=== PATIENT | female | born 1990 | race Two or more races ===

== ENCOUNTER 2020-08-18 10:56 | Outpatient (REF) | payer MEDICAID, SELFPAY | END 2020-08-18 10:57 | disposition home or self-care (01) | LOC: HO.LAB 10:56 | PROVIDERS: Visit Provider Internal Medicine | DX: Z20.822 Contact with and (suspected) exposure to COVID-19 (principal) | CPT/HCPCS: 36415; C9803; U0003 ==

== ENCOUNTER 2020-09-08 09:19 | Emergency (ER) | payer MEDICAID, SELFPAY ==
--- NOTE | ~2020-09-08 | CT_ITS ---
EXAMINATION: CT FACIAL BONES WITHOUT CONTRAST CLINICAL INFORMATION: Left jaw dislocation. Evaluate for fracture. COMPARISON: None TECHNIQUE: Axial images through the facial bones without contrast. Sagittal and coronal reconstructions on the technologist workstation were performed. This CT examination was performed using dose optimization techniques as appropriate, variously including the following: *Automated exposure control *Adjustment of mA and/or kV according to patient size (this includes techniques or standardized protocols for targeted exams where dose is matched to indication/reason for exam; i.e. extremities or head) *Use of iterative reconstruction technique DLP: 473 mGy-cm FINDINGS: There is anterior dislocation of the left mandibular condyle with respect to the temporal bone. No fracture is seen. The right temporomandibular joint is normal. The visualized paranasal sinuses are clear. Mastoid air cells and middle ears are clear. The visualized orbits are normal appearing. Visualized intracranial structures are normal. The salivary glands and thyroid gland are normal. No enlarged lymph nodes are seen. The cervical spine is normal appearing. CT/CT facial bones wo con IMPRESSION: Anterior dislocation of the left mandibular condyle with respect to the temporal bone. No fracture seen.
--- NOTE | ~2020-09-08 | XR_ITS ---
EXAMINATION: XR MANDIBLE CLINICAL INFORMATION: Left jaw dislocation post reduction COMPARISON: Facial bone CT from earlier the same day TECHNIQUE: 4 views of the mandible were obtained. FINDINGS: The temporomandibular joints are normal-appearing. No fracture or dislocation is seen. Paranasal sinuses are clear. Soft tissues are normal. XR/XR mandible min 4V IMPRESSION: Normal alignment of the temporomandibular joints. No fracture seen.
[2020-09-08 09:27] VITALS: BP 112/75; PULSE 93; RESP 16; TEMP 36.6; O2SAT 98; BMI 24.4
--- NOTE | 2020-09-08 09:43 | ED.GENADULT ---
HPI - General Adult General Chief complaint: General Medical Stated complaint: DENTAL PAIN Time Seen by Provider: 09/08/20 10:17 Source: patient Mode of arrival: ambulatory Limitations: no limitations History of Present Illness HPI narrative: Patient presents to ED for inability to move left side of jaw. Patient states she woke up with her jaw open. Patient denies having trauma yesterday. Patient states she had a seizure this past Sunday, but had no complications. Related Data Previous Rx's Medication Instructions Recorded naproxen 500 mg PO BID PRN #20 tab 09/08/20 Allergies Allergy/AdvReac Type Severity Reaction Status Date / Time No Known Drug Allergies Allergy Unknown U Unverified 04/15/20 16:28 Review of Systems Review of Systems: Yes all other systems are reviewed and are negative Constitutional: Constitutional: Reports as per HPI and Reports no additional constitutional complaints Eyes: Eyes: Reports as per HPI and Reports no additional eye complaints ENT: Reports system reviewed and no additional complaints, except as documented and Reports as per HPI Comments: Possible jaw dislocation Cardiovascular: Cardiovascular: Reports as per HPI and Reports no additional cardiovascular complaints Gastrointestinal: Gastrointestinal: Reports as per HPI and Reports no additional gastrointestinal complaints Musculoskeletal: Musculoskeletal: Reports no additional musculoskeletal complaints and Reports as per HPI Neurologic: Reports system reviewed and no additional complaints, except as documented and Reports as per HPI Psychiatric: Psychiatric: Reports no additional psychiatric complaints and Reports as per HPI [facility] Past Medical History Medical History (Updated 09/08/20 @ 12:33 by PARRIS Del Rio) Seizures Social History Social History Advance Directives: No Advance Directives Information Provided: No Physical Exam Vital Signs: Vital Signs: Last Vital Signs Temp 98.4 F 09/08/20 12:23 Pulse 56 09/08/20 12:23 Resp 14 09/08/20 12:23 BP 108/63 09/08/20 12:23 Pulse Ox 100 09/08/20 12:23 Body Mass Index 24.4 Const: General: cooperative, healthy appearing, comfortable and no acute distress Orientation/consciousness: patient oriented x3 HENMT: Other: Left jaw seems shifted to the right. Possible TMJ dislocation. Mouth is stuck open. Eyes: General: appearance normal, both eyes and all related structures Neck: Neck: Yes normal visual inspection, Yes full ROM, Yes no lymphadenopathy, Yes no meningeal signs, Yes trachea midline, Yes supple and No tender Chest: Chest palpation & inspection: normal inspection of the chest and normal palpation of entire chest wall Resp: Effort & Inspection: normal respiratory effort and able to speak in complete sentences Cardio: Jugular venous distension: no JVD Heart sounds: S1 normal heart sound present and S2 normal heart sound present GI: Inspection: Yes normal to inspection and No abdominal wall ecchymosis Palpation (GI): Soft to palpation, not firm, nontender and no guarding : General: No CVA tenderness and Yes no CVA tenderness Back/Spine/Pelvis: Back: no CVA tenderness, No CVA tenderness and No back tenderness Skin: General skin exam: no rashes or lesions noted and elasticity normal Neuro: General: patient oriented x3, no meningeal signs and CN's II-XI intact bilaterally Extrem: General: Yes normal to inspection and Yes full ROM Psych: Appearance: grossly normal, well kempt and not disheveled Course Course Course Narrative: Patient was be sent for facial CT to confirm TMJ dislocation Reevaluation(s) Reevaluation #1: CT scan shows left jaw dislocation. When staff is available will order fentanyl to do procedure of reduction Time: 11:00 Reevaluation #2: I went to the bedside to inform patient that staff is available and fentanyl was ordered for me to come in to the procedure after received medication. patient pulled down her facial mask and said she stated she reduced her jaw by herself and now she is able to open and close her jaw. Will send for repeat mandible x-ray Time: 11:49 Reevaluation #3: Mandible x-ray shows proper alignment of mandibles. Time: 12:[address] [facility] Narrative Medical decision making narrative: Mandible dislocation Discharge Plan Discharge Clinical Impression: Closed dislocation of mandible Patient Disposition: Home, Self-Care Instructions: Jaw Dislocation (ED) Additional Instructions: Return to the ED immediately for recurrence of dislocation, severe jaw pain, jaw swelling, headache, fever, chills, or any other concerning symptoms. Prescriptions: New naproxen 500 mg tablet 500 mg PO BID PRN (Reason: pain) Qty: 20 RF: 0 Referrals: [place],[facility] [Primary Care Provider] - 2 days (Jaw dislocation reduced. May need referral maxillary facial surgeon.) Interventions: ED Discharge Assessment Last Done: 09/08/20 12:58 Discharge Date/Time: 09/08/20 12:59 Print Language: Kenyan
[2020-09-08] MEDS: Ketorolac Tromethamine 30 MG/ML VIAL IVPUSH (11:59)
--- NOTE | 2020-09-08 12:01 | PC.NURSE ---
pt self relocated jaw per yessy capellan, xray to confirm to be performed, medicated with toradol
[2020-09-08 12:23] VITALS: BP 108/63; PULSE 56; RESP 14; TEMP 36.9; O2SAT 100
== END 2020-09-08 12:59 | disposition home or self-care (01) ==
PROVIDERS: Emergency Provider Emergency Medicine Emergency Medical Services
DX: S03.02XA Dislocation of jaw, left side, initial encounter (principal); X50.9XXA Other and unspecified overexertion or strenuous movements or postures, initial encounter; Y93.84 Activity, sleeping; Y92.013 Bedroom of single-family (private) house as the place of occurrence of the external cause; Y99.9 Unspecified external cause status
CPT/HCPCS: 70110; 70486; 96374; 96375; 99284; J1885

== ENCOUNTER 2020-11-11 11:02 | Outpatient (REF) | payer MEDICAID, SELFPAY ==
--- NOTE | ~2020-11-11 | MR_ITS ---
EXAMINATION: MR BRAIN WITHOUT AND WITH CONTRAST CLINICAL INFORMATION: Seizure. Evaluate for tuberous sclerosis. COMPARISON: MRI brain dated 12/13/2012 TECHNIQUE: Multiplanar, multisequence MRI of the brain was obtained before and after the intravenous administration of 6 mL of Gadavist. FINDINGS: Left hippocampal formation is asymmetrically smaller than the right, without appreciable alteration in signal intensity. Compensatory mild asymmetric prominence of the left temporal horn. Stable single focus of T2 prolongation within the left periatrial white matter. No additional areas of abnormal brain parenchymal signal intensity. No focal reduced diffusion is seen to suggest acute or subacute cerebral ischemia. No intracranial mass, intracerebral edema, intra-axial blood products, midline shift, or extra-axial collection is visualized. No pathologic enhancement is appreciated on postcontrast sequences. The ventricles and sulcal spaces appear normal. Normal arterial and venous vascular flow voids are present. Mild bilateral maxillary sinus mucosal thickening and thickening of the mucosa of the ethmoid air cells. 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 Stable single focus of T2 prolongation within the left periatrial white matter, nonspecific.
== END 2020-11-11 11:03 | disposition home or self-care (01) ==
LOC: HO.MRI 11:02
PROVIDERS: Visit Provider Psychiatry & Neurology Neurology
DX: R56.9 Unspecified convulsions (principal)
CPT/HCPCS: 70553; A9585

== ENCOUNTER 2021-03-02 08:43 | Emergency (ER) | payer MEDICAID, SELFPAY ==
[2021-03-02] VITALS (10 sets, daily range): BP systolic 97–116; BP diastolic 59–73; PULSE 50–77; RESP 12–18; TEMP 36.5–36.7; O2SAT 98–100; BMI 25.4
--- NOTE | ~2021-03-02 | XR_ITS ---
EXAMINATION: XR MANDIBLE CLINICAL INFORMATION: Left jaw pain. History dislocation left condylar head. COMPARISON: Radiographs mandible 09/08/2020, CT facial bones 09/08/2020 TECHNIQUE: 6 views of the mandible were obtained. FINDINGS: There is normal bony mineralization. No bony destructive process, periostitis, or fracture is demonstrated. The condylar heads appear within the mid fibula fossa. There is no erosive change or subchondral sclerosis. XR/XR mandible min 4V IMPRESSION: Unremarkable examination.
--- NOTE | ~2021-03-02 | CT_ITS ---
EXAMINATION: CT FACIAL BONES WITHOUT CONTRAST CLINICAL INFORMATION: Unable to close mouth since waking up from sleep. Symptoms on left. Prior history left TMJ dislocation. COMPARISON: Radiographs mandible 03/02/2021, 09/08/2020; CT facial bones 09/08/2020 TECHNIQUE: Axial CT of the mandible is performed without contrast. Additional 2-D coronal and sagittal reformatted images are generated on the CT workstation and uploaded to PACS. This CT examination was performed using dose optimization techniques as appropriate, variously including the following: *Automated exposure control *Adjustment of mA and/or kV according to patient size (this includes techniques or standardized protocols for targeted exams where dose is matched to indication/reason for exam; i.e. extremities or head) *Use of iterative reconstruction technique DLP: 417 mGy-cm FINDINGS: The left condylar head is anterior to the left mandibular articular eminence. The finding is similar to prior CT 09/08/2020 and may be considered a dislocation. The possibility of an intermittent dislocated TMJ meniscus should be considered. There is no fracture or destructive process. There are no TMJ erosive changes or subchondral sclerosis or geodes. The sinuses show no air-fluid levels. The craniocervical junction is normal. The odontoid appears intact. There is no presacral soft tissue swelling. Parapharyngeal spaces and other soft tissues are unremarkable. No adenopathy. Findings and management options are called and discussed with Brenna Chester PA-C in the Emergency Department at [address]/CT facial bones wo con IMPRESSION: The left condylar head is seen anterior to the left mandibular articular eminence similar to prior CT 09/08/2020. This may be considered a dislocation. No fracture. The possibility of intermittent dislocated TMJ meniscus should be considered.
--- NOTE | 2021-03-02 09:16 | ED.GENADULT ---
HPI - General Adult General Chief complaint: Dental/Oral <PARRIS Snow - Last Filed: 03/02/21 15:10> Stated complaint: dental pain/swelling <PARRIS Snow - Last Filed: 03/02/21 15:10> Time Seen by Provider: 03/02/21 09:06 <PARRIS Snow - Last Filed: 03/02/21 15:10> Source: patient <PARRIS Snow - Last Filed: 03/02/21 15:10> Mode of arrival: ambulatory <PARRIS Snow - Last Filed: 03/02/21 15:10> Limitations: no limitations <PARRIS Snow Last Filed: 03/02/21 15:10> History of Present Illness HPI narrative: 31 y/o female with history of seizures, history of left jaw dislocation in Aug 2020 s/p spontaneous reduction who presents to the ER with acute onset of left sided jaw pain when she woke up this morning. She reports not being able to close her mouth. She also has pain when trying to open her mouth. She does not recall when her last seizure was. She denies any dental pain. She reports difficulty swallowing and not being able to eat this morning. <PARRIS Snow - Last Filed: 03/02/21 15:10> MD complaint: left sided jaw pain <PARRIS Snow - Last Filed: 03/02/21 15:10> Onset (ago): hour(s) <PARRIS Snow Last Filed: 03/02/21 15:10> Location: face and mouth <PARRIS Snow - Last Filed: 03/02/21 15:10> Radiation: non-radiation <PARRIS Snow - Last Filed: 03/02/21 15:10> Severity: severe <PARRIS Snow - Last Filed: 03/02/21 15:10> Severity scale (1-10): 8 <PARRIS Snow Last Filed: 03/02/21 15:10> Quality: stabbing <PARRIS Snow Last Filed: 03/02/21 15:10> Pain Consistency: constant <PARRIS Snow - Last Filed: 03/02/21 15:10> Relieving factors: none <PARRIS Snow Last Filed: 03/02/21 15:10> Exacerbating factors: movement <PARRIS Snow Last Filed: 03/02/21 15:10> Associated symptoms: denies other symptoms <PARRIS Snow Last Filed: 03/02/21 15:10> Treatments prior to arrival: none <PARRIS Snow Last Filed: 03/02/21 15:10> Related Data Home medications: Previous Rx's Medication Instructions Recorded naproxen 500 mg tablet 500 mg PO BID PRN #20 tab 09/08/20 ibuprofen 600 mg tablet 600 mg PO Q8H PRN #20 tab 03/02/21 <PARRIS Snow Last Filed: 03/02/21 15:10> Allergies/adverse reactions: Allergies Allergy/AdvReac Type Severity Reaction Status Date / Time No Known Drug Allergies Allergy Unknown U Verified 03/02/21 08:45 <PARRIS Snow Last Filed: 03/02/21 15:10> Review of Systems Review of Systems: Constitutional: No Fever, No Chills ENT/Mouth: No sore throat, No Rhinorrhea, + Swallowing Difficulty, +facial pain Eyes: No Eye Pain, No Swelling, No Redness Cardiovascular: No Chest Pain, No SOB, No Orthopnea, No Edema Respiratory: No Cough, No Sputum, No Wheezing, No dyspnea Gastrointestinal: No Nausea, No Vomiting, No Diarrhea, No abdominal Pain Genitourinary: No Dysuria, No Urinary Frequency, No Hematuria Musculoskeletal: No joint pain, No Myalgias Skin: No Skin Lesions, No rash Neuro: No Weakness, No Numbness, No Dizziness, No Headache Psych: No Anxiety/Panic, No Depression Heme/Lymph: No Bruising, No Lymphadenopathy <PARRIS Snow Last Filed: 03/02/21 15:10> [facility] Past Medical History Attestation statement: The following information was validated with the patient. <PARRIS Snow Last Filed: 03/02/21 15:10> Medical History: Medical History Seizures <PARRIS Snow - Last Filed: 03/02/21 15:10> Social History Social History: Social History Advance Directives: Yes Advance Directives Information Provided: Yes Advance Directives on File: No Patient : No <PARRIS Snow - Last Filed: 03/02/21 15:10> Physical Exam Vital Signs: Vital Signs: Last Vital Signs Temp 98.0 F 03/02/21 08:59 Pulse 50 03/02/21 13:40 Resp 14 03/02/21 13:40 BP 102/63 03/02/21 13:40 Pulse Ox 98 03/02/21 13:40 Oxygen Flow Rate 100 03/02/21 13:30 Body Mass Index 25.4 <PARRIS Snow - Last Filed: 03/02/21 15:10> Vital Signs: Last Vital Signs Temp 98.0 F 03/02/21 08:59 Pulse 50 03/02/21 13:40 Resp 14 03/02/21 13:40 BP 102/63 03/02/21 13:40 Pulse Ox 98 03/02/21 13:40 Oxygen Flow Rate 100 03/02/21 13:30 Body Mass Index 25.4 <Dl Hitchcock MD - Last Filed: 03/02/21 14:09> Const: General: alert, awake and anxious <PARRIS Snow - Last Filed: 03/02/21 15:10> Nutritional Appearance: well nourished <PARRIS Snow - Last Filed: 03/02/21 15:10> Orientation/consciousness: patient oriented x3 <PARRIS Snow - Last Filed: 03/02/21 15:10> HENMT: Head: Yes normocephalic and Yes atraumatic <PARRIS Snow - Last Filed: 03/02/21 15:10> Ears: hearing grossly normal bilaterally and TM's normal bilaterally <PARRIS Snow - Last Filed: 03/02/21 15:10> General nose exam: Normal external nose present and Normal nares present <PARRIS Snow - Last Filed: 03/02/21 15:10> Face and sinus: No face symmetric (jaw deviation to the right) and Yes Facial tenderness on exam of face and sinuses (left upper mandibluar tenderness, unable to close mouth or open mouth fully) <PARRIS Snow Last Filed: 03/02/21 15:10> Mouth: Normal oral and palatal mucosa present, lip normal, tongue normal, oropharynx normal and moist mucous membranes <PARRIS Snow Last Filed: 03/02/21 15:10> Teeth and gingiva: abnormal tooth and associated gingiva upper left third molar Negative for nontender <PARRIS Snow Last Filed: 03/02/21 15:10> Throat: Yes posterior oropharynx normal, Yes tonsils normal and Yes uvula midline <PARRIS Snow Last Filed: 03/02/21 15:10> Eyes: General: appearance normal, both eyes and all related structures <PARRIS Snow Last Filed: 03/02/21 15:10> Neck: Neck: Yes normal visual inspection and Yes no lymphadenopathy <PARRIS Snow Last Filed: 03/02/21 15:10> Chest: Chest palpation & inspection: normal inspection of the chest <PARRIS Snow Last Filed: 03/02/21 15:10> Resp: Effort & Inspection: normal respiratory effort and able to speak in complete sentences <PARRIS Snow Last Filed: 03/02/21 15:10> Auscultation: clear to auscultation bilaterally <PARRIS Snow Last Filed: 03/02/21 15:10> Cardio: Rate: regular rate <PARRIS Snow Last Filed: 03/02/21 15:10> Rhythm: regular rhythm <PARRIS Snow Last Filed: 03/02/21 15:10> GI: Inspection: Yes normal to inspection <PARRIS Snow Last Filed: 03/02/21 15:10> Palpation (GI): Soft to palpation and nontender <PARRIS Snow Last Filed: 03/02/21 15:10> Skin: General skin exam: no rashes or lesions noted <PARRIS Snow Last Filed: 03/02/21 15:10> Neuro: General: patient oriented x3 and moves all extremities <PARRIS Snow - Last Filed: 03/02/21 15:10> Speech: Other speech findings present (Neuro) (slurred speech due to jaw pain and limited movement) <PARRIS Snow - Last Filed: 03/02/21 15:10> Course Course Course Narrative: 31 y/o female presenting with left facial and jaw pain since waking up this morning. Bite zhu on inside of right cheek noted, ?seizure overnight with likely recurrence of mandibular dislocation. Will get mandible XR now. IV fentanyl ordered for pain. ?dystonia, IV benadryl ordered as well. Will reassess and monitor closely. <PARRIS Snow - Last Filed: 03/02/21 15:10> Reevaluation(s) Reevaluation #1: CT reading The left condylar head is seen anterior to the left mandibular articular eminence similar to prior CT 09/08/2020. This may be considered a dislocation. No fracture. The possibility of intermittent dislocated TMJ meniscus should be considered. Will consciously sedate with low dose propofol and attempt reduction. Patient consent obtained, risks and benefits discussed. <PARRIS Snow - Last Filed: 03/02/21 15:10> Reevaluation #2: Mandibular reduction performed at the bedside with Dr. Hitchcock after 25 mg propofol. Patient tolerated procedure well. Will continue to monitor on heart monitor with capnography, placed on supplemental O2 as precaution, 100% SpO2. Spoke with MD puente at Dr. Babb's office in [place] ([facility]) where she has been seen in the past. Per request will fax over records for referral given this is the 2nd occurrence and there is concern for TMJ meniscus abnormality that will require [facility] f/u. They accept her health insurance. <PARRIS Snow - Last Filed: 03/02/21 15:10> Reevaluation #3: Multiple evaluation with manipulation by me, eventually decided to attempt more sedation and reduction after CT. Mandible easily reduced <Dl Hitchocck MD - Last Filed: 03/02/21 14:09> Time: 14:09 <Dl Hitchcock MD - Last Filed: 03/02/21 14:09> Additional Reevaluation(s): Patient is stable for discharge with plan for outpatient follow up with [facility]. She feels much better. Hemodynamically stable and recovered from sedating medications. Counseled on management and recs moving forward, patient expressed understanding. <PARRIS Snow - Last Filed: 03/02/21 15:10> Procedures Jaw Reduction Time Out Performed: Yes <PARRIS Snow - Last Filed: 03/02/21 15:10> Pre-Treatment Medications Used: opioids and other (propofol) <PARRIS Snow - Last Filed: 03/02/21 15:10> Technique used: downward anterior traction <PARRIS Snow - Last Filed: 03/02/21 15:10> Reduction successful: Yes <PARRIS Snow - Last Filed: 03/02/21 15:10> Patient Tolerated Procedure: well <PARRIS Snow - Last Filed: 03/02/21 15:10> Complications: none <PARRIS Snow - Last Filed: 03/02/21 15:10> Discharge Plan Discharge Clinical Impression: Closed dislocation of mandible Qualifiers: Encounter type: initial encounter Qualified Code(s): S03.00XA - Dislocation of jaw, unspecified side, initial encounter <PARRIS Snow - Last Filed: 03/02/21 15:10> Patient Disposition: Home, Self-Care <PARRIS Snow - Last Filed: 03/02/21 15:10> Instructions: Jaw Dislocation (ED) <PARRIS Snow - Last Filed: 03/02/21 15:10> Additional Instructions: Follow up with Dr. Camp and Dr. Marinelli in [place] [facility] office. Call Take the prescribed anti-inflammatory medication as needed for pain and swelling. Stick to a very soft diet, preferrably liquid diet and drinking with a straw only. Do not open your mouth wide for the next few days as this can increase the risk of recurrent jaw dislocation. If you develop new or worsening symptoms call 911 or come back to the ER for further evaluation. <PARRIS Snow - Last Filed: 03/02/21 15:10> Prescriptions: New ibuprofen 600 mg tablet 600 mg PO Q8H PRN (Reason: pain) Qty: 20 RF: 0 No Action naproxen 500 mg tablet 500 mg PO BID PRN (Reason: pain) Qty: 20 RF: 0 <PARRIS Snow - Last Filed: 03/02/21 15:10>
[2021-03-02] MEDS: fentaNYL citrate/PF 100 MCG/2 ML VIAL 50 MCG IVPUSH (10:05)
[2021-03-02] MEDS: diphenhydrAMINE HCL 50 MG/ML VIAL IVPUSH (10:05)
--- NOTE | 2021-03-02 10:15 | PC.NURSE ---
IV placed t right AC. Pt given IV Benedryl and Fentanyl. She had reported 10/10 pain. She is now sleeping with stable VS. RR: 15. Pt placed on capnography for closer monitoring.
--- NOTE | 2021-03-02 11:46 | PC.NURSE ---
Pt remains sleeping at this time. VSS.
[2021-03-02] MEDS: Ketorolac Tromethamine 15 MG/ML VIAL 30 MG IVPUSH (12:17)
--- NOTE | 2021-03-02 13:20 | PC.NURSE ---
25mg of propofol given for jaw reduction. Pt is just now begiing to wake up. Propofol given at 1313. VS remained stable and continue to remain stable post procedure. Jaw appears to be well aligned post-procedure. Physician present for the IVP propofol.
--- NOTE | 2021-03-02 14:42 | PC.NURSE ---
Pt's aldrette score back to baseline. Awaiting disposition at this time
== END 2021-03-02 15:22 | disposition home or self-care (01) ==
PROVIDERS: Emergency Provider Emergency Medicine
DX: K08.89 Other specified disorders of teeth and supporting structures (principal); S03.02XA Dislocation of jaw, left side, initial encounter; X58.XXXA Exposure to other specified factors, initial encounter; Y93.9 Activity, unspecified; Y92.9 Unspecified place or not applicable; Y99.9 Unspecified external cause status
CPT/HCPCS: 21480; 70110; 70486; 96374; 96375; 99152; 99284; 99285; J1200; J1885; J3010

== ENCOUNTER 2021-09-29 12:36 | Outpatient (REF) | payer MEDICAID, SELFPAY ==
--- NOTE | 2021-09-29 12:42 | EEG_ITS ---
The waking background activity consists of a well-defined symmetrical posterior moderate voltage 10 hertz alpha frequency, intermixed anteriorly with low-voltage fast frequencies in eye blink artifacts. Drowsiness is characterized by diffuse theta slowing. Symmetrical sleep stages 1 through 3 are noted with sleep spindles and vertex sharp transients. Several episodes of left temporal slowing as well as sharp and slow complexes, and brief episodes of rhythmic 1 hertz sharp and slow discharges seen from the left T3 region. There is mild spread to both sides. The patient remains asymptomatic. IMPRESSION: This 24-hour electroencephalogram is considered abnormal due to a left temporal seizure focus at T3 in the mid temporal region consistent with a focal seizure disorder. MD LEX Reyes/ALESSIO / [id number]
== END 2021-09-29 12:37 | disposition home or self-care (01) ==
LOC: HO.NEURO 12:36
PROVIDERS: Visit Provider Psychiatry & Neurology Neurology
DX: R56.9 Unspecified convulsions (principal)
CPT/HCPCS: 95708; 95957

== ENCOUNTER 2021-11-23 14:20 | Emergency (ER) | payer MEDICAID, SELFPAY ==
--- NOTE | ~2021-11-23 | CT_ITS ---
EXAMINATION: CT HEAD WITHOUT CONTRAST CLINICAL INFORMATION: Seizure, injury, vomiting COMPARISON: None TECHNIQUE: Contiguous axial imaging was performed from the skull base to vertex without intravenous administration of contrast. This CT examination was performed using dose optimization techniques as appropriate, variously including the following: *Automated exposure control *Adjustment of mA and/or kV according to patient size (this includes techniques or standardized protocols for targeted exams where dose is matched to indication/reason for exam; i.e. extremities or head) *Use of iterative reconstruction technique DLP: 746 mGy-cm FINDINGS: There is no evidence of acute intracranial hemorrhage or territorial infarction. No abnormal mass effect or midline shift is seen. Portillo to white matter differentiation is well preserved. No extra-axial fluid collections are identified. The ventricles are normal in size. There is no abnormal attenuation within the brain parenchyma. The osseous structures and soft tissues are normal. The mastoid air cells and visualized portions of the paranasal sinuses are well aerated. CT/CT head/brain wo con IMPRESSION: No CT evidence of acute intracranial pathology.
--- NOTE | ~2021-11-23 | XR_ITS ---
EXAMINATION: XR SHOULDER, RIGHT CLINICAL INFORMATION: Pain, fell. COMPARISON: No similar priors. TECHNIQUE: Four views of the right shoulder. FINDINGS: The bones and soft tissues are normal. No fracture. Glenohumeral and acromioclavicular alignment is anatomic with normal joint space. No abnormal soft tissue calcifications. XR/XR shoulder RT min 2V IMPRESSION: Normal right shoulder.
--- NOTE | ~2021-11-23 | XR_ITS ---
EXAMINATION: XR KNEE, RIGHT CLINICAL INFORMATION: Right knee pain. COMPARISON: None. TECHNIQUE: Four views of the right knee. FINDINGS: No acute fractures or malalignment. No significant degenerative changes. Normal soft tissues. No joint effusion. XR/XR knee RT 4V IMPRESSION: Normal radiographic examination of the right knee.
[2021-11-23 14:24] VITALS: BP 123/72; PULSE 93; RESP 18; TEMP 36.7; O2SAT 99; BMI 25.4
[2021-11-23 14:37] LABS: MANUAL DIFF FLAG NO
[2021-11-23 14:47] LABS: Basophils Percent Auto 0.5 % (0-2); Eosinophils Absolute Auto 0.2 X10*3/uL (0.0-0.4); Eosinophils Percent Auto 2.3 % (0-4); Hematocrit 35.9 % (37.0-47.0); Hemoglobin 12.2 g/dl (12.0-16.0); Imm Gran Abs Auto 0.03 X10*3/uL (0.00-0.03); Imm Gran Pct Auto 0.4 % (0.0-0.4); Mean Corpuscular Hemoglobin 29.8 pg (27.0-33.0); Mean Corpuscular Volume 87.6 fL (80.0-98.0); Mean Platelet Volume 9.6 fL (9.4-12.3); Monocytes Absolute Auto 0.8 X10*3/uL (0.1-1.2); Monocytes Percent Auto 9.8 % (2-11); Neutrophils Absolute Auto 4.9 x10*3/uL (2.0-8.3); Platelet Count 237 X10*3/uL (160-400); Red Cell Distribution Width 14.4 % (11.0-16.0); White Blood Count 7.9 X10*3/uL (4.8-10.8)
[2021-11-23 14:50] LABS: Anion Gap 12 (12-20); Blood Urea Nitrogen 8 mg/dL (9-16); Calcium 9.5 mg/dL (8.4-10.2); Carbon Dioxide 26 mmol/L (22-29); Chloride 104 mmol/L (96-108); Creatinine Clr Calc Pharmacy 96.8; Estimated Glomerular Filt Rate > 60; Glucose Random 96 mg/dL (60-115); Potassium 4.2 mmol/L (3.3-5.1); Sodium 138 mmol/L (135-145)
--- NOTE | 2021-11-23 15:35 | ED_ITS ---
HPI - Seizure General Chief Complaint: Seizure Stated Complaint: Seizure? Time Seen by Provider: 11/23/21 15:27 Source: patient Mode of arrival: ambulatory Limitations: no limitations History of Present Illness HPI Narrative: 31 y/o female with history of seizures on keppra followed by Dr. Davis who presents to the ER with nausea, vomiting, and headache after she had a witnessed seizure at 1am while she was cleaning a fishtank with a friend. She reports falling onto her right side and having a seizure, she did not feel well beforehand. She said her friend said she was confused afterward but she refused to come to the hospital. She woke up today with right sided body pain and vomiting so she came to the ER for evaluation. She reports abrasions and bruising to the right side of her head, ear, right shoulder and knee. She has been compliant with her 1500 mg keppra BID. Last seizure prior to this was 5 day s ago but she thinks it was an abscence seizure. She follows here with Dr. Davis. MD complaint: seizure Onset (ago): day(s) (1) Description of Episode: loss of consciousness, tonic-clonic movement and post- event confusion Witnessed: Yes - by Bystander Trauma: Yes Seizure History: Yes Place: Outdoors Possible Precipitating Event: lack of sleep and stress Associated symptoms: other (vomiting) Treatments prior to arrival: none Related Data Previous Rx's Medication Instructions Recorded naproxen 500 mg tablet 500 mg PO BID PRN #20 tab 09/08/20 ibuprofen 600 mg tablet 600 mg PO Q8H PRN #20 tab 03/02/21 Allergies Allergy/AdvReac Type Severity Reaction Status Date / Time No Known Drug Allergies Allergy Unknown U Verified 09/02/21 08:58 Review of Systems Review of Systems: Constitutional: No Fever, No Chills ENT/Mouth: No sore throat, No Rhinorrhea, No Swallowing Difficulty Cardiovascular: No Chest Pain, No SOB Respiratory: No Cough, No Sputum, No Wheezing, No dyspnea Gastrointestinal: + Nausea, + Vomiting, No Diarrhea, No abdominal Pain Genitourinary: No Dysuria, No Urinary Frequency, No Hematuria Musculoskeletal: + joint pain, + Myalgias Skin: + Skin Lesions, No rash Neuro: No Weakness, No Numbness, No Dizziness, + Headache Psych: No Anxiety/Panic, No Depression Heme/Lymph: + Bruising, No Lymphadenopathy Endocrine: No Polyuria, No Polydipsia [facility] Past Medical History Medical History Seizures Social History Social History (System 09/02/21 @ 08:58 by Priscilla Leslie) Advance Directives: No Advance Directives Information Provided: No Physical Exam Vital Signs: Vital Signs: Last Vital Signs Temp 98.0 F 11/23/21 14:24 Pulse 93 11/23/21 14:24 Resp 18 11/23/21 14:24 BP 123/72 11/23/21 14:24 Pulse Ox 99 11/23/21 14:24 BMI result Body Mass Index 25.4 Appearance: Alert. Oriented X3. Dry heaving. Head: abrasion to right parietal area with surrounding swelling and tenderness. Eyes: Pupils equal, round and reactive to light. EOMI ENT: Pharynx normal. Right external ear with multiple abrasions, TM intact. Neck: Normal inspection. Neck supple. No midline tenderness. CVS: Normal heart rate and rhythm. Pulses normal. Respiratory: No respiratory distress. Breath sounds normal. Abdomen: Soft and nontender. +BS x4 Skin: Skin warm and dry. Normal skin color. Normal skin turgor. No rashes. Extremities: right lateral shoulder with small ecchymotic area, tender throughout with pain upon abduction 90 degrees. normal right elbow. right knee with superficial abrasions and ecchymosis, pain with flexion past 90 degrees. Neuro: Oriented X 3. No motor deficit. No sensory deficit. Course Course Course Narrative: 31 y/o female with history of seizures on keppra 1500 bid who presents to the ER with N/V, headache and right shoulder and knee pain s/p witnessed seizure last night 1 am. She is nauseated and dry heaving on arrival. Multiple abrasions and bruises to right side of her body. She reports medication compliance, denies any infectious symptoms, admits to increased stress and lack of sleep. Given head trauma will get CT head for further evaluation to r/o [facility]. Reevaluation(s) Reevaluation #1: XR shoulder and knee are normal. IVF and zofran ordered. Labs unremarkable, CPK only 174. CT head still pending. Will sign out to night provider who will follow up results and determine dispo. MDM - Seizure Lab Data Result diagrams: 11/23/21 14:33 11/23/21 14:33 Labs: Lab Results 11/23/21 11/23/21 Range/Units 14:33 14:33 WBC 7.9 (4.8-10.8) X10*3/uL RBC 4.10 L (4.20-5.50) X10*6/uL Hgb 12.2 (12.0-16.0) g/dl Hct 35.9 L (37.0-47.0) % MCV 87.6 (80.0-98.0) fL MCH 29.8 (27.0-33.0) pg MCHC 34.0 (31.0-35.0) g/dl RDW 14.4 (11.0-16.0) % Plt Count 237 (160-400) X10*3/uL MPV 9.6 (9.4-12.3) fL Immature Gran % (Auto) 0.4 (0.0-0.4) % Neut % (Auto) 62.0 (45-73) % Lymph % (Auto) 25.0 (20-40) % [place] % (Auto) 9.8 (2-11) % Eos % (Auto) 2.3 (0-4) % Baso % (Auto) 0.5 (0-2) % Lymph # (Auto) 2.0 (1.2-4.9) X10*3/uL [place] # (Auto) 0.8 (0.1-1.2) X10*3/uL Eos # (Auto) 0.2 (0.0-0.4) X10*3/uL Baso # (Auto) 0.0 (0.0-0.2) X10*3/uL Abs Immat Gran (auto) 0.03 (0.00-0.03) X10*3/uL Absolute Neuts (auto) 4.9 (2.0-8.3) x10*3/uL Absolute Nucleated RBC 0.000 (0.0-0.012) X10*3/uL Nucleated RBC % (auto) 0.0 (0.0-0.2) /100WBC Sodium 138 (135-145) mmol/L Potassium 4.2 (3.3-5.1) mmol/L Chloride 104 (96-108) mmol/L Carbon Dioxide 26 (22-29) mmol/L Anion Gap 12 (12-20) BUN 8 L (9-16) mg/dL Creatinine 0.67 (0.5-1.4) mg/dL Estim Creat Clear Calc 96.8 Estimated GFR > 60 Random Glucose 96 (60-115) mg/dL Calcium 9.5 (8.4-10.2) mg/dL Total Creatine Kinase 174 H (26-140) U/L Discharge Plan Discharge Clinical Impression: Generalized seizure, Abrasion, Acute shoulder pain Patient Disposition: Still a Patient Instructions: Recurrent Seizures in Adults (ED) Additional Instructions: Follow up with your Neurologist as soon as possible You labs and x-rays today were normal Prescriptions: No Action naproxen 500 mg tablet 500 mg PO BID PRN (Reason: pain) Qty: 20 0RF ibuprofen 600 mg tablet 600 mg PO Q8H PRN (Reason: pain) Qty: 20 0RF Referrals: Lake Davis MD [Physician] - (ongoing seizures on keppra )
[2021-11-23] MEDS: 0.9 % Sodium Chloride 1,000 ML 999 ML IVCONT (17:08)
[2021-11-23] MEDS: ondansetron HCL 4 MG/2 ML VIAL IVPUSH (17:08)
[2021-11-23 17:43] VITALS: BP 96/61; PULSE 55; RESP 18; TEMP 36.6; O2SAT 100
[2021-11-23 20:28] VITALS: BP 101/62; PULSE 62; RESP 16; O2SAT 98
== END 2021-11-23 20:29 | disposition home or self-care (01) ==
PROVIDERS: Physician Assistant; Emergency Provider Emergency Medicine
DX: G40.89 Other seizures (principal); M25.511 Pain in right shoulder; S80.211A Abrasion, right knee, initial encounter; Z79.899 Other long term (current) drug therapy; X58.XXXA Exposure to other specified factors, initial encounter; Y93.9 Activity, unspecified; Y92.9 Unspecified place or not applicable; Y99.9 Unspecified external cause status
CPT/HCPCS: 36415; 70450; 73030; 73564; 80048; 82550; 85025; 96361; 96374; 99284; J2405

== ENCOUNTER 2022-03-06 10:53 | Outpatient (REF) | payer MEDICAID, SELFPAY ==
[2022-03-06 12:41] LABS: Valproate 33.8 mcg/mL (50.0-100.0)
[2022-03-09 06:33] LABS: Levetiracetam Keppra 51.2 mcg/mL (6.0-46.0)
== END 2022-03-06 10:54 | disposition home or self-care (01) ==
LOC: HO.LAB 10:53
PROVIDERS: Visit Provider Psychiatry & Neurology Neurology
DX: R56.9 Unspecified convulsions (principal); Z79.899 Other long term (current) drug therapy
CPT/HCPCS: 36415; 80164; 80177

== ENCOUNTER 2022-10-11 13:51 | Outpatient (REF) | payer MEDICAID, SELFPAY ==
--- NOTE | ~2022-10-11 | US_ITS ---
EXAMINATION: US PELVIS CLINICAL INFORMATION: Abnormal uterine bleeding. COMPARISON: Pelvic ultrasound 02/04/2008 TECHNIQUE: Ultrasound of the pelvis is performed using both transabdominal and transvaginal transducers along with Doppler. Transvaginal imaging is performed due to inadequate visualization transabdominally. FINDINGS: UTERUS: The uterus is anteverted and measures 8.0 x 4.7 x 5.5 cm. A scar is present. The double wall endometrial thickness is 10 mm but is slightly irregular with cystic and solid components with possible uterine polyps. The uterine contour is smooth and the myometrium has normal myometrial echogenicity. No visible fibroid. ADNEXA: Both ovaries are visualized. There is normal color flow to the adnexa. There is no ovarian torsion. There is no pelvic ascites or fluid collection. Right ovary measures 4.1 x 3.0 x 2.8 cm for a volume of 18 mL which includes a 2.5 x 1.9 x 2.1 cm cyst. Left ovary measures 4.2 x 2.7 x 2.3 cm for a volume of 13.7 mL. US/US pelvic and transvaginal IMPRESSION: 1. The endometrium is abnormal with cystic and solid components and possible uterine polyps. Further evaluation with hysterosonography or hysteroscopy may be of value. 2. Benign-appearing right ovarian cyst needs no further follow-up.
== END 2022-10-11 13:52 | disposition home or self-care (01) ==
LOC: HO.US 13:51
PROVIDERS: Visit Provider Family Medicine
DX: N93.9 Abnormal uterine and vaginal bleeding, unspecified (principal)
CPT/HCPCS: 76830; 76856

== ENCOUNTER 2022-12-04 13:32 | Outpatient (REF) | payer MEDICAID, SELFPAY ==
[2022-12-04 14:56] LABS: Valproate 75.2 mcg/mL (50.0-100.0)
[2022-12-09 20:44] LABS: Levetiracetam Keppra 35.6 mcg/mL (6.0-46.0)
== END 2022-12-04 13:33 | disposition home or self-care (01) ==
LOC: HO.LAB 13:32
PROVIDERS: Visit Provider Psychiatry & Neurology Neurology
DX: R56.9 Unspecified convulsions (principal)
CPT/HCPCS: 36415; 80164; 80177

== ENCOUNTER 2022-12-06 13:00 | Outpatient (REF) | payer MEDICAID, SELFPAY ==
[2022-12-06 14:58] LABS: Hematocrit 38.2 % (37.0-47.0); Mean Corpuscular Hemoglobin 30.4 pg (27.0-33.0); Mean Corpuscular Volume 89.3 fL (80.0-98.0); Mean Platelet Volume 10.3 fL (9.4-12.3); Platelet Count 224 X10*3/uL (160-400); Red Blood Count 4.28 X10*6/uL (4.20-5.50); Red Cell Distribution Width 13.2 % (11.0-16.0); White Blood Count 11.4 X10*3/uL (4.8-10.8)
[2022-12-06 16:36] LABS: HCG Quantitative < 2 mIU/mL; TSH reflex Free T4 1.45 uIU/mL (0.32-4.0)
[2022-12-06 18:27] LABS: CT PCR NOT DETECTED (Not Detect.); NG PCR NOT DETECTED (Not Detect.)
[2022-12-08 05:25] LABS: Prolactin 3.2 ng/mL
== END 2022-12-06 13:01 | disposition home or self-care (01) ==
LOC: HO.LAB 13:00
PROVIDERS: PCP Nurse Practitioner Family; Visit Provider Obstetrics & Gynecology
DX: N93.9 Abnormal uterine and vaginal bleeding, unspecified (principal)
CPT/HCPCS: 0353U; 81025; 84146; 84443; 84702; 85027; 99202

== ENCOUNTER 2022-12-06 14:22 | Outpatient (REF) | payer MEDICAID, SELFPAY | END 2022-12-06 14:23 | disposition home or self-care (01) | LOC: HO.LNP 14:22 | PROVIDERS: Visit Provider Obstetrics & Gynecology | DX: Z13.89 Encounter for screening for other disorder (principal) ==

== ENCOUNTER 2022-12-29 05:47 | Day surgery (SDC) | payer MEDICAID, SELFPAY ==
--- NOTE | 2022-12-28 08:54 | HO.ANESPROP2 ---
Documented by User: Nohemi Sandoval NP 12/28/22 08:54 HPI - Anesthesia Eval Consult details Narrative: 32yo F for D&C Hysteroscopy, Poss Myomectomy/Polypectomy PMFSH Active Problems Active Problems: All Active Problems (Updated 12/26/22 @ 16:51 by Roberta Diamond, RN) Abnormal uterine bleeding (Acute) Past Medical History Medical History (Updated 12/29/22 @ 06:33 by Cecy Charles RN) Absence seizure Epilepsy Hx of meningitis Seizures Surgical History Surgical History (Updated 12/26/22 @ 16:51 by Roberta Diamond, SUGAR) Hx of section Hx of tubal ligation Social History Social History Patient Tobacco Use Status: Current everyday Tobacco user Tobacco use type: Cigarette Cigarettes Per Day: 3 Use of substances other than those prescribed or required for medical reasons: No Are you DNR?: No Advance Directives: No Advance Directives Information Provided: Yes Meds Allergies Allergy/AdvReac Type Severity Reaction Status Date / Time No Known Drug Allergies Allergy Unknown U Verified 12/06/22 13:48 Home Medications Medication Instructions Recorded Confirmed Last Taken Type divalproex 500 mg tablet,delayed 500 mg PO BID 12/06/22 12/29/22 07:19 History release levetiracetam 500 mg tablet 1,500 mg PO Q12H 12/06/22 12/26/22 12/29/22 07:19 History hydroxyzine HCl 50 mg tablet 50 mg PO BEDTIME 12/26/22 12/26/22 Unknown History Exam Exam Date and Time: December 28, 2022 0854 Assessment and Plan Assessment Anesthesia Assessment: Chart Reviewed Documented by User: Debbie Frazier MD 12/29/22 07:25 PMFSH Past Medical History Medical History (Updated 12/29/22 @ 06:33 by Cecy Charles RN) Absence seizure Epilepsy Hx of meningitis Seizures Family History Family history of problems with anesthesia: No Surgical History Surgical History (Updated 12/26/22 @ 16:51 by Roberta Diamond RN) Hx of section Hx of tubal ligation History of Problems with Anesthesia: No Social History Social History Patient Tobacco Use Status: Current everyday Tobacco user Tobacco use type: Cigarette Cigarettes Per Day: 3 Use of substances other than those prescribed or required for medical reasons: No Are you DNR?: No Advance Directives: No Advance Directives Information Provided: Yes Meds Allergies Allergy/AdvReac Type Severity Reaction Status Date / Time No Known Drug Allergies Allergy Unknown U Verified 12/06/22 13:48 Home Medications Medication Instructions Recorded Confirmed Last Taken Type divalproex 500 mg tablet,delayed 500 mg PO BID 12/06/22 12/29/22 07:19 History release levetiracetam 500 mg tablet 1,500 mg PO Q12H 12/06/22 12/26/22 12/29/22 07:19 History hydroxyzine HCl 50 mg tablet 50 mg PO BEDTIME 12/26/22 12/26/22 Unknown History Exam Airway Mallampati Class: II TM Dist: >3cm Neck ROM: Full Assessment and Plan Assessment Anesthesia Assessment: Anesthesia Plan Discussed Final Anesthetic Review Family History of Problems with Anesthesia: No History of Problems with Anesthesia: No NPO: Yes ASA Class: II Final Preanesthetic Review: No Changes in Pt Med Stat, Meds/Allgs Chart Reviewed, Consent Obtained/Reviewed and Anes Risks/Benef Reviewed Patient Risk: Low Procedure Risk: Low Anesthetic Plan Anesthetic Plan: GA Disposition: Standard PACU
[2022-12-29] VITALS (12 sets, daily range): BP systolic 103–121; BP diastolic 53–77; PULSE 56–82; RESP 16–18; TEMP 36.1–36.8; O2SAT 96–100; BMI 31.6
[2022-12-29 06:42] LABS: UPreg QC Valid YES; Urine Pregnancy NEGATIVE (NEGATIVE)
[2022-12-29] MEDS: Lactated Ringers 1,000 ML 100 ML IVCONT (06:47)
--- NOTE | 2022-12-29 07:32 | MHC.SHP ---
Pre-Procedural Eval Section A Date of Service: 12/29/22 The patient is an INPATIENT: No Changes since office visit: No Cold of Flu in the past 2 weeks, No New Medical Problems, No Changes in Medication and No Patient answered all questions The History & Physical has been completed within 30 days and I have reviewed it.: Yes Section B Chief Complaint: Abnormal uterine and vaginal bleeding, unspecified Allergies: Allergies Allergy/AdvReac Type Severity Reaction Status Date / Time No Known Drug Allergies Allergy Unknown U Verified 12/06/22 13:48 Plan Diagnosis/Plan: Unchanged I have reviewed the history and physical and performed a pertinent physical examination on my patient. No changes have occurred unless specified. Time Spent With Patient Time: Total time managing care of this patient today ____ minutes.
--- NOTE | 2022-12-29 07:44 | HO.ANESPROP2 ---
[facility] Active Problems Active Problems: All Active Problems (Updated 12/29/22 @ 06:33 by Cecy Charles RN) Abnormal uterine bleeding (Acute) Past Medical History Medical History (Updated 12/29/22 @ 06:33 by Cecy Charles RN) Absence seizure Epilepsy Hx of meningitis Seizures Family History Family history of problems with anesthesia: No Surgical History Surgical History (Updated 12/26/22 @ 16:51 by Roberat Diamond RN) Hx of section Hx of tubal ligation History of Problems with Anesthesia: No Social History Social History Patient Tobacco Use Status: Current everyday Tobacco user Tobacco use type: Cigarette Cigarettes Per Day: 3 Use of substances other than those prescribed or required for medical reasons: No Are you DNR?: No Advance Directives: No Advance Directives Information Provided: Yes Meds Allergies Allergy/AdvReac Type Severity Reaction Status Date / Time No Known Drug Allergies Allergy Unknown U Verified 12/06/22 13:48 Active Medications: Current Medications Lactated Ringer's (Lr) 1,000 mls @ 100 mls/hr IVCONT .Q10H JESSICA Last Admin: 12/29/22 06:47 Dose: 100 mls/hr Home Medications Medication Instructions Recorded Confirmed Last Taken Type divalproex 500 mg tablet,delayed 500 mg PO BID 12/06/22 12/29/22 07:19 History release levetiracetam 500 mg tablet 1,500 mg PO Q12H 12/06/22 12/26/22 12/29/22 07:19 History hydroxyzine HCl 50 mg tablet 50 mg PO BEDTIME 12/26/22 12/26/22 Unknown History Exam Exam Date and Time: December 29, 2022 0744 Height,Weight and Vital Signs: Height 5 ft Weight 73.482 kg Last Vital Signs Temp 97.5 F 12/29/22 06:39 Pulse 82 12/29/22 06:39 Resp 16 12/29/22 06:39 BP 112/62 12/29/22 06:39 Pulse Ox 98 12/29/22 06:39 O2 Del Method Room Air 12/29/22 06:39 Pertinent Lab Results Pertinent Lab Results: Laboratory Tests 12/29/22 06:18 Urine Test NEGATIVE Airway Mallampati Class: III TM Dist: >3cm Assessment and Plan Assessment Anesthesia Assessment: Anesthesia Plan Discussed and Chart Reviewed Final Anesthetic Review Family History of Problems with Anesthesia: No History of Problems with Anesthesia: No NPO: Yes
--- NOTE | 2022-12-29 07:59 | P.BOP_ITS ---
Brief Operative Note Date of Service: 12/29/22 Pre-op diagnosis: Abnormal uterine bleeding, abnormal endometrium by ultrasound, possible polyp Post-op diagnosis: same (Normal endometrial cavity with no evidence of pathology) Procedure: Hysteroscopy D&C Surgeon: Contreras Yee MD Anesthesia: GLMA Was an Folder Operator used for this Procedure?: No Estimated blood loss (mL): 0 Pathology: other (Endometrial Scrapping. ) Condition: stable Disposition: PACU
--- NOTE | 2022-12-29 08:00 | P.OP_ITS ---
Operative Note Operative Note Date of Service: 12/29/22 Narrative: Preop Diagnosis: Abnormal uterine bleeding, abnormal thickened endometrium by ultrasound possible polyp Operation: Diagnostic Hysteroscopy, Dilataion & Curettage Post Op Diagnosis: Normal endometrial and endocervical cavity, no evidence of pathology QBL: Minimal Anesthesia: GLMA Surgeon: Contreras Yee MD Metal Engineering Process Worker: None Complication: None Pathology: Endometrial Scrapings Procedure: The patient was put in the dorsal lithotomy position, scrubbed, and draped in the usual manner. A sterile speculum was inserted in the patient's vagina. The anterior lip of the cervix was grasped with a single tooth tenaculum. The cervix was dilated up to 5 mm, then the scope was inserted in the patient's uterus. Inspection revealed normal endocervical & endometrial cavity with no evidence of pathology. The scope was taken out of the uterine cavity , then sharp curetting was carried on with no complications. At the end of the procedure, all instruments were taken out of the patient uterine and vaginal cavity. The single tooth tenaculum was removed and homeostasis was assured using pressure. The patient tolerated the procedure well and was transferred to the PACU in a stable condition.
[2022-12-29] MEDS: fentaNYL citrate/PF 100 MCG/2 ML VIAL 25 MCG IVPUSH (09:28)
[2022-12-29] MEDS: Acetaminophen 1,000 MG/100 ML PIGGYBACK 400 MG IV (09:29)
== END 2022-12-29 10:35 | disposition home or self-care (01) ==
PROVIDERS: PCP Nurse Practitioner Family; Visit Provider Obstetrics & Gynecology
PROC: 0UDB8ZZ Extraction of Endometrium, Via Natural or Artificial Opening Endoscopic (ICD-10-PCS; CPT 58558; principal; 2022-12-29 07:30)
DX: N93.9 Abnormal uterine and vaginal bleeding, unspecified (principal); R56.9 Unspecified convulsions; Z98.51 Tubal ligation status; Z79.899 Other long term (current) drug therapy; F17.210 Nicotine dependence, cigarettes, uncomplicated
CPT/HCPCS: 58558; 81025; 88305; J0131; J1100; J2250; J2405; J2550; J3010

== ENCOUNTER 2023-01-09 13:59 | Outpatient (REF) | payer MEDICAID, SELFPAY ==
[2023-01-16 07:43] LABS: HPV mRNA E6/E7 rflx Not Detected (Not Detected)
== END 2023-01-09 14:00 | disposition home or self-care (01) ==
LOC: HO.LNP 13:59
PROVIDERS: PCP Nurse Practitioner Family; Visit Provider Obstetrics & Gynecology
DX: Z30.430 Encounter for insertion of intrauterine contraceptive device (principal); N93.9 Abnormal uterine and vaginal bleeding, unspecified
CPT/HCPCS: 58300; 81025; 87624; 88142; 99212; J7298

== ENCOUNTER 2023-02-07 11:21 | Outpatient (AMB) | payer MEDICAID, SELFPAY ==
--- NOTE | 2023-02-07 11:22 | A.OFFVIS_ITS ---
Intake Vital Signs 02/07/23 11:26 Height 5 ft Weight 160 lb 14.999 oz BMI 31.4 BP 110/68 Intake Visit Reasons: 4 week IUD Check Bed Teacher Required: No Information Interpreted: non-clinical & clinical Client Experience Manager: Client Experience Manager Present Accompanied by: Self / Same As Patient Allergies No Known Drug Allergies Allergy (Unknown, Verified 02/07/23 11:27) U Is last menstrual period known: No HPI HPI Comments History of Present Illness Details The patient is presenting for IUD check after 1 st period following IUD insertion. The patient has no complaints periods are normal, not painful, and flow is normal. PFSH Medical History Absence seizure Epilepsy Hx of meningitis Seizures Surgical History Hx of section Hx of tubal ligation Social History Patient Tobacco Use Status: Current everyday Tobacco user Tobacco use type: Cigarette Cigarettes Per Day: 3 Female Reproductive History Menstrual Age of Menarche: 10 control method: progestin IUCD Review of Systems Const All systems reviewed & are unremarkable except as noted in HPI and below Physical Exam Vital Signs: Last Vital Signs BP 110/68 02/07/23 11:26 BMI result Body Mass Index 31.4 General: Yes no CVA tenderness External Female Exam: normal external appearance and normal appearance of the urethra Speculum Exam - Vagina: normal appearance of the vagina, normal palpation, no lesions and no masses Speculum Exam - Cervix: normal appearance of the cervix, normal palpation, no lesions, no masses, nontender and Other cervical findings present (IUD thread in place) Bimanual exam- vagina & uterus: normal bimanual exam, normal palpation, uterine size normal, normal palpation, uterine shape normal, No Cervical tenderness present and non-tender Bimanual Exam- Adnexa, other: normal adnexae Back/Spine/Pelvis Back: no CVA tenderness Assessment & Plan Assessment & Plan (1) IUD check up: Code(s): Z30.431 - Encounter for routine checking of intrauterine contraceptive device Plan: UPT done in the office was negative. Discussed with the patient the finding on physical exam, IUD string in place, the patient was reassured. Instructions given to patient to call in case of temperature above 100.4, severe cramping/pelvic pain, abnormal discharge or abnormal uterine bleeding or if she misses her. Otherwise follow-up at her annual exam appointment. All questions answered, the patient verbalized understanding. Coding Level of Care Code Est Pt Level 3 (10002) Diagnoses IUD check up Z30.431
[2023-02-07 11:26] VITALS: BP 110/68; BMI 31.4
== END 2023-02-07 12:23 | disposition home or self-care (01) ==
LOC: HO.HWS 11:21
PROVIDERS: PCP Nurse Practitioner Family; Visit Provider Obstetrics & Gynecology
DX: Z30.431 Encounter for routine checking of intrauterine contraceptive device (principal); Z32.02 Encounter for pregnancy test, result negative
CPT/HCPCS: 99213

== ENCOUNTER → 2023-02-07 11:21 | Outpatient (BNVA) | payer MEDICAID, SELFPAY | PROVIDERS: PCP Nurse Practitioner Family; Visit Provider Obstetrics & Gynecology | DX: Z30.431 Encounter for routine checking of intrauterine contraceptive device (principal) | CPT/HCPCS: 81025; 99212 ==

== ENCOUNTER 2023-04-05 14:25 | Emergency (ER) | payer MEDICAID, SELFPAY ==
[2023-04-05 14:35] VITALS: BP 136/90; PULSE 84; O2SAT 98
== END 2023-04-05 15:43 | disposition left against medical advice (07) ==
LOC: HO.ED 15:40
PROVIDERS: Emergency Provider Emergency Medicine
DX: R42 Dizziness and giddiness (principal); R07.9 Chest pain, unspecified

== ENCOUNTER 2023-05-29 15:17 | Outpatient (REF) | payer MEDICAID, SELFPAY ==
--- NOTE | ~2023-05-29 | XR_ITS ---
EXAMINATION: XR CHEST 2 VIEW CLINICAL INFORMATION: Shortness of breath, leg edema COMPARISON: 09/27/2019 TECHNIQUE: PA and lateral views of the chest obtained. FINDINGS: The lungs are clear. There are no pleural effusions. The cardiomediastinal silhouette is normal. XR/XR chest 2V IMPRESSION: No acute cardiopulmonary disease.
== END 2023-05-29 15:18 | disposition home or self-care (01) ==
LOC: HO.HHCX 15:17
PROVIDERS: Visit Provider Nurse Practitioner Family
DX: R60.9 Edema, unspecified (principal)
CPT/HCPCS: 36415; 71046; 80053; 80061; 85025

== ENCOUNTER 2023-05-29 15:30 | Outpatient (REF) | payer MEDICAID, SELFPAY ==
[2023-05-29 17:55] LABS: MANUAL DIFF FLAG NO
[2023-05-29 18:07] LABS: Alanine Aminotransferase 16 U/L (0-31); Albumin Level 3.8 g/dL (3.5-5.0); Alkaline Phosphatase 80 U/L (39-117); Anion Gap 13 (12-20); Aspartate Amino Transferase 22 U/L (5-31); Bilirubin Total 0.4 mg/dL (0.0-1.0); Blood Urea Nitrogen 9 mg/dL (9-16); Calcium 8.9 mg/dL (8.4-10.2); Carbon Dioxide 24 mmol/L (22-29); Chloride 106 mmol/L (96-108); Cholesterol 126 mg/dL (<200); Estimated Glomerular Filt Rate > 60; Glucose Random 76 mg/dL (60-115); HDL Cholesterol 36 mg/dL (>40); LDL Cholesterol Calculated 67 mg/dL (<100); Potassium 4.1 mmol/L (3.3-5.1); Sodium 139 mmol/L (135-145); Total Protein 6.6 g/dL (6.5-8.0); Triglycerides 119 mg/dL (<150)
[2023-05-29 18:56] LABS: Basophils Absolute Auto 0.1 X10*3/uL (0.0-0.2); Basophils Percent Auto 0.5 % (0-2); Eosinophils Absolute Auto 0.3 X10*3/uL (0.0-0.4); Eosinophils Percent Auto 3.1 % (0-4); Hematocrit 35.7 % (37.0-47.0); Hemoglobin 12.2 g/dl (12.0-16.0); Imm Gran Abs Auto 0.08 X10*3/uL (0.00-0.03); Imm Gran Pct Auto 0.8 % (0.0-0.4); Lymphocytes Absolute Auto 3.1 X10*3/uL (1.2-4.9); Mean Corpuscular HGB Conc 34.2 g/dl (31.0-35.0); Mean Corpuscular Hemoglobin 30.5 pg (27.0-33.0); Mean Corpuscular Volume 89.3 fL (80.0-98.0); Mean Platelet Volume 9.9 fL (9.4-12.3); Monocytes Absolute Auto 1.1 X10*3/uL (0.1-1.2); Monocytes Percent Auto 10.7 % (2-11); Neutrophils Absolute Auto 5.7 x10*3/uL (2.0-8.3); Neutrophils Percent Auto 54.9 % (45-73); Platelet Count 264 X10*3/uL (160-400); Red Cell Distribution Width 13.9 % (11.0-16.0); White Blood Count 10.4 X10*3/uL (4.8-10.8)
== END 2023-05-29 15:31 | disposition home or self-care (01) ==
LOC: HO.HHCL 15:30
PROVIDERS: Visit Provider Nurse Practitioner Family
DX: R60.9 Edema, unspecified (principal)
CPT/HCPCS: 36415; 80053; 80061; 85025

== ENCOUNTER 2023-06-05 10:26 | Outpatient (REF) | payer MEDICAID, SELFPAY ==
[2023-06-05 12:10] LABS: Valproate 78.8 mcg/mL (50.0-100.0)
[2023-06-08 17:29] LABS: Levetiracetam Keppra 46.9 mcg/mL (6.0-46.0)
== END 2023-06-05 10:27 | disposition home or self-care (01) ==
LOC: HO.LAB 10:26
PROVIDERS: Visit Provider Psychiatry & Neurology Neurology
DX: R56.9 Unspecified convulsions (principal)
CPT/HCPCS: 36415; 80164; 80177

== ENCOUNTER 2023-06-28 08:33 | Outpatient (REF) | payer MEDICAID, SELFPAY ==
--- NOTE | 2023-06-28 09:19 | MHC.AU.MED ---
Medical Clearance for Hearing Instrumentation Date: 06/28/23 Patient Name: Ebony Edwards Date of : 1990 Primary Care Provider: Referring Provider: Neetu Kyle NP We have seen your patient on 06/28/23 and have determined that they are a candidate for amplification (See accompanying report). Specifically, they would benefit from: Hearing aid use in both ears There is a statute that addresses Medical Evaluation Requirements prior to fitting a patient with a hearing aid. According to [place] statute 265 CMR:6.03(1), (a) General. Except as provided in 265 CMR 6.03(1)(b), a loss prevention operations manager shall not sell a hearing aid unless the prospective user has presented to the loss prevention operations manager a written statement signed by a licensed physician that states that the patient's hearing loss has been medically evaluated and the patient may be considered a candidate for a hearing aid. The medical evaluation must have taken place within the preceding six months. Please note: Due to the [place] Statute referenced above, we cannot accept a signature other than that of a licensed physician. HEAD TRIMMER and PA signatures cannot be accepted. I am in agreement with the above recommendation. There is no medical contraindication for hearing instrumentation. Physician Signature Date Physician Name (Printed)
--- NOTE | 2023-07-09 09:31 | MHC.AU.HA1 ---
Hearing Aid Evaluation Date of Visit: 06/28/23 Historical Information: Description of Hearing: Right ear: Mild sloping to moderately severe sensorineural hearing loss Left ear: Moderate sloping to profound sensorineural hearing loss Summary: Ebony lost her hearing aids about 5 months ago, and is struggling to communicate in most of her day-to-day interactions without them. She also reports left sided tinnitus which is bothersome without her hearing aids. After updating her hearing test, we selected Phonak Audeo L70R bicros in [facility]. Will request medical clearance and contact patient once aids arrive. Hearing Aid Prescription: Based on the individual?s shared listening needs, communication environments, dexterity, desire for connectivity, and personal preferences, the following prescription for amplification has been made: Right ear: Make, Model, Color: Phonak Audeo L70R Battery Size: Rechargeable Cat Tender/Slim Tube: #1 Type of Earmold/Dome/CShell/SlimTip: med occluded Left ear: Left ear prescription to be same as Right Hearing Aid above: Make, Model, Color: Phonak Audeo L Cros R Battery Size: Rechargeable Cat Tender/Slim Tube: #1 Type of Earmold/Dome/CShell/SlimTip: sm open Plan of Care: Patient wishes to purchase hearing aids as prescribed Action Taken/Action Needed: Medical Clearance to be requested from PCP/ENT Primary Diagnosis: H90.3 Bilateral Sensorineural Hearing Loss Secondary Diagnosis: Signature: Provider: Cindi Vicente, [facility]
== END 2023-06-28 08:34 | disposition home or self-care (01) ==
LOC: HO.SH 08:33
PROVIDERS: Visit Provider Nurse Practitioner Family
DX: Z01.118 Encounter for examination of ears and hearing with other abnormal findings (principal); Z46.1 Encounter for fitting and adjustment of hearing aid; H90.3 Sensorineural hearing loss, bilateral
CPT/HCPCS: 92557; 92591

== ENCOUNTER 2023-07-09 09:51 | Outpatient (REF) | payer MEDICAID, SELFPAY ==
[2023-07-10 08:05] LABS: HBS Num1 7.84 mIU/mL (0-7.99); ~Hepatitis B Surface Antibody NONREACTIVE (Nonreactive)
== END 2023-07-09 09:52 | disposition home or self-care (01) ==
LOC: HO.HHCL 09:51
PROVIDERS: Visit Provider Nurse Practitioner Family
DX: Z00.00 Encounter for general adult medical examination without abnormal findings (principal)
CPT/HCPCS: 36415; 86706

== ENCOUNTER 2023-07-10 17:55 | Emergency (ER) | payer MEDICAID, SELFPAY ==
--- NOTE | ~2023-07-10 | XR_ITS ---
EXAMINATION: THORACIC SPINE, LUMBAR SPINE CLINICAL INFORMATION: Spine pain after fall COMPARISON: Chest radiograph 09/27/2019 TECHNIQUE: 3 views thoracic spine, 3 views lumbar spine FINDINGS: No significant abnormalities are seen in the thoracic or lumbar spine. No fractures or significant degenerative changes. Incidental note made of an IUD in the uterus along with bilateral fallopian tube occlusion devices. XR/XR lumbar spine 2-3V IMPRESSION: No evidence of an acute traumatic injury. Incidental findings as described above.
--- NOTE | ~2023-07-10 | XR_ITS ---
EXAMINATION: THORACIC SPINE, LUMBAR SPINE CLINICAL INFORMATION: Spine pain after fall COMPARISON: Chest radiograph 09/27/2019 TECHNIQUE: 3 views thoracic spine, 3 views lumbar spine FINDINGS: No significant abnormalities are seen in the thoracic or lumbar spine. No fractures or significant degenerative changes. Incidental note made of an IUD in the uterus along with bilateral fallopian tube occlusion devices. XR/XR thoracic spine 3V IMPRESSION: No evidence of an acute traumatic injury. Incidental findings as described above.
[2023-07-10 18:36] VITALS: BP 117/71; PULSE 80; RESP 18; TEMP 36.2; O2SAT 99; BMI 31.0
[2023-07-10] MEDS: Ketorolac Tromethamine 30 MG/ML VIAL IM (22:08)
[2023-07-10 22:13] VITALS: BP 136/70; PULSE 98; RESP 16; TEMP 36.4; O2SAT 99
--- NOTE | 2023-07-10 22:14 | PC.NURSE ---
Pt reports upper mid back pain that radiates downward since cleaning under a cough last night. Patient grimacing with movement. Endorses 10/10 pain, increased with movement, decreases with laying down. patient resting on stretcher at this time, respirations even and unlabored, skin pwd, alert and oriented x4. Pt medicated per MAR
--- NOTE | 2023-07-10 22:19 | ED.GENADULT ---
HPI - General Adult General Chief complaint: Back Pain/Injury Stated complaint: back pain Time Seen by Provider: 07/10/23 21:24 Source: patient, RN notes reviewed and old records reviewed Mode of arrival: ambulatory Limitations: no limitations History of Present Illness HPI narrative: 33-year-old female presents for evaluation of back pain Patient reports worsening mid to lower central back pain since last night She reports her pain started after she was bending over cleaning all day yesterday. She also reports lifting up the couch The patient further endorses that she fell at 9:00 a.m. this morning She complains of pain to the center of her back, it does not lateralize She complains of the numbness in the right foot but no radiating pain Denies any difficulty going to the bathroom, incontinence or saddle numbness Related Data Home Medications Medication Instructions Recorded Confirmed divalproex 500 mg tablet,delayed 500 mg PO BID 12/06/22 release levetiracetam 500 mg tablet 1,500 mg PO Q12H 12/06/22 12/26/22 hydroxyzine HCl 50 mg tablet 50 mg PO BEDTIME 12/26/22 12/26/22 Previous Rx's Medication Instructions Recorded ibuprofen 600 mg tablet 600 mg PO Q8H PRN pain #20 tabs 03/02/21 tramadol 50 mg tablet 50 mg PO Q6H PRN pain #12 tabs 07/10/23 Allergies Allergy/AdvReac Type Severity Reaction Status Date / Time No Known Drug Allergies Allergy Unknown U Verified 07/10/23 18:36 Review of Systems Constitutional: Constitutional: Denies chills and Denies fever(s) Cardiovascular: Cardiovascular: Denies chest pain and Denies dyspnea Respiratory: Respiratory: Denies cough and Denies dyspnea Gastrointestinal: Gastrointestinal: Denies abdominal pain and Denies vomiting Musculoskeletal: Musculoskeletal: Reports back pain and Reports numbness Neurologic: Reports numbness PMFSH Past Medical History Medical History Absence seizure Epilepsy Hx of meningitis Seizures Surgical History Hx of section Hx of tubal ligation Social History Social History Patient Tobacco Use Status: Current everyday Tobacco user Tobacco use type: Cigarette Cigarettes Per Day: 3 Smoked in Last 30 Days: No Use of substances other than those prescribed or required for medical reasons: No Advance Directives: No Advance Directives Information Provided: No Patient : No Physical Exam ED Vital Signs: Vital Signs - 24 hr 07/10/23 18:36 07/10/23 22:13 Temperature 97.2 F 97.6 F Pulse Rate 80 98 Respiratory Rate 18 16 Blood Pressure 117/71 136/70 Pulse Oximetry 99 99 Oxygen Delivery Method Room Air Room Air BMI result Body Mass Index 31.0 Const General: healthy appearing, comfortable, no acute distress, alert and awake Nutritional Appearance: well nourished Orientation/consciousness: patient oriented x3 HENMT Head: Yes normocephalic and Yes atraumatic Eyes Eyelids: Yes eyelids normal Conjunctivae: conjunctivae normal Sclerae: sclerae normal Corneas: corneas normal Pupils: Equal, round and reactive pupils present EOM: EOMs intact bilaterally Resp Effort & Inspection: normal respiratory effort, able to speak in complete sentences and not labored Back/Spine/Pelvis Other: Patient has tenderness to the entire thoracic and lumbar spine with no step-offs or deformities. She is also tender to the bilateral thoracic and lumbar paraspinous regions. Negative straight leg raise. Skin General skin exam: elasticity normal Neuro Other: Strength to bilateral lower extremities 5/5 with flexion and extension General: patient oriented x3 Cranial nerves: Yes Equal, round and reactive pupils present and Yes Bilaterally intact EOM present Cognition (Neuro): normal cognition Extrem Other: Moving all extremities well without any obvious deformities Course Reevaluation(s) Reevaluation #1: X-ray negative for fractures. The patient we discharged with tramadol for pain control Time: 22:58 Medications Administered Discontinued Medications Generic Name Dose Route Start Last Admin Trade Name Freq PRN Reason Stop Dose Admin Ketorolac Tromethamine 30 mg 07/10/23 21:45 07/10/23 22:08 Ketorolac Tromethamine 30 Mg/Ml Vial IM 07/10/23 21:46 30 mg ONCE ONE Administration Medical Decision Making Medical Decision Making [facility] Narrative: 33-year-old female presents for evaluation of mid lower back pain. She reports falling today and has vertebral tenderness. Therefore will get x-rays of the thoracic and lumbar spine. She has no warning flags for cauda equina syndrome. Will treat her pain with Toradol. Differential Diagnosis Differential Diagnoses: The differential diagnosis associated with the presentation includes Lumbar strain Radiculopathy Muscle spasms Compression fracture Independent Interpretation I performed an independent interpretation of an: Plain X-Ray (No obvious fractures of the thoracic or lumbar spine) Radiology Impression Discussion of test interpretation with radiology: I have reviewed the radiologist's reading. (No acute pathology of the thoracic or lumbar spine. Incidental IUD noted) Prescription Management I considered prescription management with: Pain Medication Discharge Plan Discharge Clinical Impression: Back pain Patient Disposition: Home, Self-Care Instructions: Back Pain (ED) Additional Instructions: Use ibuprofen or Tylenol as needed for pain. You may use tramadol for severe or breakthrough pain. This may make you sleepy, do not drink alcohol or drive after taking it Your x-rays did not show any evidence of fractures or misalignment Follow-up with your primary doctor Prescriptions: New tramadol 50 mg tablet 50 mg PO Q6H PRN (Reason: pain) Qty: 12 0RF No Action ibuprofen 600 mg tablet 600 mg PO Q8H PRN (Reason: pain) Qty: 20 0RF hydroxyzine HCl 50 mg tablet 50 mg PO BEDTIME divalproex 500 mg tablet,delayed release (DR/EC) 500 mg PO BID levetiracetam 500 mg tablet 1,500 mg PO Q12H
== END 2023-07-10 23:13 | disposition home or self-care (01) ==
PROVIDERS: Emergency Provider Emergency Medicine; PCP Nurse Practitioner Family
DX: M54.50 Low back pain, unspecified (principal); M54.6 Pain in thoracic spine; Z79.899 Other long term (current) drug therapy
CPT/HCPCS: 72072; 72100; 96372; 99284; J1885

== ENCOUNTER 2023-07-25 14:23 | Outpatient (REF) | payer MEDICAID, SELFPAY ==
--- NOTE | 2023-07-25 15:37 | MHC.AU.HA2 ---
Hearing Instrument Fitting- Adult- Binaural Date of Visit: 07/25/23 Hearing Instruments Dispensed: Right Ear: Make, Model, Color, Serial Number: Tamra Millard L70R John Pirate SN [id number] Outside Salesman Repair Warranty: 10/06/2026 Outside Salesman Loss and Damage Warranty: 10/06/2026 Battery Size: Rechargeable User Acceptance Tester/Slim Tube: #1 Earmold/Dome/CShell/SlimTip: small occluded Type of Wax Guard: CeruShield Left Ear: Make, Model, Color, Serial Number: Tamra Johnso L Cros R John Pirate SN [id number] Outside Salesman Repair Warranty: 10/06/2026 Outside Salesman Loss and Damage Warranty: 10/06/2026 Battery Size: Rechargeable User Acceptance Tester/Slim Tube: #1 Earmold/Dome/CShell/SlimTip: sm open Type of Wax Guard: CeruShield Accessories/Assistive Technology: Phonak Mold Capper Ease SN [id number] Summary of Fitting: Ebony visited for her hearing aid fitting. Reviewed executive asst use and how to change wax guards as she was previously in [address] Verified programming to NAL-NL1 real ear targets. Programmed with phone and downloaded gabriel. Ebony was very excited about getting her hearing aids and reported greatly improved hearing in the office. Follow up in 2-3 wks. Recommendations: Recommendations: A hearing instrument follow-up is recommended in 2-3 weeks. Diagnosis Code(s): Primary Diagnosis: H90.3 Bilateral Sensorineural Hearing Loss Signature: Provider: Cindi Vicente, [facility]
== END 2023-07-25 14:24 | disposition home or self-care (01) ==
LOC: HO.HAP 14:23
PROVIDERS: Visit Provider Nurse Practitioner Family
DX: Z46.1 Encounter for fitting and adjustment of hearing aid (principal); H90.3 Sensorineural hearing loss, bilateral
CPT/HCPCS: V5011; V5020; V5221; V5240

== ENCOUNTER 2023-08-24 13:38 | Outpatient (REF) | payer MEDICAID, SELFPAY ==
--- NOTE | ~2023-08-24 | XR_ITS ---
EXAMINATION: XR BILATERAL FEET CLINICAL INFORMATION: Patient states pain and swelling of feet for one week, order states plantar fasciitis. COMPARISON: None available. TECHNIQUE: 3 views of each foot. FINDINGS: Right Foot: No significant plantar calcaneal spur. Minimal degenerative changes with hypertrophic change in the first metatarsophalangeal joint. No displaced fracture. Left Foot: No significant plantar calcaneal spur. Minimal degenerative changes with hypertrophic change in the first metatarsophalangeal joint. No displaced fracture. XR/XR foot LT min 3V IMPRESSION: Minimal degenerative changes in the bilateral first metatarsophalangeal joints. No displaced fracture. Recommend follow-up imaging in 10-14 days if fracture is suspected.
--- NOTE | ~2023-08-24 | XR_ITS ---
EXAMINATION: XR BILATERAL FEET CLINICAL INFORMATION: Patient states pain and swelling of feet for one week, order states plantar fasciitis. COMPARISON: None available. TECHNIQUE: 3 views of each foot. FINDINGS: Right Foot: No significant plantar calcaneal spur. Minimal degenerative changes with hypertrophic change in the first metatarsophalangeal joint. No displaced fracture. Left Foot: No significant plantar calcaneal spur. Minimal degenerative changes with hypertrophic change in the first metatarsophalangeal joint. No displaced fracture. XR/XR foot RT min 3V IMPRESSION: Minimal degenerative changes in the bilateral first metatarsophalangeal joints. No displaced fracture. Recommend follow-up imaging in 10-14 days if fracture is suspected.
== END 2023-08-24 13:39 | disposition home or self-care (01) ==
LOC: HO.HHCX 13:38
PROVIDERS: Visit Provider Internal Medicine
DX: M79.671 Pain in right foot (principal); M79.672 Pain in left foot; G89.29 Other chronic pain; M72.2 Plantar fascial fibromatosis
CPT/HCPCS: 73630

== ENCOUNTER 2023-08-28 10:53 | Outpatient (REF) | payer MEDICAID, SELFPAY ==
--- NOTE | 2023-08-28 11:37 | MHC.AU.HA3 ---
Hearing Instrument Follow-Up- Binaural Date of Visit: 08/28/23 Right Ear: Brant, Model, Color, Serial Number: Tamra Millard L70R John Clemonsate SN [id number] Handkerchief Maker Repair Warranty: 10/06/2026 Handkerchief Maker Loss and Damage Warranty: 10/06/[address] [facility] Service Plan: Battery Size: Rechargeable Shoulder Puncher/Slim Tube: #1 Earmold/Dome/CShell/SlimTip:med occluded Type of Wax Guard: CeruShield Dispensed By: [facility] Date of Fittin07/25/23 Left Ear: Brant, Model, Color, Serial Number: Tamra Millard L Cros R John Clemonsate SN [id number] Handkerchief Maker Repair Warranty: 10/06/2026 Handkerchief Maker Loss and Damage Warranty: 10/06/[address] [facility] Service Plan: Battery Size: Rechargeable Shoulder Puncher/Slim Tube: #1 Earmold/Dome/CShell/SlimTip: sm open Type of Wax Guard: CeruShield Dispensed By: [facility] Date of Fittin07/25/23 Follow-Up Summary: Fitting follow up; Ebony loves her hearing aids and is very happy to have a working pair again. She enjoys the rechargeable feature. Reviewed how and when to change wax guards. No adjustments needed at this time. Return in 6 months or as needed for maintenance. Recommendations: Recommendations: Hearing instrument follow-up or maintenance as needed. Diagnosis Code(s): Primary Diagnosis: H90.3 Bilateral Sensorineural Hearing Loss Signature: Provider: Cindi Vicente, [facility]
== END 2023-08-28 10:54 | disposition home or self-care (01) ==
LOC: HO.HAP 10:53
PROVIDERS: Visit Provider Nurse Practitioner Family
DX: Z13.89 Encounter for screening for other disorder (principal)

== ENCOUNTER 2023-08-29 14:24 | Outpatient (AMB) | payer MEDICAID, SELFPAY ==
[2023-08-29 14:27] VITALS: BP 122/70; BMI 34.2
--- NOTE | 2023-08-29 14:27 | A.OFFVIS_ITS ---
Intake Vital Signs 08/29/23 14:27 Height 5 ft 1 in Weight 181 lb BMI 34.2 BP 122/70 Intake Visit Reasons: IUD Removal Chief Of Safety And Protection Required: No Information Interpreted: non-clinical & clinical Commercial Instructor Supervisor: Commercial Instructor Supervisor Present (Aidyn) Allergies No Known Drug Allergies Allergy (Unknown, Verified 08/29/23 14:35) U Is last menstrual period known: Yes Last menstrual period: 08/27/23 Post menopausal: No Patient : No HPI HPI Comments History of Present Illness Details The patient is presenting requesting Mirena IUD removal. The patient has gained 20 lbs over the last 6 months or so since the time of IUD insertion and thinks that Mirena IUD is causing her weight gain PFSH Medical History Epilepsy Absence seizure Hx of meningitis Seizures Surgical History Hx of section Hx of tubal ligation Social History Patient Tobacco Use Status: Current everyday Tobacco user Tobacco use type: Cigarette Cigarettes Per Day: 3 Patient : No Female Reproductive History Menstrual Age of Menarche: 10 Date of last menstrual period: 08/27/23 control method: progestin IUCD Date of last pap smear: 01/11/23 (NEGATIVE) Physical Exam Vital Signs: Last Vital Signs BP 122/70 08/29/23 14:27 BMI result Body Mass Index 34.2 Office Procedures IUD Insert/Removal Details Details: Counseling/Consent: After discussing with the patient the risks of the procedure including bleeding, infection, scar tissue formation, , possible injury to blood vessels or nerves, chronic arm pain, blood transfusion, and irregular unpredictable bleeding Alternative options were discussed with the patient including but not limited: Do nothing. The patient signed the consent and agreed with the plan; all questions answered. Urine test was done in the office and was negative Preop dx: Requesting IUD removal Op: IUD removal Post op dx: same EBL= 10 cc Procedure: The patient was put in the dorsal lithotomy position a speculum was inserted in the vagina the IUD thread identified. Using a Debbie clamp the thread was grasped and the IUD pulled out with no complications. The patient tolerated the procedure well and was advised to use a different method for contraception. Discharge instructions: Instructions were given to the pt to call if temp>100.4, abdominal pain heavy vaginal bleeding, n/v occur. The patient verbalized understanding and all questions answered. This note was generated with a voice recognition program. Some errors may have been overlooked during the review of this note. Sometimes these errors may affect the content or meaning of a given sentence. 99901-[id number] Removal Procedure code (CPT) selection complete Results AMB Test Urine AMB Test Urine Negative Last Edit by KIMBERLY Edwards on 08/29/23 14:43 Assessment & Plan Assessment & Plan (1) Encounter for IUD removal: Code(s): Z30.432 - Encounter for removal of intrauterine contraceptive device Plan: Mirena IUD removed, offer the patient different options of treatment for AUB, the patient declined at this point.Instructions given to patient to call in case of recurrence of her AUB. Orders: Orders AMB HCG Urine Test Today Z32.02 - Encounter for test, result negative Coding Level of Care Code Procedure Only Diagnoses Encounter for IUD removal Z30.432 CPT Codes Details - CPT: 35220-LQY Removal ([id number])
== END 2023-08-29 16:20 | disposition home or self-care (01) ==
LOC: HO.HWS 14:24
PROVIDERS: PCP Nurse Practitioner Family; Visit Provider Obstetrics & Gynecology
DX: Z30.432 Encounter for removal of intrauterine contraceptive device (principal); Z32.02 Encounter for pregnancy test, result negative
CPT/HCPCS: 58301

== ENCOUNTER → 2023-08-29 14:24 | Outpatient (BNVA) | payer MEDICAID, SELFPAY | PROVIDERS: PCP Nurse Practitioner Family; Visit Provider Obstetrics & Gynecology | DX: Z30.432 Encounter for removal of intrauterine contraceptive device (principal) | CPT/HCPCS: 58301; 81025 ==

== ENCOUNTER 2023-09-19 16:13 | Emergency (ER) | payer MEDICAID, SELFPAY ==
--- NOTE | ~2023-09-19 | CT_ITS ---
EXAMINATION: CT ABDOMEN AND PELVIS WITHOUT CONTRAST CLINICAL INFORMATION: Upper abdominal pain COMPARISON: Pelvic ultrasound 10/11/2022 TECHNIQUE: Multidetector volumetric imaging was performed from the superior aspect of the liver through the pubic symphysis. Sagittal and coronal reformatted images were obtained on the technologist's workstation. This CT examination was performed using dose optimization techniques as appropriate, variously including the following: *Automated exposure control *Adjustment of mA and/or kV according to patient size (this includes techniques or standardized protocols for targeted exams where dose is matched to indication/reason for exam; i.e. extremities or head) *Use of iterative reconstruction technique DLP: 622 mGy-cm FINDINGS: LUNG BASES: The visualized lung bases are unremarkable. LIVER, GALLBLADDER, AND BILIARY TREE: The liver is enlarged at nearly 18 cm in length. Shape and attenuation are normal. No focal hepatic lesion or biliary ductal dilatation is present. The gallbladder is unremarkable with no evidence of radiopaque gallstones, gallbladder wall thickening, or obvious pericholecystic inflammatory changes. PANCREAS: Unremarkable. SPLEEN: Unremarkable. ADRENAL GLANDS: Unremarkable. KIDNEYS AND URETERS: The kidneys are normal in size, shape, and attenuation. A benign 1.5 cm right upper pole water density Bosniak class I renal cyst is noted which requires no additional imaging or follow up. No solid renal masses are seen. No hydronephrosis, hydroureter, or calculi seen. No perinephric stranding. BLADDER: Unremarkable. GASTROINTESTINAL TRACT: The small and large bowel are unremarkable. The appendix is unremarkable. ABDOMINAL WALL: Small periumbilical hernia seen containing only fat. There is mild diastases of the rectus muscles LYMPH NODES: No retroperitoneal lymphadenopathy. VASCULAR: Unremarkable. PELVIC VISCERA: The uterus and adnexa are unremarkable. Fallopian tube occlusion devices are present bilaterally. Small amount of free fluid is present in the pelvis. OSSEOUS STRUCTURES: Unremarkable. CT/CT abdomen pelvis wo IV con IMPRESSION: 1. A cause for the patient's upper abdominal pain has not been found. 2. Incidental note made of mild hepatomegaly, small periumbilical hernia containing only fat and a small amount of free fluid in the pelvis. Fleischner guidelines were followed.
--- NOTE | 2023-09-19 16:30 | ED.ABDPAIN ---
HPI - Abdominal Pain General Chief Complaint: Abdominal Pain Stated Complaint: upper abd pain Time Seen by Provider: 09/19/23 22:46 Source: patient Mode of arrival: ambulatory Limitations: no limitations History of Present Illness HPI narrative: Patient complaining of upper abdominal pain for last 3 months also has gained weight from about 30 lb feels bloated no nausea no vomiting no fever no chills no diarrhea no constipation no history of gallstones patient's appetite is normal patient is trying to lose weight but gaining weight lately Related Data Home Medications Medication Instructions Recorded Confirmed divalproex 500 mg tablet,delayed 500 mg PO BID 12/06/22 release levetiracetam 500 mg tablet 1,500 mg PO Q12H 12/06/22 12/26/22 hydroxyzine HCl 50 mg tablet 50 mg PO BEDTIME 12/26/22 12/26/22 levonorgestrel 21 mcg/24 hours (8 intrauterine 08/29/23 yrs) 52 mg intrauterine device (Mirena) Previous Rx's Medication Instructions Recorded ibuprofen 600 mg tablet 600 mg PO Q8H PRN pain #20 tabs 03/02/21 tramadol 50 mg tablet 50 mg PO Q6H PRN pain #12 tabs 07/10/23 omeprazole 40 mg capsule,delayed 40 mg PO DAILY #30 caps 09/20/23 release Allergies Allergy/AdvReac Type Severity Reaction Status Date / Time No Known Drug Allergies Allergy Unknown U Verified 09/19/23 16:31 Review of Systems Review of Systems Yes all other systems are reviewed and are negative PMFSH Past Medical History Medical History Epilepsy Absence seizure Hx of meningitis Seizures Surgical History Hx of section Hx of tubal ligation Social History Social History Patient Tobacco Use Status: Current everyday Tobacco user Tobacco use type: Cigarette Cigarettes Per Day: 3 Smoked in Last 30 Days: No Use of substances other than those prescribed or required for medical reasons: No Advance Directives: No Advance Directives Information Provided: Yes Patient : No Physical Exam ED Vital Signs: Vital Signs - 24 hr 09/19/23 16:31 09/19/23 21:19 09/19/23 22:56 Temperature 98.7 F 97.8 F Pulse Rate 81 73 65 Respiratory Rate 16 19 18 Blood Pressure 104/64 116/71 110/72 Pulse Oximetry 98 99 100 Oxygen Delivery Method Room Air Room Air 09/20/23 00:00 Temperature Pulse Rate 68 Respiratory Rate 18 Blood Pressure 112/78 Pulse Oximetry 100 Oxygen Delivery Method BMI result Body Mass Index 35.4 Appearance: Alert. Oriented X3. No acute distress. Eyes: No pallor or icterus ENT: Pharynx normal. Oral Mucosa moist Neck: Normal inspection. Neck supple. CVS: Normal heart rate and rhythm. Pulses normal. Respiratory: No respiratory distress. Equal air entry bilateral, no wheezing/rales/rhonchi Abdomen: Soft mild epigastric tenderness and fullness, Bowel sounds are present, no mass palpable, no CVA tenderness Skin: Skin warm and dry. Normal skin color. Normal skin turgor. Extremities: No lower extremity edema. No calf tenderness Neuro: Oriented X 3. Course Course Course Narrative: RME: 33 year-old F w/ PMHx seizures, epilepsy, presenting to the ED c/o LUQ abd pain x3 months worse w/eating, movement & breathing. +nausea/vomiting & diarrhea. denies fever abdomen soft w/epigastric ttp Labs, UA ordered Full HPI, ROS and PE to be performed by primary ED provider. Medical Decision Making Medical Decision Making [facility] Narrative: Patient likely with gastritis CT scan negative for any acute pathology patient advised to work on the diet and exercise and take Prilosec for gastritis Differential Diagnosis Differential Diagnoses: The differential diagnosis associated with the presentation includes Gastritis/gallstone/pancreatitis/hypothyroidism Lab Data [facility] Lab Attestation statement: I reviewed the patient's lab results. 09/19/23 17:04 09/19/23 17:04 Labs: Lab Results 09/19/23 Range/Units 17:04 WBC 11.3 H (4.8-10.8) X10*3/uL RBC 4.11 L (4.20-5.50) X10*6/uL Hgb 12.3 (12.0-16.0) g/dl Hct 35.2 L (37.0-47.0) % MCV 85.6 (80.0-98.0) fL MCH 29.9 (27.0-33.0) pg MCHC 34.9 (31.0-35.0) g/dl RDW 14.1 (11.0-16.0) % Plt Count 257 (160-400) X10*3/uL MPV 9.5 (9.4-12.3) fL Immature Gran % (Auto) 1.1 H (0.0-0.4) % Neut % (Auto) 58.3 (45-73) % Lymph % (Auto) 26.1 (20-40) % [place] % (Auto) 11.1 H (2-11) % Eos % (Auto) 3.0 (0-4) % Baso % (Auto) 0.4 (0-2) % Lymph # (Auto) 3.0 (1.2-4.9) X10*3/uL [place] # (Auto) 1.3 H (0.1-1.2) X10*3/uL Eos # (Auto) 0.3 (0.0-0.4) X10*3/uL Baso # (Auto) 0.1 (0.0-0.2) X10*3/uL Abs Immat Gran (auto) 0.13 H (0.00-0.03) X10*3/uL Absolute Neuts (auto) 6.6 (2.0-8.3) x10*3/uL Absolute Nucleated RBC 0.000 (0.0-0.012) X10*3/uL Nucleated RBC % (auto) 0.0 (0.0-0.2) /100WBC Sodium 143 (135-145) mmol/L Potassium 3.8 (3.3-5.1) mmol/L Chloride 111 H (96-108) mmol/L Carbon Dioxide 25 (22-29) mmol/L Anion Gap 11 L (12-20) BUN 13 (9-16) mg/dL Creatinine 0.71 (0.5-1.4) mg/dL Estim Creat Clear Calc 110.4 Estimated GFR > 60 Random Glucose 108 (60-115) mg/dL Calcium 9.4 (8.4-10.2) mg/dL Magnesium 2.0 (1.6-2.6) mg/dL Total Bilirubin 0.2 (0.0-1.0) mg/dL Direct Bilirubin < 0.2 (0.0-0.5) mg/dL AST 15 (5-31) U/L ALT 12 (0-31) U/L Alkaline Phosphatase 75 (39-117) U/L Total Protein 6.9 (6.5-8.0) g/dL Albumin 3.9 (3.5-5.0) g/dL Lipase 33 (8-78) U/L TSH 2.21 (0.32-4.0) uIU/mL Urine Color Yellow Urine Appearance Clear Urine pH 7.0 (5.0-9.0) Ur Specific [place] 1.015 (1.005-1.025) Urine Protein Negative (Neg-Trace) mg/dL Urine Glucose (UA) Negative (Negative) mg/dL Urine Ketones Trace (Negative) mg/dL Urine Blood Trace H (Negative) Urine Nitrite Negative (Negative) Ur Leukocyte Esterase Trace H (Negative) Urine RBC 11-20 H (0-2) /HPF Urine WBC 0-5 (0-5) /HPF Ur Squamous Epith Cells 3-5 (0-2) /HPF Urine Bacteria 1+ (None Seen) Hyaline Casts 0-2 (0-2) /LPF Urine Test NEGATIVE (NEGATIVE) Independent Interpretation I performed an independent interpretation of an: CT Scan Radiology Impression Discussion of test interpretation with radiology: I have reviewed the radiologist's reading. Medications Administered Discontinued Medications Generic Name Dose Route Start Last Admin Trade Name Freq PRN Reason Stop Dose Admin Al Hydroxide/Mg Hydroxide 30 ml 09/19/23 22:57 09/19/23 23:05 Magnesium Hydrox/Alum Hydrox 30 Ml Oral.Susp PO 09/19/23 22:58 30 ml ONCE ONE Administration Omeprazole 40 mg 09/19/23 22:57 09/19/23 23:05 Omeprazole 40 Mg Capsule.Dr PO 09/19/23 22:58 40 mg ONCE ONE Administration Discharge Plan Discharge Clinical Impression: Acute gastritis Patient Disposition: Home, Self-Care Instructions: Gastritis (ED) Additional Instructions: Work on your diet and exercise Prilosec 40 mg daily Do not take ibuprofen Follow-up with PCP Avoid fried food Prescriptions: New omeprazole 40 mg capsule,delayed release(DR/EC) 40 mg PO DAILY Qty: 30 0RF No Action ibuprofen 600 mg tablet 600 mg PO Q8H PRN (Reason: pain) Qty: 20 0RF hydroxyzine HCl 50 mg tablet 50 mg PO BEDTIME tramadol 50 mg tablet 50 mg PO Q6H PRN (Reason: pain) Qty: 12 0RF divalproex 500 mg tablet,delayed release (DR/EC) 500 mg PO BID levetiracetam 500 mg tablet 1,500 mg PO Q12H Mirena 21 mcg/24 hours (8 yrs) 52 mg intrauterine device intrauterine
[2023-09-19 16:31] VITALS: BP 104/64; PULSE 81; RESP 16; TEMP 37.1; O2SAT 98; BMI 35.4
--- NOTE | 2023-09-19 16:32 | ECG_ITS ---
Test Reason : abd pain Blood Pressure : / mmHG Vent. Rate : 069 BPM Atrial Rate : 069 BPM P-R Int : 154 ms QRS Dur : 078 ms QT Int : 414 ms P-R-T Axes : 039 052 059 degrees QTc Int : 443 ms Normal sinus rhythm Nonspecific T wave abnormality Abnormal ECG When compared to the previous EKG of Nonspecific T wave abnormality is now Present Referred By: Isi Kraft Electronically Signed By:JACKIE MCADAMS MD
[2023-09-19 17:08] LABS: MANUAL DIFF FLAG NO
--- NOTE | 2023-09-19 17:12 | MHC.EDTECH ---
PATIENT EKG TAKEN AND WAS READ BY PROVIDER,URINE SAMPLE COLLECTED AND BLOOD DRAWN AND SENT TO LAB .
[2023-09-19 17:13] LABS: Appearance Urine Clear; Color Urine Yellow; Glucose Urine UA Negative (Negative); Leukocyte Esterase Urine Trace (Negative); Nitrite Urine Negative (Negative); Specific Gravity - Urine 1.015 (1.005-1.025); UMIC TRIGGER UACC YES; Urine Blood Trace (Negative); Urine Ketones Trace mg/dL (Negative); Urine Protein Negative (Neg-Trace)
[2023-09-19 17:16] LABS: UPreg QC Valid YES; Urine Pregnancy NEGATIVE (NEGATIVE)
[2023-09-19 17:31] LABS: Alanine Aminotransferase 12 U/L (0-31); Albumin Level 3.9 g/dL (3.5-5.0); Alkaline Phosphatase 75 U/L (39-117); Anion Gap 11 (12-20); Aspartate Amino Transferase 15 U/L (5-31); Bilirubin Direct < 0.2 mg/dL (0.0-0.5); Bilirubin Total 0.2 mg/dL (0.0-1.0); Blood Urea Nitrogen 13 mg/dL (9-16); Calcium 9.4 mg/dL (8.4-10.2); Carbon Dioxide 25 mmol/L (22-29); Chloride 111 mmol/L (96-108); Creatinine Clr Calc Pharmacy 110.4; Estimated Glomerular Filt Rate > 60; Glucose Random 108 mg/dL (60-115); Lipase 33 U/L (8-78); Potassium 3.8 mmol/L (3.3-5.1); Sodium 143 mmol/L (135-145); Total Protein 6.9 g/dL (6.5-8.0)
[2023-09-19 17:34] LABS: Basophils Absolute Auto 0.1 X10*3/uL (0.0-0.2); Basophils Percent Auto 0.4 % (0-2); Eosinophils Absolute Auto 0.3 X10*3/uL (0.0-0.4); Hematocrit 35.2 % (37.0-47.0); Hemoglobin 12.3 g/dl (12.0-16.0); Imm Gran Abs Auto 0.13 X10*3/uL (0.00-0.03); Imm Gran Pct Auto 1.1 % (0.0-0.4); Lymphocytes Percent Auto 26.1 % (20-40); Mean Corpuscular HGB Conc 34.9 g/dl (31.0-35.0); Mean Corpuscular Hemoglobin 29.9 pg (27.0-33.0); Mean Corpuscular Volume 85.6 fL (80.0-98.0); Mean Platelet Volume 9.5 fL (9.4-12.3); Monocytes Absolute Auto 1.3 X10*3/uL (0.1-1.2); Monocytes Percent Auto 11.1 % (2-11); Neutrophils Absolute Auto 6.6 x10*3/uL (2.0-8.3); Neutrophils Percent Auto 58.3 % (45-73); Platelet Count 257 X10*3/uL (160-400); Red Blood Count 4.11 X10*6/uL (4.20-5.50); Red Cell Distribution Width 14.1 % (11.0-16.0); White Blood Count 11.3 X10*3/uL (4.8-10.8)
[2023-09-19 18:03] LABS: Bacteria Urine 1+ (None Seen); Hyaline Casts Urine 0-2 /LPF (0-2); WBC Urine 0-5 /HPF (0-5)
[2023-09-19 21:19] VITALS: BP 116/71; PULSE 73; RESP 19; TEMP 36.6; O2SAT 99
--- NOTE | 2023-09-19 22:54 | PC.NURSE ---
Assumed care of pt.
[2023-09-19 22:56] VITALS: BP 110/72; PULSE 65; RESP 18; O2SAT 100
[2023-09-19] MEDS: Omeprazole 40 MG CAPSULE.DR PO (23:05)
[2023-09-19] MEDS: Magnesium Hydrox/Alum Hydrox 30 ML ORAL.SUSP PO (23:05)
[2023-09-19 23:36] LABS: Thyroid Stimulating Hormone 2.21 uIU/mL (0.32-4.0)
[2023-09-20] VITALS: BP 112/78; PULSE 68; RESP 18; O2SAT 100
== END 2023-09-20 01:38 | disposition home or self-care (01) ==
PROVIDERS: Physician Assistant; Emergency Provider Internal Medicine; PCP Nurse Practitioner Family
DX: K29.00 Acute gastritis without bleeding (principal); R10.12 Left upper quadrant pain
CPT/HCPCS: 36415; 74176; 80048; 80076; 81001; 81025; 83690; 83735; 84443; 85025; 93005; 99284; 99285

== ENCOUNTER → 2023-09-19 16:32 | Outpatient (BNV) | payer MEDICAID, SELFPAY | PROVIDERS: Emergency Provider Internal Medicine; PCP Nurse Practitioner Family; Visit Provider Internal Medicine Cardiovascular Disease | DX: R94.31 Abnormal electrocardiogram [ECG] [EKG] (principal) | CPT/HCPCS: 93010 ==

== ENCOUNTER 2023-09-25 22:16 | Emergency (ER) | payer MEDICAID, SELFPAY ==
--- NOTE | 2023-09-25 | ECG_ITS ---
Test Reason : SEIZURE ACTIVITY Blood Pressure : / mmHG Vent. Rate : 060 BPM Atrial Rate : 060 BPM P-R Int : 164 ms QRS Dur : 076 ms QT Int : 456 ms P-R-T Axes : 036 051 040 degrees QTc Int : 456 ms Normal sinus rhythm Normal ECG When compared with ECG of 19-SEP-2023 17:08, Nonspecific T wave abnormality no longer evident in Lateral leads Referred By: Yonny You Electronically Signed By:KEN SERRANO
[2023-09-25 22:29] VITALS: BP 119/71; PULSE 64; RESP 20; TEMP 36.8; O2SAT 100
[2023-09-25 22:40] VITALS: BP 115/69; BP 124/70; PULSE 61; PULSE 68; RESP 16; TEMP 36.8; O2SAT 98; O2SAT 99; BMI 33.2
--- NOTE | 2023-09-25 22:52 | ED.SEIZURE ---
HPI - Seizure General Chief Complaint: Nausea/Vomiting/Diarrhea Stated Complaint: Abd pain Time Seen by Provider: 09/25/23 22:50 History of Present Illness HPI Narrative: 33-year-old female with a history of epilepsy, absent seizures, meningitis who presents emergency department for evaluation of nausea and vomiting which started on the morning of arrival. She also complained of lower abdominal cramping which she attributed to her menstrual cramps. Patient states that she ran out of her seizure medications and had been off these medicines since 09/19/2023 (7 days prior to evaluation). She did see her neurologist Dr. Davis who refilled her prescription however she states that it was not ready at the pharmacy when she went to pick it up in his not started this medication. Patient states she had a seizure yesterday. Came to emergency department for evaluation of her nausea vomiting and had a seizure here in the emergency department. When I went into the room the patient was shaking and appeared to have bilateral carpal spasm of her hands, she was able to talk and answer questions while she was shaking. She had no loss of consciousness and no postictal period. She was given Ativan 2 mg IM and Ativan 1 mg IV with improvement of her shaking episode Seizure History: Yes Related Data Home Medications Medication Instructions Recorded Confirmed divalproex 500 mg tablet,delayed 500 mg PO BID 12/06/22 release levetiracetam 500 mg tablet 1,500 mg PO Q12H 12/06/22 12/26/22 hydroxyzine HCl 50 mg tablet 50 mg PO BEDTIME 12/26/22 12/26/22 levonorgestrel 21 mcg/24 hours (8 intrauterine 08/29/23 yrs) 52 mg intrauterine device (Mirena) Previous Rx's Medication Instructions Recorded ibuprofen 600 mg tablet 600 mg PO Q8H PRN pain #20 tabs 03/02/21 tramadol 50 mg tablet 50 mg PO Q6H PRN pain #12 tabs 07/10/23 omeprazole 40 mg capsule,delayed 40 mg PO DAILY #30 caps 09/20/23 release Allergies Allergy/AdvReac Type Severity Reaction Status Date / Time No Known Drug Allergies Allergy Unknown U Verified 09/19/23 16:31 Review of Systems Review of Systems: Yes all other systems are reviewed and are negative [facility] Past Medical History [facility] Narrative: Social history: She does smoke cigarettes. She denies tobacco and alcohol use. Medical History Epilepsy Absence seizure Hx of meningitis Seizures Surgical History Hx of section Hx of tubal ligation Social History Social History Patient Tobacco Use Status: Current everyday Tobacco user Tobacco use type: Cigarette Cigarettes Per Day: 3 Smoked in Last 30 Days: No Use of substances other than those prescribed or required for medical reasons: No Advance Directives: No Advance Directives Information Provided: No Physical Exam Vital Signs: Vital Signs: Last Vital Signs Temp 98.3 F 09/25/23 22:40 Pulse 67 09/25/23 23:33 Resp 22 H 09/25/23 22:53 BP 118/74 09/25/23 22:53 Pulse Ox 99 09/25/23 22:53 O2 Del Method Room Air 09/25/23 22:53 BMI result Body Mass Index 33.2 Vital signs did reveal an elevated risk auditory rate of 22. Exam: Initially when I went into the room the patient was shaking violently and had carpal spasm of her upper extremities and was able to talk and answer questions despite shaking violently. After she was medicated with Ativan exam was as follows General: Awake, alert in no distress Head: Normocephalic, atraumatic EENT: PERRL, Lids normal, sclera normal, conjunctiva normal, nose normal , ears normal, throat without erythema or exudates Neck: Supple, no adenopathy Lung: breath sounds symmetric, no wheezing, rales or rhonchi Chest: symmetric movement, nontender Heart: regular rate and rhythm, normal S1, S2 no murmurs or rubs Abdomen: soft, non-tender, nondistended, normal bowel sounds Back: no vertebral tenderness, no CVAT Extremities: no deformities, moves all extremities symmetrically Neuro: Awake, alert, oriented, normal speech, cranial nerves intact, moves all extremities symmetrically Psych: Pleasant, cooperative Medications Administered Discontinued Medications Generic Name Dose Route Start Last Admin Trade Name Freq PRN Reason Stop Dose Admin Sodium Chloride 1,000 mls @ 999 mls/hr 09/25/23 23:06 09/26/23 00:41 Ns IV 09/26/23 00:06 Infused .Q1H1M STA Infusion Levetiracetam 1,500 mg 09/25/23 23:06 09/25/23 23:24 Levetiracetam 1,000 Mg Tablet PO 09/25/23 23:07 1,500 mg ONCE ONE Administration Lorazepam 2 mg 09/25/23 22:52 09/25/23 22:53 Lorazepam 2 Mg/Ml Vial IM 09/25/23 22:53 2 mg STAT STA Administration Lorazepam 1 mg 09/25/23 22:52 09/25/23 23:24 Lorazepam 2 Mg/Ml Vial IV 09/25/23 22:53 1 mg STAT STA Administration Ondansetron HCl 4 mg 09/25/23 23:06 09/25/23 23:24 Ondansetron Hcl 4 Mg/2 Ml Vial IVPUSH 09/25/23 23:07 4 mg ONCE ONE Administration Medical Decision Making Medical Decision Making [facility] Narrative: 33-year-old female with a history of epilepsy, absent seizures, meningitis who presents emergency department for evaluation of lower abdominal pain, nausea and vomiting which started on the morning of arrival. Patient has not taken her Keppra since 09/19/2023 (7 days prior to evaluation) but did see her neurologist today and got a refill medications but was unable to pick them medicines up from the pharmacy. Patient had a shaking episode here in the emergency department which was more consistent with psychogenic non electrical seizure since she was able to talk through the event and answer questions. Differential diagnosis: ?Includes but is not limited to seizure, psychogenic non electrical seizure, viral syndrome, noncompliance with medications Following evaluation was ordered: CBC, CMP, magnesium, quantitative beta-hCG, drug screen urine, ethanol level, EKG Patient was initially treated with the following: Ativan 2 mg IM, Ativan 1 mg IV, Keppra 1005 mg orally, Zofran 4 mg IV Course: 02:08 Start physician observation My interpretation patient's laboratory evaluation is as follows: WBC elevated 13,900 H&H normal 12.6 and 35.3. CMP was normal. Magnesium was normal. Quantitative beta-hCG was below detectable limits. Ethanol was below detectable limits. Twelve EKG was unremarkable I did re-evaluate the patient and she is very somnolent from the Ativan therefore she will be kept in the emergency department on physician observation until she can be safely discharged. At the end of my shift, the patient's care was turned over to my colleague, Dr. Teresa Barroso Admission/Observation Consideration of admission/observation: Escalation of care including admission/observation considered Lab Data MDM Lab Attestation statement: I reviewed the patient's lab results. 09/25/23 23:11 09/25/23 23:11 Labs: Lab Results 09/25/23 Range/Units 23:11 WBC 13.9 H (4.8-10.8) X10*3/uL RBC 4.21 (4.20-5.50) X10*6/uL Hgb 12.6 (12.0-16.0) g/dl Hct 35.3 L (37.0-47.0) % MCV 83.8 (80.0-98.0) fL MCH 29.9 (27.0-33.0) pg MCHC 35.7 H (31.0-35.0) g/dl RDW 13.9 (11.0-16.0) % Plt Count 280 (160-400) X10*3/uL MPV 9.5 (9.4-12.3) fL Immature Gran % (Auto) 0.5 H (0.0-0.4) % Neut % (Auto) 66.0 (45-73) % Lymph % (Auto) 20.9 (20-40) % Lyman % (Auto) 11.1 H (2-11) % Eos % (Auto) 1.1 (0-4) % Baso % (Auto) 0.4 (0-2) % Lymph # (Auto) 2.9 (1.2-4.9) X10*3/uL Lyman # (Auto) 1.5 H (0.1-1.2) X10*3/uL Eos # (Auto) 0.2 (0.0-0.4) X10*3/uL Baso # (Auto) 0.1 (0.0-0.2) X10*3/uL Abs Immat Gran (auto) 0.07 H (0.00-0.03) X10*3/uL Absolute Neuts (auto) 9.2 H (2.0-8.3) x10*3/uL Absolute Nucleated RBC 0.000 (0.0-0.012) X10*3/uL Nucleated RBC % (auto) 0.0 (0.0-0.2) /100WBC Smear Tech's Comments VERIFIED Sodium 136 (135-145) mmol/L Potassium 3.4 (3.3-5.1) mmol/L Chloride 105 (96-108) mmol/L Carbon Dioxide 22 (22-29) mmol/L Anion Gap 12 (12-20) BUN 10 (9-16) mg/dL Creatinine 0.70 (0.5-1.4) mg/dL Estim Creat Clear Calc 108.1 Estimated GFR > 60 Random Glucose 95 (60-115) mg/dL Calcium 9.5 (8.4-10.2) mg/dL Magnesium 2.0 (1.6-2.6) mg/dL Total Bilirubin 0.3 (0.0-1.0) mg/dL AST 24 (5-31) U/L ALT 18 (0-31) U/L Alkaline Phosphatase 92 (39-117) U/L Total Protein 7.4 (6.5-8.0) g/dL Albumin 4.2 (3.5-5.0) g/dL Beta HCG, Quant < 2 mIU/mL Ethyl Alcohol < 10 mg/dL Independent Interpretation I performed an independent interpretation of an: EKG Interpretation: My interpretation patient's 12 EKG done at 22:57 hours is as follows: Normal sinus rhythm rate of 60, normal DE interval, QRS duration QTC interval, no ST segment elevation, no ST segment depression, no significant T-wave abnormalities. This is a normal EKG Chronic Conditions Patient?s care impacted by: Other (Seizure disorder) Critical Care Time Critical Care Time Critical Care Time: Yes Total Critical Care Time: 35 Attestation: Critical Care: The patient was critically ill with a high probability of imminent or life threatening deterioration. I spent greater than 30 minutes of discontinuous time evaluating the patient,delivering critical care at the bedside, discussing and evaluating pertinent data with consultants. Critical care time does not include time spent performing separately billable procedures or teaching. Total time spent performing critical care was 35 minutes. Discharge Plan Discharge Clinical Impression: Psychogenic nonepileptic seizure, Acute viral syndrome, Nausea & vomiting Patient Disposition: Still a Patient Instructions: Acute Nausea and Vomiting (ED), Viral Syndrome (ED) Additional Instructions: Your nausea vomiting and abdominal pain are caused by a viral illness. Rest, increase your fluid intake, take Tylenol and ibuprofen for pain and fever You did have a shaking event here in the emergency department which I think was more caused by anxiety as opposed to your seizure disorder. You received Ativan (lorazepam) 2 mg intramuscularly and 1 mg IV. Your also given Keppra 1500 mg orally. Get your Keppra prescription filled today and is soon as you get it take another dose of Keppra 1500 mg and then take it as directed by your neurologist. Follow-up with your doctor in 2 days. Please return to the emergency department if your symptoms get worse or if you develop any symptoms that are concerning to you. Prescriptions: No Action ibuprofen 600 mg tablet 600 mg PO Q8H PRN (Reason: pain) Qty: 20 0RF hydroxyzine HCl 50 mg tablet 50 mg PO BEDTIME tramadol 50 mg tablet 50 mg PO Q6H PRN (Reason: pain) Qty: 12 0RF omeprazole 40 mg capsule,delayed release(DR/EC) 40 mg PO DAILY Qty: 30 0RF divalproex 500 mg tablet,delayed release (DR/EC) 500 mg PO BID levetiracetam 500 mg tablet 1,500 mg PO Q12H Mirena 21 mcg/24 hours (8 yrs) 52 mg intrauterine device intrauterine
[2023-09-25 22:53] VITALS: BP 118/74; PULSE 65; RESP 22; O2SAT 99
[2023-09-25] MEDS: LORazepam 2 MG/ML VIAL IM (22:53)
--- NOTE | 2023-09-25 23:08 | PC.NURSE ---
upon arrival pt changed over into hospital gown. placed on monitor. seizure pads not available pillows placed on side rails to protect pt. approx 2250 pt had seizure like activity was axox4 and speaking full clear sentences through it. Dr. You to bedside ativan IM administered per verbal order. iv established. sats remained 99% on RA. Dr. You at bedside for eval at this time.
[2023-09-25 23:19] LABS: Basophils Absolute Auto 0.1 X10*3/uL (0.0-0.2); Basophils Percent Auto 0.4 % (0-2); Eosinophils Absolute Auto 0.2 X10*3/uL (0.0-0.4); Eosinophils Percent Auto 1.1 % (0-4); Hematocrit 35.3 % (37.0-47.0); Hemoglobin 12.6 g/dl (12.0-16.0); Imm Gran Abs Auto 0.07 X10*3/uL (0.00-0.03); Imm Gran Pct Auto 0.5 % (0.0-0.4); Lymphocytes Absolute Auto 2.9 X10*3/uL (1.2-4.9); Lymphocytes Percent Auto 20.9 % (20-40); MANUAL DIFF FLAG SCAN; Mean Corpuscular HGB Conc 35.7 g/dl (31.0-35.0); Mean Corpuscular Hemoglobin 29.9 pg (27.0-33.0); Mean Corpuscular Volume 83.8 fL (80.0-98.0); Mean Platelet Volume 9.5 fL (9.4-12.3); Monocytes Absolute Auto 1.5 X10*3/uL (0.1-1.2); Monocytes Percent Auto 11.1 % (2-11); Neutrophils Absolute Auto 9.2 x10*3/uL (2.0-8.3); Platelet Count 280 X10*3/uL (160-400); Red Blood Count 4.21 X10*6/uL (4.20-5.50); Red Cell Distribution Width 13.9 % (11.0-16.0); SCAN SMEAR FLAG 1; White Blood Count 13.9 X10*3/uL (4.8-10.8)
[2023-09-25] MEDS: levETIRAcetam 1,000 MG TABLET 1500 MG PO (23:24)
[2023-09-25] MEDS: ondansetron HCL 4 MG/2 ML VIAL IVPUSH (23:24)
[2023-09-25] MEDS: LORazepam 2 MG/ML VIAL 1 MG IV (23:24)
[2023-09-25] MEDS: 0.9 % Sodium Chloride 1,000 ML 999 ML IV (23:25)
[2023-09-25 23:33] VITALS: PULSE 67
--- NOTE | 2023-09-25 23:35 | PC.NURSE ---
ivf infusing pt medicated per sep. nad resting comfortably. pt axox4 resp even and unlabored. responding appropriately to commands. pt tolerated po intake well. call bermudez within reach.
[2023-09-25 23:37] LABS: Alanine Aminotransferase 18 U/L (0-31); Albumin Level 4.2 g/dL (3.5-5.0); Alkaline Phosphatase 92 U/L (39-117); Anion Gap 12 (12-20); Aspartate Amino Transferase 24 U/L (5-31); Bilirubin Total 0.3 mg/dL (0.0-1.0); Blood Urea Nitrogen 10 mg/dL (9-16); Calcium 9.5 mg/dL (8.4-10.2); Carbon Dioxide 22 mmol/L (22-29); Chloride 105 mmol/L (96-108); Creatinine Clr Calc Pharmacy 108.1; Estimated Glomerular Filt Rate > 60; Glucose Random 95 mg/dL (60-115); Potassium 3.4 mmol/L (3.3-5.1); Sodium 136 mmol/L (135-145); Total Protein 7.4 g/dL (6.5-8.0)
[2023-09-25 23:41] LABS: Ethanol < 10 mg/dL
[2023-09-25 23:49] LABS: HCG Quantitative < 2 mIU/mL
[2023-09-26] LABS: SLIDE REVIEW VERIFIED
[2023-09-26 02:00] VITALS: BP 112/89; PULSE 66; RESP 15; TEMP 36.5; O2SAT 98
[2023-09-26 04:31] VITALS: BP 97/57; PULSE 70; RESP 16; TEMP 36.4; O2SAT 96
--- NOTE | 2023-09-26 05:40 | PC.NURSE ---
Addendum entered by Bisi Martin 09/26/23 05:40: appears drowsy. arousable to name; speaking full clear sentences however pt verbalizes need to stay a little longer. Original Note: pt ambulatory with steady gait to bathroom however aope
[2023-09-26 05:45] LABS: Amphetamine Screen Urine Not Detected (Not Detect); Barbiturates, Urine Not Detected (Not Detect); Benzodiazepines Screen Urine Not Detected (Not Detect); Cannabinoid Screen Urine Not Detected (Not Detect); Cocaine Screen Urine Not Detected (Not Detect); Fentanyl, urine Not Detected (Not Detect); Opiate Screen Urine Not Detected (Not Detect); Phencyclidine Screen Urine Not Detected (Not Detect)
[2023-09-26 06:40] VITALS: BP 104/63; PULSE 76; RESP 16; O2SAT 97
== END 2023-09-26 06:41 | disposition home or self-care (01) ==
PROVIDERS: Emergency Medicine Emergency Medical Services; Emergency Provider Internal Medicine; PCP Nurse Practitioner Family
DX: G40.909 Epilepsy, unspecified, not intractable, without status epilepticus (principal); B34.9 Viral infection, unspecified; R11.2 Nausea with vomiting, unspecified; Z79.899 Other long term (current) drug therapy
CPT/HCPCS: 36415; 80053; 80307; 83735; 84702; 85025; 93005; 96361; 96372; 96374; 96375; 99284; 99285; J2060; J2405

== ENCOUNTER → 2023-09-25 22:57 | Outpatient (BNV) | payer MEDICAID, SELFPAY | PROVIDERS: Emergency Provider Internal Medicine; PCP Nurse Practitioner Family; Visit Provider Internal Medicine | DX: G40.89 Other seizures (principal) | CPT/HCPCS: 93010 ==

== ENCOUNTER 2023-10-15 11:00 | Outpatient (REF) | payer MEDICAID, SELFPAY ==
--- NOTE | ~2023-10-15 | XR_ITS ---
EXAMINATION: XR SHOULDER, LEFT CLINICAL INFORMATION: Pain and limited range of motion, without injury. COMPARISON: None available. TECHNIQUE: AP external rotation, Grashey, scapular Y, and axillary views of the left shoulder. FINDINGS: The bones and soft tissues are normal. No fracture. Glenohumeral and acromioclavicular alignment is anatomic with normal joint space. No abnormal soft tissue calcifications. XR/XR shoulder LT min 2V IMPRESSION: Normal left shoulder.
== END 2023-10-15 11:01 | disposition home or self-care (01) ==
LOC: HO.HHCX 11:00
PROVIDERS: Visit Provider Nurse Practitioner Family
DX: M25.512 Pain in left shoulder (principal)
CPT/HCPCS: 73030

== ENCOUNTER 2023-11-15 09:52 | Outpatient (AMB) | payer MEDICAID, SELFPAY ==
--- NOTE | 2023-11-15 10:04 | MHC.OFFVIS ---
Intake Intake Visit Reasons: APPLICATION ANALYST- left shoulder pain Intake Note: Ebony marti 33 year old right hand dominant female presents today for an evaluation of left shoulder pain. Patient reports pain has been present for over 3 months. Limited ROM. Denies injury. States rainy weather increases her pain. She describes her pain as a burning sensation. No previous tx. Hx of epilepsy and arthritis on her feet that cause her to loose her balance and fall. Allergies No Known Drug Allergies Allergy (Unknown, Verified 11/15/23 10:33) U HPI APPLICATION ANALYST- left shoulder pain HPI Details 33 yo female presents tot he office today for left shoulder pain x 3 months. She states about 5 days ago she fell down the stairs on the left shoulder and has had increased pain since then. The pain is a general ache over the deltoid aspect of the left arm. She n/t down the arm to the elbow which is intermittent. She has pain with overhead reaching, burning pain with sleeping at night. [facility] Medical History (Updated 11/15/23 @ 10:49 by Pam Yates PA-C) Epilepsy Absence seizure Hx of meningitis Seizures Surgical History (Updated 11/15/23 @ 10:14 by KIMBERLY Dhillon) Hx of removal of cyst Hx of section Hx of tubal ligation Social History (Updated 11/15/23 @ 10:15 by KIMBERLY Dhillon) Patient Tobacco Use Status: Current everyday Tobacco user Tobacco use type: Cigarette Cigarettes Per Day: 3 Current occupational status: disabled Current occupation: right hand dominant Female Reproductive History Menstrual Age of Menarche: 10 Review of Systems Const All systems reviewed & are unremarkable except as noted in HPI and below Physical Exam Const General: cooperative and no acute distress Orientation/consciousness: patient oriented x3 Resp Effort & Inspection: normal respiratory effort and able to speak in complete sentences Cardio Peripheral pulses: Peripheral pulses 2+ throughout Neuro General: patient oriented x3 Extrem Other: left shoulder normal to inspection. Tenderness over the bicipital groove and along deltoid region of the shoulder. She is hypersensitivity along the left trapezium muscle into the lateral aspect of the neck. FF to 95, ER to 90, IR to S1. Mild discomfort with rotator cuff strength testing, significant discomfort with Amador and cross-body reach. Office Procedures Joint Injection/Drain Joint Injection/Drain Primary Site: left shoulder Prep: site was prepped using aseptic technique, ethochloride spray was applied and injection warnings given Injected: 80 mg of, DepoMedrol, with 8 mL of, 1% plain lidocaine and in the subcromial space Approach Used: posterolateral Procedure: The patient tolerated the procedure well and there was some relief with the local anesthesia Coding - Glenohumeral/Tronchanteric Bursa/Intraarticular Procedure code (CPT) selection complete Results Reviewed Results Reviewed: X-rays of the left shoulder obtained on October 14 are negative for any acute or chronic abnormalities. Assessment & Plan Assessment & Plan (1) Tendonitis of left rotator cuff: Code(s): M75.82 - Other shoulder lesions, left shoulder (2) Myofascial pain on left side: Code(s): M79.18 - Myalgia, other site (3) Trapezius muscle spasm: Code(s): M62.838 - Other muscle spasm Plan Left shoulder injection was performed today without complications. She tolerated the procedure well. I did recommend a course of physical therapy to work on range of motion rotator cuff and periscapular stabilization I would also like her to work on some cervical range of motion. She will increase activities as tolerated over the next 4-6 weeks but if symptoms persist or worsen she will contact our office to discuss other options otherwise follow up as needed. Orders: Orders PT Evaluation and Treatment Today M62.838 - Other muscle spasm, M75.82 - Other shoulder lesions, left shoulder, M79.18 - Myalgia, other site Coding Level of Care Code New Pt Level 3 (66769) Diagnoses Tendonitis of left rotator cuff M75.82 Myofascial pain on left side M79.18 Trapezius muscle spasm M62.838 CPT Codes Coding - Joint 7: 11676 - Glenohumeral/Tronchanteric Bursa/Intraarticular ([id number])
== END 2023-11-15 10:54 | disposition home or self-care (01) ==
PROVIDERS: PCP Nurse Practitioner Family; Visit Provider Physician Assistant
DX: M75.82 Other shoulder lesions, left shoulder (principal); M62.838 Other muscle spasm
CPT/HCPCS: 20610; 99203

== ENCOUNTER → 2023-11-15 09:52 | Outpatient (BNVA) | payer MEDICAID, SELFPAY | PROVIDERS: PCP Nurse Practitioner Family; Visit Provider Physician Assistant | DX: M75.82 Other shoulder lesions, left shoulder (principal); M79.18 Myalgia, other site | CPT/HCPCS: 20610; 99212; J1010 ==

== ENCOUNTER 2024-01-24 18:19 | Outpatient (REF) | payer MEDICAID, SELFPAY ==
[2024-01-25 11:56] LABS: CT PCR NOT DETECTED (Not Detect.); NG PCR NOT DETECTED (Not Detect.)
[2024-01-25 14:23] LABS: Bacterial Vaginosis PCR POSITIVE (Negative); Candida Group PCR NOT DETECTED (Not Detect); Candida glab krusei PCR NOT DETECTED (Not Detect); Trichomonas vaginalis PCR NOT DETECTED (Not Detect)
== END 2024-01-24 18:20 | disposition home or self-care (01) ==
LOC: HO.HHCLNP 18:19
PROVIDERS: Visit Provider Internal Medicine
DX: N76.0 Acute vaginitis (principal)
CPT/HCPCS: 0352U; 87086; 87491; 87591

== ENCOUNTER 2024-02-05 11:33 | Outpatient (REF) | payer MEDICAID, SELFPAY ==
--- NOTE | ~2024-02-05 | US_ITS ---
EXAMINATION: US PELVIS CLINICAL INFORMATION: Pelvic pain, cervicitis, rule out pelvic ovarian collection, ? cyst. Last menstrual period February 04, 2024. Pain mostly in the right pelvis. COMPARISON: CT abdomen and pelvis of 09/19/2023. Pelvic ultrasound of 10/11/2022. TECHNIQUE: Ultrasound of the pelvis is performed using both transabdominal and transvaginal transducers along with Doppler. Transvaginal imaging is performed due to inadequate visualization transabdominally. FINDINGS: The uterus is anteverted and measures 11.0 x 4.0 x 5.1 cm. Nabothian cysts visualized. Endometrial thickness is 9 mm. Endometrium appears echogenic. Small amount of free fluid in the right adnexa. Right ovary measures 2.7 x 1.6 x 0.8 cm, volume 1.8 mL. Left ovary measures 1.5 x 1.0 x 0.9 cm, volume 0.7 mL. Bilateral ovaries are unremarkable. US/US pelvic complete IMPRESSION: 1. Endometrial thickness is 9 mm. Endometrium appears echogenic. 2. Small amount of free fluid in the right adnexa. 3. Unremarkable bilateral ovaries. This study was presented today February 06, 2024 for interpretation. Stat results provided at this time as requested by referring provider.
== END 2024-02-05 11:34 | disposition home or self-care (01) ==
LOC: HO.US 11:33
PROVIDERS: PCP Nurse Practitioner Family; Visit Provider Internal Medicine
DX: R10.2 Pelvic and perineal pain (principal)
CPT/HCPCS: 76856

== ENCOUNTER 2024-03-03 16:02 | Emergency (ER) | payer MEDICAID, SELFPAY ==
--- NOTE | ~2024-03-03 | XR_ITS ---
EXAMINATION: XR HAND/WRIST, RIGHT CLINICAL INFORMATION: Pain COMPARISON: None TECHNIQUE: Four views of the right hand and wrist. FINDINGS: The bones and soft tissues are normal. No fracture. Alignment is anatomic. Joint spaces are maintained. No erosions or soft tissue calcifications. XR/XR hand wrist RT IMPRESSION: Normal radiographs of the hand and wrist.
[2024-03-03 16:25] VITALS: BP 114/69; PULSE 70; RESP 16; TEMP 37.2; O2SAT 99; BMI 34.8
== END 2024-03-03 23:21 | disposition left against medical advice (07) ==
LOC: HO.ED 23:19
PROVIDERS: Emergency Provider Emergency Medicine; PCP Nurse Practitioner Family
DX: G56.01 Carpal tunnel syndrome, right upper limb (principal)
CPT/HCPCS: 73110; 73130; 99281

== ENCOUNTER 2024-03-27 10:28 | Outpatient (AMB) | payer MEDICAID, SELFPAY ==
[2024-03-27 10:33] VITALS: BP 118/72; BMI 34.6
--- NOTE | 2024-03-27 10:33 | MHC.OFFVIS ---
Vital Signs 03/27/24 10:33 Height 5 ft 1 in Weight 182 lb 15.739 oz BMI 34.6 BP 118/72 Intake Visit Reasons: GLOBAL LOGISTICS ANALYST annual exam/DO NOT RS Environmental Field Services Technician Required: No Information Interpreted: non-clinical & clinical Concrete Sculptor: Concrete Sculptor Present (Estela HARRIS) Accompanied by: Self / Same As Patient Allergies No Known Drug Allergies Allergy (Unknown, Verified 03/27/24 10:39) U HPI Comments Details: Presenting for annual exam. Complaining of right lower quadrant pain of 3 months' duration associated with whitish vaginal discoloration and nausea no vomiting no fever or chills. The patient is so her PCP ordered a pelvic ultrasound on 02/04/2023 which showed the following: The uterus is anteverted and measures 11.0 x 4.0 x 5.1 cm. Nabothian cysts visualized. Endometrial thickness is 9 mm. Endometrium appears echogenic. Small amount of free fluid in the right adnexa. Right ovary measures 2.7 x 1.6 x 0.8 cm, volume 1.8 mL. Left ovary measures 1.5 x 1.0 x 0.9 cm, volume 0.7 mL. Bilateral ovaries are unremarkable. Last Pap/HPV was negative in 01/19 [facility] Medical History Epilepsy Absence seizure Hx of meningitis Seizures Surgical History Hx of removal of cyst Hx of section Hx of tubal ligation Social History Patient Tobacco Use Status: Current everyday Tobacco user Tobacco use type: Cigarette Cigarettes Per Day: 3 Current occupational status: disabled Current occupation: right hand dominant Female Reproductive History Menstrual Age of Menarche: 10 control method: permanent sterilization Date of last pap smear: 01/11/23 Review of Systems Const All systems reviewed & are unremarkable except as noted in HPI and below Card Reports as per HPI Resp Reports as per HPI GI Reports as per HPI and Reports no additional complaints Reports as per HPI Physical Exam Vital Signs: Last Vital Signs BP 118/72 03/27/24 10:33 BMI result Body Mass Index 34.6 Const General: cooperative, healthy appearing and comfortable Chest Chest palpation & inspection: normal inspection of the chest and normal palpation of entire chest wall Breast/axilla inspection: normal inspection of the breasts and normal inspection of the axillae Breast/axilla palpation: normal palpation of the breasts, normal palpation of the axillae and no axillary lymphadenopathy Resp Effort & Inspection: normal respiratory effort Auscultation: clear to auscultation bilaterally Percussion: percussion normal Cardio Palpation: normal PMI Rate: regular rate Rhythm: regular rhythm Heart sounds: no murmurs and no rubs Peripheral pulses: Peripheral pulses 2+ throughout GI Inspection: Yes normal to inspection Palpation (GI): Soft to palpation, Tenderness to palpation present (GI) (Right lower quadrant tenderness), no guarding, not rigid and No hepatosplenomegaly present Auscultation: normal bowel sounds Rectal Exam - Female: deferred General: Yes bladder normal to palpation External Female Exam: No lesion Speculum Exam - Vagina: normal appearance of the vagina, normal palpation, normal vaginal discharge and not erythematous Speculum Exam - Cervix: normal appearance of the cervix, normal palpation and Cervical tenderness present Bimanual exam- vagina & uterus: normal bimanual exam, normal palpation, uterine size normal, bladder normal to palpation, consistency normal, normal palpation, Cervical tenderness present, cervical motion tenderness and Uterine tenderness Bimanual Exam- Adnexa, other: no masses, tender (Bilateral) and Other Assessment & Plan Assessment & Plan (1) Well woman exam: Code(s): Z01.419 - Encounter for gynecological examination (general) (routine) without abnormal findings Category: Medical Plan: Cotesting not indicated this year. Counseled the patient about the recommended dietary allowance of 1000 mg of Calcium & 600 IU of vitamin D. The patient was instructed to perform monthly self-breast exams and to schedule an annual exam in a year; All questions answered and the patient verbalized understanding. Instructed the patient to schedule annual exam in a year (2) Right lower quadrant pain: Code(s): R10.31 - Right lower quadrant pain Category: Medical Plan: Urine test done in the office was negative. GC/CT with BV panel collected. Discussed with the patient the differential diagnosis for her symptoms including but not limited to appendicitis, PID, GI causes or others. The patient was taken by wheelchair to the emergency room for an evaluation; if all workup negative, will treat with outpatient PID CDC regimen with ceftriaxone 500 mg IM x1 and doxycycline 100 mg p.o. b.i.d. with metronidazole 500 mg p.o. b.i.d. for 14 days if there are no indications for inpatient parenteral regimen. (3) Microscopic hematuria: Code(s): R31.29 - Other microscopic hematuria Category: Medical Plan: Urine dip showed microscopic hematuria, urine culture sent. Will repeat urine dip in 2 weeks. Discussed with the patient the possible causes of microscopic hematuria including but not limited to: interstitial cystitis, polyps, stones, masses, urethral inflammatory processes and others. If Urine Culture is negative and repeat urine dip in 2 weeks shows persistent microscopic hematuria, will proceed with CT abdomen/pelvis and urology referral. Instructions given the patient to schedule a 2 week urine dip follow-up appointment. All questions answered and the patient verbalized understanding. Orders: Orders CT NG by PCR Today R10.2 - Pelvic and perineal pain Bacterial Vaginosis Panel Today R10.2 - Pelvic and perineal pain AMB Urinalysis Dipstick Today Z32.02 - Encounter for test, result negative AMB HCG Urine Test Today Z32.02 - Encounter for test, result negative Coding Level of Care Code Est Pt Level 3 (67317) Diagnoses Well woman exam Z01.419 Right lower quadrant pain R10.31 Microscopic hematuria R31.29
== END 2024-03-27 14:06 | disposition home or self-care (01) ==
LOC: HO.HWS 10:28
PROVIDERS: PCP Nurse Practitioner Family; Visit Provider Obstetrics & Gynecology
DX: Z01.419 Encounter for gynecological examination (general) (routine) without abnormal findings (principal); R10.31 Right lower quadrant pain; R31.29 Other microscopic hematuria
CPT/HCPCS: 99213; 99395

== ENCOUNTER 2024-03-27 10:28 | Outpatient (REF) | payer MEDICAID, SELFPAY ==
[2024-03-28 12:05] LABS: CT PCR NOT DETECTED (Not Detect.); NG PCR NOT DETECTED (Not Detect.)
[2024-03-28 13:40] LABS: Bacterial Vaginosis PCR POSITIVE (Negative); Candida Group PCR NOT DETECTED (Not Detect); Candida glab krusei PCR NOT DETECTED (Not Detect); Trichomonas vaginalis PCR NOT DETECTED (Not Detect)
== END 2024-03-27 10:29 | disposition home or self-care (01) ==
LOC: HO.LNP 10:28
PROVIDERS: PCP Nurse Practitioner Family; Visit Provider Obstetrics & Gynecology
DX: R10.2 Pelvic and perineal pain (principal); R31.29 Other microscopic hematuria; R10.31 Right lower quadrant pain; Z01.419 Encounter for gynecological examination (general) (routine) without abnormal findings; Z32.02 Encounter for pregnancy test, result negative
CPT/HCPCS: 0352U; 87086; 87491; 87591; 99212; 99395

== ENCOUNTER 2024-03-27 11:25 | Emergency (ER) | payer MEDICAID, SELFPAY ==
--- NOTE | ~2024-03-27 | CT_ITS ---
EXAMINATION: CT ABDOMEN AND PELVIS WITH CONTRAST CLINICAL INFORMATION: RLQ pain distention COMPARISON: 09/19/2023 TECHNIQUE: Multidetector volumetric imaging was performed from the superior aspect of the liver through the pubic symphysis following administration of 85 mL Omnipaque 300 intravenous contrast. Sagittal and coronal reformatted images were obtained on the technologist workstation.. This CT examination was performed using dose optimization techniques as appropriate, variously including the following: *Automated exposure control *Adjustment of mA and/or kV according to patient size (this includes techniques or standardized protocols for targeted exams where dose is matched to indication/reason for exam; i.e. extremities or head) *Use of iterative reconstruction technique DLP: 721 mGy-cm FINDINGS: LUNG BASES: Linear basilar atelectasis. LIVER, GALLBLADDER, AND BILIARY TREE: The liver is normal in size, shape, and attenuation. No focal hepatic lesion or biliary ductal dilatation is present. The gallbladder is unremarkable with no evidence of radiopaque gallstones, gallbladder wall thickening, or obvious pericholecystic inflammatory changes. PANCREAS: Unremarkable. SPLEEN: Unremarkable. ADRENAL GLANDS: Unremarkable. KIDNEYS AND URETERS: The kidneys are normal in size, shape, and attenuation. Small low-attenuation cyst in the upper pole right kidney. No hydronephrosis, hydroureter, or perinephric stranding. No calculi. BLADDER: Unremarkable. GASTROINTESTINAL TRACT: The small and large bowel are unremarkable. The retrocecal appendix is unremarkable. ABDOMINAL WALL: No significant hernia is appreciated. LYMPHOVASCULAR STRUCTURES: No lymphadenopathy. The aorta is unremarkable. PELVIC VISCERA: Bilateral Essure devices. Physiologic changes. OSSEOUS STRUCTURES: Unremarkable. CT/CT abdomen pelvis w IV con IMPRESSION: No acute intra-abdominal process seen. Electronically signed by: Franky Lemus MD 03/27/2024 05:51 PM EDT
[2024-03-27 11:37] VITALS: BP 105/58; PULSE 64; RESP 16; TEMP 36.5; O2SAT 99; BMI 28.0
--- NOTE | 2024-03-27 11:37 | ED_ITS ---
HPI - Abdominal Pain General Chief Complaint: Abdominal Pain Stated Complaint: R lower quadrant pain Time Seen by Provider: 03/27/24 13:17 Source: patient and old records reviewed Mode of arrival: ambulatory Limitations: no limitations History of Present Illness ED Provider: JENN PALACIOS narrative: 34 yo female with PMH of seizures and prior tubal ligation here with c/o RLQ pain and distention with weight gain x 3 months. Had US with PCP on February 04 that was normal saw Dr. Yee today who referred patient to ED for appendicitis vs PID vs GI causes. Per his recommendations treat as oupatient PID ceftriaxone IM, dozxy and flagyl x 14 days. Patient notes she had full pelvic exam done by him. She tells me no fevers, no vomiting, no diarrhea. She is able to eat and drink. On pelvic exam today she has CMT. Pain is worse when she moves or tries to get up MD elicited complaint: abdominal pain Pertinent past history: none Onset (ago): month(s) (3) Pain Consistency: constant Location: RLQ Severity: moderate Quality: aching Radiation: none Migration to: no migration Exacerbating factors: movement Relieving factors: nothing Associated symptoms: denies other symptoms Related Data Home Medications ?Medication ?Instructions ?Recorded ?Confirmed divalproex 500 mg tablet,delayed 500 mg PO BID 12/06/22 release levetiracetam 500 mg tablet 1,500 mg PO Q12H 12/06/22 12/26/22 hydroxyzine HCl 50 mg tablet 50 mg PO BEDTIME 12/26/22 12/26/22 levonorgestrel 21 mcg/24 hr (up to intrauterine 08/29/23 8 years) 52 mg intrauterine device (Mirena) hydroxyzine HCl 25 mg tablet 25 mg PO TID PRN itch 11/15/23 Previous Rx's ?Medication ?Instructions ?Recorded ibuprofen 600 mg tablet 600 mg PO Q8H PRN pain #20 tabs 03/02/21 tramadol 50 mg tablet 50 mg PO Q6H PRN pain #12 tabs 07/10/23 omeprazole 40 mg capsule,delayed 40 mg PO DAILY #30 caps 09/20/23 release Allergies Allergy/AdvReac Type Severity Reaction Status Date / Time No Known Drug Allergies Allergy Unknown U Verified 03/27/24 11:41 Review of Systems Review of Systems Constitutional : No Weight loss, No Fever, No Chills ENT/Mouth : No sore throat, No Rhinorrhea Eyes: No Swelling, No Redness Cardiovascular : No Chest Pain, No SOB, NoEdema Respiratory : No Cough, No Sputum, No Wheezing Gastrointestinal : no Nausea, no Vomiting, no Diarrhea, positive abdominal Pain, No Hematochezia, No Melena Genitourinary : No Dysuria, No Urinary Frequency, No Hematuria, No Urgency Musculoskeletal : No joint pain, No Myalgias, No Joint Swelling Skin : No Skin Lesions, No rash Neuro : No Weakness, No Numbness, No Dizziness, No Headache Psych : No Anxiety/Panic, No Depression All other systems reviewed and are negative. [facility] Past Medical History Attestation statement: The following information was validated with the patient. Source: old records reviewed Medical History Epilepsy Absence seizure Hx of meningitis Seizures Surgical History Hx of removal of cyst Hx of section Hx of tubal ligation Social History Social History Patient Tobacco Use Status: Current everyday Tobacco user Tobacco use type: Cigarette Cigarettes Per Day: 3 Smoked in Last 30 Days: Yes Use of substances other than those prescribed or required for medical reasons: No Advance Directives: No Advance Directives Information Provided: Yes Current occupational status: disabled Current occupation: right hand dominant Physical Exam ED Vital Signs: Vital Signs - 24 hr 03/27/24 11:37 03/27/24 13:31 Temperature 97.7 F 98 F Pulse Rate 64 57 Respiratory Rate 16 12 Blood Pressure 105/58 L 97/60 Pulse Oximetry 99 99 Oxygen Delivery Method Room Air Room Air BMI result Body Mass Index 28.0 Appearance: Alert. Oriented X3. No acute distress. Eyes: Pupils equal, round and reactive to light. ENT: Pharynx normal. Neck: Normal inspection. Neck supple. CVS: Normal heart rate and rhythm. Pulses normal. Respiratory: No respiratory distress. Breath sounds normal. Abdomen: Soft and even just with touching her skin she has marked sensitivity and tttp no mass or rash felt Skin: Skin warm and dry. Normal skin color. Normal skin turgor. Extremities: No lower extremity edema. No calf ttp Neuro: Oriented X 3. No motor deficit. No sensory deficit. Course Course Course Narrative: This is a Rapid Medical Examination (RME) performed by Cassie Beverly PA-C in triage. Full HPI, ROS, assessment and treatment plan per primary provider in the Main ED. 34 yo female hx of anxiety, depression, epilepsy, arthritis, s/p tubal ligation here for eval of RLQ x3 mo. saw PCP 3 wks ago with normal US. Dr. Yee called w/ expect. pt w/ RLQ tenderness and positive CMT in office >> requesting blood work and CT scan to r/o other etiologies. if all negative, patient may be candidate for outpatient PID treatment. Plan: labs, UA/u preg, CT scan ordered Reevaluation(s) Reevaluation #1: signed out to Dr. Luong pending work up Medical Decision Making Medical Decision Making MDM Narrative: 34 yo female with PMH of seizures and prior tubal ligation here with c/o RLQ pain x 3 months will need basic labs, CT scan for renal colic, IV toradol and flexeril the pain is very superficial has no signs of rash or mass on exam. Per her OBGYN wants the patient if negative work up here to get PID treatment Differential Diagnosis Differential Diagnoses: The differential diagnosis associated with the presentation includes MSK pain, mass, constipation, low susp appendicitis Admission/Observation Consideration of admission/observation: Escalation of care including admission/observation considered Lab Data [facility] Lab Attestation statement: I reviewed the patient's lab results. 03/27/24 11:58 03/27/24 11:58 Labs: Lab Results 03/27/24 Range/Units 11:58 WBC 11.1 H (4.8-10.8) X10*3/uL RBC 3.84 L (4.20-5.50) X10*6/uL Hgb 11.9 L (12.0-16.0) g/dl Hct 34.8 L (37.0-47.0) % MCV 90.6 (80.0-98.0) fL MCH 31.0 (27.0-33.0) pg MCHC 34.2 (31.0-35.0) g/dl RDW 14.0 (11.0-16.0) % Plt Count 228 (160-400) X10*3/uL MPV 9.7 (9.4-12.3) fL Immature Gran % (Auto) 0.6 H (0.0-0.4) % Neut % (Auto) 64.4 (45-73) % Lymph % (Auto) 22.0 (20-40) % Mcculloch % (Auto) 9.6 (2-11) % Eos % (Auto) 3.0 (0-4) % Baso % (Auto) 0.4 (0-2) % Lymph # (Auto) 2.4 (1.2-4.9) X10*3/uL Mcculloch # (Auto) 1.1 (0.1-1.2) X10*3/uL Eos # (Auto) 0.3 (0.0-0.4) X10*3/uL Baso # (Auto) 0.0 (0.0-0.2) X10*3/uL Abs Immat Gran (auto) 0.07 H (0.00-0.03) X10*3/uL Absolute Neuts (auto) 7.1 (2.0-8.3) x10*3/uL Absolute Nucleated RBC 0.000 (0.0-0.012) X10*3/uL Nucleated RBC % (auto) 0.0 (0.0-0.2) /100WBC Sodium 138 (135-145) mmol/L Potassium 4.4 D (3.3-5.1) mmol/L Chloride 108 (96-108) mmol/L Carbon Dioxide 22 (22-29) mmol/L Anion Gap 12 (12-20) BUN 13 (9-16) mg/dL Creatinine 0.69 (0.5-1.4) mg/dL Estim Creat Clear Calc 99.7 Estimated GFR > 60 Random Glucose 86 (60-115) mg/dL Calcium 9.1 (8.4-10.2) mg/dL Magnesium 2.0 (1.6-2.6) mg/dL Total Bilirubin 0.2 (0.0-1.0) mg/dL AST 16 (5-31) U/L ALT 16 (0-31) U/L Alkaline Phosphatase 73 (39-117) U/L Total Protein 6.6 (6.5-8.0) g/dL Albumin 3.8 (3.5-5.0) g/dL Lipase 42 (8-78) U/L Beta HCG, Quant < 2 mIU/mL External Record Review External record reviewed: Office record Medications Administered Discontinued Medications Generic Name Dose Route Start Last Admin Trade Name Freq PRN Reason Stop Dose Admin Cyclobenzaprine HCl 10 mg 03/27/24 13:51 03/27/24 15:25 Cyclobenzaprine Hcl 10 Mg Tablet PO 03/27/24 13:52 10 mg ONCE ONE Administration Ketorolac Tromethamine 15 mg 03/27/24 13:51 03/27/24 15:25 Ketorolac Tromethamine 15 Mg/Ml Vial IVPUSH 03/27/24 13:52 15 mg ONCE ONE Administration Discharge Plan Discharge Clinical Impression: Abdominal pain Patient Disposition: Still a Patient Prescriptions: No Action ibuprofen 600 mg tablet 600 mg PO Q8H PRN (Reason: pain) Qty: 20 0RF hydroxyzine HCl 50 mg tablet 50 mg PO BEDTIME tramadol 50 mg tablet 50 mg PO Q6H PRN (Reason: pain) Qty: 12 0RF omeprazole 40 mg capsule,delayed release(DR/EC) 40 mg PO DAILY Qty: 30 0RF hydroxyzine HCl 25 mg tablet 25 mg PO TID PRN (Reason: itch) divalproex 500 mg tablet,delayed release (DR/EC) 500 mg PO BID levetiracetam 500 mg tablet 1,500 mg PO Q12H Mirena 21 mcg/24 hours (8 yrs) 52 mg intrauterine device intrauterine Print Language: Amharic
[2024-03-27 12:03] LABS: MANUAL DIFF FLAG NO
[2024-03-27 12:06] LABS: Basophils Percent Auto 0.4 % (0-2); Eosinophils Absolute Auto 0.3 X10*3/uL (0.0-0.4); Hematocrit 34.8 % (37.0-47.0); Hemoglobin 11.9 g/dl (12.0-16.0); Imm Gran Abs Auto 0.07 X10*3/uL (0.00-0.03); Imm Gran Pct Auto 0.6 % (0.0-0.4); Lymphocytes Absolute Auto 2.4 X10*3/uL (1.2-4.9); Mean Corpuscular HGB Conc 34.2 g/dl (31.0-35.0); Mean Corpuscular Volume 90.6 fL (80.0-98.0); Mean Platelet Volume 9.7 fL (9.4-12.3); Monocytes Absolute Auto 1.1 X10*3/uL (0.1-1.2); Monocytes Percent Auto 9.6 % (2-11); Neutrophils Absolute Auto 7.1 x10*3/uL (2.0-8.3); Neutrophils Percent Auto 64.4 % (45-73); Platelet Count 228 X10*3/uL (160-400); Red Blood Count 3.84 X10*6/uL (4.20-5.50); White Blood Count 11.1 X10*3/uL (4.8-10.8)
[2024-03-27 12:32] LABS: Alanine Aminotransferase 16 U/L (0-31); Albumin Level 3.8 g/dL (3.5-5.0); Alkaline Phosphatase 73 U/L (39-117); Anion Gap 12 (12-20); Aspartate Amino Transferase 16 U/L (5-31); Bilirubin Total 0.2 mg/dL (0.0-1.0); Blood Urea Nitrogen 13 mg/dL (9-16); Calcium 9.1 mg/dL (8.4-10.2); Carbon Dioxide 22 mmol/L (22-29); Chloride 108 mmol/L (96-108); Creatinine Clr Calc Pharmacy 99.7; Estimated Glomerular Filt Rate > 60; Glucose Random 86 mg/dL (60-115); Lipase 42 U/L (8-78); Potassium 4.4 mmol/L (3.3-5.1); Sodium 138 mmol/L (135-145); Total Protein 6.6 g/dL (6.5-8.0)
[2024-03-27 13:31] VITALS: BP 97/60; PULSE 57; RESP 12; TEMP 36.6; O2SAT 99
[2024-03-27 13:58] LABS: HCG Quantitative < 2 mIU/mL
[2024-03-27] MEDS: Ketorolac Tromethamine 15 MG/ML VIAL IVPUSH (15:25)
[2024-03-27] MEDS: Cyclobenzaprine HCl 10 MG TABLET PO (15:25)
[2024-03-27] MEDS: iohexoL 350 MG/ML 100 ML INFUS..BTL IV (15:49)
[2024-03-27 15:56] LABS: Appearance Urine Clear; Color Urine Yellow; Glucose Urine UA Negative (Negative); Leukocyte Esterase Urine Negative (Negative); Nitrite Urine Negative (Negative); Specific Gravity - Urine 1.015 (1.005-1.025); UMIC TRIGGER UACC YES; Urine Blood Trace (Negative); Urine Ketones Trace mg/dL (Negative); Urine Protein Negative (Neg-Trace)
[2024-03-27 16:08] VITALS: BP 114/75; PULSE 58; RESP 18; TEMP 36.4; O2SAT 100
[2024-03-27 16:09] LABS: UPreg QC Valid YES; Urine Pregnancy NEGATIVE (NEGATIVE)
[2024-03-27 17:53] LABS: Bacteria Urine None Seen (None Seen); Hyaline Casts Urine 0-2 /LPF (0-2); Squamous Epithelial Cell Urine 0-2 /HPF (0-2); WBC Urine 0-5 /HPF (0-5)
[2024-03-27 17:56] LABS: CT PCR NOT DETECTED (Not Detect.); NG PCR NOT DETECTED (Not Detect.)
[2024-03-27 18:21] VITALS: BP 104/59; PULSE 61; RESP 14; O2SAT 98
[2024-03-27 20:00] VITALS: BP 107/67; PULSE 67; RESP 18; TEMP 36.7; O2SAT 96
[2024-03-27] MEDS: cefTRIAXone sodium 1 GM in 0.9 % Sodium Chloride 50 ML IV (20:05)
[2024-03-27] MEDS: Doxycycline Monohydrate 100 MG CAPSULE PO (20:05)
[2024-03-27] MEDS: metroNIDAZOLE 500 MG TABLET PO (20:05)
--- NOTE | 2024-03-27 20:07 | MHC.EDTECH ---
This tech took over care of patient at 1900,rounds and vitals completed,CTNG collected at this time and sent to lab,gabrielle bermudez within reach
[2024-03-27 21:43] VITALS: BP 109/69; PULSE 63; RESP 18; TEMP 36.6; O2SAT 99
[2024-03-28 14:18] LABS: CT PCR NOT DETECTED (Not Detect.); NG PCR NOT DETECTED (Not Detect.)
== END 2024-03-27 21:15 | disposition home or self-care (01) ==
PROVIDERS: Emergency Medicine; Physician Assistant Medical; Emergency Provider Student in an Organized Health Care Education/Training Program; PCP Internal Medicine
DX: R10.31 Right lower quadrant pain (principal); F17.210 Nicotine dependence, cigarettes, uncomplicated; Z20.2 Contact with and (suspected) exposure to infections with a predominantly sexual mode of transmission; Z79.899 Other long term (current) drug therapy
CPT/HCPCS: 36415; 74177; 80053; 81001; 81003; 81025; 83690; 83735; 84702; 85025; 87491; 87591; 96365; 96375; 99285; J0696; J1885; Q9967

== ENCOUNTER 2024-04-10 08:40 | Outpatient (AMB) | payer MEDICAID, SELFPAY ==
--- NOTE | 2024-04-10 08:55 | MHC.OFFVIS ---
Vital Signs 04/10/24 09:06 Height 5 ft 1 in Weight 182 lb BMI 34.4 Intake Visit Reasons: Follow up pelvic pain Geophysics Teacher Required: No Information Interpreted: non-clinical & clinical Websphere Commerce Architect: Websphere Commerce Architect Present (Estela HARRIS) Accompanied by: Self / Same As Patient Allergies No Known Drug Allergies Allergy (Unknown, Verified 04/10/24 09:09) U Is last menstrual period known: Yes Last menstrual period: 04/01/24 HPI Comments Details: Presenting for follow-up regarding her pelvic pain. The patient is doing well. The following workup was done so far: GC/CT negative. Last visit urine test was negative. Last visit urine dip showed microscopic hematuria, urine culture was negative. Pelvic ultrasound showed the following: IMPRESSION: 1. Endometrial thickness is 9 mm. Endometrium appears echogenic. 2. Small amount of free fluid in the right adnexa. 3. Unremarkable bilateral ovaries. Last visit the patient was sent to emergency room for evaluation CT scan was done and patient was treat was for PID. CT scan was negative except for bilateral Essure devices in the uterus PFSH Medical History Epilepsy Absence seizure Hx of meningitis Seizures Surgical History Hx of removal of cyst Hx of section Hx of tubal ligation Social History Patient Tobacco Use Status: Current everyday Tobacco user Tobacco use type: Cigarette Cigarettes Per Day: 3 Current occupational status: disabled Current occupation: right hand dominant Female Reproductive History Menstrual Age of Menarche: 10 Date of last menstrual period: 04/01/24 control method: permanent sterilization Review of Systems Const All systems reviewed & are unremarkable except as noted in HPI and below Reports as per HPI and Reports no additional complaints GI Reports no additional complaints Reports no additional complaints Physical Exam Vital Signs: BMI result Body Mass Index 34.4 Results AMB Test Urine AMB Test Urine Negative Last Edit by Estela Nesbitt CMA on 04/10/24 09:07 AMB Urinalysis Dipstick UR Leukocytes Trace Last Edit by Estela Nesbitt CMA on 04/10/24 09:08 UR Nitrite Negative Last Edit by Estela Nesbitt CMA on 04/10/24 09:08 UR Urobilinogen Normal Last Edit by Estela Nesbitt CMA on 04/10/24 09:08 UR Protein Negative Last Edit by Estela Nesbitt CMA on 04/10/24 09:08 UR Ph 7.0 Last Edit by Estela Nesbitt CMA on 04/10/24 09:08 UR Blood Moderate Last Edit by Estela Nesbitt CMA on 04/10/24 09:08 UR Specific [place] 1.010 Last Edit by Estela Nesbitt CMA on 04/10/24 09:08 UR Ketone Trace Last Edit by Estela Nesbitt CMA on 04/10/24 09:08 UR Bilirubin Negative Last Edit by Estela Nesbitt CMA on 04/10/24 09:08 UR Glucose Negative Last Edit by Estela Nesbitt CMA on 04/10/24 09:08 Results Reviewed Results Reviewed: Laboratory Last Values Urine pH (Clinic) 7.0 04/10/24 09:07 Specific [place] (Clinic) 1.010 04/10/24 09:07 Ur Protein (Clinic) Negative 04/10/24 09:07 Ur Ketones (Clinic) Trace 04/10/24 09:07 Urine Blood (Clinic) Moderate 04/10/24 09:07 Urine Nitrite Negative 04/10/24 09:07 Urine Bilirubin (Clinic) Negative 04/10/24 09:07 Urobilinogen (Clinic) Normal 04/10/24 09:07 Leukocyte Esterase (Clinic) Trace 04/10/24 09:07 Urine Glucose (Clinic) Negative 04/10/24 09:07 Tst Clinic Negative 04/10/24 09:07 Assessment & Plan Assessment & Plan (1) Microscopic hematuria: Code(s): R31.29 - Other microscopic hematuria Category: Medical Plan: Repeat urine dip showed persistent microscopic hematuria. Discussed with the patient the possible causes of microscopic hematuria including but not limited to: interstitial cystitis, polyps, stones, masses, urethral inflammatory processes and others, will proceed with urology referral. All questions answered and the patient verbalized understanding. (2) Pelvic pain: Comment: Essure 13 years ago Code(s): R10.2 - Pelvic and perineal pain Category: Medical Plan: Discussed with the patient the results of the workup done including negative GC/chlamydia, urine dip showing microscopic hematuria, negative urine test , negative pelvic ultrasound and negative CT scan except for the presence of bilateral Essure devices. Differential diagnosis of near eastern archaeology lecturer causes could Essure related chronic pelvic pain or other causes that have not be ruled out yet include but not limited to endometriosis, pelvic adhesions , or other. Recommended Urology referral for the workup for microscopic hematuria as a cause of her pelvic pain and will refer the patient to [facility] minimally invasive near eastern archaeology lecturer surgeon for consideration of surgical management of pelvic pain related to Essure . Discussed with the patient Essure could not be the cause of her chronic pelvic therefore in this case a hysterectomy might not relieve her pelvic pain. The patient verbalized understanding. Instructions were given the patient to go to emergency room or call in case of fever above 100.4, heavy vaginal bleeding, persistence or worsening of her pelvic pain. All questions answered, the patient verbalized understanding. Instructed the patient to call our office back in case a referral appointment is not scheduled, missed or canceled so that we will assist on rescheduling another appointment, the patient verbalized understanding agreed with the plan. Orders: Orders AMB Urinalysis Dipstick Today Z32.02 - Encounter for test, result negative AMB HCG Urine Test Today Z32.02 - Encounter for test, result negative Referrals Urology Referral R31.29 - Other microscopic hematuria Coding Level of Care Code Est Pt Level 3 (85192) Diagnoses Microscopic hematuria R31.29 Pelvic pain R10.2
[2024-04-10 09:06] VITALS: BMI 34.4
== END 2024-04-10 10:43 | disposition home or self-care (01) ==
PROVIDERS: PCP Nurse Practitioner Family; Visit Provider Obstetrics & Gynecology
DX: R31.29 Other microscopic hematuria (principal); R10.2 Pelvic and perineal pain; Z32.02 Encounter for pregnancy test, result negative
CPT/HCPCS: 99213

== ENCOUNTER → 2024-04-10 08:40 | Outpatient (BNVA) | payer MEDICAID, SELFPAY | PROVIDERS: PCP Nurse Practitioner Family; Visit Provider Obstetrics & Gynecology | DX: R31.29 Other microscopic hematuria (principal); R10.2 Pelvic and perineal pain | CPT/HCPCS: 81002; 81025; 99212 ==

== ENCOUNTER 2024-05-13 15:16 | Outpatient (REF) | payer MEDICAID, SELFPAY ==
[2024-05-13 16:34] LABS: MANUAL DIFF FLAG NO
[2024-05-13 16:48] LABS: Basophils Absolute Auto 0.1 X10*3/uL (0.0-0.2); Basophils Percent Auto 0.8 % (0-2); Eosinophils Absolute Auto 0.4 X10*3/uL (0.0-0.4); Eosinophils Percent Auto 3.6 % (0-4); Hematocrit 36.4 % (37.0-47.0); Hemoglobin 12.4 g/dl (12.0-16.0); Imm Gran Abs Auto 0.04 X10*3/uL (0.00-0.03); Imm Gran Pct Auto 0.4 % (0.0-0.4); Lymphocytes Absolute Auto 2.8 X10*3/uL (1.2-4.9); Lymphocytes Percent Auto 27.6 % (20-40); Mean Corpuscular HGB Conc 34.1 g/dl (31.0-35.0); Mean Corpuscular Hemoglobin 30.5 pg (27.0-33.0); Mean Corpuscular Volume 89.4 fL (80.0-98.0); Mean Platelet Volume 10.5 fL (9.4-12.3); Monocytes Absolute Auto 1.3 X10*3/uL (0.1-1.2); Neutrophils Absolute Auto 5.5 x10*3/uL (2.0-8.3); Neutrophils Percent Auto 54.6 % (45-73); Platelet Count 241 X10*3/uL (160-400); Red Blood Count 4.07 X10*6/uL (4.20-5.50); Red Cell Distribution Width 13.2 % (11.0-16.0)
[2024-05-13 16:54] LABS: Estimated Average Glucose 108 mg/dL; Hemoglobin A1C 114.2113 umol/L; Hemoglobin A1c % 5.4 % (<6.0); Total Hemoglobin (HGBA1C) 3262.4597 umol/L
[2024-05-13 17:01] LABS: Anion Gap 12 (12-20); Blood Urea Nitrogen 11 mg/dL (9-16); C Reactive Protein 0.35 mg/dL (< or = 0.50); Calcium 9.3 mg/dL (8.4-10.2); Carbon Dioxide 26 mmol/L (22-29); Chloride 106 mmol/L (96-108); Estimated Glomerular Filt Rate > 60; Glucose Random 90 mg/dL (60-115); Sodium 140 mmol/L (135-145); Uric Acid 4.3 mg/dL (2.4-5.7)
[2024-05-13 17:28] LABS: Erythrocyte Sedimentation Rate 5 MM/HR (0-20)
[2024-05-13 17:42] LABS: Rheumatoid Factor < 13.0 IU/mL (<15.0)
[2024-05-14 08:41] LABS: HBS Num1 150.41 mIU/mL (0-7.99); HBc Num1 0.23 S/CO (0.00-0.79); Hepatitis A Antibody IgM 0.18 Index (0-0.79); Hepatitis B Core Antibody Nonreactive (Nonreactive); Hepatitis B Surface Antigen Negative (Negative); ~HepC Num1 0.12 S/CO (0.00-0.79); ~Hepatitis A Antibody IgM Nonreactive (Nonreactive); ~Hepatitis B Surface Antibody REACTIVE (Nonreactive); ~Hepatitis C Antibody Nonreactive (Nonreactive)
[2024-05-15 14:04] LABS: Anti Nuclear Antibody Screen NEGATIVE (NEGATIVE)
== END 2024-05-13 15:17 | disposition home or self-care (01) ==
LOC: HO.HHCL 15:16
PROVIDERS: Visit Provider Internal Medicine
DX: R81 Glycosuria (principal); G56.03 Carpal tunnel syndrome, bilateral upper limbs
CPT/HCPCS: 36415; 80048; 83036; 84550; 85025; 85652; 86038; 86140; 86431; 86704; 86706; 86709; 86803; 87340

== ENCOUNTER 2024-06-10 10:34 | Outpatient (REF) | payer MEDICAID, SELFPAY ==
[2024-06-10 16:52] LABS: Urine Cytology See Pathology rpt
== END 2024-06-10 10:35 | disposition home or self-care (01) ==
LOC: HO.LNP 10:34
PROVIDERS: PCP Nurse Practitioner Family; Visit Provider Nurse Practitioner Family
DX: R31.29 Other microscopic hematuria (principal); F17.200 Nicotine dependence, unspecified, uncomplicated
CPT/HCPCS: 81003; 88112; 99212

== ENCOUNTER 2024-06-10 10:34 | Outpatient (AMB) | payer MEDICAID, SELFPAY ==
--- NOTE | 2024-06-10 10:51 | A.OFFVIS_ITS ---
Intake Visit Reasons: microscopic hematuria Intake Note: New Patient presents for initial visit for microscopic hematuria Urology Medications: none Blood Thinner: none smoker: current smoker Neurodiagnostic Technician Required: No Accompanied by: Self / Same As Patient Allergies No Known Drug Allergies Allergy (Unknown, Verified 06/10/24 11:00) U HPI Comments Details: Ebony is a pleasant 34 year old female patient of Dr. Kyle. She has a past medical history of epilepsy and history of meningitis at the age of 3. She presents to the office today as a new patient for microscopic hematuria in the setting of nicotine dependence. In discussion with the patient today she reports having followed up with her belt puncher for ongoing pelvic pain she has been experiencing at which time a CT was ordered for further assessment evaluation and recommendations were made for urology referral. These results reviewed with the patient today. The kidneys are normal in size, shape, and attenuation. Small low-attenuation cyst in the upper pole right kidney. No hydronephrosis, hydroureter, or perinephric stranding. No calculi. The bladder is unremarkable. In office urinalysis results reviewed with the patient today 1+ microscopic hematuria noted. Patient reports a longstanding history of nicotine dependence over the last 20+ years. She reports approximately smoking half a pack of cigarettes per day. She denies any known workplace chemical exposure. She discusses she continues with ongoing pelvic pain. She otherwise denies urinary urgency, urinary frequency, incontinence, nocturia, gross/visable hematuria, dysuria, foul smelling urine, changes to urinary stream, flank pain, fever, and or chills. She is happy with her current voiding parameters. She does become tearful throughout today's office visit as she discusses being fearful of something being wrong. We discussed at length potential causes of microscopic hematuria. We discussed further workup to include in office cystoscopy and urine cytology. Reviewed UA - persistant Microscopic hematuria. I discussed reasons for blood in the urine may include but are not limited to kidney stones, cancer in the urinary tract, kidney stone disease or inflammatory conditions of the urinary tract. [facility] Medical History Epilepsy Absence seizure Hx of meningitis Seizures Surgical History Hx of removal of cyst Hx of section Hx of tubal ligation Social History Patient Tobacco Use Status: Current everyday Tobacco user Tobacco use type: Cigarette Cigarettes Per Day: 3 Current occupational status: disabled Current occupation: right hand dominant Female Reproductive History Menstrual Age of Menarche: 10 Review of Systems Const All systems reviewed & are unremarkable except as noted in HPI and below Physical Exam Const General: cooperative, healthy appearing, comfortable, no acute distress, well developed, alert and awake Nutritional Appearance: overweight Orientation/consciousness: patient oriented x3 Limitations: no limitations HEENT Head: Yes normal to inspection, Yes normocephalic and Yes atraumatic Ears: hearing grossly normal bilaterally Eyes General: appearance normal, both eyes and all related structures Neck Neck: Yes normal visual inspection and Yes trachea midline Chest Chest palpation & inspection: normal inspection of the chest Resp Effort & Inspection: normal respiratory effort and able to speak in complete sentences Cardio Rate: regular rate GI Inspection: Yes normal to inspection General: Yes no CVA tenderness Back/Spine/Pelvis Back: no CVA tenderness Skin General skin exam: no rashes or lesions noted Neuro General: patient oriented x3 Extrem General: Yes normal to inspection Psych Appearance: grossly normal and well kempt Mental Status: mental status grossly normal Speech and movement: Normal speech and movement present and Clear speech present Affect: normal affect Attitude: cooperative Thought process: Normal thought process present Thought content: Normal thought content present Insight: Fair insight present (Psych) Judgement: Fair judgement present (Psych) Results AMB Urinalysis, Automated UA Leukoctes 0 Ayo/uL Last Edit by Adrienne Olmstead on 06/10/24 11:11 UA Nitrite Last Edit by Adrienne Olmstead on 06/10/24 11:11 UA Urobilinogen 0.2 mg/dL Last Edit by Adrienne Olmstead on 06/10/24 11:11 UA Protein 0 mg/dL Last Edit by Adrienne Olmstead on 06/10/24 11:11 UA pH 8.0 Last Edit by Adrienne Brandienoah on 06/10/24 11:11 UA Blood 25 Duong/uL Last Edit by Adrienne Olmstead on 06/10/24 11:11 UA Specific [place] 1.010 Last Edit by Adrienne Olmstead on 06/10/24 11:11 UA Ketone Last Edit by Adrienne Olmstead on 06/10/24 11:11 UA Bilirubin 0 mg/dL Last Edit by Adrienne Olmstead on 06/10/24 11:11 UA Glucose 0 mg/dL Last Edit by Adrienne Olmstead on 06/10/24 11:11 Results Reviewed Results Reviewed: Laboratory Last Values Urine pH (Auto) 8.0 06/10/24 11:01 Specific [place] (Auto) 1.010 06/10/24 11:01 Urine Protein (Auto) 0 mg/dL 06/10/24 11:01 Glucose (UA)(Auto) 0 mg/dL 06/10/24 11:01 Urine Blood (Auto) 25 Duong/uL 06/10/24 11:01 Urine Bilirubin (Auto) 0 mg/dL 06/10/24 11:01 Urine Urobilinogen (Auto) 0.2 mg/dL 06/10/24 11:01 Leukocyte Esterase (Auto) 0 Ayo/uL 06/10/24 11:01 Date of Service: 03/27/24 EXAMINATION: CT ABDOMEN AND PELVIS WITH CONTRAST FINDINGS: LUNG BASES: Linear basilar atelectasis. LIVER, GALLBLADDER, AND BILIARY TREE: The liver is normal in size, shape, and attenuation. No focal hepatic lesion or biliary ductal dilatation is present. The gallbladder is unremarkable with no evidence of radiopaque gallstones, gallbladder wall thickening, or obvious pericholecystic inflammatory changes. PANCREAS: Unremarkable. SPLEEN: Unremarkable. ADRENAL GLANDS: Unremarkable. KIDNEYS AND URETERS: The kidneys are normal in size, shape, and attenuation. Small low-attenuation cyst in the upper pole right kidney. No hydronephrosis, hydroureter, or perinephric stranding. No calculi. BLADDER: Unremarkable. GASTROINTESTINAL TRACT: The small and large bowel are unremarkable. The retrocecal appendix is unremarkable. ABDOMINAL WALL: No significant hernia is appreciated. LYMPHOVASCULAR STRUCTURES: No lymphadenopathy. The aorta is unremarkable. PELVIC VISCERA: Bilateral Essure devices. Physiologic changes. OSSEOUS STRUCTURES: Unremarkable. IMPRESSION: No acute intra-abdominal process seen. Assessment & Plan Assessment & Plan (1) Microscopic hematuria: Code(s): R31.29 - Other microscopic hematuria Category: Medical (2) Nicotine dependence: Code(s): F17.200 - Nicotine dependence, unspecified, uncomplicated Category: Medical Plan In office urinalysis results with the patient today; as noted above; will send for urine cytology. We discussed at length potential causes of microscopic hematuria Recent CT results reviewed with the patient today; as noted above. We discussed further workup to include surveillance monitoring verses in office cystoscopy; risks and benefits of these interventions were discussed. Patient otherwise denies any bothersome urinary issues. She reports be happy with current voiding parameters. Follow-up next available in office cystoscopy. Follow-up per doctor's orders; or sooner with any issues, concerns, and or questions. Orders: Orders AMB Urinalysis Automated Today Z13.9 - Encounter for screening, unspecified Urine Cytology Today R31.29 - Other microscopic hematuria Patient Instructions: The patient had an opportunity to ask questions regarding the treatment plan. All questions were answered. Physical exam, labs, and imaging were discussed and reviewed in detail. As well as risks, benefits, and discussion of treatment choices. No major barriers to understanding were identified. The patient expressed understanding and agreement with the above treatment plan. The patient was made aware they should contact our office by phone for worsening of their current condition, the appearance of new symptoms, or with any questions or concerns. Compliance is encouraged with any medications and follow up testing that is ordered. It is a privilege to be allowed the opportunity to participate in? your urological care.? Again, if you have any questions or concerns If you have any questions or concerns please do not hesitate to contact me. The office is [phone]. This note is constructed using voice recognition software. While every effort has been made to ensure accuracy sap business objects developer errors may have been included. Yours sincerely, LEONARDO James Coding Level of Care Code New Pt Level 3 (30752) Diagnoses Microscopic hematuria R31.29 Nicotine dependence F17.200
== END 2024-06-10 11:29 | disposition home or self-care (01) ==
PROVIDERS: PCP Nurse Practitioner Family; Visit Provider Nurse Practitioner Family
DX: R31.29 Other microscopic hematuria (principal); F17.200 Nicotine dependence, unspecified, uncomplicated; Z13.9 Encounter for screening, unspecified
CPT/HCPCS: 99203

== ENCOUNTER 2024-09-11 13:57 | Emergency (ER) | payer MEDICAID, SELFPAY ==
--- NOTE | ~2024-09-11 | XR_ITS ---
EXAMINATION: XR LUMBAR SPINE 2-3 VIEWS HISTORY: pain, worse on L COMPARISON: Comparison is made with the prior examination dated 07/10/2023. FINDINGS: AP, lateral, and coned down views of the lumbar spine are submitted. Osseous mineralization is normal. Five nonrib-bearing lumbar vertebral bodies are identified, maintaining normal height without evidence of fracture or spondylolisthesis. There is mild leftward curvature which may be positional in nature. The intervertebral disc spaces are preserved. The posterior elements are intact. The patient is status post bilateral tubal ligation. XR/XR lumbar spine 2-3V IMPRESSION: Mild leftward curvature which may be positional in nature. Otherwise unremarkable examination of the lumbar spine. Electronically signed by: Jean Paul Boyce MD 09/11/2024 03:43 PM EST
[2024-09-11 14:35] VITALS: BP 105/52; PULSE 64; RESP 18; TEMP 36.6; O2SAT 100; BMI 36.8
--- NOTE | 2024-09-11 14:50 | ED_ITS ---
HPI - General Adult General Chief complaint: General Medical Stated complaint: Lower back pain, feet swelling Source: patient, RN notes reviewed and old records reviewed Mode of arrival: ambulatory Limitations: no limitations History of Present Illness ED Provider: Dylan PALACIOS narrative: Patient is a 34-year-old female presenting to the emergency department with complaint of lower back pain, left worse than right for the past 3 days as well as bilateral foot swelling. Denies fall or other trauma. Denies saddle anesthesia or bowel or bladder incontinence, fevers. Also complains of bilateral foot swelling. Denies paresthesias to lower extremities. MD complaint: back pain Onset (ago): day(s) Location: back Severity: severe Quality: aching Pain Consistency: colicky Relieving factors: rest Exacerbating factors: movement Treatments prior to arrival: none Related Data Home Medications ?Medication ?Instructions ?Recorded ?Confirmed divalproex 500 mg tablet,delayed 500 mg PO BID 12/06/22 release levetiracetam 500 mg tablet 1,500 mg PO Q12H 12/06/22 12/26/22 hydroxyzine HCl 50 mg tablet 50 mg PO BEDTIME 12/26/22 12/26/22 hydroxyzine HCl 25 mg tablet 25 mg PO TID PRN itch 11/15/23 Previous Rx's ?Medication ?Instructions ?Recorded tramadol 50 mg tablet 50 mg PO Q6H PRN pain #12 tabs 07/10/23 omeprazole 40 mg capsule,delayed 40 mg PO DAILY #30 caps 09/20/23 release cyclobenzaprine 10 mg tablet 10 mg PO TID PRN muscle spasm #14 09/11/24 tabs lidocaine 5 % topical patch 1 patch topical DAILY #15 ea 09/11/24 naproxen 500 mg tablet 500 mg PO BID #14 tabs 09/11/24 Allergies Allergy/AdvReac Type Severity Reaction Status Date / Time No Known Drug Allergies Allergy Unknown U Verified 09/11/24 14:38 Review of Systems Review of Systems: As per HPI Yes all other systems are reviewed and are negative Constitutional: Constitutional: Reports as per HPI PMF Past Medical History Medical History Epilepsy Absence seizure Hx of meningitis Seizures Surgical History Hx of removal of cyst Hx of section Hx of tubal ligation Social History Social History Patient Tobacco Use Status: Current everyday Tobacco user Tobacco use type: Cigarette Cigarettes Per Day: 3 Do you have a plan to hurt others: No Plan Current occupational status: disabled Current occupation: right hand dominant Physical Exam ED Vital Signs: Vital Signs - 24 hr 09/11/24 14:35 Temperature 97.8 F Pulse Rate 64 Respiratory Rate 18 Blood Pressure 105/52 L Pulse Oximetry 100 Oxygen Delivery Method Room Air BMI result Body Mass Index 36.8 Vital signs have been reviewed and appear to be correct. Blood pressure normal. Heart rate normal. Respiratory rate normal. Temperature normal. Oxygen saturation normal. Const General: cooperative, healthy appearing and no acute distress Orientation/consciousness: oriented to person, oriented to place, oriented to time and patient oriented x3 Limitations: no limitations HENMT Head: Yes normocephalic and Yes atraumatic Ears: external ears normal General nose exam: Normal external nose present Face and sinus: Yes face symmetric Mouth: oropharynx normal and moist mucous membranes Throat: Yes uvula midline Eyes Pupils: Equal, round and reactive pupils present Neck Neck: Yes normal visual inspection, Yes no meningeal signs and Yes supple Resp Effort & Inspection: normal respiratory effort and able to speak in complete sentences Auscultation: clear to auscultation bilaterally Cardio Rate: regular rate Rhythm: regular rhythm Heart sounds: S1 normal heart sound present and S2 normal heart sound present GI Palpation (GI): Soft to palpation and nontender Auscultation: normoactive bowel sounds General: Yes no CVA tenderness Back/Spine/Pelvis Back: no CVA tenderness Cervical Spine: normal cervical lordosis and cervical ROM normal Thoracic/Lumbar Spine: thoracic and lumbar spine normal to inspection, thoraco- lumbar ROM normal, straight leg raise negative bilaterally, pain with thoraco- lumbar ROM, paraspinal muscle tenderness on the left in the mid lumbar, No thoracic spinal tenderness and No lumbar spinal tenderness Skin General skin exam: elasticity normal and turgor normal Neuro General: oriented to person, oriented to place, oriented to time, patient oriented x3, gait normal, tone normal, moves all extremities, Normal light touch and pain sensation, no meningeal signs, no focal motor deficits, CN's II-XI intact bilaterally and deep tendon reflexes 2+ bilaterally Cranial nerves: Yes Equal, round and reactive pupils present Cognition (Neuro): normal cognition Motor exam (neuro): 5/5 motor strength present throughout, Normal motor muscle tone present throughout and Motor abnormalities not present Extrem General: Yes full ROM, Yes no pedal edema and Yes no calf tenderness Right lower extremity: foot Details: normal capillary refill, normal to inspection, toes with normal ROM, no edema and vascular exam Details: dorsalis pedis pulse present, posterior tibial pulse present and normal capillary refill Left lower extremity: foot Details: normal capillary refill, normal to inspection, no edema and vascular exam Details: dorsalis pedis pulse present, posterior tibial pulse present and normal capillary refill Psych Mental Status: mental status grossly normal Affect: normal affect Thought process: Normal thought process present Course Course Course Narrative: This is a rapid medical exam performed by Zhang Richardson NP: Additional HPI, ROS, PE not included below will be deferred to primary provider. Patient is a 34-year-old female presenting to the emergency department with complaint of lower back pain, left worse than right for the past 3 days as well as bilateral foot swelling. Denies injury or other trauma. Denies saddle anesthesia or bowel or bladder incontinence, fevers. Plan: X-ray, UA Medical Decision Making Medical Decision Making MDM Narrative: Patient is a 34-year-old female presenting to the emergency department with complaint of lower back pain, left worse than right for the past 3 days as well as bilateral foot swelling. On exam patient is awake, A+Ox3, VS WNL, afebrile, normal neurological exam without focal deficits, physical exam findings as above. Given reported symptoms and physical exam findings, initial differential includes but is not limited to lumbar strain, lumbar radiculopathy, UTI, degenerative disc disease, disc herniation, spinal stenosis, spondylosis. Less likely vertebral fracture. Do not suspect malignancy/mass, SEA, cauda equina/cord compression. Urinalysis is without evidence of infection. X-ray lumbar spine notable for mild leftward curvature but otherwise unremarkable. My interpretation is in agreement with the radiologist's interpretation. Physical exam findings most consistent with muscle strain/spasm. Will treat with course of Flexeril, topical lidocaine patches naproxen. Follow up with PCP as needed. Return precautions discussed. Patient verbalized understanding of and agreement with plan. Differential Diagnosis Differential Diagnoses: The differential diagnosis associated with the presentation includes As per [facility] Lab Data [facility] Lab Attestation statement: I reviewed the patient's lab results. As per [facility] Labs: Lab Results 09/11/24 Range/Units 14:51 Urine Color Yellow Urine Appearance Clear Urine pH 6.0 (5.0-9.0) Ur Specific [place] 1.020 (1.005-1.025) Urine Protein Negative (Neg-Trace) mg/dL Urine Glucose (UA) Negative (Negative) mg/dL Urine Ketones Trace (Negative) mg/dL Urine Blood Large (3+) H (Negative) Urine Nitrite Negative (Negative) Ur Leukocyte Esterase Trace H (Negative) Urine RBC >20 H (0-2) /HPF Urine WBC 0-5 (0-5) /HPF Ur Squamous Epith Cells 0-2 (0-2) /HPF Urine Bacteria None Seen (None Seen) Hyaline Casts 0-2 (0-2) /LPF Urine Test NEGATIVE (NEGATIVE) Independent Interpretation I performed an independent interpretation of an: Plain X-Ray Interpretation: X-ray lumbar spine notable for mild leftward curvature but otherwise u nremarkable. Radiology Impression Discussion of test interpretation with radiology: I have reviewed the radiologist's reading. Radiologist Impression: EXAMINATION: XR LUMBAR SPINE 2-3 VIEWS HISTORY: pain, worse on L COMPARISON: Comparison is made with the prior examination dated 07/10/2023. FINDINGS: AP, lateral, and coned down views of the lumbar spine are submitted. Osseous mineralization is normal. Five nonrib-bearing lumbar vertebral bodies are identified, maintaining normal height without evidence of fracture or spondylolisthesis. There is mild leftward curvature which may be positional in nature. The intervertebral disc spaces are preserved. The posterior elements are intact. The patient is status post bilateral tubal ligation. XR/XR lumbar spine 2-3V IMPRESSION: Mild leftward curvature which may be positional in nature. Otherwise unremarkable examination of the lumbar spine. External Record Review External record reviewed: Inpatient record, Office record and Outpatient record Prescription Management I considered prescription management with: Pain Medication and Other Discharge Plan Discharge Clinical Impression: Lumbar strain Patient Disposition: Home, Self-Care Instructions: Low Back Strain (ED) Additional Instructions: You were evaluated in the emergency department today for back pain. Your evaluation did not show signs of medical conditions requiring emergent intervention at this time. We recommended that you use ibuprofen or Tylenol per package directions every 6 hours as needed for pain. If necessary, you can alternate these medications so that you take one medication every 3 hours. For instance, at noon take ibuprofen, then at 3:00 p.m. take Tylenol, then at 6:00 p.m. take ibuprofen. You have been prescribed a muscle relaxer which you may take every 8 hours as needed for spasms. You have been prescribed 5% topical lidocaine patches which you can wear for up to 12 hours in a 24 hour period. Do not apply heat directly over the patches. Please schedule an appointment for follow-up with your primary care physician this week for further evaluation of your symptoms. Return to the emergency department if you experience worsening back pain, difficulty walking, fevers, numbness, tingling, incontinence, groin n umbness or tingling, or any other concerning symptoms. Prescriptions: New cyclobenzaprine 10 mg tablet 10 mg PO TID PRN (Reason: muscle spasm) Qty: 14 0RF lidocaine 5 % adhesive patch,medicated 1 patch topical DAILY Qty: 15 0RF Rx Instructions: leave on most painful area for up to 12 hrs naproxen 500 mg tablet 500 mg PO BID Qty: 14 0RF No Action hydroxyzine HCl 50 mg tablet 50 mg PO BEDTIME tramadol 50 mg tablet 50 mg PO Q6H PRN (Reason: pain) Qty: 12 0RF omeprazole 40 mg capsule,delayed release(DR/EC) 40 mg PO DAILY Qty: 30 0RF hydroxyzine HCl 25 mg tablet 25 mg PO TID PRN (Reason: itch) divalproex 500 mg tablet,delayed release (DR/EC) 500 mg PO BID levetiracetam 500 mg tablet 1,500 mg PO Q12H Print Language: Slovak
[2024-09-11 15:04] LABS: Appearance Urine Clear; Color Urine Yellow; Glucose Urine UA Negative (Negative); Leukocyte Esterase Urine Trace (Negative); Nitrite Urine Negative (Negative); UMIC TRIGGER UACC YES; Urine Blood Large (3+) (Negative); Urine Ketones Trace mg/dL (Negative); Urine Protein Negative (Neg-Trace)
[2024-09-11 15:05] LABS: UPreg QC Valid YES; Urine Pregnancy NEGATIVE (NEGATIVE)
[2024-09-11 15:09] LABS: Bacteria Urine None Seen (None Seen); Hyaline Casts Urine 0-2 /LPF (0-2); RBC Urine >20 /HPF (0-2); Squamous Epithelial Cell Urine 0-2 /HPF (0-2); WBC Urine 0-5 /HPF (0-5)
[2024-09-11 16:36] VITALS: BP 105/52; PULSE 64; RESP 18; TEMP 36.6; O2SAT 100
== END 2024-09-11 16:38 | disposition home or self-care (01) ==
LOC: HO.ED 16:37
PROVIDERS: Registered Nurse Emergency; Emergency Provider Emergency Medicine; PCP Nurse Practitioner Family
DX: M54.50 Low back pain, unspecified (principal); R60.0 Localized edema; Z79.899 Other long term (current) drug therapy
CPT/HCPCS: 72100; 81001; 81025; 99282; 99283

== ENCOUNTER → 2024-09-11 14:49 | Outpatient (BNV) | payer MEDICAID, SELFPAY | PROVIDERS: PCP Nurse Practitioner Family; Visit Provider Radiology Diagnostic Radiology | DX: M54.50 Low back pain, unspecified (principal) | CPT/HCPCS: 72100 ==

== ENCOUNTER 2024-10-08 12:26 | Outpatient (RCR) | payer MEDICAID, SELFPAY | END 2024-12-31 11:33 | disposition home or self-care (01) | LOC: HO.PT 12:26 | PROVIDERS: PCP Internal Medicine; Visit Provider Emergency Medicine | DX: M54.50 Low back pain, unspecified (principal) | CPT/HCPCS: 97110; 97161; 97535 ==

== ENCOUNTER 2024-10-09 13:44 | Outpatient (REF) | payer MEDICAID, SELFPAY ==
[2024-10-09 14:43] LABS: Valproate 49.1 mcg/mL (50.0-100.0)
--- OUTSIDE RECORDS SUMMARY | 2024-10-09 17:22 | XMS_ITS | Encounter Summary ---
Author Organization [employer] [facility] Address [address] [facility] [address] 7t [place] [address] Care Team Providers Care Counter Intelligence Technician Name Role Phone Neetu Kyle Primary Care Provider [phone] Iris Clancy MD Primary Care Provider + Aubrey Montesinos PharmD Unavailable [phone] Reason for Visit * Reason Onset Date Comments Letter Request 07/13/2023 Encounter Details Date Type Department Care Team ([facility] st Contact Info) Description 07/13/2023 Telephone [facility] MEDICINE [address] [place] [address] Neetu Kyle FNP [address] [place] [address] Letter Request Social History Tobacco Use Types Packs/Day Years Used Date Smoking Tobacco: Every Day Cigarettes 0.3 13 Passive Smoke Exposure: Current Smokeless Tobacco: Never Alcohol Use Standard Drinks/Week Comments Yes 0 (1 standard drink = 0.6 oz pur e alcohol) Depression Answer Date Recorded Patient Health Questionnaire-9 Score 24 05/11/2023 Housing Stability Answer Date Recorded What is your housing situation today? I do not have housing (Staying with others, in a hotel, in a usp, living outside on the street, on a beach, in a car, or in a park 05/11/[address] you li ve. Do you have problems with any of the following? None of the above 05/11/2023 Food Insecurity Answer Date Recorded Within the past 12 months, y ou worried that your food would run out before you got money to buy more: Often true 05/14/2023 Within the past 12 months,th e food you bought just didn't last and you didn't have enough money to get more: Often true Transportation Answer Date Recorded In the past 12 months, has l ack of transportation kept you from medical appts, meetings, work or from getting things needed for daily living? Yes, it has kept me from medical appointments or getting medications. 05/08/2023 Utilities Answer Date Recorded In the past 12 months, has t he electric, gas, oil or water company threatened to shut off services in your home? No 05/14/2023 Depression Answer Date Recorded Patient Health Questionnaire-2 Score 5 05/11/2023 Comments No Sex and Gender Information Value Date Recorded Sex Assigned at Female 05/29/2022 10:15 AM EDT Legal Sex Female 10:15 AM EDT Gender Identity Female 05/29/2022 10:15 AM EDT Sexual Orientation Straight 05/29/2022 10 :15 AM EDT documented as of this encounter Miscellaneous Notes * Telephone Encounter - Allison Quinn - 07/13/2023 2:00 PM EST Tc from pt requesting a letter for housing, pt need a letter to have her dog as an emotional support. documented in this encounter Plan of Treatment Upcoming Encounters Date Type Department Care Team (Late st Contact Info) Description 11/04/2024 8:00 AM EDT Office Visit [facility] ADULT DENTAL [address] [place] [address] Grace Christianson 11/13/2024 9:45 AM EDT Office Visit [facility] MEDICINE [address] [place] [address] Iris Clancy MD [address] [place] [address] documented as of this encounter Visit Diagnoses Not on filedocumented in this encounter Additional Health Concerns Assessment Noted Time PHQ-9 Depression Total Score: 24 023 3:56 PM EDT documented as of this encounter Care Teams Counter Intelligence Technician Relationship Specialty Start Date End Date Neetu Kyle FNP [address] [place] [address] PCP - General Family Medicine 09/19/22 04/01/24 Iris Clancy MD [address] [place] [address] PCP - General Internal Medicine 04/02/24 Aubrey Montesinos, ArbenD [address] [place] [id number] Pharmacist Internal Medicine 08/07/24 documented as of this encounter
--- OUTSIDE RECORDS SUMMARY | 2024-10-09 17:22 | XMS_ITS | Encounter Summary ---
Author Organization [employer] Address [address] [facility] [address] 7[address] [place] [address] Care Team Providers Care Speech Correction Assistant Name Role Phone Iris Clancy MD Primary Care Provider + Aubrey Montesinos PharmD Unavailable Reason for Visit * Reason Comments Med Refill Encounter Details Date Type Department Care Team (Late st Contact Info) Description 10/02/2024 Refill [facility] MED & PEDS [address] [place], [place] [phone] Iris Clancy MD [address] [place] [address] Social History Tobacco Use Types Packs/Day Years Used Date Smoking Tobacco: Former Cigarettes 0.3 13 Passive Smoke Exposure: Current Smokeless Tobacco: Never Alcohol Use Standard Drinks/Week Comments Never 0 (1 standard drink = 0.6 oz pur e alcohol) Depression Answer Date Recorded Patient Health Questionnaire-9 Score 24 05/11/2023 Housing Stability Answer Date Recorded What is your housing situation today? I have jonathan díaz 10/01/[address] you li ve. Do you have problems with any of the following? None of the above 10/01/2023 Food Insecurity Answer Date Recorded Within the past 12 months, y ou worried that your food would run out before you got money to buy more: Never True 10/01/2023 Within the past 12 months,th e food you bought just didn't last and you didn't have enough money to get more: Never True 10/2023 Transportation Answer Date Recorded In the past 12 months, has l ack of transportation kept you from medical appts, meetings, work or from getting things needed for daily living? No 10/01/2023 Utilities Answer Date Recorded In the past [...] AM EDT documented as of this encounter Plan of Treatment Upcoming Encounters Date Type Department Care Team (Late st Contact Info) Description 11/04/2024 8:00 AM EDT Office Visit [facility] ADULT DENTAL [address] [place] [address] Grace Christianson 11/13/2024 9:45 AM EDT Office Visit [facility] MEDICINE [address] [place] [address] Iris Clancy MD [address] [place] [address] documented as of this encounter Visit Diagnoses Not on filedocumented in this encounter Additional Health Concerns Assessment Noted Time PHQ-9 Depression Total Score: 24 023 3:56 PM EDT documented as of this encounter Care Teams Speech Correction Assistant Relationship Specialty Start Date End Date Iris Clancy MD [address] [place] [address] PCP - General Internal Medicine 04/02/24 Aubrey Montesinos, Shilpa [address] [place] [phone] Pharmacist Internal Medicine 08/07/24 documented as of this encounter
--- OUTSIDE RECORDS SUMMARY | 2024-10-09 17:22 | XMS_ITS | Encounter Summary ---
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) Social History Tobacco Use Types Packs/Day Years Used Date Smoking Tobacco: Every Day Cigarettes 0.3 13 Passive Smoke Exposure: Current Smokeless Tobacco: Never Alcohol Use Standard Drinks/Week Comments Never 0 (1 standard drink = 0.6 oz pur e alcohol) PHQ-2 Answer Date Recorded Patient Health Questionnaire-2 Score 3 01/10/2023 Comments No Sex and Gender Information Value [...] Description 11/04/2024 8:00 AM EDT Office Visit [facility] ADULT DENTAL [address] [place] [address] Grace Christianson 11/13/2024 9:45 AM EDT Office Visit [facility] MEDICINE [address] [place] [address] Iris Clancy MD [address] [place] [address] documented as of this encounter Visit Diagnoses Diagnosis Other specified hearing loss of both ears- Primary documented in this encounter Additional Health Concerns Assessment Noted Time PHQ-9 Depression Total Score: 8 01/11/20 10:51 AM EDT documented as of this encounter Care Teams Revenue Collector Relationship Specialty Start Date End Date Neetu Kyle FNP [address] [place] [address] PCP - General Family Medicine 09/19/22 04/01/24 Iris Clancy MD [address] [place] [id number] PCP - General Internal Medicine 04/02/24 Aubrey Montesinos, ArbenD [address] [place] [phone] Pharmacist Internal Medicine 08/07/24 documented as of this encounter
--- OUTSIDE RECORDS SUMMARY | 2024-10-09 17:22 | XMS_ITS | Encounter Summary ---
Author Organization [employer] [facility] Address [address] [place] [address] 7t [place] [address] Care Team Providers Care Paper Deliverer Name Role Phone Jagdeep St Primary Care Provider Neetu Adams Primary Care Provider [phone] Iris Clancy MD Primary Care Provider + Aubrey Montesinos PharmD Unavailable [phone] Reason for Visit * Reason Onset Date Comments TP appt 07/27/2022 Encounter Details Date Type Department Care Team (Late st Contact Info) Description 07/27/2022 Telephone [facility] MEDICINE [address] [place] [address] FNP TP appt Social History Tobacco Use Types Packs/Day Years Used Date Smoking Tobacco: Never Assessed Comments Unknown Sex and Gender Information Value Date Recorded Sex Assigned at Female 05/29/2022 10:15 AM EDT Legal Sex Female 10:15 AM EDT Gender Identity Female 05/29/2022 10:15 AM EDT Sexual Orientation Straight 05/29/2022 10 :15 AM EDT documented as of this encounter Miscellaneous Notes * Telephone Encounter - Jana Larsen - 07/27/2022 2:26 PM EST Tc from pt requesting a TP appt . documented in this encounter Plan of Treatment Upcoming Encounters Date Type Department Care Team (Late st Contact Info) Description 11/04/2024 8:00 AM EDT Office Visit [facility] ADULT DENTAL [address] [place] [address] Grace Christianson 11/13/2024 9:45 AM EDT Office Visit [facility] MEDICINE [address] [place] [address] Iris Clancy MD [address] [place] [address] documented as of this encounter Visit Diagnoses Not on filedocumented in this encounter Care Teams Paper Deliverer Relationship Specialty Start Date End Date Jagdeep St FNP PCP - General 06/20/22 09/18/22 Neetu Kyle FNP [address] [place] [address] PCP - General Family Medicine 09/19/22 04/01/24 Iris Clancy MD [address] [place] [address] [phone] PCP - General Internal Medicine 04/02/24 Aubrey Montesinos, ArbenD [address] [place] [phone] Pharmacist Internal Medicine 08/07/24 documented as of this encounter
--- OUTSIDE RECORDS SUMMARY | 2024-10-09 17:22 | XMS_ITS | Encounter Summary ---
Author Organization [employer] [facility] Address [address] [facility] 7t [place] [address] Care Team Providers Care Physician Pediatrician Name Role Phone Neetu Kyle Primary Care Provider [phone] Iris Clancy MD Primary Care Provider + Aubrey Montesinos PharmD Unavailable [phone] Reason for Visit * Reason Onset Date Comments Referral 11/16/2023 Encounter Details Date Type Department Care Team (Late st Contact Info) Description 11/16/2023 Telephone [facility] MEDICINE [address] [place] [address] Neetu Kyle FNP [address] [place] [address] Referral Social History Tobacco Use Types Packs/Day Years Used Date Smoking Tobacco: Every Day Cigarettes 0.3 13 Passive Smoke Exposure: Current Smokeless Tobacco: Never Alcohol Use Standard Drinks/Week Comments Not Currently 0 (1 standard drink = 0.6 oz [...] encounter Miscellaneous Notes * Telephone Encounter - Janny Oviedo - 12/19/2023 12:43 PM EDT Tc from pt requesting to speak with a nurse in regards to vision referral Please contact pt at [phone] * Telephone Encounter - Alondra Oakley RN - 11/16/2023 1:27 PM EDT T/C to pt. For below message, pt. Also informed that there is wait time right now for [facility] vision center. Pt. Verbally agreed and understood. * Telephone Encounter - Alondra Oakley RN - 11/16/2023 1:26 PM EDT Please review and advise for below request. * Telephone Encounter - Janny Oviedo - 11/16/2023 11:45 AM EDT Tc from pt requesting [facility] vision center referral. documented in this encounter Plan of Treatment Upcoming Encounters Date Type Department Care Team (Late st Contact Info) Description 11/04/2024 8:00 AM EDT Office Visit [facility] ADULT DENTAL [address] [place], [place] [phone] Grace Christianson 11/13/2024 9:45 AM EDT Office Visit [facility] MEDICINE [address] [place] [address] Iris Clancy MD [address] [place], [place] [phone] documented as of this encounter Visit Diagnoses Not on filedocumented in this encounter Additional Health Concerns Assessment Noted Time PHQ-9 Depression Total Score: 24 023 3:56 PM EDT documented as of this encounter Care Teams Physician Pediatrician Relationship Specialty Start Date End Date Neetu Kyle FNP [address] [place] [address] [phone] PCP - General Family Medicine 09/19/22 04/01/24 Iris Clancy MD [address] [place] [address] [phone] PCP - General Internal Medicine 04/02/24 Aubrey Montesinos, ArbenD [address] [place] [phone] Pharmacist Internal Medicine 08/07/24 documented as of this encounter
--- OUTSIDE RECORDS SUMMARY | 2024-10-09 17:22 | XMS_ITS | Encounter Summary ---
Author Organization [employer] [facility] Address [address] [facility] 7t [place] [address] Care Team Providers Care Electrophysiology Tech Name Role Phone Neetu Kyle Primary Care Provider [phone] Iris Clancy MD Primary Care Provider + Aubrey Montesinos PharmD Unavailable [phone] Reason for Visit * Reason Comments Med Refill Encounter Details Date Type Department Care Team ([facility] st Contact Info) Description 08/13/[address] [facility] MEDICINE [address] [place] [address] Neetu Kyle FNP [address] [place] [address] Social History Tobacco Use Types Packs/Day Years [...] with others, in a hotel, in a intermediate, living outside on the street, on a [...] Description 11/04/2024 8:00 AM EDT Office Visit [facility] ADULT DENTAL [address] [place] [address] Grace Christianson 11/13/2024 9:45 AM EDT Office Visit [facility] MEDICINE [address] [place] [address] Iris Clancy MD [address] [place] [phone] documented as of this encounter Visit Diagnoses Not on filedocumented in this encounter Additional Health Concerns Assessment Noted Time PHQ-9 Depression Total Score: 24 023 3:56 PM EDT documented as of this encounter Care Teams Electrophysiology Tech Relationship Specialty Start Date End Date Neetu Kyle FNP [address] [place] [phone] PCP - General Family Medicine 09/19/22 04/01/24 Iris Clancy MD [address] [place] [id number] PCP - General Internal Medicine 04/02/24 Aubrey Montesinos, PharmD [address] [place] [phone] Pharmacist Internal Medicine 08/07/24 documented as of this encounter
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
--- OUTSIDE RECORDS SUMMARY | 2024-10-09 17:22 | XMS_ITS | Encounter Summary ---
Author Organization [employer] Address [address] [facility] [address] 7t [place] [address] Care Team Providers Care Railway Patrol Officer Name Role Phone Neetu Kyle Primary Care Provider [phone] Iris Clancy MD Primary Care Provider + Aubrey Montesinos PharmD Unavailable [phone] Encounter Details Date Type Department Care Team (Late st Contact Info) Description 06/01/2023 Orders Only [facility] MED & PEDS [address] [place] [address] Neetu Kyle FNP [address] [place] [address] Social History Tobacco Use Types Packs/Day Years [...] with others, in a hotel, in a chcf, living outside on the street, on a [...] Description 11/04/2024 8:00 AM EDT Office Visit [facility] ADULT DENTAL [address] [place] [address] Grace Christianson 11/13/2024 9:45 AM EDT Office Visit [facility] MEDICINE [address] [place] [address] Iris Clancy MD [address] [place] [address] documented as of this encounter Visit Diagnoses Not on filedocumented in this encounter Additional Health Concerns Assessment Noted Time PHQ-9 Depression Total Score: 24 023 3:56 PM EDT documented as of this encounter Care Teams Railway Patrol Officer Relationship Specialty Start Date End Date Neetu Kyle FNP [address] [place] [address] PCP - General Family Medicine 09/19/22 04/01/24 Iris Clancy MD [address] [place] [address] PCP - General Internal Medicine 04/02/24 Aubrey Montesinos, PharmD [address] [place] [address] Pharmacist Internal Medicine 08/07/24 documented as of this encounter
--- OUTSIDE RECORDS SUMMARY | 2024-10-09 17:22 | XMS_ITS | Encounter Summary ---
Author Organization [employer] [facility] Address [address] [facility] 7t [place] [address] Care Team Providers Care Blister Pack Operator Name Role Phone Neetu Kyle Primary Care Provider [phone] Iris Clancy MD Primary Care Provider + Aubrey Montesinos PharmD Unavailable [phone] Reason for Referral * Consultation (Routine) - Closed Specialty Diagnoses / Procedures Referred By Hayder macdonald Referred To Contact Optometry Diagnoses Routine health maintenance Neetu Kyle FNP [address] [place] [address] Phone: tel: fax: Referral ID Status Reason Start Date Expiration Date V isits Requested Visits Authorized [id number] Closed Specialty Services Required 03/30/2024 03/30/2025 1 1 Encounter Details Date Type Department Care Team (Late st Contact Info) Description 03/28/2024 Orders Only [facility] MED & PEDS [address] [place], [place] [phone] Neetu Kyle FNP [address] [place] [address] Routine health maintenance (Primary Dx) Social History Tobacco Use Types [...] your housing situation today? I have jonathan sing 10/01/[address] you li [...] Description 11/04/2024 8:00 AM EDT Office Visit [facility] ADULT DENTAL [address] [place] [address] Grace Christianson 11/13/2024 9:45 AM EDT Office Visit [facility] MEDICINE [address] [place] [address] Iris Clancy MD [address] [place] [address] Scheduled Referrals Name Type Priority Associated Diagnoses Orde r Schedule Referral to Optometry Outpatient Referral Routine Routine health maintenance Expected: 03/30/2024 (Approximate), Expires: 03/30/2025 documented as of this encounter Visit Diagnoses Diagnosis Routine health maintenance- Primary Unspecified examination documented in this encounter Additional Health Concerns Assessment Noted Time PHQ-9 Depression Total Score: 24 023 3:56 PM EDT documented as of this encounter Care Teams Blister Pack Operator Relationship Specialty Start Date End Date Neetu Kyle FNP [address] [place] [address] PCP - General Family Medicine 09/19/22 04/01/24 Iris Clancy MD [address] [place] [address] PCP - General Internal Medicine 04/02/24 Aubrey Montesinos PharmD [address] [place] [address] Pharmacist Internal Medicine 08/07/24 documented as of this encounter
--- OUTSIDE RECORDS SUMMARY | 2024-10-09 17:22 | XMS_ITS | Clinical Summary ---
Author Organization [address] [place] [address] Address [address] [place] [address] Phone Care Team Providers Care Garage Attendant Name Role Phone Latoya Millard DIANDRA Primary Care Provider [phone] Allergies No known active allergies Medications levETIRAcetam (KEPPRA) 1,000 mg tablet Take 1,000 mg by mouth 2 times daily. Active Social History Tobacco Use Types Packs/Day Years Used Date Smoking Tobacco: Never Assessed Comments Unknown Sex and Gender Information Value Date Recorded Sex Assigned at Not on file Legal Sex Female 5:20 AM EST Gender Identity Not on file Sexual Orientation Not on file Plan of Treatment Health Maintenance Due Date Last Done Comments DTaP,Tdap,and Td Vaccines (1 - Tdap) 01/27/2008 Hepatitis B Vaccines (1 of 3 - 19+ 3-dose series) 01/27/2008 Cervical Cancer Screening: P ap Smear 01/13/2019 01/14/2016 COVID-19 Vaccine ( - 2023-2 5 season) 2024 Influenza Vaccine (#1) 2024 Depression Screening 05/24/2024 HIV Screening 05/24/2024 Hepatitis C Screening 05/24/2024 Social Influencers of Health Screening 05/24/2024 HIB Vaccines Aged Out No longer eligi [...] on patient's age to complete this topic MMR Vaccines Aged Out No longer eligi ble based on patient's age to complete this topic Meningococcal ACWY Vaccine Aged Out N o longer eligible based on patient's age to complete this topic Meningococcal B Vacine Aged Out No lo nger eligible based on patient's age to complete this topic Pneumococcal Vaccine: Pediat rics (0 to 5 Years) and At-Risk Patients (6 to 64 Years) Aged Out No longer eligi ble based on patient's age to complete this topic RSV Immunization Patients Un steven 20 months Aged Out No longer eligible b ased on patient's age to complete this topic Varicella Vaccines Aged Out No longer eligible based on patient's age to complete this topic Procedures Procedure Name Priority Date/Time Associated Diagnosis Comments PAP SMEAR Routine 01/14/2016 from Last 3 Months or Most Recently Relevant to Health Maintenance Results * Pap Smear (01/14/2016) Pap smear No interpreta tion,abstr acted us Historical Provider HEALTH MAINTENANCE Final Result from Last 3 Months or Most Recently Relevant to Health Maintenance Care Teams Garage Attendant Relationship Specialty Start Date End Date Latoya Millard FNP [address] [place] [phone] PCP - General 02/15/24
--- OUTSIDE RECORDS SUMMARY | 2024-10-09 17:22 | XMS_ITS | Encounter Summary ---
Author Organization [employer] [facility] Address [address] [facility] [address] [address] 7t [place] [address] Care Team Providers Care Death Surveys Coder Name Role Phone Iris Clancy MD Primary Care Provider + Aubrey Montesinos PharmD Unavailable [phone] Encounter Details Date Type Department Care Team (Latest Contact Info) Description 09/17/2024 Travel Social History Tobacco Use Types Packs/Day Years [...] Description 11/04/2024 8:00 AM EDT Office Visit [facility] ADULT DENTAL [address] [place] [address] Grace Christianson 11/13/2024 9:45 AM EDT Office Visit [facility] MEDICINE [address] [place] [address] Iris Clancy MD [address] [place] [address] documented as of this encounter Visit Diagnoses Not on filedocumented in this encounter Additional Health Concerns Assessment Noted Time PHQ-9 Depression Total Score: 24 023 3:56 PM EDT documented as of this encounter Care Teams Death Surveys Coder Relationship Specialty Start Date End Date Iris Clancy MD [address] [place] [address] PCP - General Internal Medicine 04/02/24 Aubrey Montesinos, ArbenD [address] [place] [address] Pharmacist Internal Medicine 08/07/24 documented as of this encounter
--- OUTSIDE RECORDS SUMMARY | 2024-10-09 17:22 | XMS_ITS | Encounter Summary ---
Author Organization [employer] [facility] Address [address] [facility] 7t [place] [address] Care Team Providers Care Administrative And Program Specialist Name Role Phone Neetu Kyle Primary Care Provider [phone] Iris Clancy MD Primary Care Provider + Aubrey Montesinos PharmD Unavailable [phone] Reason for Visit * Reason Onset Date Comments Medication Question 01/07/2024 Encounter Details Date Type Department Care Team (Late st Contact Info) Description 01/07/2024 Telephone [facility] MEDICINE [address] [place] [address] Neetu Kyle FNP [address] [place] [address] Medication Question Social History Tobacco Use Types Packs/Day Years [...] * Telephone Encounter - Janny Oviedo - 01/07/2024 12:45 PM EDT Tc from pt requesting a higher dosage for Diclofenac Sodium 1 % gel. States gel is starting to not work. Please contact pt at [phone] documented in this encounter Plan of Treatment Upcoming Encounters Date Type Department Care Team (Late st Contact Info) Description 11/04/2024 8:00 AM EDT Office Visit [facility] ADULT DENTAL [address] [place] [address] Grace Christianson 11/13/2024 9:45 AM EDT Office Visit [facility] MEDICINE [address] [place] [address] Iris Clancy MD [address] [place] [address] documented as of this encounter Visit Diagnoses Not on filedocumented in this encounter Additional Health Concerns Assessment Noted Time PHQ-9 Depression Total Score: 24 023 3:56 PM EDT documented as of this encounter Care Teams Administrative And Program Specialist Relationship Specialty Start Date End Date Neetu Kyle FNP [address] [place] [address] PCP - General Family Medicine 09/19/22 04/01/24 Iris Clancy MD [address] [place] [address] PCP - General Internal Medicine 04/02/24 Aubrey Montesinos, Shilpa [address] [place] [address] Pharmacist Internal Medicine 08/07/24 documented as of this encounter
--- OUTSIDE RECORDS SUMMARY | 2024-10-09 17:22 | XMS_ITS | Encounter Summary ---
Author Organization [employer] Address [address] [facility] 7t [place] [address] Care Team Providers Care Braille Translator Name Role Phone Neetu Kyle Primary Care Provider [phone] Iris Clancy MD Primary Care Provider + Aubrey Montesinos PharmD Unavailable [phone] Encounter Details Date Type Department Care Team ([facility] st Contact Info) Description 07/20/2023 [facility] Health Information Management [address] [place] [address] Neetu Kyle FNP [address] [place] [address] Social History Tobacco Use Types Packs/Day Years [...] with others, in a hotel, in a group home, living outside on the street, on a [...] 8:00 AM EDT Office Visit [facility] ADULT DENTAL [address] [place] [address] Grace Christianson 11/13/2024 9:45 AM EDT Office Visit [facility] MEDICINE [address] [place] [address] Iris Clancy MD [address] [place] [address] documented as of this encounter Visit Diagnoses Not on filedocumented in this encounter Additional Health Concerns Assessment Noted Time PHQ-9 Depression Total Score: 24 023 3:56 PM EDT documented as of this encounter Care Teams Braille Translator Relationship Specialty Start Date End Date Neetu Kyle FNP [address] [place] [address] PCP - General Family Medicine 09/19/22 04/01/24 Iris Clancy MD [address] [place] [address] PCP - General Internal Medicine 04/02/24 Aubrey Montesinos, PharmD [address] [place] [address] Pharmacist Internal Medicine 08/07/24 documented as of this encounter
--- OUTSIDE RECORDS SUMMARY | 2024-10-09 17:22 | XMS_ITS | Encounter Summary ---
Author Organization [email or web address] [facility] Address [address] [facility] 7t [place] [address] Care Team Providers Care Electronic Component Processor Name Role Phone Neetu Kyle Primary Care Provider [phone] Iris Clancy MD Primary Care Provider + Aubrey Montesinos PharmD Unavailable [phone] Reason for Visit * Reason Onset Date Comments Nurse Triage 04/06/2023 Encounter Details Date Type Department Care Team (Late st Contact Info) Description 04/06/2023 Telephone [facility] MEDICINE [address] [place] [address] Neetu Kyle FNP [address] [place] [address] Nurse Triage Social History Tobacco Use Types Packs/Day Years Used Date Smoking Tobacco: Every Day Cigarettes 0.3 13 Passive Smoke Exposure: Current Smokeless Tobacco: Never Alcohol Use Standard Drinks/Week Comments Never 0 (1 standard drink = 0.6 oz pur e alcohol) PHQ-2 Answer Date Recorded Patient Health Questionnaire-2 Score 6 04/06/2023 Depression Answer Date Recorded Patient Health Questionnaire-9 Score 19 04/06/2023 Comments No Sex and Gender Information Value Date Recorded Sex Assigned at Female 05/29/2022 10:15 AM EDT Legal Sex Female 10:15 AM EDT Gender Identity Female 05/29/2022 10:15 AM EDT Sexual Orientation Straight 05/29/2022 10 :15 AM EDT documented as of this encounter Miscellaneous Notes * Telephone Encounter - Raina Veras RN - 04/06/2023 9:26 AM EDT Triage call Pt reports, I was in [place] yesterday and had a panic attack that was very strong . Pt was sent out by ambulance to [facility] and was put in the waiting room. While in waiting room Pt reports there was a homeless man who was screaming and yelling and Pt became more anxious and called neighbor to picker and bring home. Pt calls today with continued anxiety, Pt reports has never told PCP aboutthis because, I don't like to speak about it . Pt is desiring help at this time. Pt is not suicidal and doesn't want to hurt anyone else. Pt is advised to come to [facility] today and Pt reports that Pt lives just a few minutes away and will start walking over there. Call to Lashonda in [facility] to give inform ation regarding Pt and call to Dedra in behavioral health. [facility] PLEASE call behavioral health when Pt arrives. Pt is calm and controlled at time of call but tearful. Protocol Used: Anxiety and Panic Attack (Adult) Protocol-Based Disposition: See in Office or Video Visit Today Video visit not offered Positive Triage Question: * Patient sounds very upset or troubled to the triager * All higher-acuity triage questions were negative Care Advice Discussed: * Note to Triager - Anxiety Symptoms * Reassurance and Education - Anxiety * Anxiety - Healthy Lifestyle Tips * Avoid Caffeine * Avoid Triggers of Anxiety * Stress Reduction * Reasons To Call Back - Anxiety or panic attacks continue - You feel like harming yourself - You become worse * Telephone Encounter - Janny Oviedo - 04/06/2023 9:03 AM EDT Symptom: Anxiety or Panic Attack Outcome: Schedule an urgent appointment (within 4 hours) or talk to a nurse or provider soon Reason: Anxiety keeps from normal daily activities (such as school or work). Pt did go to [facility] for anxiety attack but left due to anxiety getting worse in wait room. The caller accepted this outcome Please contact pt at [phone] ([place]) documented in this encounter Plan of Treatment Upcoming Encounters Date Type Department Care Team (Late st Contact Info) Description 11/04/2024 8:00 AM EDT Office Visit [facility] ADULT DENTAL [address] [place] [address] Grace Christianson 11/13/2024 9:45 AM EDT Office Visit [facility] MEDICINE [address] [place] [address] Iris Clancy MD [address] [place] [address] documented as of this encounter Visit Diagnoses Not on filedocumented in this encounter Additional Health Concerns Assessment Noted Time PHQ-9 Depression Total Score: 19 023 11:34 AM EDT documented as of this encounter Care Teams Electronic Component Processor Relationship Specialty Start Date End Date Neetu Kyle FNP [address] [place] [address] PCP - General Family Medicine 09/19/22 04/01/24 Iris Clancy MD [address] [place] [address] [phone] PCP - General Internal Medicine 04/02/24 Aubrey Montesinos PharmD [address] [place] [address] Pharmacist Internal Medicine 08/07/24 documented as of this encounter
--- OUTSIDE RECORDS SUMMARY | 2024-10-09 17:22 | XMS_ITS | Encounter Summary ---
Author Organization [facility] Address [address] [place] [address] 7t [place] [address] Care Team Providers Care Glaciologist Name Role Phone Iris Clancy MD Primary Care Provider + Aubrey Montesinos PharmD Unavailable [phone] Reason for Referral * Consultation (Routine) - Closed Specialty Diagnoses / Procedures Referred By Contac t Referred To Contact Physical Therapy Diagnoses Acute bilateral low back pain without sciatica Yovani Lloyd MD [address] [place] [address] Phone: tel: fax: [facility] Physical Therapy [address] [place] [address] Phone: tel: fax: Referral ID Status Reason Start Date Expiration Date V isits Requested Visits Authorized [id number] Closed Specialty Services Required 09/17/2024 09/17/2025 20 20 Reason for Visit * Reason Comments Back Pain Encounter Details Date Type Department Care Team (Late st Contact Info) Description 09/17/2024 10:20 AM EST Office Visit [facility] [address] [place] [phone] Yovani Lloyd MD [address] [place] [phone] Acute bilateral low back pain without sciatica (Primary Dx) Social History Tobacco Use Types [...] AM EDT documented as of this encounter Last Filed Vital Signs Vital Sign Reading [...] 3.2 oz) 09/17/2024 10:01 AM EST Height - - Body Mass Index 38.96 05/13/2024 2:51 PM EDT documented in this encounter Progress Notes * Yovani Lloyd MD - 09/17/2024 10:20 AM EST Subjective Patient ID: Ebony Edwards is a 34 y.o. female. HPI Ebony was seen at [facility] ED 6 days ago for lower back pain for 3 days. U/a, UCG neg. Lumbar spine x-rays: IMPRESSION: Mild leftward curvature which may be positional in nature. Otherwise unremarkable examination of the lumbar spine. Advised to use Tylenol, prescribed naproxen, lidocaine patches, Flexeril. Last naproxen dose was >4 hours ago. Denies fever, chills, abd. pain, urinary sx, bowel or bladder dysfunction, saddle anesthesia, extremity weakness or numbness, or radiation of pain. She came to [facility] today because of ongoing LBP, worse with movements of torso, position changes. States similar pain has come and gone for several years. Lives with 2 daughters. LMP=09/11 Not employed. Quit smoking 1 month ago. Patient Active Problem List Diagnosis Abnormal uterine bleeding Exercise counseling Seizure disorder ([facility]) Insomnia Constipation ANTHONY (generalized anxiety disorder) Severe episode of recurrent major depressive disorder, without psychotic features ([facility]) Suicidal ideation Plantar fasciitis, bilateral Osteoarthritis of both ankles and feet Tobacco dependence Pelvic pain Vaginosis Glucosuria Pain in both wrists Carpal tunnel syndrome on both sides Arthritis of both feet The following portions of the chart were reviewed this encounter and updated as appropriate: Tobacco Allergies Meds Problems Med Hx Surg Hx Fam Hx Review of Systems Constitutional: Negative for fever. Respiratory: Negative for shortness of breath. Cardiovascular: Negative for chest pain. Gastrointestinal: Negative for abdominal pain. Musculoskeletal: Positive for back pain. Skin: Negative for rash. Neurological: Negative for headaches. Objective Physical Exam Constitutional: Appearance: Normal appearance. HENT: Nose: Nose normal. Eyes: Conjunctiva/sclera: Conjunctivae normal. Pupils: Pupils are equal, round, and reactive to light. Cardiovascular: Rate and Rhythm: Normal rate and regular rhythm. Heart sounds: No murmur heard. Pulmonary: Effort: Pulmonary effort is normal. Breath sounds: Normal breath sounds. Musculoskeletal: General: Normal range of motion. Cervical back: No tenderness. Comments: Tenderness across lower lumbar area. Skin: Findings: No rash. Neurological: Mental Status: She is alert. Gait: Gait is intact. Psychiatric: Mood and Affect: Mood normal. Behavior: Behavior normal. Procedures Assessment/Plan Diagnoses and all orders for this visit: Acute bilateral low back pain without sciatica Stop cyclobenzaprine. Prescribed tizanidine, refilled diclofenac gel to use in place of lidocaine patches. Given Toradol 30 mg IM in [facility]. Avoid naproxen for the rest of today. Referred to PT. - ketorolac (Toradol) injection 30 mg Other orders - tiZANidine (Zanaflex) 2 MG tablet; Take 1 tablet (2 mg) by mouth every 8 (eight) hours if needed for muscle spasms for up to 10 days. - Diclofenac Sodium 1 % gel; Apply 2 g topically if needed in the morning, at noon, in the evening,and at bedtime (pain). documented in this encounter Plan of Treatment Upcoming Encounters Date Type Department Care Team (Late st Contact Info) Description 11/04/2024 8:00 AM EDT Office Visit [facility] ADULT DENTAL [address] [place] [address] Grace Christianson 11/13/2024 9:45 AM EDT Office Visit [facility] MEDICINE [address] [place] [address] Iris Clancy MD [address] [place] [address] Scheduled Referrals Name Type Priority Associated Diagnoses Orde r Schedule Referral to Physical Therapy Outpatient Referral Routine Acute bilateral low back pain without sciatica Expected: 09/17/2024 (Approximate), Expires: 09/17/2025 documented as of this encounter Visit Diagnoses Diagnosis Acute bilateral low back pain without sciatica- Primary documented in this encounter Administered Medications Inactive Administered Medications - up to 3 most recent administrations Medication Order MAR Action Action Date Dose Rate Site ketorolac (Toradol) injection 30 mg 30 mg, Intramuscular, Once, On Sun09/17/24 at 1115, For 1 doseIndications:Acute bilateral low back pain without sciatica Given 09/17/2024 11:15 AM EST 30 mg Right Deltoid documented in this encounter Additional Health Concerns Assessment Noted Time PHQ-9 Depression Total Score: 24 023 3:56 PM EDT documented as of this encounter Care Teams Glaciologist Relationship Specialty Start Date End Date Iris Clancy MD [address] [place], [place] [phone] PCP - General Internal Medicine 04/02/24 Aubrey Montesinos, ArbenD [address] [place] [address] Pharmacist Internal Medicine 08/07/24 documented as of this encounter
--- OUTSIDE RECORDS SUMMARY | 2024-10-09 17:23 | XMS_ITS | Encounter Summary ---
Author Organization [employer] Address [address] 7t [place] [address] Care Team Providers Care Coroner Technician Name Role Phone Iris Clancy MD Primary Care Provider + Aubrey Montesinos PharmD Unavailable [phone] Encounter Details Date Type Department Care Team (Late st Contact Info) Description 09/11/2024 Refill [facility] MEDICINE [address] [place] [address] Iris Clancy MD [address] [place] [address] Social History Tobacco Use Types Packs/Day Years [...] [facility] ADULT DENTAL [address] [place] [address] Grace Christianson 11/13/2024 9:45 AM EDT Office Visit [facility] [address] [place] [address] Iris Clancy MD [address] [place] [address] documented as of this encounter Visit Diagnoses Not on filedocumented in this encounter Additional Health Concerns Assessment Noted Time PHQ-9 Depression Total Score: 24 023 3:56 PM EDT documented as of this encounter Care Teams Coroner Technician Relationship Specialty Start Date End Date Iris Clancy MD [address] [place] [address] PCP - General Internal Medicine 04/02/24 Aubrey Montesinos, Shilpa [address] [place] [address] Pharmacist Internal Medicine 08/07/24 documented as of this encounter
--- OUTSIDE RECORDS SUMMARY | 2024-10-09 17:23 | XMS_ITS | Encounter Summary ---
Author Organization [employer] Address [address] 7t [place] [address] Care Team Providers Care Scheduler Conveyor Name Role Phone Iris Clancy MD Primary Care Provider + Aubrey Montesinos PharmD Unavailable [phone] Encounter Details Date Type Department Care Team ([facility] st Contact Info) Description 09/11/2024 Telephone [facility] MED[facility]INE [address] [place] [address] Iris Clancy MD [address] [place] [address] Social History Tobacco Use Types Packs/Day Years [...] Description 11/04/2024 8:00 AM EDT Office Visit [facility] ADULT DENTAL [address] [place] [address] Grace Christianson 11/13/2024 9:45 AM EDT Office Visit [facility] MEDICINE [address] [place] [address] Iris Clancy MD [address] [place] [address] documented as of this encounter Visit Diagnoses Not on filedocumented in this encounter Additional Health Concerns Assessment Noted Time PHQ-9 Depression Total Score: 24 023 3:56 PM EDT documented as of this encounter Care Teams Scheduler Conveyor Relationship Specialty Start Date End Date Iris Clancy MD [address] [place] [address] PCP - General Internal Medicine 04/02/24 Aubrey Montesinos, Shilpa [address] [place] [address] Pharmacist Internal Medicine 08/07/24 documented as of this encounter
--- OUTSIDE RECORDS SUMMARY | 2024-10-09 17:23 | XMS_ITS | Encounter Summary ---
Author Organization [employer] [facility] Address [address] [facility] 7t [place] [address] Care Team Providers Care Silverlight Developer Name Role Phone Iris Clancy MD Primary Care Provider + Aubrey Montesinos PharmD Unavailable [phone] Encounter Details Date Type Department Care Team (Late st Contact Info) Description 09/11/2024 Orders Only GENERIC EXTERNAL DATA DEPARTMENT Provider, Generic External Data Social History Tobacco Use Types Packs/Day Years [...] 11/04/2024 8:00 AM EDT Office Visit [facility] ADULT DENTAL [address] [place] [address] Grace Christianson 11/13/2024 9:45 AM EDT Office Visit [facility] MEDICINE [address] [place], [place] [phone] Iris Clancy MD [address] [place] [address] documented as of this encounter Procedures Procedure Name Priority Date/Time Associated Diagnosis Comments URINALYSIS, COMPLETE, WITH REFLEX TO CULTURE Routine 09/11/2024 2:51 PM EST HCG, QL, URINE Routine 09/11/2024 2:51 PM EST URINALYSIS WITH REFLEX MICROSCOPIC Routine 09/11/2024 2:51 PM EST XR LUMBAR SPINE 2-3 VIEWS Routine 09/11/2024 2:49 PM EST documented in this encounter Results * (ABNORMAL) Urinalysis, Complete, with Reflex to Culture (09/11/2024 2:51 PM EST) Color Urine Yellow [facility] Appearance Urine Clear [facility] PH 6.0 5.0 - 9.0 [facility] Glucose Urine UA Negative Negative mg/dL [facility] Urine Blood Large (3+)(A) Negative [facility] Specific Lucien - Urine 1.020 1.005 - 1.025 [facility] Urine Protein Negative Neg-Trace mg/dL [facility] Urine Ketones Trace Negative mg/dL [facility] Nitrite Urine Negative Negative [facility] Leukocyte Esterase Urine Trace(A) Negative [facility] RBC Urine >20(A) 0 - 2 /HPF [facility] Urine WBC 0-5 0 - 5 /HPF [facility] Urine Squamous Epithelial Cell 0-2 0 - 2 /HPF [facility] Urine Bacteria None Seen None Seen [facility] Hyaline Casts, Urine 0-2 0 - 2 /LPF [facility] 09/11/2024 2:51 PM EST 09/11/2024 2:59 PM EST Narrative [facility] - 09/11/2024 3:10 PM EST [id number], Clean Catch us Generic External Data Provider LAB URINE ORDERAB LES Final Result Performing Organization Address [facility] Co de Phone Number [facility] [address] [place] [phone] * (ABNORMAL) Urinalysis w/reflex microscopic (09/11/2024 2:51 PM EST) Color Urine Yellow [facility] Appearance Urine Clear [facility] PH 6.0 5.0 - 9.0 [facility] Glucose Urine UA Negative Negative mg/dL [facility] Urine Blood Large (3+)(A) Negative [facility] Specific Lucien - Urine 1.020 1.005 - 1.025 [facility] Urine Protein Negative Neg-Trace mg/dL [facility] Urine Ketones Trace Negative mg/dL [facility] Nitrite Urine Negative Negative [facility] Leukocyte Esterase Urine Trace(A) Negative [facility] 09/11/2024 2:51 PM EST 09/11/2024 2:59 PM EST Narrative [facility] - 09/11/2024 3:07 PM EST [id number], Clean Catch us Generic External Data Provider LAB URINE ORDERAB LES Final Result Performing Organization Address City/[facility]/ZIP Co de Phone Number [facility] [address] [place] [address] [phone] * HCG, Qualitative, Urine (09/11/2024 2:51 PM EST) Urine NEGATIVE NEGATIVE [facility] Comment:This test was develo ped to detect early . Falsenegative results may occur after the 5th - 7th week ofpregnancy when using this test method. If clinicallyindicated, consider a serum hCG. 09/11/2024 2:51 PM EST 09/11/2024 2:59 PM EST us Generic External Data Provider LAB URINE ORDERAB LES Final Result Performing Organization Address [facility] de Phone Number [facility] [address] [place] [address] [phone] * XR Lumbar Spine 2-3 Views (09/11/2024 2:49 PM EST) Anatomical Region Laterality Modality Spine, L-spine Radiographic Mayra ging 09/11/2024 2:49 PM EST Narrative 09/11/2024 3:46 PM EST ? [facility] ?[address] ?[place] [address] ?XRay Report ? Signed ? Patient: Ebony Pacheco ?MR#: [id number] ?? [id number] ? : 1990 ?Acct:[id number] ? Age/Sex: 34 / F ?ADM Date: 09/11/24 ? Loc: HO.ED ? Attending Dr: ? Ordering Physician: Jacqueline Richardson CONSTRUCTION ELECTRICIAN ?? Date of Service: 09/11/24 ?? Procedure(s): XR lumbar spine 2-3V ?? Accession Number(s): [id number] ? cc: Neetu Kyle CONSTRUCTION ELECTRICIAN; Jacqueline Richardson CONSTRUCTION ELECTRICIAN ? EXAMINATION: ??XR LUMBAR SPINE 2-3 VIEWS [...] Paul Boyce MD ??09/11/2024 03:43 PM EST ? Dictated By: ?Jean Paul Boyce MD ? Signed By: ?<Electronically signed by Jean Paul Boyce MD in OV> ?09/11/24 1543 ? DD/ 1449 ? TD/TT: 09/11/24 1530 ? Well Logging Operator Mud Analysis: ? Procedure Note Nery Pedro - 09/11/[address] [address] XRay Report Signed Patient: Jerome Pacheco#: M [id number] : 1990Acct:[id number] Age/Sex: 34 / FADM Date: 09/11/24 Loc: HO.ED Attending Dr: Ordering Physician: Jacqueline Richardson NP Date of Service: 09/11/24 Procedure(s): XR lumbar spine 2-3V Accession Number(s): [id number] cc: Neetu Kyle CONSTRUCTION ELECTRICIAN; Jacqueline Richardson NP EXAMINATION: XR LUMBAR SPINE [...] 09/11/24 1543 DD/ 1449 TD/TT: 09/11/24 1530 Well Logging Operator Mud Analysis: [facility] External Provider IMG XR PROCEDURES Final Result documented in this encounter Visit Diagnoses Not on filedocumented in this encounter Additional Health Concerns Assessment Noted Time PHQ-9 Depression Total Score: 24 023 3:56 PM EDT documented as of this encounter Care Teams Silverlight Developer Relationship Specialty Start Date End Date Iris Clancy MD [address] [place] [address] PCP - General Internal Medicine 04/02/24 Aubrey Montesinos PharmD [address] [place] [address] Pharmacist Internal Medicine 08/07/24 documented as of this encounter
== END 2024-10-09 13:45 | disposition home or self-care (01) ==
LOC: HO.LAB 13:44
PROVIDERS: PCP Internal Medicine; Visit Provider Registered Nurse
DX: R56.9 Unspecified convulsions (principal)
CPT/HCPCS: 36415; 80164

== ENCOUNTER 2024-10-17 09:20 | Outpatient (REF) | payer MEDICAID, SELFPAY ==
[2024-10-17 11:14] LABS: Valproate 45.3 mcg/mL (50.0-100.0)
== END 2024-10-17 09:21 | disposition home or self-care (01) ==
LOC: HO.LAB 09:20
PROVIDERS: PCP Internal Medicine; Visit Provider Registered Nurse
DX: G40.901 Epilepsy, unspecified, not intractable, with status epilepticus (principal)
CPT/HCPCS: 36415; 80164

== ENCOUNTER 2024-11-25 09:13 | Outpatient (REF) | payer MEDICAID, SELFPAY ==
--- NOTE | 2024-11-25 09:26 | EMG_ITS ---
Bilateral median and ulnar motor and sensory studies were performed. Bilateral radial sensory and median and lateral antecubital brachial sensory studies were performed and paraspinal muscles were tested with a needle. IMPRESSION: Mild bilateral ulnar neuropathy across elbow. Otherwise no significant abnormality noted. MD VIKRAM Man/ALESSIO / [id number]
--- NOTE | 2024-11-25 09:26 | HM_ITS ---
* Total monitoring time 2 days. * Underlying rhythm is sinus with an average rate of 82/Min. * Rare supraventricular ectopy. * Rare ventricular ectopy. * No significant pauses or high-grade AV blocks. * No patient markers or diary events. MTDD
--- OUTSIDE RECORDS SUMMARY | 2024-11-25 10:03 | XMS_ITS | Encounter Summary ---
Author Organization [employer] Address [address] [facility] 7t [place] [address] Care Team Providers Care Environmental Planning Engineer Name Role Phone Neetu Kyle Primary Care Provider [phone] Iris Clancy MD Primary Care Provider + Aubrey Montesinos PharmD Unavailable [phone] Encounter Details Date Type Department Care Team (Late st Contact Info) Description 06/01/2023 Orders Only [facility] [address] [place] [address] Neetu Kyle FNP [address] [place] [address] Social History Tobacco Use Types Packs/Day Years [...] Care Team (Late st Contact Info) Description 02/05/2025 9:00 AM EDT Office Visit [facility] MEDICINE [address] [place] [address] Iris Clancy MD [address] [place] [address] documented as of this encounter Visit Diagnoses Not on filedocumented in this encounter Additional Health Concerns Assessment Noted Time PHQ-9 Depression Total Score: 24 023 3:56 PM EDT documented as of this encounter Care Teams Environmental Planning Engineer Relationship Specialty Start Date End Date Neetu Kyle FNP [address] [place] [address] PCP - General Family Medicine 09/19/22 04/01/24 Iris Clancy MD [address] [place] [address] PCP - General Internal Medicine 04/02/24 Aubrey Montesinos, ArbenD [address] [place] [address] Pharmacist Internal Medicine 08/07/24 documented as of this encounter
--- OUTSIDE RECORDS SUMMARY | 2024-11-25 10:03 | XMS_ITS | Encounter Summary ---
Author Organization [employer] Address [address] [facility] 7t [place] [address] Care Team Providers Care Clam Shovel Operator Name Role Phone Neetu Kyle Primary Care Provider [phone] Iris Clancy MD Primary Care Provider + Aubrey Montesinos PharmD Unavailable [phone] Encounter Details Date Type Department Care Team ([facility] st Contact Info) Description 07/20/2023 [facility] Health Information Management [address] [place] [address] Neetu Kyle FNP [address] [place] [address] Social History Tobacco Use Types Packs/Day Years [...] with others, in a hotel, in a residential, living outside on the street, on a [...] Description 02/05/2025 9:00 AM EDT Office Visit [facility] [address] [place] [address] Iris Clancy MD [address] [place] [address] documented as of this encounter Visit Diagnoses Not on filedocumented in this encounter Additional Health Concerns Assessment Noted Time PHQ-9 Depression Total Score: 24 023 3:56 PM EDT documented as of this encounter Care Teams Clam Shovel Operator Relationship Specialty Start Date End Date Neetu Kyle FNP [address] [place] [address] PCP - General Family Medicine 09/19/22 04/01/24 Iris Clancy MD [address] [place] [address] PCP - General Internal Medicine 04/02/24 Aubrey Montesinos, ArbenD [address] [place] [address] Pharmacist Internal Medicine 08/07/24 documented as of this encounter
--- OUTSIDE RECORDS SUMMARY | 2024-11-25 10:03 | XMS_ITS | Encounter Summary ---
Author Organization [employer] [facility] Address [address] [facility] 7t [place] [address] Care Team Providers Care Bindery Helper Name Role Phone Neetu Kyle Primary Care Provider [phone] Iris Clancy MD Primary Care Provider + Aubrey Montesinos PharmD Unavailable [phone] Reason for Referral * Consultation (Routine) - Closed Specialty Diagnoses / Procedures Referred By Hayder macdonald Referred To Contact Optometry Diagnoses Routine health maintenance Neetu Kyle FNP [address] [place] [address] Phone: tel: fax: Referral ID Status Reason Start Date Expiration Date V isits Requested Visits Authorized [id number] Closed Specialty Services Required 03/30/2024 03/30/2025 1 1 Encounter Details Date Type Department Care Team (Late st Contact Info) Description 03/28/2024 Orders Only [facility] & PEDS [address] [place], [place] [phone] Neetu Kyle FNP [address] [place] [address] Routine health maintenance (Primary Dx) Social History [...] Description 02/05/2025 9:00 AM EDT Office Visit [facility] [address] [place] [address] Iris Clancy MD [address] [place] [address] Scheduled Referrals Name Type Priority Associated Diagnoses [...] documented as of this encounter Care Teams Bindery Helper Relationship Specialty Start Date End Date Neetu Kyle FNP [address] [place] [address] PCP - General Family Medicine 09/19/22 04/01/24 Iris Clancy MD [address] [place] [address] PCP - General Internal Medicine 04/02/24 Aubrey Montesinos PharmD [address] [place] [address] Pharmacist Internal Medicine 08/07/24 documented as of this encounter
--- OUTSIDE RECORDS SUMMARY | 2024-11-25 10:03 | XMS_ITS | Encounter Summary ---
Author Organization [employer] [facility] Address [address] [facility] 7t [place] [address] Care Team Providers Care Multiple Tube Winding Machine Operator Name Role Phone Neetu Kyle Primary Care Provider [phone] Iris Clancy MD Primary Care Provider + Aubrey Montesinos PharmD Unavailable [phone] Reason for Visit * Reason Onset Date Comments Medication Question 01/07/2024 Encounter Details Date Type Department Care Team (Late st Contact Info) Description 01/07/2024 Telephone [facility] MEDICINE [address] [place] [address] Neetu Kyle FNP [address] [place] [address] Medication Question Social History Tobacco Use Types [...] to not work. Please contact pt at [phone] documented in this encounter Plan of Treatment Upcoming Encounters Date Type Department Care Team (Late st Contact Info) Description 02/05/2025 9:00 AM EDT Office Visit [facility] MEDICINE [address] [place] [address] Iris Clancy MD [address] [place] [address] documented as of this encounter Visit Diagnoses Not on filedocumented in this encounter Additional Health Concerns Assessment Noted Time PHQ-9 Depression Total Score: 24 023 3:56 PM EDT documented as of this encounter Care Teams Multiple Tube Winding Machine Operator Relationship Specialty Start Date End Date Neetu Kyle FNP [address] [place] [address] PCP - General Family Medicine 09/19/22 04/01/24 Iris Clancy MD [address] [place] [address] PCP - General Internal Medicine 04/02/24 Aubrey Montesinos, ArbenD [address] [place] [address] Pharmacist Internal Medicine 08/07/24 documented as of this encounter
--- OUTSIDE RECORDS SUMMARY | 2024-11-25 10:03 | XMS_ITS | Encounter Summary ---
Author Organization [employer] [facility] Address [address] [facility] 7t [place] [address] Care Team Providers Care Apprentice Carpenter Name Role Phone Neetu Kyle Primary Care Provider [phone] Iris Clancy MD Primary Care Provider + Aubrey Montesinos PharmD Unavailable [phone] Reason for Visit * Reason Comments Med Refill Encounter Details Date Type Department Care Team ([facility] st Contact Info) Description 08/13/2023 Refill [facility] MEDICINE [address] [place] [address] Neetu Kyle FNP [address] [place] [address] Social History Tobacco Use Types Packs/Day Years [...] Description 02/05/2025 9:00 AM EDT Office Visit [facility] MEDICINE [address] [place] [address] Iris Clancy MD [address] [place], [place] documented as of this encounter Visit Diagnoses Not on filedocumented in this encounter Additional Health Concerns Assessment Noted Time PHQ-9 Depression Total Score: 24 023 3:56 PM EDT documented as of this encounter Care Teams Apprentice Carpenter Relationship Specialty Start Date End Date Neetu Kyle FNP [address] [place] [address] PCP - General Family Medicine 09/19/22 04/01/24 Iris Clancy MD [address] [place] [address] PCP - General Internal Medicine 04/02/24 Aubrey Montesinos, ArbenD [address] [place] [address] Pharmacist Internal Medicine 08/07/24 documented as of this encounter
--- OUTSIDE RECORDS SUMMARY | 2024-11-25 10:03 | XMS_ITS | Encounter Summary ---
Author Organization [employer] [facility] Address [address] [facility] [facility] [address] 7t [place] [address] Care Team Providers Care Binman Name Role Phone Neetu Kyle Primary Care Provider [phone] Iris Clancy MD Primary Care Provider + Aubrey Montesinos PharmD Unavailable [phone] Reason for Visit * Reason Onset Date Comments Letter Request 07/13/2023 Encounter Details Date Type Department Care Team ([facility] st Contact Info) Description 07/13/2023 Telephone [facility] [address] [place] [address] Neetu Kyle FNP [address] [place] [address] Letter Request Social History Tobacco Use Types [...] with others, in a hotel, in a retirement, living outside on the street, on a [...] Description 02/05/2025 9:00 AM EDT Office Visit [facility] [address] [place] [address] Iris Clancy MD [address] [place] [address] documented as of this encounter Visit Diagnoses Not on filedocumented in this encounter Additional Health Concerns Assessment Noted Time PHQ-9 Depression Total Score: 24 023 3:56 PM EDT documented as of this encounter Care Teams Binman Relationship Specialty Start Date End Date Neetu Kyle FNP [address] [place] [address] PCP - General Family Medicine 09/19/22 04/01/24 Iris Clancy MD [address] [place] [address] PCP - General Internal Medicine 04/02/24 Aubrey Montesinos, Shilpa [address] [place] [address] Pharmacist Internal Medicine 08/07/24 documented as of this encounter
--- OUTSIDE RECORDS SUMMARY | 2024-11-25 10:04 | XMS_ITS | Encounter Summary ---
Author Organization [employer] [facility] Address [address] [facility] 7t [place] [address] Care Team Providers Care Drapery Inspector Name Role Phone Neetu Kyle Primary Care Provider [phone] Iris Clancy MD Primary Care Provider + Aubrey Montesinos PharmD Unavailable [phone] Encounter Details Date Type Department Care Team (Late st Contact Info) Description 02/19/2023 Orders Only [facility] [address] [place] [address] Neetu Kyle FNP [address] [place] [address] Other specified hearing loss of both ears [...] Description 02/05/2025 9:00 AM EDT Office Visit [facility] [address] [place] [address] Iris Clancy MD [address] [place] [address] documented as of this encounter Visit Diagnoses Diagnosis Other specified hearing loss of both ears- Primary documented in this encounter Additional Health Concerns Assessment Noted Time PHQ-9 Depression Total Score: 8 01/11/20 23 10:51 AM EDT documented as of this encounter Care Teams Drapery Inspector Relationship Specialty Start Date End Date Neetu Kyle FNP [address] [place] [address] PCP - General Family Medicine 09/19/22 04/01/24 Iris Clancy MD [address] [place] [address] PCP - General Internal Medicine 04/02/24 Aubrey Montesinos PharmD [address] [place] [address] Pharmacist Internal Medicine 08/07/24 documented as of this encounter
--- OUTSIDE RECORDS SUMMARY | 2024-11-25 10:04 | XMS_ITS | Encounter Summary ---
Author Organization [employer] [facility] Address [address] [facility] 7t [place] [address] Care Team Providers Care Laborer Yard Name Role Phone Neetu Kyle Primary Care Provider [phone] Iris Clancy MD Primary Care Provider + Aubrey Montesinos PharmD Unavailable [phone] Reason for Visit * Reason Onset Date Comments Nurse Triage 04/06/2023 Encounter Details Date Type Department Care Team (Late st Contact Info) Description 04/06/2023 Telephone [facility] MEDICINE [address] [place] [address] Neetu Kyle FNP [address] [place] [address] Nurse Triage Social History Tobacco Use Types [...] Pt was sent out by ambulance to [facility] and was put in the waiting room. While in waiting room Pt reports there was a homeless man who was screaming and yelling and Pt became more anxious and called neighbor to car pick up driver and bring home. Pt calls today with continued anxiety, Pt reports has never told PCP aboutthis because, I don't like to speak about it . Pt is desiring help at this time. Pt is not suicidal and doesn't want to hurt anyone else. Pt is advised to come to [facility] today and Pt reports that Pt lives just a few minutes away and will start walking over there. Call to Lashonda in [facility] to give inform ation regarding Pt and call to Dedra in behavioral health. [facility] PLEASE call behavioral health when Pt arrives. [...] school or work). Pt did go to [facility] for anxiety attack but left due to anxiety getting worse in wait room. The caller accepted this outcome Please contact pt at [phone] (Yemeni) documented in this encounter Plan of Treatment Upcoming Encounters Date Type Department Care Team (Late st Contact Info) Description 02/05/2025 9:00 AM EDT Office Visit [facility] MEDICINE [address] [place] [address] Iris Clancy MD [address] [place] [address] documented as of this encounter Visit Diagnoses Not on filedocumented in this encounter Additional Health Concerns Assessment Noted Time PHQ-9 Depression Total Score: 19 023 11:34 AM EDT documented as of this encounter Care Teams Laborer Yard Relationship Specialty Start Date End Date Neetu Kyle FNP [address] [place] [address] PCP - General Family Medicine 09/19/22 04/01/24 Iris Clancy MD [address] [place] [address] PCP - General Internal Medicine 04/02/24 Aubrey Montesinos, ArbenD [address] [place] [address] Pharmacist Internal Medicine 08/07/24 documented as of this encounter
--- OUTSIDE RECORDS SUMMARY | 2024-11-25 10:04 | XMS_ITS | Clinical Summary ---
Author Organization [address] [place] [address] Address [address] [place] [address] Phone Care Team Providers Care Tier Lift Truck Operator Name Role Phone Latoya Millard DIANDRA Primary Care Provider [phone] Allergies No known active allergies Medications levETIRAcetam [...] Vaccine ( - 2023-2 5 season) 2024 Depression Screening 05/24/2024 HIV Screening 05/24/2024 Hepatitis C Screening 05/24/2024 Social Influencers of Health Screening 05/24/2024 Influenza Vaccine (Season Ended) 2025 HIB Vaccines Aged Out No longer eligi [...] age to complete this topic Meningococcal B Vaccine Aged Out No l onger eligible based on patient's age to complete [...] Recently Relevant to Health Maintenance Care Teams Tier Lift Truck Operator Relationship Specialty Start Date End Date Latoya Millard FNP [address] [place] [phone] PCP - General 02/15/24
--- OUTSIDE RECORDS SUMMARY | 2024-11-25 10:04 | XMS_ITS | Encounter Summary ---
Author Organization [email or web address] [facility] Address [address] [facility] [address] [place] [address] Care Team Providers Care Welding Manager Name Role Phone Neetu Kyle Primary Care Provider [phone] Iris Clancy MD Primary Care Provider + Aubrey Montesinos PharmD Unavailable [phone] Reason for Visit * Reason Onset Date Comments Referral 11/16/2023 Encounter Details Date Type Department Care Team (Late st Contact Info) Description 11/16/2023 Telephone [facility] [address] [place] [address] Neetu Kyle FNP [address] [place] [address] Referral Social History Tobacco Use Types Packs/Day [...] to vision referral Please contact pt at [phone] * Telephone Encounter - Alondra Oakley RN - 11/16/2023 1:27 PM EDT T/C to pt. For below message, pt. Also informed that there is wait time right now for [facility] vision center. Pt. Verbally agreed and understood. * Telephone Encounter - Alondra Oakley RN - 11/16/2023 1:26 PM EDT Please review and advise for below request. * Telephone Encounter - Janny Oviedo - 11/16/2023 11:45 AM EDT Tc from pt requesting [facility] vision center referral. documented in this encounter Plan of Treatment Upcoming Encounters Date Type Department Care Team (Late st Contact Info) Description 02/05/2025 9:00 AM EDT Office Visit [facility] [address] [place] [address] Iris Clancy MD [address] [place] [address] documented as of this encounter Visit Diagnoses Not on filedocumented in this encounter Additional Health Concerns Assessment Noted Time PHQ-9 Depression Total Score: 24 023 3:56 PM EDT documented as of this encounter Care Teams Welding Manager Relationship Specialty Start Date End Date Neetu Kyle FNP [address] [place] [address] PCP - General Family Medicine 09/19/22 04/01/24 Iris Clancy MD [address] [place] [phone] PCP - General Internal Medicine 04/02/24 Aubrey Montesinos, ArbenD [address] [place] [phone] Pharmacist Internal Medicine 08/07/24 documented as of this encounter
--- OUTSIDE RECORDS SUMMARY | 2024-11-25 10:04 | XMS_ITS | Encounter Summary ---
Author Organization [employer] [facility] Address [address] [place] [address] [address] [place] [address] Care Team Providers Care Earth Science Technician Name Role Phone Jagdeep St Primary Care Provider Neetu Adams Primary Care Provider [phone] Iris Clancy MD Primary Care Provider + Aubrey Montesinos PharmD Unavailable [phone] Reason for Visit * Reason Onset Date Comments TP appt 07/27/2022 Encounter Details Date Type Department Care Team (Late Contact Info) Description 07/27/2022 Telephone [facility] [address] [place] [address] FNP TP appt Social History [...] 02/05/2025 9:00 AM EDT Office Visit [facility] [address] [place] [address] Iris Clancy MD [address] [place] [phone] documented as of this encounter Visit Diagnoses Not on filedocumented in this encounter Care Teams Earth Science Technician Relationship Specialty Start Date End Date Jagdeep St FNP PCP - General 06/20/22 09/18/22 Neetu Kyle FNP [address] [place] [phone] PCP - General Family Medicine 09/19/22 04/01/24 Iris Clancy MD [address] [place] [address] [phone] PCP - General Internal Medicine 04/02/24 Aubrey Montesinos, Shilpa [address] [place] [phone] Pharmacist Internal Medicine 08/07/24 documented as of this encounter
--- OUTSIDE RECORDS SUMMARY | 2024-11-25 10:05 | XMS_ITS | Encounter Summary ---
Author Organization [employer] Address [address] [place] [address] Care Team Providers Care Second Shift Supervisor Name Role Phone Iris Clancy MD Primary Care Provider + Aubrey Montesinos PharmD Unavailable [phone] Encounter Details Date Type Department Care Team ([facility] st Contact Info) Description 09/11/2024 Telephone [facility] [address] [place] [address] Iris Clancy MD [address] [place] [address] Social History Tobacco Use Types Packs/Day Years [...] Description 02/05/2025 9:00 AM EDT Office Visit [facility] [address] [place] [address] Iris Clancy MD [address] [place] [address] documented as of this encounter Visit Diagnoses Not on filedocumented in this encounter Additional Health Concerns Assessment Noted Time PHQ-9 Depression Total Score: 24 023 3:56 PM EDT documented as of this encounter Care Teams Second Shift Supervisor Relationship Specialty Start Date End Date Iris Clancy MD [address] [place] [address] PCP - General Internal Medicine 04/02/24 Aubrey Montesinos PharmD [address] [place] [phone] Pharmacist Internal Medicine 08/07/24 documented as of this encounter
--- OUTSIDE RECORDS SUMMARY | 2024-11-25 10:05 | XMS_ITS | Encounter Summary ---
Author Organization [employer] [facility] Address [address] [place] [address] [address] [place] [address] Care Team Providers Care Health Care Assistant Name Role Phone Iris Slaughter MD Primary Care Provider + Aubrey Montesinos PharmD Unavailable [phone] Reason for Referral * Neurology (Routine) - Authorized Specialty Diagnoses / Procedures Referred By Hayder t Referred To Contact Diagnoses Carpal tunnel syndrome on both sides Procedures Nerve conduction test Iris Slaughter MD [address] [place] [address] Phone: tel: fax: [address] Phone: tel: fax: Referral ID Status Reason Start Date Expiration Date V isits Requested Visits Authorized [id number] Authorized 11/20/2024 11/20/2025 1 1 * Neurology (Routine) - Authorized Specialty Diagnoses / Procedures Referred By Contac t Referred To Contact Diagnoses Carpal tunnel syndrome on both sides Procedures EMG Iris Slaughter MD [address] [place] [address] Phone: tel: fax: [address] Phone: tel: fax: Referral ID Status Reason Start Date Expiration Date V isits Requested Visits Authorized [id number] Authorized 11/20/2024 11/20/2025 1 1 * Consultation (Routine) - Closed Specialty Diagnoses / Procedures Referred By Hayder macdonald Referred To Contact Physical Therapy Diagnoses Chronic bilateral low back pain with bilateral sciatica Iris Slaughter MD [address] [place] [address] Phone: tel: fax: [facility] Physical Therapy [address] [place] [address] Phone: tel: fax: Referral ID Status Reason Start Date Expiration Date V isits Requested Visits Authorized [id number] Closed Specialty Services Required 11/13/2024 11/13/2025 20 20 * Cardiology (Routine) - Authorized Specialty Diagnoses / Procedures Referred By Hayder macdonald Referred To Contact Cardiology Diagnoses Heart palpitations Procedures Holter monitor - 48 hour Iris Slaughter MD [address] [place] [address] Phone: tel: fax: [address] Phone: tel: fax: Referral ID Status Reason Start Date Expiration Date V isits Requested Visits Authorized [id number] Authorized 11/13/2024 11/13/2025 1 1 Reason for Visit * Reason Comments Annual Exam Encounter Details Date Type Department Care Team (Late st Contact Info) Description 11/13/2024 9:45 AM EDT Office Visit [facility] MEDICINE [address] [place] [address] Iris Slaughter MD [address] [place] [address] Carpal tunnel syndrome on both sides (Primary Dx); Seizure disorder (CMS/HCC); Preventative health care; Chronic bilateral low back pain with bilateral sciatica; Osteoarthritis of both ankles and feet; Plantar fasciitis, bilateral; Severe episode of recurrent major depressive disorder, without psychotic features ([facility]); Class 2 severe obesity with serious comorbidity and body mass index (BMI) of 38.0 to 38.9 in adult, unspecified obesity type ([facility]); Heart palpitations; Dietary counseling Social History Tobacco Use Types Packs/Day Years Used Date Smoking Tobacco: Former Cigarettes 0.3 13 Passive Smoke Exposure: Current Smokeless Tobacco: Never Tobacco Cessation:Counseling Given: Not Answered Alcohol Use Standard Drinks/Week Comments Never 0 (1 standard drink = 0.6 oz pur e alcohol) Depression Answer Date Recorded Patient Health Questionnaire-9 Score 4 11/13/2024 Patient Health Questionnaire-9 Score 4 11/13/2024 Last PHQ-9: Questionnaire Data Not on file 0 11/13/2024 Housing Stability Answer Date Recorded What is your housing situation today? I have jonathan díaz 11/04/[address] you li ve. Do you have problems with any of the following? None of the above 11/04/2024 Food Insecurity Answer Date Recorded Within the past 12 months, y ou worried that your food would run out before you got money to buy more: Never True 11/04/2024 Within the past 12 months,th e food you bought just didn't last and you didn't have enough money to get more: Never True 02/2025 Transportation Answer Date Recorded In the past 12 months, has l ack of transportation kept you from medical appts, meetings, work or from getting things needed for daily living? No 11/04/2024 Utilities Answer Date Recorded In the past 12 months, has t he electric, gas, oil or water [employer] threatened to shut off services in your home? No 11/04/2024 Depression Answer Date Recorded Patient Health Questionnaire-2 Score 1 11/13/2024 Internet Access Answer Date Recorded Internet Access Q1 Yes 11/04/2024 Internet Access Q2 Not on file 11/04/2024 Comments No Sex and Gender Information Value Date Recorded Sex Assigned at Female 05/29/2022 10:15 AM EDT Legal Sex Female 10:15 AM EDT Gender Identity Female 05/29/2022 10:15 AM EDT Sexual Orientation Straight 05/29/2022 10 :15 AM EDT documented as of this encounter Last Filed Vital Signs Vital Sign Reading Time Taken Comments Blood Pressure 114/74 11/13/2024 9:36 AM EDT Pulse 70 11/13/2024 9:36 AM EDT Temperature 36.2 ??C (97.1 ??F) 11/13/2024 9:36 AM ED T Respiratory Rate 16 11/13/2024 9:36 AM EDT Oxygen Saturation 99% 11/13/2024 9:36 AM EDT Inhaled Oxygen Concentration - - Weight 92.5 kg (204 lb) 11/13/2024 9:36 AM EDT Height 154.9 cm (5' 1 ) 11/13/2024 9:36 AM EDT Body Mass Index 38.55 11/13/2024 9:36 AM EDT documented in this encounter Progress Notes * Iris Slaughter MD - 11/13/2024 9:45 AM EDT SUBJECTIVE: Ebony Edwards is a 34 y.o. year old female who presents for routine physical exam. Denies recent illness, injury, or hospitalization. Patient here for PE. Issues she comes in with her . They are looking to apply for home care for her due to difficulty with ADLs mainly handling objects, getting dressed and some grooming due to bilateral hands pain and numbness. She has history of CTS has not improved with OT. She also reports difficulty ambulation due to severe foot pain (history of calcaneal spurs) and she cannot always wear plantar inserts. -PAP smear:12/2022 NIL/Neg HPV. No hx abn PAP -Ophthalmology: Referred on 03/2024 -Labs: 05/13/24 -Dental visit: 02/2024 -Adult IZ: Influenza 2022/COVID x 2+ booster by 2023/Tdap 2021/PPSV23 2015/hep B booster 2022/ -Safety: -Intimate Partner Violence Screening: xxxx. -In Relationship: Yes -STI screenin04/2024 -Hx STI/concern?No -Not Interested in PrEP -Lives with with husbandand 2 daughters ages 16 and 15 yo -PHQ 09/07 -Advance directives: Acute Concerns: Continues with intermittent back pain that radiates to both legs. She was seen in the ED 2 months ago and x-rays showed mild scoliosis, may be positional. This is difficult her daily functioning and doing most of her house chores. She lives with her who works and kids who go to school full-time. Social History Social History Narrative Ebony lives with her 2 daughters ages 13, 14 Patient Active Problem List Diagnosis Abnormal uterine bleeding Exercise counseling Seizure disorder ([facility]) Insomnia Constipation ANTHONY (generalized anxiety disorder) Severe episode of recurrent major depressive disorder, without psychotic features ([facility]) Suicidal ideation Plantar fasciitis, bilateral Osteoarthritis of both ankles and feet Tobacco dependence Pelvic pain Vaginosis Glucosuria Pain in both wrists Carpal tunnel syndrome on both sides Arthritis of both feet Heart palpitations Preventative health care Chronic bilateral low back pain with bilateral sciatica Class 2 severe obesity with serious comorbidity and body mass index (BMI) of 38.0 to 38.9 in adult ([facility]) Family History Problem Relation Name Age of Onset Diabetes type I Mother Heart disease Mother Asthma Mother Cancer Mother Diabetes type I Maternal Grandmother Review of Systems Constitutional: Positive for unexpected weight change. Negative for chills, fatigue and fever. HENT: Negative for congestion, ear pain, nosebleeds, rhinorrhea, sinus pressure, sore throat and trouble swallowing. Eyes: Negative for pain and discharge. Respiratory: Negative for cough, chest tightness and shortness of breath. Cardiovascular: Positive for palpitations (Daily, last few seconds and are not associated to any other symptoms). Negative for chest pain and leg swelling. Gastrointestinal: Positive for abdominal pain and diarrhea. Negative for blood in stool, constipation and nausea. Endocrine: Negative for polydipsia and polyuria. Genitourinary: Positive for menstrual problem. Negative for dysuria, frequency, genital sores, pelvic pain and vaginal discharge. Musculoskeletal: Positive for arthralgias, back pain and gait problem. Negative for neck pain. Skin: Negative for rash. Allergic/Immunologic: Negative for environmental allergies. Neurological: Positive for numbness. Negative for dizziness, seizures, weakness, light-headedness and headaches. Hematological: Negative for adenopathy. Psychiatric/Behavioral: Negative for agitation, behavioral problems, self-injury and suicidal ideas. OBJECTIVE: Vitals: 11/13/24 0936 BP: 114/74 Pulse: 70 Resp: 16 Temp: 97.1 ??F (36.2 ??C) SpO2: 99% Physical Exam HENT: Right Ear: Tympanic membrane and ear canal normal. Left Ear: Tympanic membrane and ear canal normal. Mouth/Throat: Mouth: Mucous membranes are moist. Pharynx: No oropharyngeal exudate or posterior oropharyngeal erythema. Eyes: Pupils: Pupils are equal, round, and reactive to light. Cardiovascular: Rate and Rhythm: Regular rhythm. Pulses: Normal pulses. Dorsalis pedis pulses are 2+ on the right side and 2+ on the left side. Posterior tibial pulses are 2+ on the right side and 2+ on the left side. Heart sounds: Normal heart sounds. No murmur heard. Pulmonary: Breath sounds: Normal breath sounds. Abdominal: General: Bowel sounds are normal. Palpations: Abdomen is soft. Tenderness: There is no abdominal tenderness. Musculoskeletal: General: Normal range of motion. Cervical back: Neck supple. Lumbar back: Spasms and tenderness present. Right foot: No deformity. Left foot: No deformity. Feet: Right foot: Protective Sensation: 7 sites tested. 7 sites sensed. Skin integrity: No ulcer or fissure. Toenail Condition: Right toenails are normal. Left foot: Protective Sensation: 7 sites tested. 7 sites sensed. Skin integrity: No ulcer or fissure. Toenail Condition: Left toenails are normal. Skin: General: Skin is warm. Neurological: General: No focal deficit present. Mental Status: She is alert and oriented to person, place, and time. Psychiatric: Mood and Affect: Mood normal. Behavior: Behavior normal. Patient Health Questionnaire-9 Score: 4 (11/13/2024 3:23 PM) Patient Health Questionnaire-2 Score: 1 (11/13/2024 3:23 PM) Thoughts that you would be better off or hurting yourself in some way: Not at all (11/13/2024 3:23 PM) Office Visit on 11/13/2024 Component Date Value Ref Range Status Glucose Blood, POC 11/13/2024 104 60 - 200 mg/dL Final QC Media Lot # 11/13/2024 [id number] Final Lot# Expiration Date 11/13/2024 101,425 Final Hemoglobin A1C 11/13/2024 5.6 4.0 - 6.0 % Final QC Media Lot # 11/13/2024 [id number] Final Lot# Expiration Date 11/13/2024 [id number] Final Problem List Items Addressed This Visit Carpal tunnel syndrome on both sides - Primary Not improving with OTC, will do a referral again to a nerve conduction study and follow-up after that to see if she needs a referral to orthopedics or button and buckle maker Relevant Orders Nerve conduction test Seizure disorder ([facility]) On Depakote and Kekimberlyra, followed by Dr. Leon, will obtain most recent OV note. Discussed with patient and regarding avoid driving and follow-up [place] rules driving/ patient with seizures. Preventative health care Discussed with patient re increase fresh fruit and vegetable intake. Counseled re moderate exercise as tolerated, up to 20min/d Patient feels safe at home. PAP smear : UTD, next one due on 2027 Eye exam: Overdue, referral from last year given to patient so she can to schedule appointment Lipids/FBS: UTD next one Due on 2025 Vaccinations: Adult immunizations are up-to-date Dental visit: Up-to-date, next 1 due next month Relevant Orders POCT Glucose (Completed) POCT HGB A1C (Completed) T-SPOT??.TB Chronic bilateral low back pain with bilateral sciatica Discussed about weight loss, agreed to be referred to PT and take Tylenol as needed He may need some assistance with ADLs, needs additional evaluation of low back pain including potential MRI after PT if symptoms do not improve Relevant Orders Referral to Physical Therapy Osteoarthritis of both ankles and feet Advised regarding weight reduction, where customized shoes as much as possible along with customized insoles due to calcaneal spur Reconsult as needed, will refer to switch adjuster for steroid injection. Plantar fasciitis, bilateral Counseled regarding use of plantar fasciitis splint at night Advised to do warm soaks with Epsom salt and reconsult as needed to refer to podiatry if needed Severe episode of recurrent major depressive disorder, without psychotic features ([facility]) Doing better after seeing psychotherapist, continue follow-up with program Will DC fluoxetine due to potential weight gain with this medication, start Effexor and follow-up with me in 6 to 8 weeks She feels safe at home and is able to reach out for safety Class 2 severe obesity with serious comorbidity and body mass index (BMI) of 38.0 to 38.9 in adult ([facility]) Discussed re weight reduction options including exercise, life style modifications, diet. Recommended to decrease soda and sugary beverage consumption, increase protein intake with meals (at least 1 portion of protein with each meal) to assist with satiety, increase dietary fiber Recommended at least 150 min/week of moderate intensity exercise. I will DC fluoxetine as he may be worsening patient's weight gain, change to Effexor Will discuss pharmacological treatment including phentermine or topiramate at next visit Heart palpitations Unclear, or reminded to remain hydrated, to have small infection meals to avoid hypoglycemia Order Holter monitor Relevant Orders Holter monitor - 48 hour Other Visit Diagnoses Dietary counseling Follow Up: Current Outpatient Medications on File Prior to Visit Medication Sig Dispense Refill albuterol 108 (90 Base) MCG/ACT inhaler Inhale 2 puffs every 4 (four) hours if needed for wheezing or shortness of breath. 18 g 1 divalproex (Depakote) 500 MG EC tablet Take 500 mg by mouth 2 times daily. fluticasone (Flonase) 50 MCG/ACT nasal spray INSTILL 1 SPRAY IN EACH NOSTRIL ONCE DAILY 48 g 0 FT Stool Softener 50-8.6 MG tablet TAKE 1 TABLET BY MOUTH EVERY MORNING 90 tablet 1 gabapentin (Neurontin) 100 MG capsule Take 3 capsules (300 mg) by mouth every 8 (eight) hours. 270 capsule 11 hydrOXYzine HCl (Atarax) 50 MG tablet TAKE 1 TABLET BY MOUTH EVERY DAY AT 9PM levETIRAcetam (Keppra) 500 MG tablet TAKE 3 TABLETS BY MOUTH EVERY 12 HOURS FOR 30 DAYS nicotine polacrilex (Nicotine Mini) 2 MG lozenge Dissolve 1 lozenge by mouth every 1-2 hours as needed for cravings 144 lozenge 1 sodium chloride ([employer] Nasal [place]) 0.65 % nasal spray Administer 2 sprays into each nostril every 4 (four) hours if needed for congestion. 30 mL 2 Spacer/Aero-Holding Chambers (OptiChamber Joanne) misc 1 each every 4 (four) hours if needed (asthma). 1 each 0 traZODone (Desyrel) 50 MG tablet Take 1 tablet (50 mg) by mouth at bedtime. 90 tablet 0 No current facility-administered medications on file prior to visit. documented in this encounter Miscellaneous Notes * Assessment & Plan Note - Iris Slaughter MD - 11/13/2024 3:48 PM EDT Associated Problem(s): Preventative health care Discussed with patient re increase fresh fruit and vegetable intake. Counseled re moderate exercise as tolerated, up to 20min/d Patient feels safe at home. PAP smear : UTD, next one due on 2027 Eye exam: Overdue, referral from last year given to patient so she can to schedule appointment Lipids/FBS: UTD next one Due on 2025 Vaccinations: Adult immunizations are up-to-date Dental visit: Up-to-date, next 1 due next month * Assessment & Plan Note - Iris Slaughter MD - 11/13/2024 3:41 PM EDT Associated Problem(s): Carpal tunnel syndrome on both sides Not improving with OTC, will do a referral again to a nerve conduction study and follow-up after that to see if she needs a referral to orthopedics or button and buckle maker * Assessment & Plan Note - Iris Slaughter MD - 11/13/2024 3:40 PM EDT Associated Problem(s): Severe episode of recurrent major depressive disorder, without psychotic features (CMS/HCC) Doing better after seeing psychotherapist, continue follow-up with program Will DC fluoxetine due to potential weight gain with this medication, start Effexor and follow-up with me in 6 to 8 weeks She feels safe at home and is able to reach out for safety * Assessment & Plan Note - Iris Slaughter MD - 11/13/2024 3:37 PM EDT Associated Problem(s): Chronic bilateral low back pain with bilateral sciatica Discussed about weight loss, agreed to be referred to PT and take Tylenol as needed He may need some assistance with ADLs, needs additional evaluation of low back pain including potential MRI after PT if symptoms do not improve * Assessment & Plan Note - Iris Slaughter MD - 11/13/2024 3:29 PM EDT Associated Problem(s): Class 2 severe obesity with serious comorbidity and body mass index (BMI) of38.0 to 38.9 in adult ([facility]) Discussed re weight reduction options including exercise, life style modifications, diet. Recommended to decrease soda and sugary beverage consumption, increase protein intake with meals (at least 1 portion of protein with each meal) to assist with satiety, increase dietary fiber Recommended at least 150 min/week of moderate intensity exercise. I will DC fluoxetine as he may be worsening patient's weight gain, change to Effexor Will discuss pharmacological treatment including phentermine or topiramate at next visit * Assessment & Plan Note - Iris Slaughter MD - 11/13/2024 3:29 PM EDT Associated Problem(s): Plantar fasciitis, bilateral Counseled regarding use of plantar fasciitis splint at night Advised to do warm soaks with Epsom salt and reconsult as needed to refer to podiatry if needed * Assessment & Plan Note - Iris Slaughter MD - 11/13/2024 3:28 PM EDT Associated Problem(s): Osteoarthritis of both ankles and feet Advised regarding weight reduction, where customized shoes as much as possible along with customized insoles due to calcaneal spur Reconsult as needed, will refer to switch adjuster for steroid injection. * Assessment & Plan Note - Iris Slaughter MD - 11/13/2024 3:28 PM EDT Associated Problem(s): Heart palpitations Unclear, or reminded to remain hydrated, to have small infection meals to avoid hypoglycemia Order Holter monitor * Assessment & Plan Note - Iris Slaughter MD - 11/13/2024 3:27 PM EDT Associated Problem(s): Seizure disorder (CMS/HCC) On Jaci and Ana, followed by Dr. Leon, will obtain most recent OV note. Discussed with patient and regarding avoid driving and follow-up [place] rules driving/ patient with seizures. * Addendum Note - Iris Slaughter MD - 11/13/2024 9:45 AM EDTAddended by: IRIS SLAUGHTER on: 11/20/2024 04:51 PM Modules accepted: Orders documented in this encounter Plan of Treatment Upcoming Encounters Date Type Department Care Team (Late st Contact Info) Description 02/05/2025 9:00 AM EDT Office Visit [facility] MEDICINE [address] [place] [address] Iris Slaughter MD [address] [place] [address] Scheduled Orders Name Type Priority Associated Diagnoses Orde r Schedule T-SPOT??.TB Lab Routine Preventative health care Expected: 11/13/2024 (Approximate), Expires: 11/13/2025 Holter monitor - 48 hour Cardiac Services Routine Heart palpitations Expected: 11/13/2024 (Approximate), Expires: 11/13/2026 EMG Neurology Routine Carpal tunnel syndrome on both sides Expected: 11/20/2024 (Approximate), Expires: 11/20/2025 Nerve conduction test Neurology Routine Carpal tunnel syndrome on both sides Expected: 11/20/2024 (Approximate), Expires: 11/20/2025 Scheduled Referrals Name Type Priority Associated Diagnoses Orde r Schedule Referral to Physical Therapy Outpatient Referral Routine Chronic bilateral low back pain with bilateral sciatica Expected: 11/13/2024 (Approximate), Expires: 11/13/2025 documented as of this encounter Procedures Procedure Name Priority Date/Time Associated Diagnosis Comments POCT GLYCATED HEMOGLOBIN, TOTAL Routine 11/13/2024 10:13 AM EDT Preventative health care POCT GLUCOSE Routine 11/13/2024 10:13 AM EDT Preventative health care documented in this encounter Results * POCT HGB A1C (11/13/2024 10:13 AM EDT) Hemoglobin A1C 5.6 4.0 - 6.0 % QC Media Lot # [id number] Lot# Expiration Date 05,026 Blood 11/13/2024 10:1 3 AM EDT Iris Slaughter MD POINT OF CARE TEST ENTER /EDIT ORDERABLES Final Result * POCT Glucose (11/13/2024 10:13 AM EDT) Glucose Blood, POC 104 60 - 200 mg/dL QC Media Lot # [id number] Lot# Expiration Date 101,425 Blood Capillary blood specimen / Unknown 11/13/2024 10:13 AM EDT Iris Slaughter MD POINT OF CARE TEST ENTER /EDIT ORDERABLES Final Result documented in this encounter Visit Diagnoses Diagnosis Carpal tunnel syndrome on both sides- Primary Carpal tunnel syndrome Seizure disorder (CMS/HCC) Unspecified epilepsy without mention of intractable epilepsy Preventative health care Routine general medical examination at a health care facility Chronic bilateral low back pain with bilateral sciatica Osteoarthritis of both ankles and feet Plantar fasciitis, bilateral Severe episode of recurrent major depressive disorder, without psychotic features (CMS/HCC) Class 2 severe obesity with serious comorbidity and body mass index (BMI) of 38.0 to 38.9 in adult, unspecified obesity type (CMS/HCC) Heart palpitations Palpitations Dietary counseling Dietary surveillance and counseling documented in this encounter Additional Health Concerns Assessment Noted Time PHQ-9 Depression Total Score: 4 11/14/19 25 3:23 PM EDT documented as of this encounter Care Teams Health Care Assistant Relationship Specialty Start Date End Date Iris Slaughter MD [address] [place] [address] PCP - General Internal Medicine 04/02/24 Aubrey Montesinos PharmD [address] [place] [address] Pharmacist Internal Medicine 08/07/24 documented as of this encounter
--- OUTSIDE RECORDS SUMMARY | 2024-11-25 10:05 | XMS_ITS | Encounter Summary ---
Author Organization [employer] [facility] Address [address] [place] [address] Care Team Providers Care Railroad Maintenance Clerk Name Role Phone Iris Clancy MD Primary Care Provider + Aubrey Montesinos PharmD Unavailable [phone] Reason for Visit * Reason Onset Date Comments Medication Question 11/18/2024 Encounter Details Date Type Department Care Team ([facility] st Contact Info) Description 11/18/2024 Telephone [facility] [address] [place], [place] [phone] Iris Clancy MD [address] [place] [address] Medication Question Social History Tobacco Use Types [...] encounter Miscellaneous Notes * Telephone Encounter - Angélica Calderon RN - 11/19/2024 11:03 AM EDT TC placed to patient [phone] in regards to below message. Patient reports she saw PCP on 11/13/24 and forgot to discuss starting zepbound medication. Patient reports she has been trying to lose weight for a couple of months and has not been successful. Patient reports she has been going to the gym, walking and has changed her diet. Patient denies trialing weight loss medications in the past. Patient is inquiring if zepbound can be initiated for her (weight taken in office). Please review and advise if medication can be Rx'd or if patient needs to be seen again in office. Thank you! * Telephone Encounter - Jen Mcqueen - 11/18/2024 3:08 PM EDT Tc from pt requesting a new medication Zebound Contact pt at [phone] documented in this encounter Plan of Treatment Upcoming Encounters Date Type Department Care Team (Late st Contact Info) Description 02/05/2025 9:00 AM EDT Office Visit [facility] [address] [place] [address] Iris Clancy MD [address] [place] [address] documented as of this encounter Visit Diagnoses Not on filedocumented in this encounter Additional Health Concerns Assessment Noted Time PHQ-9 Depression Total Score: 4 11/14/19 25 3:23 PM EDT documented as of this encounter Care Teams Railroad Maintenance Clerk Relationship Specialty Start Date End Date Iris Clancy MD [address] [place] [phone] PCP - General Internal Medicine 04/02/24 Aubrey Montesinos, ArbenD [address] [place] [phone] Pharmacist Internal Medicine 08/07/24 documented as of this encounter
--- OUTSIDE RECORDS SUMMARY | 2024-11-25 10:05 | XMS_ITS | Clinical Summary ---
Author Organization [employer] Address [address] [facility] 7t [place] [address] Care Team Providers Care Gun Examiner Name Role Phone Iris Clancy MD Primary Care Provider + Aubrey Montesinos PharmD Unavailable [phone] Allergies No known active allergies Medications * [...] 1 each 12/26/19 24 Active sodium chloride (Norborne Nasal [place]) 0.65 % nasal spray Administer 2 sprays into each nostril every 4 (four) hours if needed for congestion. 30 mL 2 12/26/19 24 025 Active gabapentin (Neurontin) 100 MG capsule Take 3 capsules (300 mg) by mouth every 8 (eight) hours. 270 capsule 11 05/13/20 24 025 Active nicotine polacrilex (Nicotine Mini) 2 MG lozengeIndicat ions:Tobacco dependence Dissolve 1 lozenge by mouth every 1-2 hours as needed for cravings 144 lozenge 1 08/07/19 25 Active traZODone (Desyrel) 50 MG tablet Take 1 tablet (50 mg) by mouth at bedtime. 90 tablet 09/11/19 25 Active FT Stool Softener 50-8.6 MG tablet TAKE 1 TABLET BY MOUTH EVERY MORNING 90 tablet 1 10/03/19 25 Active fluticasone (Flonase) 50 MCG/ACT nasal spray INSTILL 1 SPRAY IN EACH NOSTRIL ONCE DAILY 48 g 10/31/19 25 Active venlafaxine XR (Effexor XR) 37.5 MG 24 hr capsule Take 1 capsule (37.5 mg) by mouth Once per day. Do not crush or chew. 30 capsule 11 11/14/19 25 026 Active Diclofenac Sodium 1 % gel Apply 2 g topically if needed in the morning, at noon, in the evening, and at bedtime (pain). 100 g 3 11/14/19 25 Active tiZANidine (Zanaflex) 2 MG tablet Take 1 tablet (2 mg) by mouth every 8 (eight) hours if needed for muscle spasms for up to 10 days. 30 tablet 11/14/19 25 Active acetaminophen (Tylenol Extra Strength) 500 MG tablet Take 1 tablet (500 mg) by mouth every 6 (six) hours if needed for mild pain. 120 tablet 11/14/19 25 025 Active fluticasone (Flonase Allergy Relief) 50 MCG/ACT nasal spray Administer 1 spray into each nostril Once per day. Shake gently. Before first use, prime pump. After use, clean tip and replace cap. 48 g 05/15/20 24 025 Discontinued FLUoxetine (PROzac) 20 MG capsule Take 1 capsule (20 mg) by mouth Once per day. 90 capsule 09/11/19 25 025 Discontinued(In effective) tiZANidine (Zanaflex) 2 MG tablet Take 1 tablet (2 mg) by mouth every 8 (eight) hours if needed for muscle spasms for up to 10 days. 30 tablet 09/17/19 25 025 Discontinued(Re order (will not trigger notification to Pharmacy)) Diclofenac Sodium 1 % gel Apply 2 g topically if needed in the morning, at noon, in the evening, and at bedtime (pain). 100 g 3 09/17/19 25 025 Discontinued(Re order (will not trigger notification to Pharmacy)) Active Problems Problem Noted Date Diagnosed Date Heart palpitations 11/13/2024 Assessment & Plan (11/13/2024 3:28 PM EDT): Unclear, or reminded to remain hydrated, to have small infection meals to avoid hypoglycemia Order Holter monitor Preventative health care 11/13/2024 Assessment & Plan (11/13/2024 3:48 PM EDT): Discussed with patient re increase fresh fruit [...] visit: Up-to-date, next 1 due next month Chronic bilateral low back pain with bilateral s ciatica 11/13/2024 Assessment & Plan (11/13/2024 3:40 PM EDT): Discussed about weight loss, agreed to be referred to PT and take Tylenol as needed He may need some assistance with ADLs, needs additional evaluation of low back pain including potential MRI after PT if symptoms do not improve Class 2 severe obesity with serious comorbidity and body mass index (BMI) of 38.0 to 38.9 in adult 11/13/2024 Assessment & Plan (11/13/2024 3:30 PM EDT): Discussed re weight reduction options including exercise, [...] including phentermine or topiramate at next visit Carpal tunnel syndrome on both sides 02/11/2024 Assessment & Plan (11/13/2024 3:41 PM EDT): Not improving with OTC, will do a referral again to a nerve conduction study and follow-up after that to see if she needs a referral to orthopedics or electroformer Assessment & Plan (05/13/2024 3:26 PM EDT): [...] done Osteoarthritis of both ankles and feet Assessment & Plan (11/13/2024 3:28 PM EDT): Advised regarding weight reduction, where customized shoes as much as possible along with customized insoles due to calcaneal spur Reconsult as needed, will refer to photographer apprentice for steroid injection. Plantar fasciitis, bilateral 08/23/2023 Assessment & Plan (11/13/2024 3:29 PM EDT): Counseled regarding use of plantar fasciitis splint at night Advised to do warm soaks with Epsom salt and reconsult as needed to refer to podiatry if needed Assessment & Plan (08/23/2023 12:43 PM EST): [...] major depressive disorder, without psychotic features (CMS/HCC) Suicidal ideation Patient ready to address current needs Yes Strengths include ability to reach out for help PLAN: 1. Follow up with [facility]: Recommended for follow-up: As needed 2. Patient goal is stabilization of symptoms 3. Behavioral Recommendations a. Comply with respite when a bed is avaialble b. Comply with medications and attend psychiatry appointment, when established c. Utilize CB if symptoms worsen d. Reach out to [facility] for additional support ANTHONY (generalized anxiety disorder) 04/06/2023 Severe episode of recurrent major depressive disorder, without psychotic features 04/06/2023 Assessment & Plan (11/13/2024 3:40 PM EDT): Doing better after seeing psychotherapist, continue follow-up with program Will DC fluoxetine due to potential weight gain with this medication, start Effexor and follow-up with me in 6 to 8 weeks She feels safe at home and is able to reach out for safety Assessment & Plan (04/10/2023 9:46 AM EDT): [...] thru their agency. Patient was provided with [facility] information. At this time Ebony Edwards meets criteria for Visit Diagnoses: Problem List Items Addressed This Visit Other ANTHONY (generalized anxiety disorder) Severe episode of recurrent major depressive disorder, without psychotic features ([facility]) Patient ready to address current needs Yes Strengths include service in place PLAN: 1. Follow up with [facility]: Not recommended for follow-up 2. Patient goal is to decrease symptoms 3. Behavioral Recommendations A. Patient will continue to meet with therapist B. Patient will utilize additional coping skills provided C. Patient may reach out to [facility], if needed D. Patient will utilize CB, if symptoms worsen Exercise counseling 01/10/2023 Seizure disorder 01/10/2023 Assessment & Plan (11/13/2024 3:27 PM EDT): Alirio Treviño, followed by Dr. Leon, will obtain most recent OV note. Discussed with patient and regarding avoid driving and follow-up [place] rules driving/ patient with seizures. Assessment & Plan (01/10/2023 2:19 PM EDT): follows with neurology. Dr. Leon at [facility] Continue current medications Insomnia 01/10/2023 Overview (04/06/2023): [...] Encounters Date Type Department Care Team Description 11/20/2024 [email or web address] [place] [employer] [address] [place] [phone] Iris Clancy MD 11/18/2024 Telephone [facility] [address] [place] [address] Iris Clancy MD Medication Question 11/13/2024 9:45 AM EDT Office Visit [facility] [address] [place] [phone] Iris Clancy MD Carpal tunnel syndrome on both sides (Primary Dx); Seizure disorder ([facility]/HCC); Preventative health care; Chronic bilateral low back pain with bilateral sciatica; Osteoarthritis of both ankles and feet; Plantar fasciitis, bilateral; Severe episode of recurrent major depressive disorder, without psychotic features (CMS/HCC); Class 2 severe obesity with serious comorbidity and body mass index (BMI) of 38.0 to 38.9 in adult, unspecified obesity type (CMS/HCC); Heart palpitations; Dietary counseling 11/13/2024 Travel 11/07/2024 Telephone [facility] [address] [place] [phone] Iris Clancy MD Chart prep 11/04/2024 Patient Outreach [facility] [address] [place] [address] Iris Clancy MD Pre-visit Planning (SDOH screening negative and tobacco screening negative) 10/30/2024 Refill [facility] [address] [place] [address] Iris Clancy MD 10/10/2024 Population Health Risk Score [facility] [address] [place] [phone] Provider, Population Health Generic 10/02/2024 Refill [facility] [address], [place] [phone] Iris Clancy MD 09/17/2024 10:20 AM EST Office Visit [facility] [address] [place] [address] Yovani Lloyd MD Acute bilateral low back pain without sciatica (Primary Dx) 09/17/2024 Travel 09/11/2024 Orders Only GENERIC EXTERNAL DATA DEPARTMENT Provider, Generic External Data 09/11/2024 Refill [facility] [address] [place] [address] Iris Clancy MD 09/11/2024 Telephone [facility] [address] [place] [address] Iris Clancy MD 08/28/2024 Travel from Last 3 Months Immunizations Name Administration [...] is your housing situation today? I have jonathanstan díaz 11/04/[address] you [...] Mass Index 38.55 11/13/2024 9:36 AM EDT Plan of Treatment Upcoming Encounters Date Type Department Care Team (Late st Contact Info) Description 02/05/2025 9:00 AM EDT Office Visit [facility] [address] [place], [place] [phone] Iris Clancy MD [address] [place], [place] [phone] Health Maintenance Due Date Last Done Comments Alcohol/Substance Use Screening 2001 Family Planning (PISQ) 01/27/2004 Hepatitis B Vaccines (2 of 2 - CpG 2-dose series) 08/16/2023 07/19/2023 Dental X-Ray: Full Mouth 12/02/2023 11/30/2020 Influenza Vaccine (#1) 2024 , 06/27/2018, 06/29/2015 Dental Oral Exam 08/15/2024 02/12/2024, 11/30/2020 Dental Prophylaxis 08/15/2024 02/12/2024 Dental X-Ray: Bitewings 02/12/2025 02/12/20 24, 11/30/2020 SDOH Screening 11/04/2025 11/04/2024 Depression Screening 11/13/2025 11/13/2024, 11/13/2024 Tobacco Screening 11/13/2025 11/13/2024 Pap Smear 01/09/2026 01/09/2023, 03/20/2022, 03/20/2022 Cervical Cancer Screening 01/10/2028 HPV/Cotest 01/10/2028 01/09/2023, 03/20/2022 Lipid Panel 05/29/2028 05/29/2023, 03/20/2022 DTaP/Tdap/Td Vaccines (4 - T d [...] 11/13/2024 10:13 AM EDT Preventative health care URINALYSIS, COMPLETE, WITH REFLEX TO CULTURE Routine [...] ESTABLISHED PATIENT Routine 02/12/2024 8:00 AM EDT LIPID PANEL, STANDARD Routine 05/29/2023 3:36 PM EDT Edema, unspecified type HPV MRNA E6/E7 REFLEX TO HPV 16, 18/45 Routine 01/09/2023 3:04 PM EDT PAP SMEAR Routine 01/09/2023 3:04 PM EDT HIV 1/2 ANTIGEN/ANTIBODY, FOURTH GENERATION W/RFL Routine 03/20/2022 2:38 PM EDT INTRAORAL - COMPLETE SERIES OF RADIOGRAPHIC IMAGES Routine 11/30/2020 12:00 AM EDT from Last 3 Months or Most Recently Relevant to Health Maintenance Results * POCT HGB A1C (11/13/2024 10:13 AM EDT) Hemoglobin A1C 5.6 4.0 - 6.0 % QC Media Lot # [id number] Lot# Expiration Date Blood 11/13/2024 10:1 3 AM EDT Iris Clancy MD POINT OF CARE TEST ENTER /EDIT ORDERABLES Final Result * POCT Glucose (11/13/2024 10:13 AM EDT) Glucose Blood, POC 104 60 - 200 mg/dL [employer] Lot # [id number] Lot# Expiration Date [id number] Blood Capillary blood specimen / Unknown 11/13/2024 10:13 AM EDT Iris Clancy MD POINT OF CARE TEST ENTER /EDIT ORDERABLES Final Result * (ABNORMAL) Urinalysis, Complete, with Reflex to Culture (09/11/2024 2:51 PM EST) Color Urine Yellow [facility] Appearance Urine Clear [facility] PH 6.0 5.0 - 9.0 [facility] Glucose Urine UA Negative Negative mg/dL [facility] Urine Blood Large (3+)(A) Negative [facility] Specific [place] - Urine 1.020 1.005 - 1.025 [facility] Urine Protein Negative Neg-Trace mg/dL [facility] Urine Ketones Trace Negative mg/dL [facility] Nitrite Urine Negative Negative [facility] Leukocyte Esterase Urine Trace(A) Negative [facility] RBC Urine >20(A) 0 - 2 /HPF [facility] Urine WBC 0-5 0 - 5 /HPF [facility] Urine Squamous Epithelial Cell 0-2 0 - 2 /HPF [facility] Urine Bacteria None Seen None Seen [facility] Hyaline Casts, Urine 0-2 0 - 2 /LPF [facility] 09/11/2024 2:51 PM EST 09/11/2024 2:59 PM EST Narrative [facility] - 09/11/2024 3:10 PM EST [id number], Clean Catch us Generic External Data Provider LAB URINE ORDERAB LES Final Result Performing Organization Address City/State/[facility] Co de Phone Number [facility] [address] [place] [phone] * HCG, Qualitative, Urine (09/11/2024 2:51 PM EST) Urine NEGATIVE NEGATIVE [facility] Comment:This test was develo ped to detect early . Falsenegative results may occur after the 5th - 7th week ofpregnancy when using this test method. If clinicallyindicated, consider a serum hCG. 09/11/2024 2:51 PM EST 09/11/2024 2:59 PM EST Generic External Data Provider LAB URINE ORDERAB LES Final Result Performing Organization Address [facility] de Phone Number [facility] [address] [place] [phone] * (ABNORMAL) Urinalysis w/reflex microscopic (09/11/2024 2:51 PM EST) Color Urine Yellow [facility] Appearance Urine Clear [facility] PH 6.0 5.0 - 9.0 [facility] Glucose Urine UA Negative Negative mg/dL [facility] Urine Blood Large (3+)(A) Negative [facility] Specific [place] - Urine 1.020 1.005 - 1.025 [facility] Urine Protein Negative Neg-Trace mg/dL [facility] Urine Ketones Trace Negative mg/dL [facility] Nitrite Urine Negative Negative [facility] Leukocyte Esterase Urine Trace(A) Negative [facility] 09/11/2024 2:51 PM EST 09/11/2024 2:59 PM EST Narrative [facility] - 09/11/2024 3:07 PM EST [id number], Clean Catch Generic External Data Provider LAB URINE ORDERAB LES Final Result Performing Organization Address [facility] de Phone Number [facility] [address] [place] [phone] * XR Lumbar Spine 2-3 Views (09/11/2024 2:49 PM EST) Anatomical Region Laterality Modality Spine, L-spine Radiographic Mayra ging 09/11/2024 2:49 PM EST Narrative 09/11/2024 3:46 PM EST ? [facility] ?[address] ?[place] [address] ?XRay Report ? Signed ? Patient: Benjamin Jerry,Mileiza ?MR#: [id number] ?? [id number] ? : 1990 ?Acct:[id number] ? Age/Sex: 34 / F ?ADM Date: 02/13/25 ? Loc: HO.ED ? Attending Dr: ? Ordering Physician: Jacqueline Richardson [employer] ?? Date of Service: 09/11/24 ?? Procedure(s): XR lumbar spine 2-3V ?? Accession Number(s): [id number] ? cc: Neetu Kyle NP; Jacqueline Richardson [...] DD/ 1449 ? TD/TT: 09/11/24 1530 ? Charge Account Clerk: ? Procedure Note Mayela, Image - 09/11/[address] [address] XRay Report Signed Patient: Ebony Pacheco#: M [id number] : 1990Acct:[id number] Age/Sex: 34 / FADM Date: 09/11/24 Loc: HO.ED Attending Dr: Ordering Physician: Jacqueline Richardson NP Date of Service: 09/11/24 Procedure(s): XR lumbar spine 2-3V Accession Number(s): [id number] cc: Neetu Kyle [employer]; Jacqueline Richardson NP EXAMINATION: XR LUMBAR SPINE [...] Paul Boyce MD 09/11/2024 03:43 PM EST Dictated By: Jean Paul Boyce MD Signed By: <Electronically signed by Jean Paul Boyce MD in OV> 09/11/24 1543 DD/ 1449 TD/TT: 09/11/24 1530 Charge Account Clerk: [facility] External Provider IMG XR PROCEDURES Final Result * Hepatitis Panel, General (05/13/2024 3:20 PM EDT) Hepatitis A IgM Nonreactive Nonreactive [facility] Comment:IgM antibodies to BAILEY V not detected; does not exclude earlyacute or recovered HAV infection. ~Hepatitis B Surface Antibody REACTIVE Nonreactive [facility] Comment:REACTIVE: > 11.99 mI U/mL Hepatitis B Core Antibody Nonreactive Nonreactive [facility] Hepatitis C Antibody Nonreactive Nonreactive [facility] Comment:Antibodies to HCV no t detected; does not exclude early acuteHCV infection. Hepatitis B Surface Ag Negative Negative [facility] Blood 05/13/2024 3:20 PM EDT 05/13/2024 4:20 PM EDT Iris Clancy MD LAB BLOOD ORDERABLES Fin al Result Performing Organization Address City/[facility]/ZIP Co de Phone Number [facility] [address] [place] [phone] * (ABNORMAL) Lipid Panel, Standard (05/29/2023 3:36 PM EDT) Triglycerides 119 <150 mg/dL [facility] Comment:Desirable Triglyceri de: less than 150 mg/dLBorderline High Triglyceride 150-199 mg/dLHigh Triglyceride: 200-499 mg/dLVery High Triglyceride: greater than or equal to 5OO mg/dL Cholesterol 126 <200 mg/dL [facility] Comment:Desirable Cholestero l: less than 200 mg/dLBorderline High Cholesterol: 200-239 mg/dLHigh Cholesterol: greater than 239 mg/dL LDL Cholesterol Calculated 67 <100 mg/dL [facility] Comment:Desirable LDL: less than 100 mg/dLNear Optimal/Above Optimal LDL: 110- 129 mg/dLBorderline High LDL: 130-159 mg/dLHigh LDL: 160-189 mg/dLVery High LDL: greater than or equal to 190 mg/dL HDL Cholesterol 36(L) >40 mg/dL [facility] Comment:Desirable HDL: great er than 40 mg/dL Note: This HDL assay may give artificially low results in patients with liver disease. Blood Venous blood specimen / Unknown 05/29/2023 3:36 PM EDT 05/29/2023 5:53 PM EDT us Neetu GREENBERGP LAB BLOOD ORDERABLES Final Resu lt Performing Organization Address City/[facility]/ZIP Co de Phone Number [facility] [address] [place] [phone] * Pap Smear (01/09/2023 3:04 PM EDT) 01/09/2023 3:04 PM EDT 01/11/2023 8:00 AM EDT Narrative [facility] - 2023 8:52 AM EDT ----- ------- Name: Ebony Pacheco ?Age/Sex: 32/F ? : 1990 Unit#: [id number] ?? Attend Dr: Contreras Yee MD ?Re01/09/23 ?Status: DEP REF ? Location: HO.LNP ?Disch: ? ----- ------- SPEC : [id number] ? RECD: 01/11/23 ? STATUS: ??SOUT ? REQ NUM: [id number] ? ELIZABETH: 01/09/23-1503 ? SUBM DR: Contreras Yee MD ? ENTERED: ??01/12/23 ?SP TYPE: Pap Smr ?OTHR DR: Neetu Kyle [employer] ? ORDERED: ??Pap Smear ? Interpretation ?? Satisfactory for evaluation. ?? Negative for intraepithelial lesion or malignancy. ?HPV mRNA E6/E7: ?NOT DETECTED ? This assay detects E6/E7 viral messenger RNA (mRNA) from 14 high-risk HPV types (16, 18, ?? 31, 33, 35, 39, 45, 51, 52, 56, 58, 59, 66, 68) ?? HPV testing performed by [employer], [place], [place]. ??See reference laboratory ?? pion of the EMR for entire report. ?Clinical Information LMP: Unknown date Previous PAP test: Unknown date/findings Other history: Abnormal uterine and vaginal bleeding ? Material Received ?? ThinPrep-Cervical Copies To: ?? Neetu Kyle [employer] ?? [address] ?? [place] [address] ?? [phone] ?? Contreras Yee MD ?? [address] [place] [facility] ?? [place] [address] ?? [phone] ----- ------- Signed (signature on file) MANNY Osorio (ASCP) 01/26/23 0852 ? ----- ------- ? END OF REPORT ? [facility] External Provider LAB CYT OLOGY ORDERABLES Final Result Performing Organization Address [facility] Co de Phone Number [facility] [address] [place] [phone] * HIV 1/2 ANTIGEN/ANTIBODY,FOURTH GENERATION W/RFL (03/20/2022 2:38 PM EDT) [facility] HIV-1/2 ANTIGEN AND ANTIBODIES, 4TH GENERATION W/ REFLEX NON-REACT JOSIAS NON-REACT JOSIAS [facility] Comment: HIV-1 antigen and HIV-1/HIV-2 [...] ? For additional information please refer to [email or web address]/faq/LGV786 (This link is being provided for informational/ educational purposes only.) ? The performance of this assay has not been clinically validated in patients less than 2 years old. ?? 03/20/2022 2:38 PM EDT Vince Castañeda MD LAB BLOOD ORDERABLES Final R esult Performing Organization Address City/[facility]/ZIP Co de Phone Number [facility] [address] [place] [address] from Last 3 Months or Most Recently Relevant to Health Maintenance Insurance [facility] [address] [place] [address] C3 [place] ST[place] AD[place] Care Teams Gun Examiner Relationship Specialty Start Date End Date Iris Clancy MD [address] [place] [address] PCP - General Internal Medicine 04/02/24 Aubrey Montesinos, PharmD [address] [place] [address] Pharmacist Internal Medicine 08/07/24
--- OUTSIDE RECORDS SUMMARY | 2024-11-25 10:05 | XMS_ITS | Encounter Summary ---
Author Organization [employer] Address 75 [facility] 7t [place] [address] Care Team Providers Care Ambulance Paramedic Name Role Phone Iris Clancy MD Primary Care Provider + Aubrey Montesinos PharmD Unavailable [phone] Encounter Details Date Type Department Care Team (Late st Contact Info) Description 11/20/2024 Telephone [facility] [employer] [facility] [address] [place] [address] Iris Clancy MD [address] [place] [address] Social History Tobacco Use Types Packs/Day Years [...] encounter Miscellaneous Notes * Telephone Encounter - Kunal Ennis - 11/20/2024 9:13 AM EDT Incoming Fax from [facility] requesting an order for EMG as well. Please review and advise! documented in this encounter Plan of Treatment Upcoming Encounters Date Type Department Care Team (Late st Contact Info) Description 02/05/2025 9:00 AM EDT Office Visit [facility] [address] [place] [address] Iris Clancy MD [address] [place] [address] documented as of this encounter Visit Diagnoses Not on filedocumented in this encounter Additional Health Concerns Assessment Noted Time PHQ-9 Depression Total Score: 4 11/14/19 25 3:23 PM EDT documented as of this encounter Care Teams Ambulance Paramedic Relationship Specialty Start Date End Date Iris Clancy MD [address] [place] [address] PCP - General Internal Medicine 04/02/24 Aubrey Montesinos, ArbenD [address] [place] [address] Pharmacist Internal Medicine 08/07/24 documented as of this encounter
[2024-11-25 10:11] LABS: Valproate 77.6 mcg/mL (50.0-100.0)
[2024-11-28 01:54] LABS: TS Negative Control Passed; TS Panel A 1; TS Panel B 1; TS Positive Control Passed; TSpotTB Negative (Negative)
== END 2024-11-25 09:14 | disposition home or self-care (01) ==
LOC: HO.NEURO 09:13
PROVIDERS: Absent Provider Registered Nurse; PCP Internal Medicine; Visit Provider Internal Medicine
DX: Z00.00 Encounter for general adult medical examination without abnormal findings (principal); R00.2 Palpitations; G40.901 Epilepsy, unspecified, not intractable, with status epilepticus; G56.03 Carpal tunnel syndrome, bilateral upper limbs; Z11.1 Encounter for screening for respiratory tuberculosis
CPT/HCPCS: 36415; 80164; 86481; 93225; 95886; 95913

== ENCOUNTER 2024-12-10 12:49 | Emergency (ER) | payer MEDICAID, SELFPAY ==
--- NOTE | ~2024-12-10 | XR_ITS ---
EXAMINATION: XR CHEST 2 VIEWS HISTORY: cough, dyspnea COMPARISON: Comparison is made with the prior examination dated 05/29/2023. FINDINGS: PA and lateral views of the chest are submitted. The lungs are expanded and clear. There is no pleural effusion, pneumothorax, or pulmonary vascular congestion. The heart is normal in size. The bones are intact. XR/XR chest 2V IMPRESSION: No acute cardiopulmonary abnormality. Electronically signed by: Jean Paul Boyce MD 12/10/2024 01:18 PM EDT
[2024-12-10 12:53] VITALS: BP 105/66; PULSE 86; RESP 16; TEMP 36.8; O2SAT 98; BMI 37.6
--- NOTE | 2024-12-10 12:56 | ED_ITS ---
HPI - General Adult General Chief complaint: Upper Respiratory Symptoms Stated complaint: Sore Throat Headache Sinus Pressure Etc Time Seen by Provider: 12/10/24 14:55 Source: patient, RN notes reviewed and old records reviewed Mode of arrival: ambulatory History of Present Illness ED Provider: Isi Kraft PA-C HPI narrative: 34-year-old female with a past medical history of epilepsy, seizures, asthma, presenting to the ED complaining of sore throat, nasal congestion, rhinorrhea, productive cough, SOB, chest discomfort with coughing x5 days. Admits to using inhaler at home without relief. Denies recent travel, sick contacts, difficulty or inability to swallow, ear pain. Related Data Home Medications ?Medication ?Instructions ?Recorded ?Confirmed divalproex 500 mg tablet,delayed 500 mg PO BID 12/06/22 release levetiracetam 500 mg tablet 1,500 mg PO Q12H 12/06/22 12/26/22 hydroxyzine HCl 50 mg tablet 50 mg PO BEDTIME 12/26/22 12/26/22 hydroxyzine HCl 25 mg tablet 25 mg PO TID PRN itch 11/15/23 Previous Rx's ?Medication ?Instructions ?Recorded tramadol 50 mg tablet 50 mg PO Q6H PRN pain #12 tabs 07/10/23 omeprazole 40 mg capsule,delayed 40 mg PO DAILY #30 caps 09/20/23 release cyclobenzaprine 10 mg tablet 10 mg PO TID PRN muscle spasm #14 09/11/24 tabs lidocaine 5 % topical patch 1 patch topical DAILY #15 ea 09/11/24 naproxen 500 mg tablet 500 mg PO BID #14 tabs 09/11/24 prednisone 20 mg tablet 40 mg (2 x 20 mg) PO DAILY 5 days 12/10/24 #10 tabs Allergies Allergy/AdvReac Type Severity Reaction Status Date / Time No Known Drug Allergies Allergy Unknown U Verified 12/10/24 12:55 Review of Systems Review of Systems: Yes all other systems are reviewed and are negative Constitutional: Constitutional: Reports as per [facility] Past Medical History Attestation statement: The following information was validated with the patient. Source: old records reviewed Medical History Epilepsy Absence seizure Hx of meningitis Seizures Surgical History Hx of removal of cyst Hx of section Hx of tubal ligation Social History Social History Patient Tobacco Use Status: Current everyday Tobacco user Tobacco use type: Cigarette Cigarettes Per Day: 3 Advance Directives: No Advance Directives Information Provided: Yes Current occupational status: disabled Current occupation: right hand dominant Physical Exam ED Vital Signs: Vital Signs - 24 hr 12/10/24 12:53 12/10/24 15:19 Temperature 98.2 F 98 F Pulse Rate 86 72 Respiratory Rate 16 18 Blood Pressure 105/66 107/65 Pulse Oximetry 98 99 Oxygen Delivery Method Room Air Room Air BMI result Body Mass Index 37.6 Const General: cooperative, healthy appearing and no acute distress Orientation/consciousness: patient oriented x3 Limitations: no limitations HENMT Head: Yes normal to inspection and Yes atraumatic Ears: hearing grossly normal bilaterally, external ears normal, TM's normal bilaterally and mastoids normal General nose exam: Normal external nose present Face and sinus: Yes normal facial exam Mouth: Normal oral and palatal mucosa present and no drooling Throat: Yes posterior oropharynx normal, Yes tonsils normal, Yes uvula midline, No peritonsillar mass, No uvula laterally displaced and No uvular edema Eyes General: appearance normal, both eyes and all related structures EOM: EOMs intact bilaterally Neck Neck: Yes normal visual inspection and Yes no meningeal signs Resp Effort & Inspection: normal respiratory effort, no respiratory distress and no stridor Auscultation: clear to auscultation bilaterally, no crackles, no rales, no rhonchi and no wheezes Cardio Rate: regular rate Heart sounds: S1 normal heart sound present and S2 normal heart sound present Skin Rashes: no rashes Wounds: no wounds Neuro General: patient oriented x3, tone normal and no meningeal signs Cranial nerves: Yes CN's II-XII intact bilaterally Gait exam (Neuro): Normal gait present Extrem General: Yes normal to inspection Course Course Course Narrative: This is a rapid medical exam performed by Zhang Richardson NP: Additional HPI, ROS, PE not included below will be deferred to primary provider. Patient is a 34-year-old female with history of asthma presenting with complaint of sore throat, cough, shortness of breath and headache since Sunday. No relief with albuterol inhaler. Plan: strep and viral swabs, cxr 1456--XR chest 2V IMPRESSION: No acute cardiopulmonary abnormality. > COVID, flu, RSV, and rapid strep negative Results discussed with patient including worrisome signs and symptoms and strict return precautions, and when to return to the emergency department. They verbalized understanding and feel safe for discharge at this time. Medical Decision Making Medical Decision Making MDM Narrative: 34-year-old female with a past medical history of epilepsy, seizures, asthma, presenting to the ED complaining of sore throat, nasal congestion, rhinorrhea, productive cough, SOB, chest discomfort with coughing x5 days. On exam vital signs stable, NAD, nontoxic appearing, oropharynx WNL, uvula midline, lungs CTA, no appreciable on exam, talking in complete sentences, no respiratory distress. Concern for viral illness vs asthma exacerbation vs bronchitis vs pneumonia. Rule out strep pharyngitis. No evidence of TRACK OILER/retropharyngeal abscess. Low suspicion for PE/DVT/dissection or ACS Plan: Viral testing, rapid strep, CXR Please refer to course for remaining clinical decision making, interpretation of labs/imaging results, and discussions with consultants and/or family members. Differential Diagnosis Differential Diagnoses: The differential diagnosis associated with the presentation includes As above Lab Data [facility] Lab Attestation statement: I reviewed the patient's lab results. Labs: Lab Results 12/10/24 Range/Units 13:37 Influenza Type A (PCR) NEGATIVE (Negative) Influenza Type B (PCR) NEGATIVE (Negative) RSV RNA Qual (PCR) NEGATIVE (Negative) SARS-CoV-2 RNA (RT-PCR) NEGATIVE (Negative) S. pyogenes GrpA ÁLVARO Negative (Negative) Independent Interpretation I performed an independent interpretation of an: Plain X-Ray Radiology Impression Discussion of test interpretation with radiology: I have reviewed the radiologist's reading. External Record Review External record reviewed: Inpatient record, Office record, Outpatient record, Pr ior outpatient labs, Prior outpatient radiology, Primary care record and Outside ED record Tests considered The following testing was considered but not selected: As above Prescription Management I considered prescription management with: Pain Medication Chronic Conditions Patient?s care impacted by: Other Discharge Plan Discharge Clinical Impression: Bronchitis Patient Disposition: Home, Self-Care Instructions: Acute Bronchitis (ED) Additional Instructions: Your x-ray does not show pneumonia You tested negative for COVID, flu, RSV and strep throat Please continue to use your albuterol inhaler In addition take prednisone which is a steroid until completion Flonase as a nasal decongestant Follow up with her doctor If her symptoms persist or worsen return to the emergency department Prescriptions: New prednisone 20 mg tablet 40 mg PO DAILY 5 Days Qty: 10 0RF No Action hydroxyzine HCl 50 mg tablet 50 mg PO BEDTIME tramadol 50 mg tablet 50 mg PO Q6H PRN (Reason: pain) Qty: 12 0RF omeprazole 40 mg capsule,delayed release(DR/EC) 40 mg PO DAILY Qty: 30 0RF cyclobenzaprine 10 mg tablet 10 mg PO TID PRN (Reason: muscle spasm) Qty: 14 0RF lidocaine 5 % adhesive patch,medicated 1 patch topical DAILY Qty: 15 0RF Rx Instructions: leave on most painful area for up to 12 hrs naproxen 500 mg tablet 500 mg PO BID Qty: 14 0RF hydroxyzine HCl 25 mg tablet 25 mg PO TID PRN (Reason: itch) divalproex 500 mg tablet,delayed release (DR/EC) 500 mg PO BID levetiracetam 500 mg tablet 1,500 mg PO Q12H Referrals: Iris Clancy MD [Primary Care Provider] - 3 days Interventions: ED Discharge Assessment Last Done: 12/10/24 15:19 Discharge Date/Time: 12/10/24 15:20 Print Language: Croatian
[2024-12-10 13:51] LABS: IDNOW Serial# 58CA691E; Strep A Nucleic Acid Negative (Negative)
--- OUTSIDE RECORDS SUMMARY | 2024-12-10 14:10 | XMS_ITS | Encounter Summary ---
Author Organization [employer] Address [address] [place] [address] 7t [place] [address] Care Team Providers Care Arbitrator Name Role Phone Neetu Kyle Primary Care Provider [phone] Iris Clancy MD Primary Care Provider + Aubrey Montesinos PharmD Unavailable [phone] Encounter Details Date Type Department Care Team ([facility] st Contact Info) Description 07/20/2023 [facility] Health Information Management [address] [place] [address] Neetu Kyle FNP [address] [place] [address] Social History Tobacco Use Types Packs/Day Years [...] 02/05/2025 9:00 AM EDT Office Visit [facility] [address] [place] [address] Iris Clancy MD [address] [place] [address] documented as of this encounter Visit Diagnoses Not on filedocumented in this encounter Additional Health Concerns Assessment Noted Time PHQ-9 Depression Total Score: 24 023 3:56 PM EDT documented as of this encounter Care Teams Arbitrator Relationship Specialty Start Date End Date Neetu Kyle FNP [address] [place] [address] PCP - General Family Medicine 09/19/22 04/01/24 Iris Clancy MD [address] [place] [address] PCP - General Internal Medicine 04/02/24 Aubrey Montesinos, Shilpa [address] [place] [address] Pharmacist Internal Medicine 08/07/24 documented as of this encounter
--- OUTSIDE RECORDS SUMMARY | 2024-12-10 14:10 | XMS_ITS | Encounter Summary ---
Author Organization [employer] Address [address] [place] [address] 7t [place] [address] Care Team Providers Care Opal Polisher Name Role Phone Neetu Kyle Primary Care Provider [phone] Iris Clancy MD Primary Care Provider + Aubrey Montesinos PharmD Unavailable [phone] Reason for Visit * Reason Onset Date Comments Nurse Triage 04/06/2023 Encounter Details Date Type Department Care Team (Late st Contact Info) Description 04/06/2023 Telephone [facility] [address] [place] [address] Neetu Kyle FNP [address] [place] [address] Nurse Triage Social History Tobacco Use Types [...] AM EDT documented as of this encounter Functional Status * Over the past 2 weeks, how often have you been bothered by any of the following problems? Question Answer Date of Assessment Author Patient Health Questionnaire-2 Score 6 04/06/2023 11:34 AM EDT Edward Flannery LICSW * If you checked off any problems on this questionnaire so far, Question Answer Date of Assessment Author How difficult have these problems made it for you to do your work, take care of things at home, or get along with other people? Extremely difficult 04/06/2023 11:34 AM EDT Briana Flannery PASSPORT APPLICATION EXAMINER * Over the last 2 weeks, how often have you been bothered by any of the following problems? Question Answer Date of Assessment Author Feeling nervous, anxious, or on edge 3 04/06/2023 11:34 AM EDT Remington Flannery PASSPORT APPLICATION EXAMINER Not being able to stop or control worrying 3 04/06/2023 11:34 AM EDT Remington Flannery PASSPORT APPLICATION EXAMINER Worrying too much about different things 3 04/06/2023 11:34 AM EDT Rmeington Flannery PASSPORT APPLICATION EXAMINER Trouble relaxing 3 04/06/2023 11:34 AM EDT Briana Flannery PASSPORT APPLICATION EXAMINER Being so restless that it is hard to sit still 3 04/06/2023 11:34 AM EDT Remington Flannery PASSPORT APPLICATION EXAMINER Becoming easily annoyed or irritable 3 04/06/2023 11:34 AM EDT Remington Flannery PASSPORT APPLICATION EXAMINER Feeling afraid as if something awful might happen 3 04/06/2023 11:34 AM EDT Briana Linares PASSPORT APPLICATION EXAMINER ANTHONY-7 Total Score 21 04/06/2023 11:34 AM EDT Briana Flannery PASSPORT APPLICATION EXAMINER * Over the past 2 weeks, how often have you been bothered by any of the following problems? Question Answer Date of Assessment Author Little interest or pleasure in doing things Nearly every day 04/06/2023 11:34 AM EDT Briana Flannery, PASSPORT APPLICATION EXAMINER Feeling down, depressed, or hopeless Nearly every day 04/06/2023 11:34 AM EDT Briana Flannery, PASSPORT APPLICATION EXAMINER Trouble falling or staying asleep, or sleeping too much Several days 04/06/2023 11:34 AM EDT Briana Flannery, PASSPORT APPLICATION EXAMINER Feeling tired or having little energy Nearly every day 04/06/2023 11:34 AM EDT RusBriana norris LICSW Poor appetite or overeating Nearly every day 04/06/2023 11:34 AM EDT Briana Flannery LICSW Feeling bad about yourself - or that you are a failure or have let yourself or your family down Several days 04/06/2023 11:34 AM EDT Briana Flannery LICSW Trouble concentrating on things, such as reading the newspaper or watching television Nearly every day 04/06/2023 11:34 AM EDT Briana Flannery LICSW Moving or speaking so slowly that other people could have noticed? Or the opposite - being so fidgety or restless that you have been moving around a lot more than usual. Not at all 04/06/2023 11:34 AM PEREZT Briana Flannery LICSW Thoughts that you would be better off or hurting yourself in some way More than half the days 04/06/2023 11:34 AM Briana Hammonds LICSW Patient Health Questionnaire-9 Score 19 04/06/2023 11:34 AM PEREZT Briana Flannery LICSW documented as of this encounter Miscellaneous Notes * Telephone Encounter - Raina Veras RN - 04/06/2023 9:26 AM EDT Triage call Pt reports, I was in [place] yesterday and had a panic attack that was very strong . Pt was sent out by ambulance to [facility] and was put in the waiting room. While in waiting room Pt reports there was a homeless man who was screaming and yelling and Pt became more anxious and called neighbor to seed cone picker and bring home. Pt calls today with continued anxiety, Pt reports has never told PCP aboutthis because, I don't like to speak about it . Pt is desiring help at this time. Pt is not suicidal and doesn't want to hurt anyone else. Pt is advised to come to [facility] today and Pt reports that Pt lives just a few minutes away and will start walking over there. Call to Lashonda in [facility] to give inform ation regarding Pt and call to Dedra in behavioral health. [facility] PLEASE call behavioral health when Pt arrives. [...] school or work). Pt did go to [facility] for anxiety attack but left due to anxiety getting worse in wait room. The caller accepted this outcome Please contact pt at [phone] (Samoan) documented in this encounter Plan of Treatment Upcoming Encounters Date Type Department Care Team (Late st Contact Info) Description 02/05/2025 9:00 AM EDT Office Visit [facility] [address] [place] [address] Iris Clancy MD [address] [place] [address] documented as of this encounter Visit Diagnoses Not on filedocumented in this encounter Additional Health Concerns Assessment Noted Time PHQ-9 Depression Total Score: 19 023 11:34 AM EDT documented as of this encounter Care Teams Opal Polisher Relationship Specialty Start Date End Date Neetu Kyle FNP [address] [place] [address] PCP - General Family Medicine 09/19/22 04/01/24 Iris Clancy MD [address] [place] [address] PCP - General Internal Medicine 04/02/24 Aubrey Montesinos, Shilpa [address] [place] [address] Pharmacist Internal Medicine 08/07/24 documented as of this encounter
--- OUTSIDE RECORDS SUMMARY | 2024-12-10 14:10 | XMS_ITS | Encounter Summary ---
Author Organization [employer] Address 75 [facility] 7t [place] [address] Care Team Providers Care Bottom Brusher Name Role Phone Neetu Kyle Primary Care Provider [phone] Iris Clancy MD Primary Care Provider + Aubrey Montesinos PharmD Unavailable [phone] Reason for Visit * Reason Onset Date Comments Letter Request 07/13/2023 Encounter Details Date Type Department Care Team ([facility] st Contact Info) Description 07/13/[address] [facility] [address] [place] [address] Neetu Kyle FNP [address] [place] [address] Letter Request Social History Tobacco Use Types [...] with others, in a hotel, in a long term, living outside on the street, on a [...] Description 02/05/2025 9:00 AM EDT Office [address] [facility] [address] [place] [address] Iris Clancy MD [address] [place] [address] documented as of this encounter Visit Diagnoses Not on filedocumented in this encounter Additional Health Concerns Assessment Noted Time PHQ-9 Depression Total Score: 24 023 3:56 PM EDT documented as of this encounter Care Teams Bottom Brusher Relationship Specialty Start Date End Date Neetu Kyle FNP [address] [place] [address] PCP - General Family Medicine 09/19/22 04/01/24 Iris Clancy MD [address] [place] [address] PCP - General Internal Medicine 04/02/24 Aubrey Montesinos, ArbenD [address] [place] [address] Pharmacist Internal Medicine 08/07/24 documented as of this encounter
--- OUTSIDE RECORDS SUMMARY | 2024-12-10 14:10 | XMS_ITS | Encounter Summary ---
Author Organization [employer] Address [address] [place] [address] 7t [place] [address] Care Team Providers Care Merchandise Displayer Name Role Phone Neetu Kyle Primary Care Provider [phone] Iris Clancy MD Primary Care Provider + Aubrey Montesinos PharmD Unavailable [phone] Encounter Details Date Type Department Care Team (Late st Contact Info) Description 02/19/2023 Orders Only [facility] [address] [place] [address] Neetu Kyle FNP [address] [place] [address] Other specified hearing loss of both ears [...] Visit [facility] [address] [place] [address] Iris Clancy MD [address] [place], [place] [phone] documented as of this encounter Visit Diagnoses Diagnosis Other specified hearing loss of both ears- Primary documented in this encounter Additional Health Concerns Assessment Noted Time PHQ-9 Depression Total Score: 8 01/11/20 23 10:51 AM EDT documented as of this encounter Care Teams Merchandise Displayer Relationship Specialty Start Date End Date Neetu Kyle FNP [address] [place] [address] PCP - General Family Medicine 09/19/22 04/01/24 Iris Clancy MD [address] [place] [address] PCP - General Internal Medicine 04/02/24 Aubrey Montesinos PharmD [address] [place] [address] Pharmacist Internal Medicine 08/07/24 documented as of this encounter
--- OUTSIDE RECORDS SUMMARY | 2024-12-10 14:10 | XMS_ITS | Encounter Summary ---
Author Organization [employer] Address 75 [facility] 7t [place] [address] Care Team Providers Care Principal Statistical Programmer Name Role Phone Neetu Kyle Primary Care Provider [phone] Iris Clancy MD Primary Care Provider + Aubrey Montesinos PharmD Unavailable [phone] Encounter Details Date Type Department Care Team (Late st Contact Info) Description 06/01/2023 Orders Only [facility] [address] [place] [address] Neetu Kyle FNP [address] [place] [address] Social History Tobacco Use Types Packs/Day Years [...] Description 02/05/2025 9:00 AM EDT Office Visit [facility] [address] [place] [address] Iris Clancy MD [address] [place] [address] documented as of this encounter Visit Diagnoses Not on filedocumented in this encounter Additional Health Concerns Assessment Noted Time PHQ-9 Depression Total Score: 24 023 3:56 PM EDT documented as of this encounter Care Teams Principal Statistical Programmer Relationship Specialty Start Date End Date Neetu Kyle FNP [address] [place] [address] PCP - General Family Medicine 09/19/22 04/01/24 Iris Clancy MD [address] [place] [address] PCP - General Internal Medicine 04/02/24 Aubrey Montesinos, Shilpa [address] [place] [address] Pharmacist Internal Medicine 08/07/24 documented as of this encounter
--- OUTSIDE RECORDS SUMMARY | 2024-12-10 14:10 | XMS_ITS | Encounter Summary ---
Author Organization [employer] [facility] Address [address] [place] [address] 7t [place] [address] Care Team Providers Care Fiber Optic Assembler Name Role Phone Jagdeep St Primary Care Provider Neetu Adams Primary Care Provider [phone] Iris Clancy MD Primary Care Provider + Aubrey Montesinos PharmD Unavailable [phone] Reason for Visit * Reason Onset Date Comments TP appt 07/27/2022 Encounter Details Date Type Department Care Team (Late Contact Info) Description 07/27/2022 Telephone [facility] [address] [place] [address] FNP TP appt Social History [...] Encounters Date Type Department Care Team (Late Contact Info) Description 02/05/2025 9:00 AM EDT Office Visit [facility] [address] [place] [address] Iris Clancy MD [address] [place] [address] documented as of this encounter Visit Diagnoses Not on filedocumented in this encounter Care Teams Fiber Optic Assembler Relationship Specialty Start Date End Date Jagdeep St FNP PCP - General 06/20/22 09/18/22 Neetu Kyle FNP [address] [place] [address] PCP - General Family Medicine 09/19/22 04/01/24 Iris Clancy MD [address] [place] [address] PCP - General Internal Medicine 04/02/24 Aubrey Montesinos, ArbenD [address] [place] [address] Pharmacist Internal Medicine 08/07/24 documented as of this encounter
--- OUTSIDE RECORDS SUMMARY | 2024-12-10 14:10 | XMS_ITS | Encounter Summary ---
Author Organization [employer] Address [address] [facility] 7t [place] [address] Care Team Providers Care Artificial Teeth Inspector Name Role Phone Neetu Kyle Primary Care Provider [phone] Iris Clancy MD Primary Care Provider + Aubrey Montesinos PharmD Unavailable [phone] Reason for Visit * Reason Comments Med Refill Encounter Details Date Type Department Care Team (Late st Contact Info) Description 08/13/2023 Refill [facility] [address] [place] [address] Neetu Kyle FNP [address] [place] [address] Social History Tobacco Use Types Packs/Day Years [...] with others, in a hotel, in a mcfp, living outside on the street, on a [...] Description 02/05/2025 9:00 AM EDT Office Visit [facility] [address] [place] [address] Iris Clancy MD [address] [place], [place] documented as of this encounter Visit Diagnoses Not on filedocumented in this encounter Additional Health Concerns Assessment Noted Time PHQ-9 Depression Total Score: 24 023 3:56 PM EDT documented as of this encounter Care Teams Artificial Teeth Inspector Relationship Specialty Start Date End Date Neetu Kyle FNP [address] [place] [address] PCP - General Family Medicine 09/19/22 04/01/24 Iris Clancy MD [address] [place] [address] PCP - General Internal Medicine 04/02/24 Aubrey Montesinos, Shilpa [address] [place] [address] Pharmacist Internal Medicine 08/07/24 documented as of this encounter
--- OUTSIDE RECORDS SUMMARY | 2024-12-10 14:10 | XMS_ITS | Clinical Summary ---
Author Organization [address] [place] [address] Address [address] [place] [address] Phone Care Team Providers Care Heater Worker Name Role Phone Latoya Millard DIANDRA Primary Care Provider Allergies No known active allergies Medications levETIRAcetam [...] Recently Relevant to Health Maintenance Care Teams Heater Worker Relationship Specialty Start Date End Date Latoya Millard FNP [address] [place] [phone] PCP - General 02/15/24
--- OUTSIDE RECORDS SUMMARY | 2024-12-10 14:10 | XMS_ITS | Encounter Summary ---
Author Organization [employer] Address [address] [facility] 7t [place] [address] Care Team Providers Care Dump Grader Name Role Phone Iris Clancy MD Primary Care Provider + Aubrey Montesinos PharmD Unavailable Encounter Details Date Type Department Care Team (Late st Contact Info) Description 12/10/2024 Orders Only GENERIC EXTERNAL DATA DEPARTMENT Provider, [...] Description 02/05/2025 9:00 AM EDT Office Visit [facility] [address] [place] [address] Iris Clancy MD [address] [place] [address] documented as of this encounter Procedures Procedure Name Priority Date/Time Associated Diagnosis Comments STREP A NUCLEIC ACID Routine 12/10/2024 1:37 PM EDT documented in this encounter Results * Strep A Nucleic Acid (12/10/2024 1:37 PM EDT) [facility]NOW SERIAL# [id number] [facility] Strep A Nucleic Acid Negative Negative [facility] Comment:All test results mus t be correlated with clinical findings.This test has not been evaluated for monitoring treatment ofinfection.Additional follow-up testing using the culture method isrequired if the result is negative and clinical symptomspersist, or in the event of an acute rheumatic feveroutbreak. 12/10/2024 1:37 PM EDT 12/10/2024 1:41 PM EDT us Generic External Data Provider LAB MICROBIOLOGY - GENERAL ORDERABLES Final Result [facility] [address] [place] [address] [phone] documented in this encounter Visit Diagnoses Not on filedocumented in this encounter Additional Health Concerns Assessment Noted Time PHQ-9 Depression Total Score: 4 11/14/19 25 3:23 PM EDT documented as of this encounter Care Teams Dump Grader Relationship Specialty Start Date End Date Iris Clancy MD [address] [place] [address] PCP - General Internal Medicine 04/02/24 Aubrey Montesinos, Shilpa [address] [place] [address] Pharmacist Internal Medicine 08/07/24 documented as of this encounter
--- OUTSIDE RECORDS SUMMARY | 2024-12-10 14:10 | XMS_ITS | Encounter Summary ---
Author Organization [employer] Address [address] [facility] 7t [place] [address] Care Team Providers Care Door Clamper Name Role Phone Neetu Kyle Primary Care Provider [phone] Iris Clancy MD Primary Care Provider + Aubrey Montesinos PharmD Unavailable [phone] Reason for Visit * Reason Onset Date Comments Referral 11/16/2023 Encounter Details Date Type Department Care Team ([facility] st Contact Info) Description 11/16/2023 Telephone [facility] [address] [place] [address] Neetu Kyle FNP [address] [place] [address] Referral Social History Tobacco Use Types Packs/Day [...] to vision referral Please contact pt at [phone] * Telephone Encounter - Alondra Oakley RN - 11/16/2023 1:27 PM EDT T/C to pt. For below message, pt. Also informed that there is wait time right now for [facility] vision center. Pt. Verbally agreed and understood. * Telephone Encounter - Alondra Oakley RN - 11/16/2023 1:26 PM EDT Please review and advise for below request. * Telephone Encounter - Janny Oviedo - 11/16/2023 11:45 AM EDT Tc from pt requesting [facility] vision center referral. documented in this encounter Plan of Treatment Upcoming Encounters Date Type Department Care Team (Late st Contact Info) Description 02/05/2025 9:00 AM EDT Office Visit [facility] [address] [place] [address] Iris Clancy MD [address] [place] [address] documented as of this encounter Visit Diagnoses Not on filedocumented in this encounter Additional Health Concerns Assessment Noted Time PHQ-9 Depression Total Score: 24 023 3:56 PM EDT documented as of this encounter Care Teams Door Clamper Relationship Specialty Start Date End Date Neetu Kyle FNP [address] [place] [address] PCP - General Family Medicine 09/19/22 04/01/24 Iris Clancy MD [address] [place] [address] [phone] PCP - General Internal Medicine 04/02/24 Aubrey Montesinos, ArbenD [address] [place] [address] [phone] Pharmacist Internal Medicine 08/07/24 documented as of this encounter
--- OUTSIDE RECORDS SUMMARY | 2024-12-10 14:10 | XMS_ITS | Encounter Summary ---
Author Organization [employer] Address [address] [facility] 7t [place] [address] Care Team Providers Care Supervisor Of Guidance And Testing Name Role Phone Neetu Kyle Primary Care Provider [phone] Iris Clancy MD Primary Care Provider + Aubrey Montesinos PharmD Unavailable [phone] Reason for Visit * Reason Onset Date Comments Medication Question 01/07/2024 Encounter Details Date Type Department Care Team ([facility] st Contact Info) Description 01/07/2024 Telephone [facility] [address] [place] [address] Neetu Kyle FNP [address] [place] [address] Medication Question Social History Tobacco Use Types [...] to not work. Please contact pt at [phone] documented in this encounter Plan of Treatment Upcoming Encounters Date Type Department Care Team (Late st Contact Info) Description 02/05/2025 9:00 AM EDT Office Visit [facility] [address] [place] [address] Iris Clancy MD [address] [place] [address] documented as of this encounter Visit Diagnoses Not on filedocumented in this encounter Additional Health Concerns Assessment Noted Time PHQ-9 Depression Total Score: 24 023 3:56 PM EDT documented as of this encounter Care Teams Supervisor Of Guidance And Testing Relationship Specialty Start Date End Date Neetu Kyle FNP [address] [place] [address] PCP - General Family Medicine 09/19/22 04/01/24 Iris Clancy MD [address] [place] [address] PCP - General Internal Medicine 04/02/24 Aubrey Montesinos, ArbenD [address] [place] [phone] Pharmacist Internal Medicine 08/07/24 documented as of this encounter
--- OUTSIDE RECORDS SUMMARY | 2024-12-10 14:10 | XMS_ITS | Encounter Summary ---
Author Organization [employer] Address [address] [facility] 7t [place] [address] Care Team Providers Care Stadium Manager Name Role Phone Neetu Kyle Primary Care Provider [phone] Iris Clancy MD Primary Care Provider + Aubrey Montesinos PharmD Unavailable [phone] Reason for Referral * Consultation (Routine) - Closed Specialty Diagnoses / Procedures Referred By Hayder macdonald Referred To Contact Optometry Diagnoses Routine health maintenance Neetu Kyle FNP [address] [place] [address] Phone: tel: fax: Referral ID Status Reason Start Date Expiration Date V isits Requested Visits Authorized [id number] Closed Specialty Services Required 03/30/2024 03/30/2025 1 1 Encounter Details Date Type Department Care Team (Late st Contact Info) Description 03/28/2024 Orders Only [facility] [address] [place], [place] [phone] Neetu Kyle FNP [address] [place] [address] Routine health maintenance (Primary Dx) Social History [...] Description 02/05/2025 9:00 AM EDT Office Visit [facility] [address] [place] [phone] Iris Clancy MD [address] [place] [address] Scheduled Referrals Name Type Priority Associated Diagnoses [...] documented as of this encounter Care Teams Stadium Manager Relationship Specialty Start Date End Date Neetu Kyle FNP [address] [place] [address] PCP - General Family Medicine 09/19/22 04/01/24 Iris Clancy MD [address] [place] [address] PCP - General Internal Medicine 04/02/24 Aubrey Montesinos PharmD [address] [place] [address] Pharmacist Internal Medicine 08/07/24 documented as of this encounter
--- OUTSIDE RECORDS SUMMARY | 2024-12-10 14:11 | XMS_ITS | Encounter Summary ---
Author Organization [employer] Address [address] [facility] 7t [place] [address] Care Team Providers Care Roller Staker Name Role Phone Iris Clancy MD Primary Care Provider + Aubrey Montesinos PharmD Unavailable [phone] Reason for Visit * Reason Onset Date Comments Nurse Triage 12/09/2024 Encounter Details Date Type Department Care Team ([facility] st Contact Info) Description 12/09/2024 Telephone [facility] [address] [place] [address] Iris Clancy MD [address] [place] [address] Nurse Triage Social History Tobacco Use Types [...] encounter Miscellaneous Notes * Telephone Encounter - Monika Chris RN - 12/09/2024 1:31 PM EDT Call returned to Ebony Edwards to triage below. Pt reports having Sore Throat, Sinus Symptoms, Wheezing , BAILEY and body aches. No fever. Negative homekit COVID-19. Pt states sx onset 4 days ago. Also endorses cough and hoarseness. Pt advised of disposition, agrees to seek [facility] for exam as no sick on site availability on teams at time of call. Reviewed [facility] operating hours and that wait times vary.Reviewed home care advise, ER precautions and reasons to call back. Insurance verified as active per [employer]ligibility in [facility]. Protocol Used: Sinus Pain or Congestion (Adult) Protocol-Based Disposition: See in Office or Video Visit Today or Tomorrow Video visit offer not recorded Positive Triage Question: * Lots of coughing * All higher-acuity triage questions were negative Care Advice Discussed: * Reassurance and Education - Colds and Sinus Congestion * Hydration * Reasons To Call Back - You become worse * Telephone Encounter - Bennie Marcellus - 12/09/2024 1:05 PM EDT Symptoms: Sore Throat, Sinus Symptoms, Wheezing Outcome: Schedule an urgent appointment (within 1 hour) or talk to a nurse or provider soon Reason: Getting worse The caller accepted this outcome. documented in this encounter Plan of Treatment Upcoming Encounters Date Type Department Care Team (Late st Contact Info) Description 02/05/2025 9:00 AM EDT Office Visit [facility] [address] [place] [address] Iris Clancy MD [address] [place] [address] documented as of this encounter Visit Diagnoses Not on filedocumented in this encounter Additional Health Concerns Assessment Noted Time PHQ-9 Depression Total Score: 4 11/14/19 25 3:23 PM EDT documented as of this encounter Care Teams Roller Staker Relationship Specialty Start Date End Date Iris Clancy MD [address] [place] [address] PCP - General Internal Medicine 04/02/24 Aubrey Montesinos, ArbenD [address] [place] [phone] Pharmacist Internal Medicine 08/07/24 documented as of this encounter
--- OUTSIDE RECORDS SUMMARY | 2024-12-10 14:11 | XMS_ITS | Encounter Summary ---
Author Organization [employer] Address [address] [facility] 7t [place] [address] Care Team Providers Care Desk Manager Name Role Phone Iris Clancy MD Primary Care Provider + Aubrey Montesinos PharmD Unavailable [phone] Reason for Visit * Reason Comments Med Refill Encounter Details Date Type Department Care Team ([facility] st Contact Info) Description 12/10/2024 Refill [facility] [address] [place] [address] Iris Clancy MD [address] [place] [address] Social History Tobacco Use Types Packs/Day Years [...] Description 02/05/2025 9:00 AM EDT Office Visit [facility] [address] [place] [address] Iris Clancy MD [address] [place] [address] documented as of this encounter Visit Diagnoses Not on filedocumented in this encounter Additional Health Concerns Assessment Noted Time PHQ-9 Depression Total Score: 4 11/14/19 25 3:23 PM EDT documented as of this encounter Care Teams Desk Manager Relationship Specialty Start Date End Date Iris Clancy MD [address] [place] [address] PCP - General Internal Medicine 04/02/24 Aubrey Montesinos, Shilpa [address] [place] [phone] Pharmacist Internal Medicine 08/07/24 documented as of this encounter
--- OUTSIDE RECORDS SUMMARY | 2024-12-10 14:11 | XMS_ITS | Clinical Summary ---
Author Organization [employer] Address [address] [facility] 7t [place] [address] Care Team Providers Care Shellac Polisher Name Role Phone Iris Clancy MD Primary Care Provider + Aubrey Montesinos PharmD Unavailable [phone] Allergies No known active allergies Medications * [...] 1 each 12/26/19 24 Active sodium chloride ([place] Nasal Pool) 0.65 % nasal spray Administer 2 sprays [...] pain. 120 tablet 11/14/19 25 025 Active FLUoxetine (PROzac) 20 MG capsule Take [...] she needs a referral to orthopedics or manager e commerce Assessment & Plan (05/13/2024 3:26 PM EDT): [...] spur Reconsult as needed, will refer to proof load mechanic for steroid injection. Plantar fasciitis, bilateral 08/23/2023 [...] recurrent major depressive disorder, without psychotic features ([facility]/HCC) Suicidal ideation Patient ready to address current needs Yes Strengths include ability to reach out for help PLAN: 1. Follow up with [facility]: Recommended for follow-up: As needed 2. Patient goal is stabilization of symptoms 3. Behavioral Recommendations a. Comply with respite when a bed is avaialble b. Comply with medications and attend psychiatry appointment, when established c. Utilize CB if symptoms worsen d. Reach out to [facility] for additional support ANTHONY (generalized anxiety disorder) [...] thru their agency. Patient was provided with [facility] information. At this time Ebony Edwards meets criteria for Visit Diagnoses: Problem List Items Addressed This Visit Other ANTHONY (generalized anxiety disorder) Severe episode of recurrent major depressive disorder, without psychotic features (CMS/HCC) Patient ready to address current needs Yes Strengths include service in place PLAN: 1. Follow up with [facility]: Not recommended for follow-up 2. Patient goal is to decrease symptoms 3. Behavioral Recommendations A. Patient will continue to meet with therapist B. Patient will utilize additional coping skills provided C. Patient may reach out to IB, if needed D. Patient will utilize CB, if symptoms worsen Exercise counseling 01/10/2023 Seizure disorder 01/10/2023 Assessment & Plan (11/13/2024 3:27 PM EDT): On Jaci and Ana, followed by Dr. Leon, will obtain most recent OV note. Discussed with patient and regarding avoid driving and [place]-up [place]/ patient with seizures. Assessment & Plan (01/10/2023 2:19 PM EDT): follows with neurology. [place] [facility] Continue current medications Insomnia 01/10/2023 Overview (04/06/2023): [...] Encounters Date Type Department Care Team Description 12/10/2024 Orders Only GENERIC EXTERNAL DATA DEPARTMENT Provider, Generic External Data 12/10/2024 Refill [facility] [address] [place] [address] Iris Clancy MD 12/09/2024 Telephone [facility] [address] [place] [phone] Iris Clancy MD Nurse Triage 12/09/2024 Refill [facility] [address] [place] [phone] Iris Clancy MD 11/25/2024 Orders Only GENERIC EXTERNAL DATA DEPARTMENT Provider, Generic External Data 11/20/2024 Telephone [facility] [address] [place] [address] [phone] Iris Clancy MD 11/18/2024 Telephone [facility] [address] [place] [phone] Iris Clancy MD Medication Question 11/13/2024 9:45 AM EDT Office Visit [facility] [address] [place] [phone] Iris Clancy MD Carpal tunnel syndrome on [...] palpitations; Dietary counseling 11/13/2024 Travel 11/07/2024 Telephone [facility] [address] [place] [phone] Iris Clancy MD Chart prep 11/04/2024 Patient Outreach [facility] [address] [place] [phone] Iris Clancy MD Pre-visit Planning (SDOH screening negative and tobacco screening negative) 10/30/2024 Refill [facility] [address] [place], [place] [phone] Iris Clancy MD 10/10/2024 Population Health Risk Score [facility] () Department [address] [place] [phone] Provider, Population Health Generic 10/02/2024 Refill [facility] [address] [place] [address] Iris Clancy MD 09/17/2024 10:20 AM EST Office Visit [facility] [address] [place] [phone] Yovani Lloyd MD Acute bilateral low back pain without sciatica (Primary Dx) 09/17/2024 Travel from Last 3 Months Immunizations Immunization Administration Dates Next Due HepB-CpG 07/19/2023 Influenza [...] 9:00 AM EDT Office Visit [facility] [address] [place], [place] [phone] Iris Clancy MD [address] [place] [address] Health Maintenance Due Date Last Done Comments [...] NUCLEIC ACID Routine 12/10/2024 1:37 PM EDT XR CHEST 2 VIEWS Routine 12/10/2024 12:5 7 PM EDT VALPROIC ACID Routine 11/25/2024 9:27 AM EDT T-SPOT(R).TB Routine 11/25/2024 9:27 AM EDT Preventative health care POCT GLYCATED HEMOGLOBIN, TOTAL Routine 11/13/2024 10:13 AM EDT Preventative health care POCT GLUCOSE Routine 11/13/2024 10:13 AM EDT Preventative health care HEPATITIS PANEL, GENERAL Routine 05/13/2024 3:20 PM [...] Recently Relevant to Health Maintenance Results * Strep A Nucleic Acid (12/10/2024 1:37 PM EDT) [employer]NOW SERIAL# [id number] [facility] Strep A Nucleic Acid Negative Negative [facility] Comment:All test results mus t [...] LAB MICROBIOLOGY - GENERAL ORDERABLES Final Result [facility] [address] [place] [phone] * XR Chest 2 Views (12/10/2024 12:57 PM EDT) Anatomical Region Laterality Modality Chest Radiographic Mayra ging 12/10/2024 12:5 7 PM EDT Narrative 12/10/2024 1:21 PM EDT ? [facility] ?[address] ?[place], [place] [address] ?XRay Report ? Signed ? Patient: Ebony Pacheco ?MR#: M ?? [id number] ? : 1990 ?Acct:[id number] ? Age/Sex: 34 / F ?ADM Date: 12/10/24 ? Loc: HO.ED ? Attending Dr: ? Ordering Physician: Jacqueline Richardson NP ?? Date of Service: 12/10/24 ?? Procedure(s): XR chest 2V ?? Accession Number(s): [id number] ? cc: Iris Clancy MD; Jacqueline Richardson NP ? EXAMINATION: ??XR CHEST 2 VIEWS ? HISTORY: cough, dyspnea ? COMPARISON: Comparison is made with the prior examination dated ?? 05/29/2023. ? FINDINGS: ??PA and lateral views of the chest are submitted. The lungs ?? are expanded and clear. ??There is no pleural effusion, pneumothorax, or ?? pulmonary vascular congestion. ??The heart is normal in size. ??The bones ?? are intact. ? XR/XR chest 2V ?? IMPRESSION: ?? No acute cardiopulmonary abnormality. ? Electronically signed by: ??Jean Paul Boyce MD ??12/10/2024 01:18 PM EDT ?? RP ? Dictated By: ?Jean Paul Boyce MD ? Signed By: ?<Electronically signed by Jean Paul Boyce MD in OV> ?12/10/24 1318 ? DD/ 1257 ? TD/TT: 12/10/24 1310 ? Pricing Associate: ? Procedure Note Nery Pedro - 12/10/[address] [address] XRay Report Signed Patient: Ebony Pacheco#: M [id number] : 1990Acct:[id number] Age/Sex: 34 / FADM Date: 12/10/24 Loc: HO.ED Attending Dr: Ordering Physician: Jacqueline Richardson NP Date of Service: 12/10/24 Procedure(s): XR chest 2V Accession Number(s): [id number] cc: Iris Clancy MD; Jacqueline Richardson NP EXAMINATION: XR CHEST 2 VIEWS HISTORY: cough, dyspnea COMPARISON: Comparison is made with the prior examination dated 05/29/2023. FINDINGS: PA and lateral views of the chest are submitted. The lungs are expanded and clear. There is no pleural effusion, pneumothorax, or pulmonary vascular congestion. The heart is normal in size. The bones are intact. XR/XR chest 2V IMPRESSION: No acute cardiopulmonary abnormality. Electronically signed by: Jean Paul Boyce MD 12/10/2024 01:18 PM EDT RP Dictated By: Jean Paul Boyce MD Signed By: <Electronically signed by Jean Paul Boyce MD in OV> 12/10/24 1318 DD/ 1257 TD/TT: 12/10/24 1310 Pricing Associate: [facility] External Provider IMG XR PROCEDURES Final Result * T-SPOT??.TB (11/25/2024 9:27 AM EDT) T Spot TB Negative Negative [facility] Comment:A negative test resu lt does not exclude the possibilityof exposure to or infection with Mycobacteriumtuberculosis (M. tuberculosis). Patients with recentexposure to TB infected individuals exhibiting anegative T-SPOT.TB result should be considered forretesting within 6 weeks or if other relevant clinicalsymptoms indicate. Results from T-SPOT.TB testing mustbe used in conjunction with each individual'sepidemiological history, current medical status,and results of other diagnostic evaluations.The T-SPOT.TB test is qualitative and results arereported as positive, borderline, or negative, giventhat the test controls perform as expected. In linewith the Centers for Disease Control and Prevention's2010 recommendation to report quantitative measurementsalongside the qualitative result, the laboratoryprovides spot counts for informational purposes only.The T-SPOT.TB test should not be interpreted as aquantitative test. TS PANEL A 1 [facility] TS PANEL B 1 [facility] Negative Control Passed [facility] Positive Control Passed [facility] Comment:For additional infor lamont, please refer tohttp://education.[employer]/faq/DXO788(This link is being provided for informational/educational purposes only.)THIS TEST WAS PERFORMED AT:[employer] [id number] [place] [address]COETHQB Princess CASTILLO MD,PHD 11/25/2024 9:27 AM EDT 11/25/2024 9:27 AM EDT us Iris Clancy MD LAB BLOOD ORDERABLES Fin al Result Performing Organization Address [facility]/ZIP Co de Phone Number [facility] [address] [place] [phone] * Valproic Acid Total (11/25/2024 9:27 AM EDT) Valproate 77.6 50.0 - 100.0 mcg/mL [facility] 11/25/2024 9:27 AM EDT 11/25/2024 9:27 AM EDT Generic External Data Provider LAB BLOOD ORDERAB LES Final Result Performing Organization Address [facility]/ZIP Co de Phone Number [facility] [address] [place] [phone] * POCT HGB A1C (11/13/2024 10:13 AM [...] TEST ENTER /EDIT ORDERABLES Final Result * Hepatitis Panel, General (05/13/2024 3:20 PM EDT) Pathologist [facility] Hepatitis A IgM Nonreactive Nonreactive [facility] Comment:IgM antibodies to BAILEY V not detected; does not exclude earlyacute or recovered HAV infection. ~Hepatitis B Surface Antibody REACTIVE Nonreactive [facility] Comment:REACTIVE: > 11.99 mI U/mL Hepatitis B Core Antibody Nonreactive Nonreactive [facility] Hepatitis C Antibody Nonreactive Nonreactive [facility] Comment:Antibodies to HCV no t detected; does not exclude early acuteHCV infection. Hepatitis B Surface Ag Negative Negative [facility] Blood 05/13/2024 3:20 PM EDT 05/13/2024 4:20 PM EDT Iris Clancy MD LAB BLOOD ORDERABLES Fin al Result [facility] [address] [place] [phone] * (ABNORMAL) Lipid Panel, Standard (05/29/2023 3:36 PM EDT) Triglycerides 119 <150 mg/dL [facility] Comment:Desirable Triglyceri de: less than 150 mg/dLBorderline High Triglyceride 150-199 mg/dLHigh Triglyceride: 200-499 mg/dLVery High Triglyceride: greater than or equal to 5OO mg/dL Cholesterol 126 <200 mg/dL [facility] Comment:Desirable Cholestero l: less than 200 mg/dLBorderline High Cholesterol: 200-239 mg/dLHigh Cholesterol: greater than 239 mg/dL LDL Cholesterol Calculated 67 <100 mg/dL [facility] Comment:Desirable LDL: less than 100 mg/dLNear Optimal/Above Optimal LDL: 110- 129 mg/dLBorderline High LDL: 130-159 mg/dLHigh LDL: 160-189 mg/dLVery High LDL: greater than or equal to 190 mg/dL HDL Cholesterol 36(L) >40 mg/dL [facility] Comment:Desirable HDL: great er than 40 mg/dL Note: This HDL assay may give artificially low results in patients with liver disease. Blood Venous blood specimen / Unknown 05/29/2023 3:36 PM EDT 05/29/2023 5:53 PM EDT us Neetu Anabella [facility] LAB BLOOD ORDERABLES Final Resu lt [facility] [address] [place] [phone] * Pap Smear (01/09/2023 3:04 PM EDT) 01/09/2023 3:04 PM EDT 01/11/2023 8:00 AM EDT Elian [facility] - 2023 8:52 AM EDT ----- ------- Name: Ebony Pacheco ?Age/Sex: 32/F ? : 1990 Unit#: [id number] ?? Attend Dr: Contreras Yee MD ?Re01/09/23 ?Status: DEP REF ? Location: HO.LNP ?Disch: ? ----- ------- SPEC : [id number] ? RECD: 01/11/23 ? STATUS: ??SOUT ? REQ NUM: [id number] ? ELIZABETH: 01/09/23-150 ? SUBM DR: Contreras Yee MD ? ENTERED: ??01/12/23 ?SP TYPE: Pap Smr ?OTHR DR: Neetu Kyle SUPERVISOR COMPUTER OPERATIONS ? ORDERED: ??Pap Smear ? Interpretation ?? Satisfactory for evaluation. ?? Negative for intraepithelial lesion or malignancy. ?HPV mRNA E6/E7: ?NOT DETECTED ? This assay detects E6/E7 viral messenger RNA (mRNA) from 14 high-risk HPV types (16, 18, ?? 31, 33, 35, 39, 45, 51, 52, 56, 58, 59, 66, 68) ?? HPV testing performed by [facility], [place], [place]. ??See reference laboratory ?? pion of the EMR for entire report. ?Clinical Information LMP: Unknown date Previous PAP test: Unknown date/findings Other history: Abnormal uterine and vaginal bleeding ? Material Received ?? ThinPrep-Cervical Copies To: ?? Neetu Kyle NP ?? [address] [facility] ?? [place] ?? [phone] ?? Contreras Yee MD ?? [address] [facility] ?? [place] ?? [phone] ----- ------- Signed (signature on file) MANNY Osorio (ASCP) 01/26/23 0852 ? ----- ------- ? END OF REPORT ? [facility] External Provider LAB CYT OLOGY ORDERABLES Final Result [facility] [address] [place], [place] [phone] * HIV 1/2 ANTIGEN/ANTIBODY,FOURTH GENERATION W/RFL (03/20/2022 2:38 PM EDT) HIV-1/2 ANTIGEN AND ANTIBODIES, 4TH GENERATION W/ REFLEX NON-REACT JOSIAS NON-REACT JOSIAS [facility] Comment: HIV-1 antigen and [...] ? For additional information please refer to http://or[employer]ics.[employer]/faq/CIB224 (This link is being provided for informational/ educational purposes only.) ? The performance of this assay has not been clinically validated in patients less than 2 years old. ?? 03/20/2022 2:38 PM EDT us Vince Castañeda MD LAB BLOOD ORDERABLES Final R esult [facility] [address] from Last 3 Months or Most Recently Relevant to Health Maintenance [facility] [employer] STAND ADULT Care Teams Shellac Polisher Relationship Specialty Start Date End Date Iris Clancy MD [address] [place] [address] PCP - General Internal Medicine 04/02/24 Aubrey Montesinos, ArbenD [address] [place] [address] Pharmacist Internal Medicine 08/07/24
--- OUTSIDE RECORDS SUMMARY | 2024-12-10 14:11 | XMS_ITS | Encounter Summary ---
Author Organization [employer] Address [address] [facility] 7t [place] [address] Care Team Providers Care National Business Director Name Role Phone Iris Clancy MD Primary Care Provider + Aubrey Montesinos PharmD Unavailable [phone] Reason for Visit * Reason Comments Med Refill Encounter Details Date Type Department Care Team ([facility] st Contact Info) Description 12/09/2024 Refill [facility] [address] [place] [address] Iris Clancy MD [address] [place] [address] Social History Tobacco Use Types Packs/Day Years [...] 02/05/2025 9:00 AM EDT Office Visit [facility] [address] [place] [address] Iris Clancy MD [address] [place] [address] documented as of this encounter Visit Diagnoses Not on filedocumented in this encounter Additional Health Concerns Assessment Noted Time PHQ-9 Depression Total Score: 4 11/14/19 25 3:23 PM EDT documented as of this encounter Care Teams National Business Director Relationship Specialty Start Date End Date Iris Clancy MD [address] [place] [address] PCP - General Internal Medicine 04/02/24 Aubrey Montesinos, Shilpa [address] [place] [phone] Pharmacist Internal Medicine 08/07/24 documented as of this encounter
[2024-12-10 14:21] LABS: Influenza A PCR NEGATIVE (Negative); Influenza B PCR NEGATIVE (Negative); Resp Syncy Virus RNA Qual PCR NEGATIVE (Negative); SARS COV2 PCR INHOUSE NEGATIVE (Negative)
[2024-12-10 15:19] VITALS: BP 107/65; PULSE 72; RESP 18; TEMP 36.6; O2SAT 99
== END 2024-12-10 15:20 | disposition home or self-care (01) ==
PROVIDERS: Registered Nurse Emergency; Emergency Provider Emergency Medicine; PCP Internal Medicine
DX: J40 Bronchitis, not specified as acute or chronic (principal); J02.9 Acute pharyngitis, unspecified; R51.9 Headache, unspecified; R09.81 Nasal congestion; R06.02 Shortness of breath; R05.9 Cough, unspecified; R07.89 Other chest pain; Z03.818 Encounter for observation for suspected exposure to other biological agents ruled out
CPT/HCPCS: 0241U; 71046; 87651; 99282; 99283

== ENCOUNTER → 2024-12-10 12:57 | Outpatient (BNV) | payer MEDICAID, SELFPAY | PROVIDERS: PCP Internal Medicine; Visit Provider Radiology Diagnostic Radiology | DX: R05.9 Cough, unspecified (principal); R06.00 Dyspnea, unspecified | CPT/HCPCS: 71046 ==

== ENCOUNTER 2025-02-12 10:02 | Outpatient (AMB) | payer MEDICAID, SELFPAY ==
--- NOTE | 2025-02-12 10:09 | MHC.OFFVIS ---
Vital Signs 02/12/25 10:16 Height 5 ft 1 in Weight 198 lb BMI 37.4 Intake Visit Reasons: New prob-B/L upper extremity ulnar neuropathy Intake Note: Ebony is a 35 year old right hand dominant female who presents today for a new problem visit for evaluation of her bilateral upper extremities. Patient was seen by her PCP and referred to hand surgery. Patient reports pain, numbness and tingling have been present for a while, with both hands equal in symptoms. She would like to discuss surgery. EMG/NCS done on 11/25/24 IMPRESSION: Mild bilateral ulnar neuropathy across elbow. Otherwise no significant abnormality noted. Allergies No Known Drug Allergies Allergy (Unknown, Verified 02/12/25 10:12) U HPI HPI New prob-B/L upper extremity ulnar neuropathy: Details: Ebony is a 35 year old right hand dominant female who presents today for a new problem visit for evaluation of her bilateral upper extremities. Patient was seen by her PCP and referred to hand surgery. Patient reports pain, numbness and tingling have been present for a while, with both hands equal in symptoms. Patient reports that all digits of her bilateral hands are numb. She would like to discuss surgery. EMG/NCS done on 11/25/24 IMPRESSION: Mild bilateral ulnar neuropathy across elbow. Otherwise no significant abnormality noted. [facility] Medical History Epilepsy Absence seizure Hx of meningitis Seizures Surgical History Hx of removal of cyst Hx of section Hx of tubal ligation Social History Patient Tobacco Use Status: Current everyday Tobacco user Tobacco use type: Cigarette Cigarettes Per Day: 3 Current occupational status: disabled Current occupation: right hand dominant Female Reproductive History Menstrual Age of Menarche: 10 Review of Systems Const All systems reviewed & are unremarkable except as noted in HPI and below Physical Exam Vital Signs: BMI result Body Mass Index 37.4 Extrem Other: Neuro: Decreased sensation of the tips of all digits of bilateral hands in the office today No thenar or intrinsic wasting. Good APB muscle firing and good finger cross. Vascular: Capillary refill brisk. ROM: Patient can make a fist and extend all their digits. Skin: No lacerations or abrasions noted. General: No ecchymosis. No erythema or evidence of infection. Assessment & Plan Assessment & Plan (1) Cubital tunnel syndrome, bilateral: Code(s): G56.23 - Lesion of ulnar nerve, bilateral upper limbs Category: Medical Plan 1. Left cubital tunnel syndrome Symptoms constant, daily, worse at night I educated the patient about the condition. I discussed both operative and nonoperative treatment options. The patient would like to proceed with surgery. The risks and benefits of operative treatment were discussed with the patient and the patient wishes to proceed with surgery. These risks include, but are not limited to, risk of damage to blood vessels, nerves, tendons, infection, recurrence, incomplete relief of preoperative symptoms, persistent pain, possible need for further surgery, and the risks associated with regional blocks and/or anesthesia. Plan is to take the patient to the operating room at some point in the next few weeks for the following procedures: 1. Left cubital tunnel release under general All of the preoperative paperwork including the consent was discussed today. All of the patient's questions were answered in the clinic today. The patient understands that they will be in contact with our surgical scrub technologist to discuss scheduling their procedure. Patient denies diabetes, blood thinners, asthma, heart issues, lung issues, kidney issues, or current smoking. 2. Right cubital tunnel syndrome Constant, daily, worse at night Patient would like to proceed with operative intervention on the left prior to any intervention on the right We will reassess at postoperative visit and determine the appropriate timeline for surgical intervention of the right Patient is amenable to this plan Coding Level of Care Code New Pt Level 4 (72005) Diagnoses Cubital tunnel syndrome, bilateral G56.23
[2025-02-12 10:16] VITALS: BMI 37.4
--- OUTSIDE RECORDS SUMMARY | 2025-02-12 10:29 | XMS_ITS | Clinical Summary ---
Author Organization [address] [place] [address] Address [address] [place] [address] Phone Care Team Providers Care Senior Laboratory Technician Name Role Phone Latoya Millard DIANDRA Primary Care Provider [phone] Allergies No known active allergies Medications levETIRAcetam [...] Influencers of Health Screening 05/24/2024 Influenza Vaccine (#1) 2025 HIB Vaccines Aged Out No longer [...] 5 Years) and At-Risk Patients (6 to 49 Years) Aged Out No longer eligi ble [...] Recently Relevant to Health Maintenance Care Teams Senior Laboratory Technician Relationship Specialty Start Date End Date Latoya Millard FNP [address] [place] [phone] PCP - General 02/15/24
--- OUTSIDE RECORDS SUMMARY | 2025-02-12 10:29 | XMS_ITS | Encounter Summary ---
Author Organization [employer] Address [address] [facility] 7t [place] [address] Care Team Providers Care Glass Setter Name Role Phone Neetu Kyle Primary Care Provider [phone] Iris Clancy MD Primary Care Provider + Aubrey Montesinos PharmD Unavailable [phone] Reason for Visit * Reason Comments Med Refill Encounter Details Date Type Department Care Team (Late st Contact Info) Description 08/13/2023 Refill [facility] [address] [place] [address] Neetu Kyle FNP [address] [place] [address] Social History Tobacco Use Types Packs/Day Years [...] with others, in a hotel, in a alf, living outside on the street, on a [...] as of this encounter Plan of Treatment Not on file documented as of this encounter Visit Diagnoses Not on filedocumented in this encounter Additional Health Concerns Assessment Noted Time PHQ-9 Depression Total Score: 24 023 3:56 PM EDT documented as of this encounter Care Teams Glass Setter Relationship Specialty Start Date End Date Neetu Kyle FNP [address] [place] [address] PCP - General Family Medicine 09/19/22 04/01/24 Iris Clancy MD [address] [place] [phone] PCP - General Internal Medicine 04/02/24 Aubrey Montesinos PharmD [address] [place] [address] Pharmacist Internal Medicine 08/07/24 documented as of this encounter
== END 2025-02-12 10:41 | disposition home or self-care (01) ==
LOC: HO.HOS 10:03
PROVIDERS: PCP Internal Medicine
DX: G56.23 Lesion of ulnar nerve, bilateral upper limbs (principal)
CPT/HCPCS: 99214

== ENCOUNTER → 2025-02-12 10:02 | Outpatient (BNVA) | payer MEDICAID, SELFPAY | PROVIDERS: PCP Internal Medicine | DX: G56.23 Lesion of ulnar nerve, bilateral upper limbs (principal) | CPT/HCPCS: 99212 ==

== ENCOUNTER 2025-03-04 12:32 | Outpatient (AMB) | payer MEDICAID, SELFPAY ==
[2025-03-04 12:46] VITALS: BMI 37.4
--- NOTE | 2025-03-04 12:46 | A.OFFVIS_ITS ---
Vital Signs 03/04/25 12:46 Height 5 ft 1 in Weight 198 lb BMI 37.4 Intake Visit Reasons: Pre-Lt Cubital Release 03/12/25 Intake Note: Ebony is a 35 year old right hand dominant female who presents today pre- operatively for discussion of their left cubital tunnel release scheduled for 03/12/[address] Hutchison. Consents signed in office today. Allergies No Known Drug Allergies Allergy (Unknown, Verified 03/04/25 12:47) U HPI HPI Pre-Lt Cubital Release 03/12/25: Details: Ebony is a 35 year old right hand dominant female who presents today pre- operatively for discussion of their left cubital tunnel release scheduled for 03/12/[address] Hutchison. Patient reports that her symptoms have worsened slightly since previous evaluation, and would like to proceed with surgical intervention. Consents signed in office today. [facility] Medical History (Updated 03/05/25 @ 11:39 by Katiuska Cobos RN) Multiple falls Migraine Cough Asthma Obesity (BMI 30-39.9) Heart palpitations Arthritis Glucosuria Tobacco dependence Osteoarthritis Plantar fasciitis, bilateral Suicide ideation Depression Anxiety Constipation Insomnia Epilepsy Absence seizure Hx of meningitis Seizures Surgical History (Updated 03/05/25 @ 11:39 by Katiuska Cobos RN) Hx of wisdom tooth extraction Hx of removal of cyst Hx of section Hx of tubal ligation Social History Are you a primary home care provider to a significant other at home: No Do you presently have visiting nurse or other home services: No Patient Tobacco Use Status: Former Tobacco user Tobacco use type: Cigarette Cigarettes Per Day: 3 Current occupational status: disabled Current occupation: right hand dominant Female Reproductive History Menstrual Age of Menarche: 10 Physical Exam Vital Signs: BMI result Body Mass Index 37.4 Extrem Other: Neuro: Decreased sensation of the tips of all digits of bilateral hands in the office today No thenar or intrinsic wasting. Good APB muscle firing and good finger cross. Vascular: Capillary refill brisk. ROM: Patient can make a fist and extend all their digits. Skin: No lacerations or abrasions noted. General: No ecchymosis. No erythema or evidence of infection. Assessment & Plan Assessment & Plan (1) Cubital tunnel syndrome, bilateral: Code(s): G56.23 - Lesion of ulnar nerve, bilateral upper limbs Category: Medical Plan 1. Left cubital tunnel syndrome Symptoms constant, daily, worse at night I educated the patient about the condition. I discussed both operative and nonoperative treatment options. The patient would like to proceed with surgery. The risks and benefits of operative treatment were discussed with the patient and the patient wishes to proceed with surgery. These risks include, but are not limited to, risk of damage to blood vessels, nerves, tendons, infection, recurrence, incomplete relief of preoperative symptoms, persistent pain, possible need for further surgery, and the risks associated with regional blocks and/or anesthesia. Plan is to take the patient to the operating room at some point in the next few weeks for the following procedures: 1. Left cubital tunnel release under general All of the preoperative paperwork including the consent was discussed today. All of the patient's questions were answered in the clinic today. The patient understands that they will be in contact with our surgical instruments inspector to discuss scheduling their procedure. Patient denies diabetes, blood thinners, asthma, heart issues, lung issues, kidney issues, or current smoking. 2. Right cubital tunnel syndrome Constant, daily, worse at night Patient would like to proceed with operative intervention on the left prior to any intervention on the right We will reassess at postoperative visit and determine the appropriate timeline for surgical intervention of the right Patient is amenable to this plan Coding Level of Care Code Est Pt Level 4 (61586) Diagnoses Cubital tunnel syndrome, bilateral G56.23
--- OUTSIDE RECORDS SUMMARY | 2025-03-04 13:07 | XMS_ITS | Encounter Summary ---
Author Organization [employer] Address [address] [facility] 7t [place] [address] Care Team Providers Care Toggle Press Folder And Feeder Name Role Phone Neetu Kyle Primary Care Provider [phone] Iris Clancy MD Primary Care Provider + Aubrey Montesinos PharmD Unavailable [phone] Reason for Visit * Reason Comments Med Refill Encounter Details Date Type Department Care Team (Late st Contact Info) Description 08/13/[address] [facility] MEDICINE [address] [place] [address] Neetu Kyle FNP [address] [place] [address] Social History Tobacco Use Types Packs/Day Years [...] with others, in a hotel, in a assisted, living outside on the street, on a [...] Description 08/27/2025 1:00 PM EST Office Visit [facility] ADULT DENTAL [address] [place] [address] Mendez, Belle [address] [place] [address] documented as of this encounter Visit Diagnoses Not on filedocumented in this encounter Additional Health Concerns Assessment Noted Time PHQ-9 Depression Total Score: 24 023 3:56 PM EDT documented as of this encounter Care Teams Toggle Press Folder And Feeder Relationship Specialty Start Date End Date Neetu Kyle FNP [address] [place] [address] PCP - General Family Medicine 09/19/22 04/01/24 Iris Clancy MD [address] [place] [phone] PCP - General Internal Medicine 04/02/24 Aubrey Montesinos PharmD [address] [place] [phone] Pharmacist Internal Medicine 08/07/24 documented as of this encounter
--- OUTSIDE RECORDS SUMMARY | 2025-03-04 13:07 | XMS_ITS | Clinical Summary ---
Author Organization [address] [place] [address] Address [address] [place] [address] Phone Care Team Providers Care Shot Lighter Name Role Phone Latoya Millard DIANDRA Primary [...] Recently Relevant to Health Maintenance Care Teams Shot Lighter Relationship Specialty Start Date End Date Latoya Millard FNP [address] [place] [phone] PCP - General 02/15/24
== END 2025-03-04 13:41 | disposition home or self-care (01) ==
LOC: HO.HOS 12:32
PROVIDERS: PCP Internal Medicine
DX: G56.23 Lesion of ulnar nerve, bilateral upper limbs (principal)
CPT/HCPCS: 99024

== ENCOUNTER → 2025-03-04 12:32 | Outpatient (BNVA) | payer MEDICAID, SELFPAY | PROVIDERS: PCP Internal Medicine | DX: Z01.818 Encounter for other preprocedural examination (principal); G56.23 Lesion of ulnar nerve, bilateral upper limbs | CPT/HCPCS: 99212 ==

== ENCOUNTER 2025-03-12 08:32 | Day surgery (SDC) | payer MEDICAID, SELFPAY ==
--- OUTSIDE RECORDS SUMMARY | 2025-02-17 11:59 | XMS_ITS | Clinical Summary ---
Author Organization [address] [place] [address] Address [address] [place] [address] Phone Care Team Providers Care Bi Solutions Architect Name Role Phone Latoya Millard DIANDRA Primary Care Provider [phone] Allergies No known active allergies Medications levETIRAcetam [...] Vaccine ( - 2023-2 5 season) 2024 HIV Screening 05/24/2024 Hepatitis C Screening 05/24/2024 Social Influencers of Health Screening 05/24/2024 Depression Screening 07/30/2024 Influenza Vaccine (#1) 2025 HIB Vaccines Aged [...] Recently Relevant to Health Maintenance Care Teams Bi Solutions Architect Relationship Specialty Start Date End Date Latoya Millard FNP [address] [place] [phone] PCP - General 02/15/24
--- OUTSIDE RECORDS SUMMARY | 2025-02-17 11:59 | XMS_ITS | Encounter Summary ---
Author Organization [employer] Address [address] [facility] 7t [place] [address] Care Team Providers Care Airplane Cabin Attendant Name Role Phone Neetu Kyle Primary Care Provider [phone] Iris Clancy MD Primary Care Provider + Aubrey Montesinos PharmD Unavailable [phone] Reason for Visit * Reason Comments Med Refill Encounter Details Date Type Department Care Team (Late st Contact Info) Description 08/13/[address] [facility] MEDICINE [address] [place] [address] Neetu Kyle FNP [address] [place] [address] Social History Tobacco Use Types Packs/Day Years [...] Care Team (Late st Contact Info) Description 08/27/2025 1:00 PM EST Office Visit [facility] ADULT DENTAL [address] [place] [address] Mendez, Belle [address] [place] [address] documented as of this encounter Visit Diagnoses Not on filedocumented in this encounter Additional Health Concerns Assessment Noted Time PHQ-9 Depression Total Score: 24 023 3:56 PM EDT documented as of this encounter Care Teams Airplane Cabin Attendant Relationship Specialty Start Date End Date Neetu Kyle FNP [address] [place] [address] PCP - General Family Medicine 09/19/22 04/01/24 Iris Clancy MD [address] [place] [phone] PCP - General Internal Medicine 04/02/24 Aubrey Montesinos PharmD [address] [place] [phone] Pharmacist Internal Medicine 08/07/24 documented as of this encounter
[2025-03-05 11:51] VITALS: BMI 39.3
--- NOTE | 2025-03-11 09:59 | HO.ANESPROP2 ---
Documented by User: Nohemi Sandoval NP 03/11/25 10:00 HPI - Anesthesia Eval Consult details Narrative: 35yo F for Left ?Cubital Tunnel Release Epilepsy on rx PMFSH Active Problems Active Problems: All Active Problems Cubital tunnel syndrome, bilateral (Acute) Nicotine dependence (Acute) Pelvic pain (Acute) Microscopic hematuria (Acute) Right lower quadrant pain (Acute) Well woman exam (Acute) Trapezius muscle spasm (Acute) Myofascial pain on left side (Acute) Tendonitis of left rotator cuff (Acute) Encounter for IUD removal (Acute) IUD check up (Acute) Abnormal uterine bleeding (Acute) Past Medical History Medical History Multiple falls Migraine Cough Asthma Obesity (BMI 30-39.9) Heart palpitations Arthritis Glucosuria Tobacco dependence Osteoarthritis Plantar fasciitis, bilateral Suicide ideation Depression Anxiety Constipation Insomnia Epilepsy Absence seizure Hx of meningitis Seizures Family History Family history of problems with anesthesia: No Surgical History Surgical History Hx of wisdom tooth extraction Hx of removal of cyst Hx of section Hx of tubal ligation History of Problems with Anesthesia: No Social History Social History Patient Tobacco Use Status: Former Tobacco user Tobacco use type: Cigarette Cigarettes Per Day: 3 Use of substances other than those prescribed or required for medical reasons: No Have you been hit, kicked, punched, or otherwise hurt by someone within the past year? If so, by whom?: No Are you DNR?: No Advance Directives: No Advance Directives Information Provided: Yes Advance Directives on File: No Patient : No : No Poor oral hygiene: No Current occupational status: disabled Current occupation: right hand dominant Meds Allergies Allergy/AdvReac Type Severity Reaction Status Date / Time No Known Drug Allergies Allergy Unknown U Verified 03/12/25 09:17 Home Medications ?Medication ?Instructions ?Recorded ?Confirmed ?Last Taken ?Type divalproex 500 mg tablet,delayed 500 mg PO BID 12/06/22 03/12/25 03/12/25 History release albuterol sulfate 90 mcg/actuation 2 puff inhalation Q6H PRN 02/12/25 03/05/25 Unknown History aerosol inhaler (Ventolin HFA) Shortness Of Breath Or Wheezing diclofenac sodium 1 % topical gel 2 g topical QID PRN pain 02/12/25 03/05/25 Unknown History trazodone 50 mg tablet 50 mg PO BEDTIME PRN Insomnia 02/12/25 03/05/25 Unknown History venlafaxine 37.5 mg 37.5 mg PO QAM 02/12/25 03/12/25 03/12/25 History capsule,extended release 24 hr cetirizine 10 mg tablet 10 mg PO DAILY 03/05/25 03/05/25 Unknown History Exam Height,Weight and Vital Signs: Height 5 ft 1 in Weight 94.347 kg Assessment and Plan Assessment Anesthesia Assessment: Chart Reviewed Final Anesthetic Review Family History of Problems with Anesthesia: No History of Problems with Anesthesia: No Documented by User: Carola Hannah MD 03/12/25 10:43 PMFSH Past Medical History Medical History Multiple falls Migraine Cough Asthma Obesity (BMI 30-39.9) Heart palpitations Arthritis Glucosuria Tobacco dependence Osteoarthritis Plantar fasciitis, bilateral Suicide ideation Depression Anxiety Constipation Insomnia Epilepsy Absence seizure Hx of meningitis Seizures Surgical History Surgical History Hx of wisdom tooth extraction Hx of removal of cyst Hx of section Hx of tubal ligation Social History Social History Patient Tobacco Use Status: Former Tobacco user Tobacco use type: Cigarette Cigarettes Per Day: 3 Use of substances other than those prescribed or required for medical reasons: No Have you been hit, kicked, punched, or otherwise hurt by someone within the past year? If so, by whom?: No Are you DNR?: No Advance Directives: No Advance Directives Information Provided: Yes Advance Directives on File: No Patient : No : No Poor oral hygiene: No Current occupational status: disabled Current occupation: right hand dominant Meds Allergies Allergy/AdvReac Type Severity Reaction Status Date / Time No Known Drug Allergies Allergy Unknown U Verified 03/12/25 09:17 Home Medications ?Medication ?Instructions ?Recorded ?Confirmed ?Last Taken ?Type divalproex 500 mg tablet,delayed 500 mg PO BID 12/06/22 03/12/25 03/12/25 History release albuterol sulfate 90 mcg/actuation 2 puff inhalation Q6H PRN 02/12/25 03/05/25 Unknown History aerosol inhaler (Ventolin HFA) Shortness Of Breath Or Wheezing diclofenac sodium 1 % topical gel 2 g topical QID PRN pain 02/12/25 03/05/25 Unknown History trazodone 50 mg tablet 50 mg PO BEDTIME PRN Insomnia 02/12/25 03/05/25 Unknown History venlafaxine 37.5 mg 37.5 mg PO QAM 02/12/25 03/12/25 03/12/25 History capsule,extended release 24 hr cetirizine 10 mg tablet 10 mg PO DAILY 03/05/25 03/05/25 Unknown History Exam Airway Mallampati Class: II TM Dist: >3cm Neck ROM: Full Heart: rrr Lungs: cta Assessment and Plan Assessment Anesthesia Assessment: Anesthesia Plan Discussed Final Anesthetic Review NPO: Yes ASA Class: III Final Preanesthetic Review: No Changes in Pt Med Stat, Meds/Allgs Chart Reviewed, Consent Obtained/Reviewed and Anes Risks/Benef Reviewed Patient Risk: Intermediate Procedure Risk: Low Anesthetic Plan Anesthetic Plan: GA and Agree w/ Assess. and Plan Disposition: Standard PACU
--- NOTE | 2025-03-12 08:02 | P.OP_ITS ---
Operative Note Operative Note Date of Service: 03/12/25 Narrative: Operative Note Narrative: Preop diagnosis: 1. Left Cubital tunnel syndrome Postop diagnosis: Same Procedure: 1. Left Cubital Tunnel Release Surgeon: Kianna Hutchison MD Sampler And Test Preparer: Giorgio NYE Anesthesia: General Anesthesia Findings: Thickening and fibrosis about the ulnar nerve at the cubital tunnel Implants: none Tourniquet time: 15 minutes EBL: 5.0 ml Specimen: none Drains: None Complications: None Disposition: Brought to the recovery room in stable condition Plan: Follow-up in 10-14 days for wound check, and suture removal Indications: The patient is 35 years old with left cubital tunnel syndrome . The risks and benefits of operative treatment, including but not limited to risk of damage to blood vessels, nerves, tendons, infection, recurrence, persistent pain or numbness, incomplete resolution of preoperative symptoms, or need for further surgery were discussed with the patient and they wished to proceed with surgery. Procedure: Once consent was obtained patient was brought back to the operating suite and placed in the operating table in a supine position. Perioperative antibiotics and anesthesia was administered by the anesthesia team. The limb was prepped and draped in a standard surgical fashion, and a sterile tourniquet applied to the proximal aspect of the left upper extremity. The limb was elevated exsanguinated with Esmarch bandage and the tourniquet inflated to 250 mm of mercury for a total tourniquet time of 15 minutes. A 6 cm gently curved but longitudinally oriented incision was made centered over the cubital tunnel of the left upper extremity. Incision was made through the skin to the subcutaneous tissues using a # 15 Blade. I then dissected down to the level of the medial epicondyle and the cubital tunnel using tenotomy scissors. Care was taken to protect the medial antebrachial cutaneous nerve. The ulnar nerve was identified just posterior to the medial intermuscular septum. The ulnar nerve was released in a proximal to distal direction using tenotomy in iris scissors while directly visualizing and protecting the ulnar nerve. Thickening and fibrosis was appreciated about the ulnar nerve as it passed through the cubital tunnel. The ulnar nerve was assessed as I passed the elbow through full flexion and extension and was found to remain stable within its groove. At this point the tourniquet was deflated and hemostasis obtained with a brief period of local pressure and bipolar electrocautery. The wound was copiously irrigated with normal saline. The subcutaneous layer was closed with 4-0 Vicryl suture, and the skin edges were reapproximated with 5-0 nylon suture. The wound was infiltrated with some 1% lidocaine with epinephrine for postop pain control and sterile dressings were applied. The patient appears to have tolerated the procedure well and with no complications. All digits were well vascularized at the conclusion of the case.
[2025-03-12 09:18] VITALS: BP 120/64; PULSE 56; RESP 12; TEMP 36.2; O2SAT 98
[2025-03-12] MEDS: Lactated Ringers 1,000 ML 100 ML IVCONT (09:33)
--- NOTE | 2025-03-12 10:02 | MHC.SHP ---
Pre-Procedural Eval Section A - 24 Hr Update-Section A only Date of Service: 03/12/25 The patient is an INPATIENT: No Changes since office visit: No Cold of Flu in the past 2 weeks, No New Medical Problems, No Changes in Medication and No Patient answered all questions The patient has been examined within 24 hours of the surgical procedure. The History & Physical has been completed within 30 days and I have reviewed it.: Yes Section B - Complete if H&P > 30 days Chief Complaint: Lesion of ulnar nerve, left upper limb Allergies: Allergies Allergy/AdvReac Type Severity Reaction Status Date / Time No Known Drug Allergies Allergy Unknown U Verified 03/12/25 09:17 Plan I have reviewed the history and physical and performed a pertinent physical examination on my patient. No changes have occurred unless specified. Time Spent With Patient Time: Total time managing care of this patient today ____ minutes.
[2025-03-12 13:03] VITALS: BP 136/52; PULSE 86; RESP 16; TEMP 36.1; O2SAT 98
[2025-03-12 13:08] VITALS: BP 129/66; PULSE 81; RESP 12; O2SAT 98
[2025-03-12 13:13] VITALS: BP 137/75; PULSE 77; RESP 12; O2SAT 99
[2025-03-12 13:18] VITALS: BP 131/73; PULSE 88; RESP 12; O2SAT 93
[2025-03-12 13:33] VITALS: BP 144/89; PULSE 77; RESP 18; TEMP 36.1
== END 2025-03-12 13:59 | disposition home or self-care (01) ==
PROVIDERS: PCP Internal Medicine; Visit Provider Orthopaedic Surgery
PROC: (CPT 64718; principal; 2025-03-12 10:40)
DX: G56.22 Lesion of ulnar nerve, left upper limb (principal); G40.A09 Absence epileptic syndrome, not intractable, without status epilepticus; R00.2 Palpitations; J45.909 Unspecified asthma, uncomplicated; R81 Glycosuria; E66.9 Obesity, unspecified; Z68.37 Body mass index [BMI] 37.0-37.9, adult; G43.909 Migraine, unspecified, not intractable, without status migrainosus; M19.90 Unspecified osteoarthritis, unspecified site; Z91.81 History of falling; F32.A Depression, unspecified; F41.9 Anxiety disorder, unspecified; R45.851 Suicidal ideations; Z79.899 Other long term (current) drug therapy; Z87.891 Personal history of nicotine dependence; Z98.51 Tubal ligation status; Z98.890 Other specified postprocedural states
CPT/HCPCS: 64718; J0131; J0690; J1100; J2003; J2004; J2405; J2704; J3010

== ENCOUNTER → 2025-03-12 08:32 | Outpatient (BNV) | payer MEDICAID, SELFPAY | PROVIDERS: PCP Internal Medicine; Visit Provider Orthopaedic Surgery | DX: G56.22 Lesion of ulnar nerve, left upper limb (principal) | CPT/HCPCS: 64718 ==

== ENCOUNTER 2025-03-18 08:46 | Outpatient (AMB) | payer MEDICAID, SELFPAY ==
--- NOTE | 2025-03-18 09:18 | MHC.OFFVIS ---
Vital Signs 03/18/25 09:23 Height 5 ft 1 in Intake Visit Reasons: PO-Lt Cubital Release 03/12/25 Wound Check Intake Note: Ebony is a 35 year old female who presents today as a Post Op visit Cubital release 03/12/25 wound check. Patient states she no longer has numbness or tingling in her left small and ring finger. She is having pain due to hurting her arm on a door. States she hurt herself accidentally and is experiencing shapt pains, tenderness and soreness. She has not noticed any drainage. Also mentions while taking out her dressing, a small piece of gauze pulled on one of her stitches also causing increase pain. Allergies No Known Drug Allergies Allergy (Unknown, Verified 03/18/25 09:22) U HPI HPI PO-Lt Cubital Release 03/12/25 Wound Check: Details: Ebony is a 35 year old right hand dominant woman who presents with complaints of increased pain S/P left cubital tunnel release, DOS: 03/12/25. She says she was carrying a heavy jug of water in the store and hit the inside of her elbow against a door, causing increased sharp pain, DOI: 03/17/25. She is also concerned that when removing her dressings she felt something catch on one of her sutures and was concerned one may have come loose. In regards to her sensation she says she is doing well and her sensation is now normal in the left ring & small fingers. [facility], [facility] Medical History Multiple falls Migraine Cough Asthma Obesity (BMI 30-39.9) Heart palpitations Arthritis Glucosuria Tobacco dependence Osteoarthritis Plantar fasciitis, bilateral Suicide ideation Depression Anxiety Constipation Insomnia Epilepsy Absence seizure Hx of meningitis Seizures Surgical History Hx of wisdom tooth extraction Hx of removal of cyst Hx of section Hx of tubal ligation Social History Are you a primary neonatal critical care nurse to a significant other at home: No Do you presently have visiting nurse or other home services: No Patient Tobacco Use Status: Former Tobacco user Tobacco use type: Cigarette Cigarettes Per Day: 3 Current occupational status: disabled Current occupation: right hand dominant Female Reproductive History Menstrual Age of Menarche: 10 Review of Systems Const All systems reviewed & are unremarkable except as noted in HPI and below Physical Exam Const General: no acute distress and alert Orientation/consciousness: patient oriented x3 Neuro General: patient oriented x3 Extrem Other: The patient was alert oriented and in no acute distress The incision is healing well with no erythema drainage or evidence of infection. Good elbow flexion and extension without pain. She can make a fist and extend all her digits Sensation is improved and now normal in the ulnar nerve distribution Resolving ecchymosis, as expected post-operatively Cap refill is brisk Nerve Conduction Study: IMPRESSION: Mild bilateral ulnar neuropathy across elbow. Otherwise no significant abnormality noted. Pedro Davis MD 11/25/2024 Psych Appearance: grossly normal Affect: normal affect Attitude: cooperative Assessment & Plan Assessment & Plan (1) Cubital tunnel syndrome, bilateral: Code(s): G56.23 - Lesion of ulnar nerve, bilateral upper limbs Category: Medical Plan Assessment & Plan: 1. Left cubital tunnel syndrome, S/P release DOS: 03/12/25 The patient appears to be doing well post-operatively She is here for a wound check after striking her elbow while carrying a heavy jug of water. I educated her about the post-operative course I explained the signs and symptoms of infection, if the patient develops any new or worsening erythema, drainage, pain, or warmth they should contact the clinic or attend the ED. I discussed activity modifications and again explained that she is to lift nothing heavier than a cellphone for the next 6 weeks She will perform gentle ROM exercises at home She should avoid any underwater activities Follow up as scheduled on 03/25/25 for regular post-op 2. Right cubital tunnel syndrome, mild We will discuss treatment options when her left side has recovered. Scribed for Kianna Hutchison MD by Willie Raza product manager medical device, on 03/18/25 at 9:30 AM, EST. Coding Level of Care Code Global (10421) Diagnoses Cubital tunnel syndrome, bilateral G56.23
--- OUTSIDE RECORDS SUMMARY | 2025-03-18 09:27 | XMS_ITS | Encounter Summary ---
Author Organization [employer] Address [address] [facility] 7[address] [place] [address] Care Team Providers Care Security Lead Name Role Phone Neetu Kyle Primary Care Provider [phone] Iris Clancy MD Primary Care Provider + Aubrey Montesinos PharmD Unavailable [phone] Reason for Visit * Reason Comments Med Refill Encounter Details Date Type Department Care Team (Late st Contact Info) Description 08/13/2023 Refill [facility] MEDICINE [address] [place] [address] Neetu Kyle FNP [address] [place] [address] Social History Tobacco Use Types Packs/Day Years [...] with others, in a hotel, in a [place], living outside on the street, on a [...] Description 08/27/2025 1:00 PM EST Office Visit [facility] ADULT DENTAL [address] [place] [address] Mendez, Belle [address] [place] [address] documented as of this encounter Visit Diagnoses Not on filedocumented in this encounter Additional Health Concerns Assessment Noted Time PHQ-9 Depression Total Score: 24 023 3:56 PM EDT documented as of this encounter Care Teams Security Lead Relationship Specialty Start Date End Date Neetu Kyle FNP [address] [place] [address] PCP - General Family Medicine 09/19/22 04/01/24 Iris Clancy MD [address] [place] [phone] PCP - General Internal Medicine 04/02/24 Aubrey Montesinos PharmD [address] [place] [phone] Pharmacist Internal Medicine 08/07/24 documented as of this encounter
--- OUTSIDE RECORDS SUMMARY | 2025-03-18 09:27 | XMS_ITS | Clinical Summary ---
Author Organization [address] [place] [address] Address [address] [place] [address] Phone Care Team Providers Care Marine Water Tender Name Role Phone Latoya Millard DIANDRA Primary Care Provider [phone] Allergies No known active allergies Medications levETIRAcetam [...] Recently Relevant to Health Maintenance Care Teams Marine Water Tender Relationship Specialty Start Date End Date Latoya Millard FNP [address] [place] [phone] PCP - General 02/15/24
== END 2025-03-18 10:15 | disposition home or self-care (01) ==
LOC: HO.HOS 08:47
PROVIDERS: PCP Internal Medicine; Visit Provider Orthopaedic Surgery
DX: G56.23 Lesion of ulnar nerve, bilateral upper limbs (principal)
CPT/HCPCS: 99024

== ENCOUNTER → 2025-03-18 08:46 | Outpatient (BNVA) | payer MEDICAID, SELFPAY | PROVIDERS: PCP Internal Medicine; Visit Provider Orthopaedic Surgery | DX: Z98.890 Other specified postprocedural states (principal); G56.23 Lesion of ulnar nerve, bilateral upper limbs | CPT/HCPCS: 99212 ==

== ENCOUNTER 2025-03-25 12:36 | Outpatient (AMB) | payer MEDICAID, SELFPAY ==
--- OUTSIDE RECORDS SUMMARY | 2025-03-25 13:02 | XMS_ITS | Clinical Summary ---
Author Organization [address] [place] [address] Address [address] [place] [address] Phone Care Team Providers Care Customer Success Specialist Name Role Phone Latoya Millard DIANDRA Primary Care Provider [phone] Allergies No known active allergies Medications levETIRAcetam [...] Recently Relevant to Health Maintenance Care Teams Customer Success Specialist Relationship Specialty Start Date End Date Latoya Millard FNP [address] [place] [phone] PCP - General 02/15/24
--- OUTSIDE RECORDS SUMMARY | 2025-03-25 13:02 | XMS_ITS | Encounter Summary ---
Author Organization [employer] Address [address] [facility] 7t [place] [address] Care Team Providers Care Oil House Attendant Name Role Phone Neetu Kyle Primary Care Provider [phone] Iris Clancy MD Primary Care Provider + Aubrey Montesinos PharmD Unavailable [phone] Reason for Visit * Reason Onset Date Comments Letter Request 07/13/2023 Encounter Details Date Type Department Care Team ([facility] st Contact Info) Description 07/13/2023 Telephone [facility] MEDICINE [address] [place] [address] Neetu Kyle FNP [address] [place] [address] Letter Request Social History Tobacco Use Types [...] with others, in a hotel, in a fci, living outside on the street, on a [...] 1:00 PM EST Office Visit [facility] ADULT DENTAL [address] [place] [address] Adalberto Simmsaris [address] [place] [address] documented as of this encounter Visit Diagnoses Not on filedocumented in this encounter Additional Health Concerns Assessment Noted Time PHQ-9 Depression Total Score: 24 023 3:56 PM EDT documented as of this encounter Care Teams Oil House Attendant Relationship Specialty Start Date End Date Neetu Kyle FNP [address] [place] [address] PCP - General Family Medicine 09/19/22 04/01/24 Iris Clancy MD [address] [place] [address] PCP - General Internal Medicine 04/02/24 Aubrey Montesinos, Shilpa [address] [place] [address] Pharmacist Internal Medicine 08/07/24 documented as of this encounter
--- OUTSIDE RECORDS SUMMARY | 2025-03-25 13:02 | XMS_ITS | Encounter Summary ---
Author Organization [employer] Address [address] [place] [address] 7t [place] [address] Care Team Providers Care Patrol Commander Name Role Phone Neetu Kyle Primary Care Provider [phone] Iris Clancy MD Primary Care Provider + Aubrey Montesinos PharmD Unavailable [phone] Reason for Visit * Reason Onset Date Comments Nurse Triage 04/06/2023 Encounter Details Date Type Department Care Team (Late st Contact Info) Description 04/06/2023 Telephone [facility] MEDICINE [address] [place] [address] Neetu Kyle FNP [address] [place] [address] Nurse Triage Social History Tobacco Use Types [...] difficult 04/06/2023 11:34 AM EDT Briana Flannery STAKEHOLDER MANAGER * Over the last 2 weeks, how often have you been bothered by any of the following problems? Question Answer Date of Assessment Author Feeling nervous, anxious, or on edge 3 04/06/2023 11:34 AM EDT Remington Flannery STAKEHOLDER MANAGER Not being able to stop or control worrying 3 04/06/2023 11:34 AM EDT Remington Flannery STAKEHOLDER MANAGER Worrying too much about different things 3 04/06/2023 11:34 AM EDT Remington Flannery STAKEHOLDER MANAGER Trouble relaxing 3 04/06/2023 11:34 AM EDT Briana Flannery STAKEHOLDER MANAGER Being so restless that it is hard to sit still 3 04/06/2023 11:34 AM EDT Remington Flannery STAKEHOLDER MANAGER Becoming easily annoyed or irritable 3 04/06/2023 11:34 AM EDT Remington Flannery STAKEHOLDER MANAGER Feeling afraid as if something awful might happen 3 04/06/2023 11:34 AM EDT Briana Linares STAKEHOLDER MANAGER ANTHONY-7 Total Score 21 04/06/2023 11:34 AM EDT Briana Flannery STAKEHOLDER MANAGER * Over the past 2 weeks, how often have you been bothered by any of the following problems? Question Answer Date of Assessment Author Little interest or pleasure in doing things Nearly every day 04/06/2023 11:34 AM EDT Briana Flannery, STAKEHOLDER MANAGER Feeling down, depressed, or hopeless Nearly every day 04/06/2023 11:34 AM EDT Briana Flannery, STAKEHOLDER MANAGER Trouble falling or staying asleep, or sleeping too much Several days 04/06/2023 11:34 AM EDT Briana Flannery, STAKEHOLDER MANAGER Feeling tired or having little energy Nearly [...] Pt was sent out by ambulance to [facility] and was put in the waiting room. While in waiting room Pt reports there was a homeless man who was screaming and yelling and Pt became more anxious and called neighbor to pharmacy picking tech and bring home. Pt calls today with continued anxiety, Pt reports has never told PCP aboutthis because, I don't like to speak about it . Pt is desiring help at this time. Pt is not suicidal and doesn't want to hurt anyone else. Pt is advised to come to [facility] today and Pt reports that Pt lives just a few minutes away and will start walking over there. Call to Lashonda in [facility] to give inform ation regarding Pt and call to Dedra in behavioral health. [facility] PLEASE call behavioral health when Pt arrives. [...] school or work). Pt did go to [facility] for anxiety attack but left due to anxiety getting worse in wait room. The caller accepted this outcome Please contact pt at [phone] (Sinhala) documented in this encounter Plan of Treatment Upcoming Encounters Date Type Department Care Team (Late st Contact Info) Description 08/27/2025 1:00 PM EST Office Visit [facility] ADULT DENTAL [address] [place] [address] Mendez, Belle [address] [place] [address] documented as of this encounter Visit Diagnoses Not on filedocumented in this encounter Additional Health Concerns Assessment Noted Time PHQ-9 Depression Total Score: 19 023 11:34 AM EDT documented as of this encounter Care Teams Patrol Commander Relationship Specialty Start Date End Date Neetu Kyle FNP [address] [place] [address] PCP - General Family Medicine 09/19/22 04/01/24 Iris Clancy MD [address] [place] [address] PCP - General Internal Medicine 04/02/24 Aubrey Montesinos, ArbenD [address] [place] [address] [place] [address] Pharmacist Internal Medicine 08/07/24 documented as of this encounter
--- OUTSIDE RECORDS SUMMARY | 2025-03-25 13:02 | XMS_ITS | Encounter Summary ---
Author Organization [employer] Address [address] [place] [address] 7t [place] [address] Care Team Providers Care Confectionery Laboratory Manager Name Role Phone Neetu Kyle Primary Care Provider [phone] Iris Clancy MD Primary Care Provider + Aubrey Montesinos PharmD Unavailable [phone] Encounter Details Date Type Department Care Team (Late st Contact Info) Description 02/19/2023 Orders Only [facility] MEDICINE [address] [place] [address] Neetu Kyle FNP [address] [place] [address] Other specified hearing loss of both ears [...] Description 08/27/2025 1:00 PM EST Office Visit [facility] ADULT DENTAL [address] [place] [address] Belle Simms [address] [place] [address] documented as of this encounter Visit Diagnoses Diagnosis Other specified hearing loss of both ears- Primary documented in this encounter Additional Health Concerns Assessment Noted Time PHQ-9 Depression Total Score: 8 01/11/20 23 10:51 AM EDT documented as of this encounter Care Teams Confectionery Laboratory Manager Relationship Specialty Start Date End Date Neetu Kyle FNP [address] [place] [address] PCP - General Family Medicine 09/19/22 04/01/24 Iris Clancy MD [address] [place] [address] PCP - General Internal Medicine 04/02/24 Aubrey Montesinos, Shilpa [address] [place] [address] Pharmacist Internal Medicine 08/07/24 documented as of this encounter
--- OUTSIDE RECORDS SUMMARY | 2025-03-25 13:02 | XMS_ITS | Encounter Summary ---
Author Organization [employer] Address [address] [facility] 7t [place] [address] Care Team Providers Care Aircraft Engineer Name Role Phone Neetu Kyle Primary Care Provider [phone] Iris Clancy MD Primary Care Provider + Aubrey Montesinos PharmD Unavailable [phone] Reason for Referral * Consultation (Routine) - Closed Specialty Diagnoses / Procedures Referred By Hayder macdonald Referred To Contact Optometry Diagnoses Routine health maintenance Neetu Kyle FNP [address] [place] [address] Phone: tel: fax: Referral ID Status Reason Start Date Expiration Date V isits Requested Visits Authorized [id number] Closed Specialty Services Required 03/30/2024 03/30/2025 1 1 Encounter Details Date Type Department Care Team (Late st Contact Info) Description 03/28/2024 Orders Only [facility] CHC MED & PEDS [address] [place], [place] [phone] Neetu Kyle FNP [address] [place] [address] Routine health maintenance (Primary Dx) Social History [...] Description 08/27/2025 1:00 PM EST Office Visit [facility] ADULT DENTAL [address] [place] [address] Belle Simms [address] [place] [address] Scheduled Referrals Name Type Priority Associated Diagnoses [...] documented as of this encounter Care Teams Aircraft Engineer Relationship Specialty Start Date End Date Neetu Kyle FNP [address] [place] [address] PCP - General Family Medicine 09/19/22 04/01/24 Iris Clancy MD [address] [place], [place] [phone] PCP - General Internal Medicine 04/02/24 Aubrey Montesinos PharmD [address] [place] [address] Pharmacist Internal Medicine 08/07/24 documented as of this encounter
--- OUTSIDE RECORDS SUMMARY | 2025-03-25 13:02 | XMS_ITS | Encounter Summary ---
Author Organization [employer] Address [address] [place] [address] 7t [place] [address] Care Team Providers Care Boatswains Mate Name Role Phone Neetu Kyle Primary Care Provider [phone] Iris Clancy MD Primary Care Provider + Aubrey Montesinos PharmD Unavailable [phone] Encounter Details Date Type Department Care Team ([facility] st Contact Info) Description 07/20/2023 [facility] Health Information Management [address] [place] [address] Neetu Kyle FNP [address] [place] [address] Social History Tobacco Use Types Packs/Day Years [...] Description 08/27/2025 1:00 PM EST Office Visit [facility] ADULT DENTAL [address] [place] [address] Mendez, Belle [address] [place] [address] documented as of this encounter Visit Diagnoses Not on filedocumented in this encounter Additional Health Concerns Assessment Noted Time PHQ-9 Depression Total Score: 24 023 3:56 PM EDT documented as of this encounter Care Teams Boatswains Mate Relationship Specialty Start Date End Date Neetu Kyle FNP [address] [place] [address] PCP - General Family Medicine 09/19/22 04/01/24 Iris Clancy MD [address] [place] [address] PCP - General Internal Medicine 04/02/24 Aubrey Montesinos PharmD [address] [place] [phone] Pharmacist Internal Medicine 08/07/24 documented as of this encounter
--- OUTSIDE RECORDS SUMMARY | 2025-03-25 13:02 | XMS_ITS | Encounter Summary ---
Author Organization [employer] Address [address] [facility] 7t [place] [address] Care Team Providers Care Post Office Clerk Name Role Phone Neetu Kyle Primary Care Provider [phone] Iris Clancy MD Primary Care Provider + Aubrey Montesinos PharmD Unavailable [phone] Reason for Visit * Reason Onset Date Comments Referral 11/16/2023 Encounter Details Date Type Department Care Team ([facility] st Contact Info) Description 11/16/2023 Telephone [facility] MEDICINE [address] [place] [address] Neetu Kyle FNP [address] [place] [address] Referral Social History Tobacco Use Types Packs/Day [...] to vision referral Please contact pt at [phone] * Telephone Encounter - Alondra Oakley RN - 11/16/2023 1:27 PM EDT T/C to pt. For below message, pt. Also informed that there is wait time right now for [facility] vision center. Pt. Verbally agreed and understood. * Telephone Encounter - Alondra Oakley RN - 11/16/2023 1:26 PM EDT Please review and advise for below request. * Telephone Encounter - Janny Oviedo - 11/16/2023 11:45 AM EDT Tc from pt requesting [facility] vision center referral. documented in this encounter Plan of Treatment Upcoming Encounters Date Type Department Care Team (Late st Contact Info) Description 08/27/2025 1:00 PM EST Office Visit [facility] ADULT DENTAL [address] [place] [address] Belle Simms [address] [place] [address] documented as of this encounter Visit Diagnoses Not on filedocumented in this encounter Additional Health Concerns Assessment Noted Time PHQ-9 Depression Total Score: 24 023 3:56 PM EDT documented as of this encounter Care Teams Post Office Clerk Relationship Specialty Start Date End Date Neetu Kyle FNP [address] [place] [address] PCP - General Family Medicine 09/19/22 04/01/24 Iris Clancy MD [address] [place] [address] PCP - General Internal Medicine 04/02/24 Aubrey Montesinos, ArbenD [address] [place] [address] Pharmacist Internal Medicine 08/07/24 documented as of this encounter
--- OUTSIDE RECORDS SUMMARY | 2025-03-25 13:02 | XMS_ITS | Encounter Summary ---
Author Organization [employer] Address [address] [facility] 7t [place] [address] Care Team Providers Care Evaluator Transfer Students Name Role Phone Neetu Kyle Primary Care Provider [phone] Iris Clancy MD Primary Care Provider + Aubrey Montesinos PharmD Unavailable [phone] Reason for Visit * Reason Onset Date Comments Medication Question 01/07/2024 Encounter Details Date Type Department Care Team ([facility] st Contact Info) Description 01/07/2024 Telephone [facility] MEDICINE [address] [place] [address] Neetu Kyle FNP [address] [place] [address] Medication Question Social History Tobacco Use Types [...] to not work. Please contact pt at [phone] documented in this encounter Plan of Treatment Upcoming Encounters Date Type Department Care Team (Late st Contact Info) Description 08/27/2025 1:00 PM EST Office Visit [facility] ADULT DENTAL [address] [place] [address] Mendez, Belle [address] [place] [address] documented as of this encounter Visit Diagnoses Not on filedocumented in this encounter Additional Health Concerns Assessment Noted Time PHQ-9 Depression Total Score: 24 023 3:56 PM EDT documented as of this encounter Care Teams Evaluator Transfer Students Relationship Specialty Start Date End Date Neetu Kyle FNP [address] [place] [address] PCP - General Family Medicine 09/19/22 04/01/24 Iris Clancy MD [address] [place] [address] PCP - General Internal Medicine 04/02/24 Aubrey Montesinos, PharmD [address] [place] [address] Pharmacist Internal Medicine 08/07/24 documented as of this encounter
--- OUTSIDE RECORDS SUMMARY | 2025-03-25 13:02 | XMS_ITS | Encounter Summary ---
Author Organization [employer] Address [address] [facility] 7t [place] [address] Care Team Providers Care Creamery Worker Name Role Phone Neetu Kyle Primary Care Provider [phone] Iris Clancy MD Primary Care Provider + Aubrey Montesinos PharmD Unavailable [phone] Reason for Visit * Reason Comments Med Refill Encounter Details Date Type Department Care Team (Late st Contact Info) Description 08/13/2023 Refill [facility] MEDICINE [address] [place] [address] Neetu Kyle FNP [address] [place] [address] Social History Tobacco Use Types Packs/Day Years [...] Description 08/27/2025 1:00 PM EST Office Visit [facility] ADULT DENTAL [address] [place] [address] Mendez, Belle [address] [place] [address] documented as of this encounter Visit Diagnoses Not on filedocumented in this encounter Additional Health Concerns Assessment Noted Time PHQ-9 Depression Total Score: 24 023 3:56 PM EDT documented as of this encounter Care Teams Creamery Worker Relationship Specialty Start Date End Date Neetu Kyle FNP [address] [place] [address] PCP - General Family Medicine 09/19/22 04/01/24 Iris Clancy MD [address] [place] [address] PCP - General Internal Medicine 04/02/24 Aubrey Montesinos PharmD [address] [place] [address] Pharmacist Internal Medicine 08/07/24 documented as of this encounter
--- OUTSIDE RECORDS SUMMARY | 2025-03-25 13:02 | XMS_ITS | Encounter Summary ---
Author Organization [employer] Address [address] [facility] 7t [place] [address] Care Team Providers Care House Decorator Name Role Phone Neetu Kyle Primary Care Provider [phone] Iris Clancy MD Primary Care Provider + Aubrey Montesinos PharmD Unavailable [phone] Encounter Details Date Type Department Care Team (Late st Contact Info) Description 06/01/2023 Orders Only [facility] CHC MED & PEDS [address] [place] [address] Neetu Kyle FNP [address] [place] [address] Social History Tobacco Use Types Packs/Day Years [...] with others, in a hotel, in a correction, living outside on the street, on a [...] Description 08/27/2025 1:00 PM EST Office Visit [facility] ADULT DENTAL [address] [place] [address] Mendez, Belle [address] [place] [address] documented as of this encounter Visit Diagnoses Not on filedocumented in this encounter Additional Health Concerns Assessment Noted Time PHQ-9 Depression Total Score: 24 023 3:56 PM EDT documented as of this encounter Care Teams House Decorator Relationship Specialty Start Date End Date Neetu Kyle FNP [address] [place] [address] PCP - General Family Medicine 09/19/22 04/01/24 Iris Clancy MD [address] [place] [address] PCP - General Internal Medicine 04/02/24 Aubrey Montesinos, Shilpa [address] [place] [phone] Pharmacist Internal Medicine 08/07/24 documented as of this encounter
--- OUTSIDE RECORDS SUMMARY | 2025-03-25 13:03 | XMS_ITS | Clinical Summary ---
Author Organization [employer] Address [address] [facility] 7[address] [place] [address] Care Team Providers Care Solar Hot Water Installer Name Role Phone Iris Clancy MD Primary Care Provider + Aubrey Montesinos PharmD Unavailable [phone] Allergies No known active allergies Medications * [...] of breath. 18 g 1 12/26/19 24 Active Spacer/Aero-Ho lding Chambers (OptiChamber Joanne) misc 1 each every 4 (four) hours if needed (asthma). 1 each 12/26/19 24 Active nicotine polacrilex (Nicotine Mini) 2 MG lozengeIndicat ions:Tobacco dependence Dissolve 1 lozenge by mouth every 1-2 hours as needed for cravings 144 lozenge 1 08/07/19 25 Active FT Stool Softener 50-8.6 MG [...] 10 days. 30 tablet 11/14/19 25 Active predniSONE (Deltasone) 20 MG tablet Take 2 tablets PO/d x 5d then 1 tablet PO/ on D6 to D10 then 1/2 tablet PO/d from D11 to D15 18 tablet 12/18/19 25 Active gabapentin (Neurontin) 100 MG capsule Take 1 capsule (100 mg) by mouth every 8 (eight) hours. 90 capsule 11 02/06/20 25 026 Active traZODone (Desyrel) 50 MG tablet TAKE 1 TABLET BY MOUTH AT BEDTIME 90 tablet 03/04/20 25 Active cetirizine (ZyrTEC) 10 MG tablet TAKE 1 TABLET BY MOUTH EVERY MORNING 90 tablet 03/11/20 25 Active traZODone (Desyrel) 50 MG tablet Take 1 tablet (50 mg) by mouth at bedtime. 90 tablet 12/12/19 25 025 Discontinued cetirizine (ZyrTEC) 10 MG tablet Take 1 tablet (10 mg) by mouth Once per day. 30 tablet 2 12/18/19 25 025 Discontinued Active Problems Problem Noted Date Diagnosed Date Bronchitis 12/18/2024 Assessment & Plan (12/18/2024 3:48 PM EDT): Improving but she is still has residual bronchospasm Restart prednisone for over 10 to 15 days taper Reconsult as needed with fever, worsening sputum production or cough Weakness 12/18/2024 Assessment & Plan (12/18/2024 3:48 PM EDT): Rule out DM, and Mazepine related to acute bronchitis in the setting of patient taking multiple medication for seizures and weight gain Stress incontinence of urine 12/18/2024 Assessment & Plan (12/18/2024 3:49 PM EDT): May be triggered by cough and weight gain I gave her information regarding Kegel's exercises, will work on weight reduction. Follow-up with me in 3 months Ulnar neuropathy of both upper extremities 12/18 Heart palpitations 11/13/2024 Assessment & Plan (11/13/2024 [...] 38.9 in adult 11/13/2024 Assessment & Plan (02/05/2025 10:26 AM EDT): Discussed re weight reduction options including exercise, life style modifications, diet. Recommended to decrease soda and sugary beverage consumption, increase protein intake with meals (at least 1 portion of protein with each meal) to assist with satiety, increase dietary fiber Recommended at least 150 min/week of moderate intensity exercise. I reminded her to take venlafaxine to control her anxiety, I told her that is very unlikely that venlafaxine makes her gain weight. I will send her to dietitian and follow-up at next visit Start Topamax nightly, discussed with her regarding sedation and will try to use for no longer than a year due to risk of kidney stones. Follow-up with me in 3 months Assessment & Plan (12/18/2024 3:47 PM EDT): Discussed re weight reduction options [...] worsening patient's weight gain, change to Effexor I will hold off on medications at this time, she needs to see dietitian. Assessment & Plan (11/13/2024 3:30 PM EDT): [...] on both sides 02/11/2024 Assessment & Plan (12/18/2024 3:55 PM EDT): Is related to ulnar neuropathy across the elbow. Continue CTS braces and OT, will refer for additional evaluation of ulnar neuropathy Referred to orthopedics Assessment & Plan (11/13/2024 3:41 PM EDT): Not improving with OTC, will do a referral again to a nerve conduction study and follow-up after that to see if she needs a referral to orthopedics or label paster Assessment & Plan (05/13/2024 3:26 PM EDT): [...] of both feet 02/11/2024 Assessment & Plan (02/05/2025 10:28 AM EDT): Advised to use insoles, will refer to podiatry if needed (patient reportedly never got a podiatry referral sent last year) Assessment & Plan (02/11/2024 6:45 PM EDT): Referral to podiatry for possible insoles Pain in both wrists 02/10/2024 Glucosuria 01/24/2024 Assessment & Plan (01/24/2024 1:18 [...] spur Reconsult as needed, will refer to environmental engineering assistant for steroid injection. Plantar fasciitis, bilateral 08/23/2023 Assessment & Plan (02/05/2025 10:28 AM EDT): I will send a new prescription for night splints to use on both feet nightly and follow-up with me in 3 months. If symptoms do not improve within the first 2 weeks of using the night splints nightly, she can call for referral to environmental engineering assistant Advised to do warm soaks with Epsom salt every night Advised to use appropriate arch support, avoid flip-flops. Assessment & Plan (11/13/2024 3:29 PM EDT): [...] recurrent major depressive disorder, without psychotic features ([facility]/HCC) Suicidal ideation Patient ready to address [...] attend psychiatry appointment, when established c. Utilize [facility] if symptoms worsen d. Reach out to [facility] for additional support ANTHONY (generalized anxiety disorder) 04/06/2023 Severe episode of recurrent major depressive disorder, without psychotic features 04/06/2023 Assessment & Plan (11/13/2024 3:40 PM EDT): Doing better after seeing psychotherapist, continue follow-up with [facility] Will DC fluoxetine due to potential weight [...] thru their agency. Patient was provided with [facility] information. At this time Ebony Edwards [...] 01/10/2023 Seizure disorder 01/10/2023 Assessment & Plan (02/05/2025 10:27 AM EDT): Apparently controlled on Depakote and Keppra. Unclear why she is also on gabapentin, will call neurologist office and the possibility to cut down on gabapentin and started on Topamax. Discussed with patient the importance of avoid driving until cleared by neurologist. Assessment & Plan (11/13/2024 3:27 PM EDT): On Depakote and Keppra, followed by Dr. Leon, will obtain most recent OV note. Discussed with patient and regarding avoid driving and follow-up [place] rules driving/ patient with seizures. Assessment & Plan (01/10/2023 2:19 PM EDT): follows with neurology. Dr. Leon at [facility] Continue current medications Insomnia 01/10/2023 Overview (04/06/2023): [...] to stop bleeding. She is hemodynamically stable. Resolved Problems Problem Noted Date Diagnosed Date Resolved Date Pelvic pain 01/24/2024 12/18/2024 Assessment & Plan (01/24/2024 1:16 PM EDT): [...] and A1c due to glucosuria Vaginosis 01/24/2024 12/18/2024 Assessment & Plan (01/24/2024 1:08 PM EDT): Vaginal swab sent to lab Encounters Date Type Department Care Team Description 03/19/2025 Telephone [facility] [address] [place] [address] Iris Clancy MD Referral 03/10/2025 Refill [facility] [address] [place] [address] Iris Clancy MD 03/04/2025 Refill [facility] [address] [place] [address] Iris Clancy MD 02/05/2025 9:00 AM EDT Office Visit [facility] [address] [place] [phone] Iris Clancy MD Plantar fasciitis, bilateral (Primary Dx); Arthritis of both feet; Class 2 severe obesity due to excess calories with serious comorbidity and body mass index (BMI) of 38.0 to 38.9 in adult ([facility]); Seizure disorder ([facility]) 02/05/2025 Telephone [facility] [address] [place] [phone] Iris Clancy MD DME Feet splint 02/05/2025 Travel 02/04/[address] [address] Iris Clancy MD Chart prep [address] [address] Iris Clancy MD from Last 3 Months Immunizations Immunization Administration [...] Former Cigarettes 0.3 13 Passive Smoke Exposure: Past Smokeless Tobacco: Never Tobacco Cessation:Counseling Given: Not [...] Sign Reading Time Taken Comments Blood Pressure 110/80 02/05/2025 8:50 AM EDT Pulse 78 02/05/2025 8:50 AM EDT Temperature 36.3 C (97.3 F) 02/05/2025 8:50 AM EDT Respiratory Rate 17 02/05/2025 8:50 AM EDT Oxygen Saturation 99% 12/17/2024 11:01 AM EDT Inhaled Oxygen Concentration - - Weight 94.5 kg (208 lb 4 oz) 02/05/2025 8:50 AM EDT Height 154.9 cm (5' 1 ) 02/05/2025 8:50 AM EDT Body Mass Index 39.35 02/05/2025 8:50 AM EDT Plan of Treatment Upcoming Encounters Date Type Department Care Team (Late st Contact Info) Description 08/27/2025 1:00 PM EST Office Visit [facility] [address] [place] [address] [place] [address] [place] [address] Health Maintenance Due Date Last Done Comments Alcohol/Substance Use Screening 2001 Family Planning (PISQ) 01/27/2004 HPV Vaccines (1 - 3-dose series) 01/27/2004 Hepatitis B Vaccines (2 of 2 - CpG 2-dose series) 08/16/2023 07/19/2023 Dental X-Ray: Full Mouth 12/02/2023 11/30/2020 Dental Oral Exam 08/15/2024 02/12/2024, 11/30/2020 Dental Prophylaxis 08/15/2024 02/12/2024 Dental X-Ray: Bitewings 02/12/2025 02/12/20 24, 11/30/2020 Influenza Vaccine (#1) 2025 , 06/27/2018, 06/29/2015 SDOH Screening 11/04/2025 11/04/2024 Depression Screening 11/13/2025 11/13/2024, 11/13/2024 Pap Smear 01/09/2026 01/09/2023, 03/20/2022, 03/20/2022 Disability Screening 02/05/2026 02/05/2025 Tobacco Screening 02/05/2026 02/05/2025 Cervical Cancer Screening 01/10/2028 HPV/Cotest 01/10/2028 01/09/2023, 03/20/2022 Lipid Panel 05/29/2028 05/29/2023, 03/20/2022 DTaP/Tdap/Td Vaccines (4 - T d or Tdap) 11/26/2031 11/25/2021, 06/27/2018, 10/17/2016 Zoster Vaccines (1 of 2) 2039 RSV Patients and Patients Aged 60 years or older (1 - 1-dose 75+ series) 01/27/2064 Pneumococcal Vaccine: Pediatrics (0 to 5 Years) and At-Risk Patients (6 to 49) Years Aged Out 06/29/2015 No longer eligible b [...] Procedure Name Priority Date/Time Associated Diagnosis Comments HEPATITIS PANEL, GENERAL Routine 05/13/2024 3:20 PM [...] Recently Relevant to Health Maintenance Results * Hepatitis Panel, General (05/13/2024 3:20 PM EDT) Hepatitis A IgM Nonreactive Nonreactive [facility] Comment:IgM antibodies to BAILEY V not detected; does not exclude earlyacute or recovered HAV infection. ~Hepatitis B Surface Antibody REACTIVE Nonreactive [facility] Comment:REACTIVE: > 11.99 mI U/mL Hepatitis B Core Antibody Nonreactive Nonreactive [facility] Hepatitis C Antibody Nonreactive Nonreactive [facility] Comment:Antibodies to HCV no t detected; does not exclude early acuteHCV infection. Hepatitis B Surface Ag Negative Negative [facility] Blood 05/13/2024 3:20 PM EDT 05/13/2024 4:20 PM EDT us Iris Clancy MD LAB BLOOD ORDERABLES Fin al Result [facility] [address] [place] [phone] * (ABNORMAL) Lipid Panel, Standard (05/29/2023 3:36 PM EDT) Triglycerides 119 <150 mg/dL [facility] Comment:Desirable Triglyceri de: less than 150 mg/dLBorderline High Triglyceride 150-199 mg/dLHigh Triglyceride: 200-499 mg/dLVery High Triglyceride: greater than or equal to 5OO mg/dL Cholesterol 126 <200 mg/dL [facility] Comment:Desirable Cholestero l: less than 200 mg/dLBorderline High Cholesterol: 200-239 mg/dLHigh Cholesterol: greater than 239 mg/dL LDL Cholesterol Calculated 67 <100 mg/dL [facility] Comment:Desirable LDL: less than 100 mg/dLNear Optimal/Above Optimal LDL: 110- 129 mg/dLBorderline High LDL: 130-159 mg/dLHigh LDL: 160-189 mg/dLVery High LDL: greater than or equal to 190 mg/dL HDL Cholesterol 36(L) >40 mg/dL [facility] Comment:Desirable HDL: great er than 40 mg/dL Note: This HDL assay may give artificially low results in patients with liver disease. Blood Venous blood specimen / Unknown 05/29/2023 3:36 PM EDT 05/29/2023 5:53 PM EDT Neetu JIM LAB BLOOD ORDERABLES Final Resu lt [facility] [address] [place] [phone] * Pap Smear (01/09/2023 3:04 PM EDT) 01/09/2023 3:04 PM EDT 01/11/2023 8:00 AM EDT Narrative [facility] - 2023 8:52 AM EDT ----- ------- Name: Sourav ArandaEbony brown Age/Sex: 32/F : 1990 Unit#: [id number] Attend Dr: Contreras Yee MD Re01/09/23 Status: DEP REF Location: [facility] Disch: ----- ------- SPEC : [id number] RECD: 01/11/23 STATUS: ELIZABETH WILBURN NUM: [id number] ELIZABETH: 01/09/23-[address]: Contreras Yee MD ENTERED: 01/12/23 SP TYPE: Pap Smr OTHR DR: Neetu Kyle ALLERGY NURSE ORDERED: Pap Smear Interpretation Satisfactory for evaluation. Negative for intraepithelial lesion or malignancy. HPV mRNA E6/E7: NOT DETECTED This assay detects E6/E7 viral messenger RNA (mRNA) from 14 high-risk HPV types (16, 18, 31, 33, 35, 39, 45, 51, 52, 56, 58, 59, 66, 68) HPV testing performed by [facility], [place], [place]. See reference laboratory pion of the EMR for entire report. Clinical Information LMP: Unknown date Previous PAP test: Unknown date/findings Other history: Abnormal uterine and vaginal bleeding Material Received ThinPrep-Cervical Copies To: Neetu Kyle NP [address] [place] [address] Contreras Yee MD [address] [place] [address] Dr. Dyer [address] [place] [phone] ----- ------- Signed (signature on file) MANNY Osorio (ASCP) 01/26/23 0852 ----- ------- END OF REPORT [facility] External Provider LAB CYT OLOGY ORDERABLES Final Result [facility] [address] [place] [phone] * HIV 1/2 ANTIGEN/ANTIBODY,FOURTH GENERATION W/RFL (03/20/2022 2:38 PM EDT) HIV-1/2 ANTIGEN AND ANTIBODIES, 4TH GENERATION W/ REFLEX NON-REACT JOSIAS NON-REACT JOSIAS [facility] Comment: HIV-1 antigen and HIV-1/HIV-2 antibodies were not detected. There is no laboratory evidence of HIV infection. PLEASE NOTE: This information has been disclosed to you from records whose confidentiality may be protected by state law. If your state requires such protection, then the state law prohibits you from making any further disclosure of the information without the specific written consent of the person to whom it pertains, or as otherwise permitted by law. A general authorization for the release of medical or other information is NOT sufficient for this purpose. For additional information please refer to http://education.[facility]/faq/VYE948 (This link is being provided for informational/ educational purposes only.) The performance of this assay has not been clinically validated in patients less than 2 years old. 03/20/2022 2:38 PM EDT us Vince Castañeda MD LAB BLOOD ORDERABLES Final R esult [facility] [address] from Last 3 Months or Most Recently Relevant to Health Maintenance Insurance [facility] [place] [facility] AD[facility] Care Teams Solar Hot Water Installer Relationship Specialty Start Date End Date Iris Clancy MD [address] [place] [address] PCP - General Internal Medicine 04/02/24 Aubrey Montesinos, PharmD [address] [place] [phone] Pharmacist Internal Medicine 08/07/24
--- OUTSIDE RECORDS SUMMARY | 2025-03-25 13:03 | XMS_ITS | Encounter Summary ---
Author Organization [employer] [facility] Address [address] [place] [address] 7[address] [place] [address] Care Team Providers Care Item Processor Name Role Phone Jagdeep St Primary Care Provider Neetu Adams Primary Care Provider [phone] Iris Clancy MD Primary Care Provider + Aubrey Montesinos PharmD Unavailable [phone] Reason for Visit * Reason Onset Date Comments TP appt 07/27/2022 Encounter Details Date Type Department Care Team (Late Contact Info) Description 07/27/2022 Telephone [facility] [address] [place] [address] FNP TP appt Social History [...] Description 08/27/2025 1:00 PM EST Office Visit [facility] [address] [place] [address] [place] [address] [place] [address] documented as of this encounter Visit Diagnoses Not on filedocumented in this encounter Care Teams Item Processor Relationship Specialty Start Date End Date Jagdeep St FNP PCP - General 06/20/22 09/18/22 Neetu Kyle FNP [address] [place] [address] PCP - General Family Medicine 09/19/22 04/01/24 Iris Clancy MD [address] [place] [address] PCP - General Internal Medicine 04/02/24 Aubrey Montesinos, Shilpa [address] [place] [phone] Pharmacist Internal Medicine 08/07/24 documented as of this encounter
--- OUTSIDE RECORDS SUMMARY | 2025-03-25 13:03 | XMS_ITS | Encounter Summary ---
Author Organization [employer] Address [address] [facility] 7t [place] [address] Care Team Providers Care Telephone Sales Representative Name Role Phone Iris Clancy MD Primary Care Provider + Aubrey Montesinos PharmD Unavailable [phone] Reason for Visit * Reason Comments Med Refill Encounter Details Date Type Department Care Team ([facility] st Contact Info) Description 12/10/2024 Refill [facility] [address] [place] [address] Iris Clancy MD [address] [place] [address] Social History Tobacco Use Types Packs/Day Years [...] 1:00 PM EST Office Visit [facility] [address] [place] [address] Mendez, Belle [address] [place] [address] documented as of this encounter Visit Diagnoses Not on filedocumented in this encounter Additional Health Concerns Assessment Noted Time PHQ-9 Depression Total Score: 4 11/14/19 25 3:23 PM EDT documented as of this encounter Care Teams Telephone Sales Representative Relationship Specialty Start Date End Date Iris Clancy MD [address] [place] [address] PCP - General Internal Medicine 04/02/24 Aubrey Montesinos PharmD [address] [place] [address] Pharmacist Internal Medicine 08/07/24 documented as of this encounter
--- OUTSIDE RECORDS SUMMARY | 2025-03-25 13:03 | XMS_ITS | Encounter Summary ---
Author Organization [employer] Address [address] [facility] [address]t [place] [address] Care Team Providers Care High School Coach Name Role Phone Iris Clancy MD Primary Care Provider + Aubrey Montesinos PharmD Unavailable [phone] Reason for Visit * Reason Comments Med Refill Encounter Details Date Type Department Care Team ([facility] st Contact Info) Description 12/09/2024 Refill [facility] [address] [place] [address] Iris Clancy MD [address] [place] [address] Social History Tobacco Use Types Packs/Day Years [...] 08/27/2025 1:00 PM EST Office Visit [facility] [address] [place] [address] Mendez, Belle [address] [place] [address] documented as of this encounter Visit Diagnoses Not on filedocumented in this encounter Additional Health Concerns Assessment Noted Time PHQ-9 Depression Total Score: 4 11/14/19 25 3:23 PM EDT documented as of this encounter Care Teams High School Coach Relationship Specialty Start Date End Date Iris Clancy MD [address] [place] [address] PCP - General Internal Medicine 04/02/24 Aubrey Montesinos PharmD [address] [place] [address] Pharmacist Internal Medicine 08/07/24 documented as of this encounter
--- NOTE | 2025-03-25 13:42 | MHC.OFFVIS ---
Vital Signs 03/25/25 13:47 Height 5 ft 1 in Weight 198 lb BMI 37.4 Intake Visit Reasons: PO-Lt Cubital Release 03/12/25 Intake Note: Ebony is a 35 year old female who presents today post-operatively status post Right Cubital Tunnel Release, DOS: 03/12/[address] Hutchison. Patient was seen by Dr. Hutchison on 03/18/25 after injuring her elbow while carrying a jug of water. Patient reports today she continues having numbness and tingling of her left middle finger. Her incision looks a bit red and swollen as if patient has been scratching it. She is no longer taking Nespelem. Allergies No Known Drug Allergies Allergy (Unknown, Verified 03/25/25 13:46) U HPI HPI PO-Lt Cubital Release 03/12/25: Details: Ebony is a 35 year old female who presents today post-operatively status post Right Cubital Tunnel Release, DOS: 03/12/[address] Hutchison. Patient was seen by Dr. Hutchison on 03/18/25 after injuring her elbow while carrying a jug of water. Patient reports today she continues having numbness and tingling of her left middle finger. Her incision looks a bit red and swollen as if patient has been scratching it. Patient does state that she was just scratching the incision, as it has gotten quite itchy. Patient does report some pain around the incision site. She is no longer taking Nespelem. [facility] Medical History Multiple falls Migraine Cough Asthma Obesity (BMI 30-39.9) Heart palpitations Arthritis Glucosuria Tobacco dependence Osteoarthritis Plantar fasciitis, bilateral Suicide ideation Depression Anxiety Constipation Insomnia Epilepsy Absence seizure Hx of meningitis Seizures Surgical History Hx of wisdom tooth extraction Hx of removal of cyst Hx of section Hx of tubal ligation Social History Are you a primary care team assistant to a significant other at home: No Do you presently have visiting nurse or other home services: No Patient Tobacco Use Status: Former Tobacco user Tobacco use type: Cigarette Cigarettes Per Day: 3 Current occupational status: disabled Current occupation: right hand dominant Female Reproductive History Menstrual Age of Menarche: 10 Review of Systems Const All systems reviewed & are unremarkable except as noted in HPI and below Physical Exam Vital Signs: BMI result Body Mass Index 37.4 Const General: no acute distress and alert Orientation/consciousness: patient oriented x3 Neuro General: patient oriented x3 Extrem Other: The patient was alert oriented and in no acute distress The incision is healing well with some mild erythema, no drainage or other evidence of infection Pain to palpation around the incision site Good elbow flexion and extension without pain. She can make a fist and extend all her digits Sensation is improved and now normal in the ulnar nerve distribution Nerve Conduction Study: IMPRESSION: Mild bilateral ulnar neuropathy across elbow. Otherwise no significant abnormality noted. Pedro Davis MD 11/25/2024 Psych Appearance: grossly normal Affect: normal affect Attitude: cooperative Assessment & Plan Assessment & Plan (1) Cubital tunnel syndrome, bilateral: Code(s): G56.23 - Lesion of ulnar nerve, bilateral upper limbs Category: Medical Plan Assessment & Plan: 1. Left cubital tunnel syndrome, S/P release DOS: 03/12/25 The patient appears to be doing well post-operatively She is here for a wound check after striking her elbow while carrying a heavy jug of water. I educated her about the post-operative course With the patient does have some mild pain and erythema surrounding the incision, I feel it is most appropriate to send her a one-week course of Augmentin to prevent development of any cellulitis Patient is educated on how to best take these antibiotics Follow-up in 1 week for wound check, sooner with any acute concerns 2. Right cubital tunnel syndrome, mild We will discuss treatment options when her left side has recovered. Medications: New amoxicillin-pot clavulanate 875-125 mg 1 tab PO BID 14 tabs 0RF 7 days Coding Level of Care Code Global (40844) Diagnoses Cubital tunnel syndrome, bilateral G56.23
[2025-03-25 13:47] VITALS: BMI 37.4
== END 2025-03-25 14:05 | disposition home or self-care (01) ==
LOC: HO.HOS 12:36
PROVIDERS: PCP Internal Medicine
DX: G56.23 Lesion of ulnar nerve, bilateral upper limbs (principal)
CPT/HCPCS: 99024

== ENCOUNTER → 2025-03-25 12:36 | Outpatient (BNVA) | payer MEDICAID, SELFPAY | PROVIDERS: PCP Internal Medicine | DX: G56.23 Lesion of ulnar nerve, bilateral upper limbs (principal) | CPT/HCPCS: 99212 ==

== ENCOUNTER 2025-06-04 14:09 | Outpatient (AMB) | payer MEDICAID, SELFPAY ==
--- NOTE | 2025-06-04 14:13 | A.OFFVIS_ITS ---
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 Complaining of vulvovaginal discharge associated with itching in foul odor Last Pap/HPV was negative in 01/19 [facility] Medical History Multiple falls Migraine Cough Asthma Obesity (BMI 30-39.9) Heart palpitations Arthritis Glucosuria Tobacco dependence Osteoarthritis Plantar fasciitis, bilateral Suicide ideation Depression Anxiety Constipation Insomnia Epilepsy Absence seizure Hx of meningitis Seizures Surgical History Hx of wisdom tooth extraction Hx of removal of cyst Hx of section Hx of tubal ligation Social History Are you a primary rn long term care to a significant other at home: No Do you presently have visiting nurse or other home services: No Patient Tobacco Use Status: Former Tobacco user Tobacco use type: Cigarette Cigarettes Per Day: 3 Current occupational status: disabled Current occupation: right hand dominant Female Reproductive History Menstrual Age of Menarche: 10 Date of last pap smear: 01/11/23 Review of Systems Const All systems reviewed & are unremarkable except as noted in HPI and below Card Reports as per HPI Resp Reports as per HPI GI Reports as per HPI and Reports no additional complaints Reports as per HPI Physical Exam Vital Signs: Last Vital Signs BP 126/70 06/04/25 14:22 BMI result Body Mass Index 37.8 Const General: cooperative, healthy appearing and comfortable Chest Chest palpation & inspection: normal inspection of the chest and normal palpation of entire chest wall Breast/axilla inspection: normal inspection of the breasts and normal inspection of the axillae Breast/axilla palpation: normal palpation of the breasts, normal palpation of the axillae and no axillary lymphadenopathy Resp Effort & Inspection: normal respiratory effort Auscultation: clear to auscultation bilaterally Percussion: percussion normal Cardio Palpation: normal PMI Rate: regular rate Rhythm: regular rhythm Heart sounds: no murmurs and no rubs Peripheral pulses: Peripheral pulses 2+ throughout GI Inspection: Yes normal to inspection Palpation (GI): Soft to palpation, nontender, no guarding, not rigid and No hepatosplenomegaly present Percussion: Yes normal to percussion Auscultation: normal bowel sounds Rectal Exam - Female: deferred General: Yes bladder normal to palpation External Female Exam: No lesion Speculum Exam - Vagina: normal appearance of the vagina, normal palpation, normal vaginal discharge and not erythematous Speculum Exam - Cervix: normal appearance of the cervix and normal palpation Bimanual exam- vagina & uterus: normal bimanual exam, normal palpation, uterine size normal, bladder normal to palpation, consistency normal and normal palpation Bimanual Exam- Adnexa, other: normal adnexae, no masses and no tenderness Assessment & Plan Assessment & Plan (1) Well woman exam: Code(s): Z01.419 - Encounter for gynecological examination (general) (routine) without abnormal findings Category: Medical Plan: Cotesting not indicated this year. Counseled the patient about the recommended dietary allowance of 1000 mg of Calcium & 600 IU of vitamin D. The patient was instructed to perform monthly self-breast exams and to schedule an annual exam in a year; All questions answered and the patient verbalized understanding. Instructed the patient to schedule annual exam in a year (2) Vulvovaginitis: Code(s): N76.0 - Acute vaginitis Category: Medical Plan: GC and chlamydia cultures with BV panel taken. Will treat with Terazol 0.8% vagi nal cream q.h.s. for 3 nights with Flagyl 500 mg p.o. b.i.d. x 7 days, Instructions given to the patient to refrain from sexual activity or to use condoms consistently and correctly during the BV treatment regimen, not to douch, it might increase the risk for relapse, and to call if symptoms persist or recur. Medications: New metronidazole 500 mg PO BID 14 tabs 0RF 7 days terconazole 0.8% 1 appful vaginal BEDTIME 20 grams 0RF 3 days Coding Level of Care Code New Pt Prev Care 18-39yr([id number] Diagnoses Well woman exam Z01.419 Vulvovaginitis N76.0
[2025-06-04 14:22] VITALS: BP 126/70; BMI 37.8
--- OUTSIDE RECORDS SUMMARY | 2025-06-04 17:21 | XMS_ITS | Encounter Summary ---
Author Organization [employer] [facility] Address [address] [place] [address] 7t [place] [address] Care Team Providers Care Oil Pumper Name Role Phone Jagdeep St Primary Care Provider Neetu Adams Primary Care Provider [phone] Iris Clancy MD Primary Care Provider + Aubrey Montesinos PharmD Unavailable [phone] Reason for Visit * Reason Onset Date Comments TP appt 07/27/2022 Encounter Details Date Type Department Care Team (Late Contact Info) Description 07/27/2022 Telephone [facility] MEDICINE [address] [place] [phone] FNP TP appt Social History [...] Department Care Team (Late Contact Info) Description 06/08/2025 9:45 AM EST Office Visit [facility] MEDICINE [address] [place] [address] Iris Clancy MD [address] [place] [address] [place] [address] 08/27/2025 12:45 PM EST Office Visit [facility] ADULT DENTAL [address] [place], [place] [phone] Belle Simms [address] [place] [address] documented as of this encounter Visit Diagnoses Not on filedocumented in this encounter Care Teams Oil Pumper Relationship Specialty Start Date End Date Jagdeep St FNP PCP - General 06/20/22 09/18/[address] [place], [place] [phone] PCP - General Family Medicine 09/19/22 04/01/24 Iris Clancy MD [address] [place] [address] [phone] PCP - General Internal Medicine 04/02/24 Aubrey Montesinos, Shilpa [address] [place] [address] [phone] Pharmacist Internal Medicine 08/07/24 documented as of this encounter
--- OUTSIDE RECORDS SUMMARY | 2025-06-04 17:21 | XMS_ITS | Encounter Summary ---
Author Organization [employer] Address [address] [facility] 7t [place] [address] Care Team Providers Care Intelligence Director Name Role Phone Neetu Kyle Primary Care Provider [phone] Iris Clancy MD Primary Care Provider + Aubrey Montesinos PharmD Unavailable [phone] Reason for Visit * Reason Onset Date Comments Letter Request 07/13/2023 Encounter Details Date Type Department Care Team ([facility] st Contact Info) Description 07/13/2023 Telephone [facility] MEDICINE [address] [place] [address] Neetu Kyle FNP [address] [place] [address] Letter Request Social History Tobacco Use Types [...] Care Team (Late st Contact Info) Description 06/08/2025 9:45 AM EST Office Visit [facility] MEDICINE [address] [place] [address] Iris Clancy MD [address] [place] [address] 08/27/2025 12:45 PM EST Office Visit [facility] ADULT DENTAL [address] [place] [address] Belle Simms [address] [place] [address] documented as of this encounter Visit Diagnoses Not on filedocumented in this encounter Additional Health Concerns Assessment Noted Time PHQ-9 Depression Total Score: 24 023 3:56 PM EDT documented as of this encounter Care Teams Intelligence Director Relationship Specialty Start Date End Date Neetu Kyle FNP [address] [place] [address] PCP - General Family Medicine 09/19/22 04/01/24 Iris Clancy MD [address] [place] [phone] PCP - General Internal Medicine 04/02/24 Aubrey Montesinos, ArbenD [address] [place] [address] Pharmacist Internal Medicine 08/07/24 documented as of this encounter
--- OUTSIDE RECORDS SUMMARY | 2025-06-04 17:21 | XMS_ITS | Encounter Summary ---
Author Organization [employer] Address [address] [facility] 7t [place] [address] Care Team Providers Care Cloth Grader Name Role Phone Neetu Kyle Primary Care Provider [phone] Iris Clancy MD Primary Care Provider + Aubrey Montesinos PharmD Unavailable [phone] Encounter Details Date Type Department Care Team (Late st Contact Info) Description 06/01/2023 Orders Only [facility] [address] [place] [address] Neetu Kyle FNP [address] [place] [address] Social History Tobacco Use Types Packs/Day Years [...] Description 06/08/2025 9:45 AM EST Office Visit [facility] MEDICINE [address] [place] [address] Iris Clancy MD [address] [place] [address] 08/27/2025 12:45 PM EST Office Visit [facility] ADULT DENTAL [address] [place] [address] Mendez Belle [address] [place] [address] documented as of this encounter Visit Diagnoses Not on filedocumented in this encounter Additional Health Concerns Assessment Noted Time PHQ-9 Depression Total Score: 24 023 3:56 PM EDT documented as of this encounter Care Teams Cloth Grader Relationship Specialty Start Date End Date Neetu Kyle FNP [address] [place] [address] PCP - General Family Medicine 09/19/22 04/01/24 Iris Clancy MD [address] [place] [address] PCP - General Internal Medicine 04/02/24 Aubrey Montesinos, PharmD [address] [place] [address] Pharmacist Internal Medicine 08/07/24 documented as of this encounter
--- OUTSIDE RECORDS SUMMARY | 2025-06-04 17:21 | XMS_ITS | Encounter Summary ---
Author Organization [employer] Address [address] [facility] 7t [place] [address] Care Team Providers Care Education Rn Name Role Phone Neetu Kyel Primary Care Provider [phone] Iris Clancy MD Primary Care Provider + Aubrey Montesinos PharmD Unavailable [phone] Reason for Visit * Reason Comments Med Refill Encounter Details Date Type Department Care Team (Late st Contact Info) Description 08/13/2023 Refill [facility] MEDICINE [address] [place] [address] Neetu Kyle FNP [address] [place] [address] Social History Tobacco Use Types Packs/Day Years [...] with others, in a hotel, in a fdc, living outside on the street, on a [...] Description 06/08/2025 9:45 AM EST Office Visit [facility] MEDICINE [address] [place] [address] Iris Clancy MD [address] [place] [address] 08/27/2025 12:45 PM EST Office Visit [facility] ADULT DENTAL [address] [place] [address] Mendez Belle [address] [place] [address] documented as of this encounter Visit Diagnoses Not on filedocumented in this encounter Additional Health Concerns Assessment Noted Time PHQ-9 Depression Total Score: 24 023 3:56 PM EDT documented as of this encounter Care Teams Education Rn Relationship Specialty Start Date End Date Neetu Kyle FNP [address] [place] [address] PCP - General Family Medicine 09/19/22 04/01/24 Iris Clancy MD [address] [place] [phone] PCP - General Internal Medicine 04/02/24 Aubrey Montesinos, ArbenD [address] [place] [phone] Pharmacist Internal Medicine 08/07/24 documented as of this encounter
--- OUTSIDE RECORDS SUMMARY | 2025-06-04 17:21 | XMS_ITS | Encounter Summary ---
Author Organization [employer] Address [address] [facility] 7t [place] [address] Care Team Providers Care Concrete Panel Installer Name Role Phone Iris Clancy MD Primary Care Provider + Aubrey Montesinos PharmD Unavailable [phone] Reason for Visit * Reason Comments Med Refill Encounter Details Date Type Department Care Team ([facility] st Contact Info) Description 12/09/2024 Refill [facility] MEDICINE [address] [place] [address] Iris Clancy MD [address] [place] [address] Social History Tobacco Use Types Packs/Day Years [...] Description 06/08/2025 9:45 AM EST Office Visit [facility] MEDICINE [address] [place] [address] Iris Clancy MD [address] [place] [address] 08/27/2025 12:45 PM EST Office Visit [facility] ADULT DENTAL [address] [place] [address] Mendez, Belle [address] [place] [address] documented as of this encounter Visit Diagnoses Not on filedocumented in this encounter Additional Health Concerns Assessment Noted Time PHQ-9 Depression Total Score: 4 11/14/19 25 3:23 PM EDT documented as of this encounter Care Teams Concrete Panel Installer Relationship Specialty Start Date End Date Iris Clancy MD [address] [place] [phone] PCP - General Internal Medicine 04/02/24 Aubrey Montesinos, ArbenD [address] [place] [address] Pharmacist Internal Medicine 08/07/24 documented as of this encounter
--- OUTSIDE RECORDS SUMMARY | 2025-06-04 17:21 | XMS_ITS | Encounter Summary ---
Author Organization [employer] Address [address] [place] [address] 7t [place] [address] Care Team Providers Care Is Architect Name Role Phone Neetu Kyle Primary Care Provider [phone] Iris Clancy MD Primary Care Provider + Aubrey Montesinos PharmD Unavailable [phone] Encounter Details Date Type Department Care Team ([facility] st Contact Info) Description 07/20/2023 [facility] Health Information Management [address] [place] [address] Neetu Kyle FNP [address] [place] [address] Social History Tobacco Use Types Packs/Day Years [...] Description 06/08/2025 9:45 AM EST Office Visit [facility] MEDICINE [address] [place] [address] Iris Clancy MD [address] [place] [address] 08/27/2025 12:45 PM EST Office Visit [facility] ADULT DENTAL [address] [place] [address] MendezAdalbertoBelle [address] [place] [address] documented as of this encounter Visit Diagnoses Not on filedocumented in this encounter Additional Health Concerns Assessment Noted Time PHQ-9 Depression Total Score: 24 023 3:56 PM EDT documented as of this encounter Care Teams Is Architect Relationship Specialty Start Date End Date Neetu Kyle FNP [address] [place] [address] PCP - General Family Medicine 09/19/22 04/01/24 Irsi Clancy MD [address] [place] [address] PCP - General Internal Medicine 04/02/24 Aubrey Montesinos, PharmD [address] [place] [address] Pharmacist Internal Medicine 08/07/24 documented as of this encounter
--- OUTSIDE RECORDS SUMMARY | 2025-06-04 17:21 | XMS_ITS | Encounter Summary ---
Author Organization [employer] Address [address] [place] [address] 7t [place] [address] Care Team Providers Care Improvement Manager Name Role Phone Neetu Kyle Primary Care Provider [phone] Iris Clancy MD Primary Care Provider + Aubrey Montesinos PharmD Unavailable [phone] Reason for Visit * Reason Onset Date Comments Nurse Triage 04/06/2023 Encounter Details Date Type Department Care Team (Late st Contact Info) Description 04/06/[address] [facility] MEDICINE [address] [place] [address] Neetu Kyle FNP [address] [place] [address] Nurse Triage Social History Tobacco Use Types [...] difficult 04/06/2023 11:34 AM EDT Briana Flannery DISHTANK OPERATOR * Over the last 2 weeks, how often have you been bothered by any of the following problems? Question Answer Date of Assessment Author Feeling nervous, anxious, or on edge 3 04/06/2023 11:34 AM EDT Remington Flannery DISHTANK OPERATOR Not being able to stop or control worrying 3 04/06/2023 11:34 AM EDT Remington Flannery DISHTANK OPERATOR Worrying too much about different things 3 04/06/2023 11:34 AM EDT Remington Flannery DISHTANK OPERATOR Trouble relaxing 3 04/06/2023 11:34 AM EDT Briana Flannery DISHTANK OPERATOR Being so restless that it is hard to sit still 3 04/06/2023 11:34 AM EDT Remington Flannery DISHTANK OPERATOR Becoming easily annoyed or irritable 3 04/06/2023 11:34 AM EDT Remington Flannery DISHTANK OPERATOR Feeling afraid as if something awful might happen 3 04/06/2023 11:34 AM EDT Briana Linares DISHTANK OPERATOR ANTHONY-7 Total Score 21 04/06/2023 11:34 AM EDT Briana Flannery DISHTANK OPERATOR * Over the past 2 weeks, how often have you been bothered by any of the following problems? Question Answer Date of Assessment Author Little interest or pleasure in doing things Nearly every day 04/06/2023 11:34 AM EDT Briana Flannery, DISHTANK OPERATOR Feeling down, depressed, or hopeless Nearly every day 04/06/2023 11:34 AM EDT Briana Flannery, DISHTANK OPERATOR Trouble falling or staying asleep, or sleeping too much Several days 04/06/2023 11:34 AM EDT Briana Flannery, DISHTANK OPERATOR Feeling tired or having little energy Nearly [...] Pt was sent out by ambulance to [facility] and was put in the waiting room. While in waiting room Pt reports there was a homeless man who was screaming and yelling and Pt became more anxious and called neighbor to belt picker and bring home. Pt calls today with continued anxiety, Pt reports has never told PCP aboutthis because, I don't like to speak about it . Pt is desiring help at this time. Pt is not suicidal and doesn't want to hurt anyone else. Pt is advised to come to [facility] today and Pt reports that Pt lives just a few minutes away and will start walking over there. Call to Lashonda in [facility] to give inform ation regarding Pt and call to Dedra in behavioral health. [facility] PLEASE call behavioral health when Pt arrives. [...] school or work). Pt did go to [facility] for anxiety attack but left due to anxiety getting worse in wait room. The caller accepted this outcome Please contact pt at [phone] (Belarusian) documented in this encounter Plan of Treatment Upcoming Encounters Date Type Department Care Team (Late st Contact Info) Description 06/08/2025 9:45 AM EST Office Visit [facility] MEDICINE [address] [place] [address] Iris Clancy MD [address] [place] [address] 08/27/2025 12:45 PM EST Office Visit [facility] ADULT DENTAL [address] [place] [address] Belle Simms [address] [place] [address] documented as of this encounter Visit Diagnoses Not on filedocumented in this encounter Additional Health Concerns Assessment Noted Time PHQ-9 Depression Total Score: 19 023 11:34 AM EDT documented as of this encounter Care Teams Improvement Manager Relationship Specialty Start Date End Date Neetu Kyle FNP [address] [place] [address] PCP - General Family Medicine 09/19/22 04/01/24 Iris Clancy MD [address] [place] [address] PCP - General Internal Medicine 04/02/24 Aubrey Montesinos, Shilpa [address] [place] [address] Pharmacist Internal Medicine 08/07/24 documented as of this encounter
--- OUTSIDE RECORDS SUMMARY | 2025-06-04 17:21 | XMS_ITS | Encounter Summary ---
Author Organization [employer] Address [address] [place] [address] 7[address] [place] [address] Care Team Providers Care Sample Tester Name Role Phone Neetu Kyle Primary Care Provider [phone] Iris Clancy MD Primary Care Provider + Aubrey Montesinos PharmD Unavailable [phone] Encounter Details Date Type Department Care Team (Late st Contact Info) Description 02/19/2023 Orders Only [facility] MEDICINE [address] [place] [address] Neetu Kyle FNP [address] [place] [address] Other specified hearing loss of both ears [...] 9:45 AM EST Office Visit [facility] MEDICINE [address] [place] [address] Iris Clancy MD [address] [place] [address] 08/27/2025 12:45 PM EST Office Visit [facility] ADULT DENTAL [address] [place], [place] [phone] Belle Simms [address] [place] [address] documented as of this encounter Visit Diagnoses Diagnosis Other specified hearing loss of both ears- Primary documented in this encounter Additional Health Concerns Assessment Noted Time PHQ-9 Depression Total Score: 8 01/11/20 10:51 AM EDT documented as of this encounter Care Teams Sample Tester Relationship Specialty Start Date End Date Neetu Kyle FNP [address] [place], [place] [phone] PCP - General Family Medicine 09/19/22 04/01/24 Iris Clancy MD 230 [place], [place] [phone] PCP - General Internal Medicine 04/02/24 Aubrey Montesinos PharmD [address] [place] [address] [phone] Pharmacist Internal Medicine 08/07/24 documented as of this encounter
--- OUTSIDE RECORDS SUMMARY | 2025-06-04 17:22 | XMS_ITS | Clinical Summary ---
Author Organization [employer] Address [address] [facility] 7t [place] [address] Care Team Providers Care Infrastructure Tech Name Role Phone Iris Clancy MD Primary Care Provider + Aubrey Montesinos PharmD Unavailable [phone] Allergies No known active allergies Medications * [...] cravings 144 lozenge 1 08/07/19 25 Active fluticasone (Flonase) 50 MCG/ACT nasal [...] 90 capsule 11 02/06/20 25 026 Active cetirizine (ZyrTEC) 10 MG tablet TAKE 1 TABLET BY MOUTH EVERY MORNING 90 tablet 03/11/20 25 Active FT Stool Softener 50-8.6 MG tablet TAKE 1 TABLET BY MOUTH EVERY MORNING 90 tablet 1 03/31/20 25 Active traZODone (Desyrel) 50 MG tablet TAKE 1 TABLET BY MOUTH AT BEDTIME 90 tablet 1 05/27/20 25 Active traZODone (Desyrel) 50 MG tablet TAKE 1 TABLET BY MOUTH AT BEDTIME 90 tablet 03/04/20 25 025 Discontinued Active Problems Problem Noted [...] she needs a referral to orthopedics or husbandry technician Assessment & Plan (05/13/2024 3:26 PM EDT): [...] spur Reconsult as needed, will refer to operation specialist for steroid injection. Plantar fasciitis, bilateral 08/23/2023 Assessment & Plan (02/05/2025 10:28 AM EDT): I will send a new prescription for night splints to use on both feet nightly and follow-up with me in 3 months. If symptoms do not improve within the first 2 weeks of using the night splints nightly, she can call for referral to operation specialist Advised to do warm soaks with Epsom [...] for help PLAN: 1. Follow up with [facility]: Recommended for follow-up: As needed 2. Patient goal is stabilization of symptoms 3. Behavioral Recommendations a. Comply with respite when a bed is avaialble b. Comply with medications and attend psychiatry appointment, when established c. Utilize [facility] if symptoms worsen d. Reach out to [facility] for additional support ANTHONY (generalized anxiety disorder) 04/06/2023 Severe episode of recurrent major depressive disorder, without psychotic features (CMS/HCC) 04/06/2023 Assessment & Plan (11/13/2024 3:40 PM EDT): Doing better after seeing psychotherapist, continue follow-up with [facility] Will DC fluoxetine due to potential weight [...] thru their agency. Patient was provided with [facility] information. At this time Ebony Edwards meets criteria for Visit Diagnoses: Problem List Items Addressed This Visit Other ANTHONY (generalized anxiety disorder) Severe episode of recurrent major depressive disorder, without psychotic features (CMS/HCC) Patient ready to address current needs Yes Strengths include service in place PLAN: 1. Follow up with [facility]: Not recommended for follow-up 2. Patient goal is to decrease symptoms 3. Behavioral Recommendations A. Patient will continue to meet with therapist B. Patient will utilize additional coping skills provided C. Patient may reach out to [facility], if needed D. Patient will utilize [facility], if symptoms worsen Exercise counseling 01/10/2023 Seizure disorder (CMS/HCC) 01/10/2023 Assessment & Plan (02/05/2025 10:27 AM [...] [facility] [place] [facility] [place] current medications Insomnia 01/10/2023 Overview (04/06/2023): [...] Encounters Date Type Department Care Team Description 06/02/2025 Telephone [facility] MEDICINE [address] [place] [address] Iris Clancy MD CHART PREP 05/27/2025 Refill [facility] CHC MED & PEDS [address] [place], [place] [phone] Iris Clancy MD 03/30/2025 Refill [facility] CHC MED & PEDS [address] [place], [place] [phone] Iris Clancy MD 03/27/2025 Telephone [facility] MEDICINE [address] [place] [address] Iris Clancy MD Referral 03/25/2025 Telephone [facility] MEDICINE [address] [place] [address] Iris Clancy MD november recall 03/19/2025 Telephone [facility] MEDICINE [address] [place] [address] Iris Clancy MD Referral 03/10/2025 Refill [facility] MEDICINE [address] [place] [address] Iris Clancy MD 03/04/2025 Refill [facility] CHC MED & PEDS [address] [place] [address] Iris Clancy MD from Last 3 Months [...] Description 06/08/2025 9:45 AM EST Office Visit [facility] MEDICINE [address] [place], [place] [phone] Iris Clancy MD [address] [place] [address] 08/27/2025 12:45 PM EST Office Visit [facility] ADULT DENTAL [address] [place] [address] Belle Simms [address] [place] [address] Health Maintenance Due Date Last Done Comments [...] PM EDT) Hepatitis A IgM Nonreactive Nonreactive [facility] Comment:IgM antibodies to BAILEY V not detected; does not exclude earlyacute or recovered HAV infection. ~Hepatitis B Surface Antibody REACTIVE Nonreactive [facility] Comment:REACTIVE: > 11.99 mI U/mL Hepatitis B Core Antibody Nonreactive Nonreactive [facility] Hepatitis C Antibody Nonreactive Nonreactive [facility] Comment:Antibodies to HCV no t detected; does not exclude early acuteHCV infection. Hepatitis B Surface Ag Negative Negative [facility] Blood 05/13/2024 3:20 PM EDT 05/13/2024 4:20 PM EDT Iris Clancy MD LAB BLOOD ORDERABLES Fin al Result [facility] [address] [place] [phone] [phone] * (ABNORMAL) Lipid Panel, Standard (05/29/2023 3:36 PM EDT) Triglycerides 119 <150 mg/dL [facility] Comment:Desirable Triglyceri de: less than 150 mg/dLBorderline High Triglyceride 150-199 mg/dLHigh Triglyceride: 200-499 mg/dLVery High Triglyceride: greater than or equal to 5OO mg/dL Cholesterol 126 <200 mg/dL [facility] Comment:Desirable Cholestero l: less than 200 mg/dLBorderline High Cholesterol: 200-239 mg/dLHigh Cholesterol: greater than 239 mg/dL LDL Cholesterol Calculated 67 <100 mg/dL [facility] Comment:Desirable LDL: less than 100 mg/dLNear Optimal/Above Optimal LDL: 110- 129 mg/dLBorderline High LDL: 130-159 mg/dLHigh LDL: 160-189 mg/dLVery High LDL: greater than or equal to 190 mg/dL HDL Cholesterol 36(L) >40 mg/dL [facility] Comment:Desirable HDL: great er than 40 mg/dL Note: This HDL assay may give artificially low results in patients with liver disease. Blood Venous blood specimen / Unknown 05/29/2023 3:36 PM EDT 05/29/2023 5:53 PM EDT Neetu Kyle [employer]ARD[employer] FLOOR INSTALLER LAB BLOOD ORDERABLES Final Resu lt [facility] [address] [place] [phone] * Pap Smear (01/09/2023 3:04 PM EDT) 01/09/2023 3:04 PM EDT 01/11/2023 8:00 AM EDT Narrative [facility] - 2023 8:52 AM EDT ----- ------- Name: Ebony Pacheco Age/Sex: 32/F : 1990 Unit#: [id number] Attend Dr: Contreras Yee MD Re01/09/23 Status: DEP REF Location: [facility] Disch: ----- ------- SPEC : [id number] RECD: 01/11/23 STATUS: ELIZABETH WILBURN NUM: [id number] ELIZABETH: 01/09/23-1504 [facility] DR: Contreras Yee MD ENTERED: 01/12/23 SP TYPE: Pap Smr OTHR DR: Neetu Kyle FOREIGN CAR MECHANIC ORDERED: Pap Smear Interpretation Satisfactory for evaluation. Negative for intraepithelial lesion or malignancy. HPV mRNA E6/E7: NOT DETECTED This assay detects E6/E7 viral messenger RNA (mRNA) from 14 high-risk HPV types (16, 18, 31, 33, 35, 39, 45, 51, 52, 56, 58, 59, 66, 68) HPV testing performed by [facility], [place], [place]. See reference laboratory pion of the EMR for entire report. Clinical Information LMP: Unknown date Previous PAP test: Unknown date/findings Other history: Abnormal uterine and vaginal bleeding Material Received ThinPrep-Cervical Copies To: Neetu Kyle FOREIGN CAR MECHANIC [address] [place] [address] Contreras Yee MD [address] [place] [address] Dr. Dyer [address] [place] [phone] ----- ------- Signed (signature on file) MANNY Osorio (ASCP) 01/26/23 0852 ----- ------- END OF REPORT [facility] External Provider LAB CYT OLOGY ORDERABLES Final Result [facility] [address] [place] [phone] [phone] * HIV 1/2 ANTIGEN/ANTIBODY,FOURTH GENERATION W/RFL (03/20/2022 2:38 PM EDT) HIV-1/2 ANTIGEN AND ANTIBODIES, 4TH GENERATION W/ REFLEX NON-REACT JOSIAS NON-REACT JOSIAS [facility] Comment: HIV-1 antigen and HIV-1/HIV-2 [...] purpose. For additional information please refer to http://education.C3 Jian/faq/CED962 (This link is being provided for informational/ educational purposes only.) The performance of this assay has not been clinically validated in patients less than 2 years old. 03/20/2022 2:38 PM EDT us Vince Castañeda MD LAB BLOOD ORDERABLES Final R esult [facility] [address] from Last 3 Months or Most Recently Relevant to Health Maintenance Insurance [facility] [place] C[place]-[facility] MEDICAID STAND ADULT Care Teams Infrastructure Tech Relationship Specialty Start Date End Date Iris Clancy MD [address] [place] [address] PCP - General Internal Medicine 04/02/24 Aubrey Montesinos, PharmD [address] [place] [address] Pharmacist Internal Medicine 08/07/24
--- OUTSIDE RECORDS SUMMARY | 2025-06-04 17:22 | XMS_ITS | Encounter Summary ---
Author Organization [employer] Address [address] [facility] 7t [place] [address] Care Team Providers Care Assembler Wet Wash Name Role Phone Neetu Kyle Primary Care Provider [phone] Iris Clancy MD Primary Care Provider + Aubrey Montesinos PharmD Unavailable [phone] Reason for Visit * Reason Onset Date Comments Referral 11/16/2023 Encounter Details Date Type Department Care Team ([facility] st Contact Info) Description 11/16/2023 Telephone [facility] MEDICINE [address] [place] [address] Neetu Kyle FNP [address] [place] [address] Referral Social History Tobacco Use Types Packs/Day [...] to vision referral Please contact pt at [phone] * Telephone Encounter - Alondra Oakley RN - 11/16/2023 1:27 PM EDT T/C to pt. For below message, pt. Also informed that there is wait time right now for [facility] vision center. Pt. Verbally agreed and understood. * Telephone Encounter - Alondra Oakley RN - 11/16/2023 1:26 PM EDT Please review and advise for below request. * Telephone Encounter - Janny Oviedo - 11/16/2023 11:45 AM EDT Tc from pt requesting [facility] vision center referral. documented in this encounter Plan of Treatment Upcoming Encounters Date Type Department Care Team (Late st Contact Info) Description 06/08/2025 9:45 AM EST Office Visit [facility] MEDICINE [address] [place] [address] Iris Clancy MD [address] [place] [address] 08/27/2025 12:45 PM EST Office Visit [facility] ADULT DENTAL [address] [place] [address] Belle Simms [address] [place] [address] documented as of this encounter Visit Diagnoses Not on filedocumented in this encounter Additional Health Concerns Assessment Noted Time PHQ-9 Depression Total Score: 24 023 3:56 PM EDT documented as of this encounter Care Teams Assembler Wet Wash Relationship Specialty Start Date End Date Neetu [place] [address] PCP - General Family Medicine 09/19/22 04/01/[address] [place], [place] [phone] PCP - General Internal Medicine 04/02/24 Aubrey Montesinos, ArbenD [address] [place] [phone] Pharmacist Internal Medicine 08/07/24 documented as of this encounter
--- OUTSIDE RECORDS SUMMARY | 2025-06-04 17:22 | XMS_ITS | Clinical Summary ---
Author Organization [address] [place] [address] Address [address] [place] [address] Phone Care Team Providers Care Treasury Assistant Name Role Phone Latoya Millard DIANDRA Primary Care Provider [phone] Allergies No known active allergies Medications levETIRAcetam [...] of 3 - 19+ 3-dose series) 01/27/2008 HPV Vaccines (1 - 3-dose SCD M series) 01/27/2016 Cervical Cancer Screening: P ap Smear 01/13/2019 01/14/2016 HIV Screening 05/24/2024 Hepatitis C Screening 05/24/2024 Social Influencers of Health Screening 05/24/2024 Depression Screening 07/30/2024 COVID-19 Vaccine ( - 2023-2 5 season) 2025 Influenza Vaccine (#1) 2025 RSV Immunization Adult Patie nts (1 - 1-dose 75+ series) 01/27/2064 HIB Vaccines Aged Out No longer eligi [...] No interpreta tion,abstr acted us Historical Provider MD HEALTH MAINTENANCE Final Result from Last 3 Months or Most Recently Relevant to Health Maintenance Care Teams Treasury Assistant Relationship Specialty Start Date End Date Latoya Millard FNP [address] [place] [phone] PCP - General 02/15/24
--- OUTSIDE RECORDS SUMMARY | 2025-06-04 17:22 | XMS_ITS | Encounter Summary ---
Author Organization [employer] Address [address] [facility] [address] 7t [place] [address] Care Team Providers Care Academic Support Assistant Name Role Phone Neetu Kyle Primary Care Provider [phone] Iris Clancy MD Primary Care Provider + Aubrey Montesinos PharmD Unavailable [phone] Encounter Details Date Type Department Care Team ([facility] st Contact Info) Description 03/28/2024 Orders Only [facility] CHC MED & PEDS [address] [place] [address] Neetu Kyle FNP [address] [place] [address] Routine health maintenance (Primary Dx) Social History [...] Description 06/08/2025 9:45 AM EST Office Visit [facility] MEDICINE [address] [place] [phone] Iris Clancy MD [address] [place] [address] 08/27/2025 12:45 PM EST Office Visit [facility] ADULT DENTAL [address] [place] [address] Mendez, Belle [address] [place] [address] documented as of this encounter Visit Diagnoses Diagnosis Routine health maintenance- Primary Unspecified examination documented in this encounter Additional Health Concerns Assessment Noted Time PHQ-9 Depression Total Score: 24 023 3:56 PM EDT documented as of this encounter Care Teams Academic Support Assistant Relationship Specialty Start Date End Date Neetu Kyle FNP [address] [place] [address] PCP - General Family Medicine 09/19/22 04/01/24 Iris Clancy MD [address] [place] [address] PCP - General Internal Medicine 04/02/24 Aubrey Montesinos, ArbenD [address] [place] [phone] Pharmacist Internal Medicine 08/07/24 documented as of this encounter
--- OUTSIDE RECORDS SUMMARY | 2025-06-04 17:22 | XMS_ITS | Encounter Summary ---
Author Organization [employer] Address 75 [facility] 7t [place] [address] Care Team Providers Care Light Technician Name Role Phone Iris Clancy MD Primary Care Provider + Aubrey Montesinos PharmD Unavailable Reason for Visit * Reason Comments Med Refill Encounter Details Date Type Department Care Team ([facility] st Contact Info) Description 12/10/2024 Refill [facility] MEDICINE [address] [place] [address] Iris Clancy MD [address] [place] [address] Social History Tobacco Use Types Packs/Day Years [...] 9:45 AM EST Office Visit [facility] MEDICINE [address] [place] [address] Iris Clancy MD [address] [place] [address] 08/27/2025 12:45 PM EST Office Visit [facility] ADULT DENTAL [address] [place] [address] Mendez, Belle [address] [place] [address] documented as of this encounter Visit Diagnoses Not on filedocumented in this encounter Additional Health Concerns Assessment Noted Time PHQ-9 Depression Total Score: 4 11/14/19 25 3:23 PM EDT documented as of this encounter Care Teams Light Technician Relationship Specialty Start Date End Date Iris Clancy MD [address] [place] [address] PCP - General Internal Medicine 04/02/24 Aubrey Montesinos, ArbenD [address] [place] [address] Pharmacist Internal Medicine 08/07/24 documented as of this encounter
--- OUTSIDE RECORDS SUMMARY | 2025-06-04 17:22 | XMS_ITS | Encounter Summary ---
Author Organization [employer] Address [address] [facility] 7t [place] [address] Care Team Providers Care Steam Flattener Name Role Phone Neetu Kyle Primary Care Provider [phone] Iris Clancy MD Primary Care Provider + Aubrey Montesinos PharmD Unavailable [phone] Reason for Visit * Reason Onset Date Comments Medication Question 01/07/2024 Encounter Details Date Type Department Care Team ([facility] st Contact Info) Description 01/07/2024 Telephone [facility] MEDICINE [address] [place] [address] Neetu Kyle FNP [address] [place] [address] Medication Question Social History Tobacco Use Types [...] to not work. Please contact pt at [phone] documented in this encounter Plan of Treatment Upcoming Encounters Date Type Department Care Team (Late st Contact Info) Description 06/08/2025 9:45 AM EST Office Visit [facility] MEDICINE [address] [place] [address] Iris Clancy MD [address] [place] [address] 08/27/2025 12:45 PM EST Office Visit [facility] ADULT DENTAL [address] [place] [address] Belle Simms [address] [place] [address] documented as of this encounter Visit Diagnoses Not on filedocumented in this encounter Additional Health Concerns Assessment Noted Time PHQ-9 Depression Total Score: 24 023 3:56 PM EDT documented as of this encounter Care Teams Steam Flattener Relationship Specialty Start Date End Date Neetu Kyle FNP [address] [place] [address] PCP - General Family Medicine 09/19/22 04/01/24 Iris Clancy MD [address] [place], [place] [phone] PCP - General Internal Medicine 04/02/24 Aubrey Montesinos PharmD [address] [place] [address] Pharmacist Internal Medicine 08/07/24 documented as of this encounter
--- OUTSIDE RECORDS SUMMARY | 2025-06-04 17:22 | XMS_ITS | Encounter Summary ---
Author Organization [employer] Address 75 [facility] 7t [place] [address] Care Team Providers Care Dianeticist Name Role Phone Iris Clancy MD Primary Care Provider + Aubrey Montesinos PharmD Unavailable [phone] Reason for Visit * Reason Onset Date Comments CHART PREP 06/02/2025 Encounter Details Date Type Department Care Team ([facility] st Contact Info) Description 06/02/2025 Telephone [facility] MEDICINE [address] [place] [address] Iris Clancy MD [address] [place] [address] CHART PREP Social History Tobacco Use Types Packs/Day Years Used Date Smoking Tobacco: Former Cigarettes 0.3 13 Passive Smoke Exposure: Past Smokeless Tobacco: Never Alcohol Use Standard Drinks/Week [...] encounter Miscellaneous Notes * Telephone Encounter - Jessica Hodges [place] - 06/02/2025 2:54 PM EST Chart Prep Labs: not applicable Images: done Referrals: complete No OT appt on [facility] Vaccines due: Flu, Hep B, and HPV Screenings: PISQ, LMP Overdue care gaps: SBIRT Upcoming appts - HISTORY DEPARTMENT CHAIR 06/04 @ 9:30 AM - Ortho 06/24 @ 9:30 AM - Neuro 07/06 @ 11:50 AM documented in this encounter Plan of Treatment Upcoming Encounters Date Type Department Care Team (Late st Contact Info) Description 06/08/2025 9:45 AM EST Office Visit [facility] MEDICINE [address] [place] [address] Iris Clancy MD [address] [place] [address] 08/27/2025 12:45 PM EST Office Visit [facility] ADULT DENTAL [address] [place] [address] Belle Simms [address] [place] [address] documented as of this encounter Visit Diagnoses Not on filedocumented in this encounter Additional Health Concerns Assessment Noted Time PHQ-9 Depression Total Score: 4 11/14/19 25 3:23 PM EDT documented as of this encounter Care Teams Dianeticist Relationship Specialty Start Date End Date Iris Clancy MD [address] [place] [address] PCP - General Internal Medicine 04/02/24 Aubrey Montesinos, ArbenD [address] [place] [address] Pharmacist Internal Medicine 08/07/24 documented as of this encounter
== END 2025-06-04 14:33 | disposition home or self-care (01) ==
LOC: HO.HWS 14:10
PROVIDERS: PCP Internal Medicine; Visit Provider Obstetrics & Gynecology
DX: Z01.419 Encounter for gynecological examination (general) (routine) without abnormal findings (principal); N76.0 Acute vaginitis
CPT/HCPCS: 99395; 99459

== ENCOUNTER 2025-06-04 14:09 | Outpatient (REF) | payer MEDICAID, SELFPAY ==
[2025-06-05 04:26] LABS: Bacterial Vaginosis PCR POSITIVE (Negative); Candida Group PCR NOT DETECTED (Not Detect); Candida glab krusei PCR NOT DETECTED (Not Detect); Trichomonas vaginalis PCR NOT DETECTED (Not Detect)
[2025-06-05 04:57] LABS: CT PCR NOT DETECTED (Not Detect.); NG PCR NOT DETECTED (Not Detect.)
== END 2025-06-04 14:10 | disposition home or self-care (01) ==
LOC: HO.LNP 14:09
PROVIDERS: PCP Internal Medicine; Visit Provider Obstetrics & Gynecology
DX: Z01.419 Encounter for gynecological examination (general) (routine) without abnormal findings (principal); N76.0 Acute vaginitis; Z20.2 Contact with and (suspected) exposure to infections with a predominantly sexual mode of transmission
CPT/HCPCS: 81515; 87491; 87591; 99395

== ENCOUNTER 2025-06-24 09:11 | Outpatient (AMB) | payer MEDICAID, SELFPAY ==
[2025-06-24 09:23] VITALS: BMI 37.8
--- NOTE | 2025-06-24 09:23 | A.OFFVIS_ITS ---
Vital Signs 06/24/25 09:23 Height 5 ft 1 in Weight 200 lb BMI 37.8 Intake Visit Reasons: OV- Left hand pain and swelling Intake Note: Ebony is a 35 year old female who presents today for follow up status post Left Cubital Tunnel Release, DOS: 03/12/[address] Hutchison. She was last seen on 03/25/25 for a wound check after striking her elbow while carrying a heavy jug of water. She was having some mild pain and erythema surrounding the incision; a one-week course of Augmentin was sent. Patient to follow up in 1 week. Today, patient reports she is still experiencing pain on the ulnar aspect of her left elbow down to the hand. She denies numbness and tingling. At this time she is not taking any pain medications. Allergies No Known Drug Allergies Allergy (Unknown, Verified 06/24/25 09:25) U HPI HPI OV- Left hand pain and swelling: Details: Ebony is a 35 year old female who presents today for follow up status post Left Cubital Tunnel Release, DOS: 03/12/[address] Hutchison. She was last seen on 03/25/25 for a wound check after striking her elbow while carrying a heavy jug of water. She was having some mild pain and erythema surrounding the incision; a one-week course of Augmentin was sent. Patient to follow up in 1 week. Today, patient reports she is still experiencing pain on the ulnar aspect of her left elbow down to the hand. Patient reports that this pain has improved significantly over time, but is still bothersome enough where she felt re- evaluation would be a good idea. She denies numbness and tingling. At this time she is not taking any pain medications [facility] Medical History Multiple falls Migraine Cough Asthma Obesity (BMI 30-39.9) Heart palpitations Arthritis Glucosuria Tobacco dependence Osteoarthritis Plantar fasciitis, bilateral Suicide ideation Depression Anxiety Constipation Insomnia Epilepsy Absence seizure Hx of meningitis Seizures Surgical History Hx of wisdom tooth extraction Hx of removal of cyst Hx of section Hx of tubal ligation Social History Are you a primary urgent care to a significant other at home: No Do you presently have visiting nurse or other home services: No Patient Tobacco Use Status: Former Tobacco user Tobacco use type: Cigarette Cigarettes Per Day: 3 Current occupational status: disabled Current occupation: right hand dominant Female Reproductive History Menstrual Age of Menarche: 10 Review of Systems Const All systems reviewed & are unremarkable except as noted in HPI and below Physical Exam Vital Signs: BMI result Body Mass Index 37.8 Const General: no acute distress and alert Orientation/consciousness: patient oriented x3 Neuro General: patient oriented x3 Extrem Other: The patient was alert oriented and in no acute distress The incision is well healed, no drainage or other evidence of infection Pain to palpation around the incision site Good elbow flexion and extension without pain. She can make a fist and extend all her digits Sensation is improved and now normal in the ulnar nerve distribution Psych Appearance: grossly normal Affect: normal affect Attitude: cooperative Assessment & Plan Assessment & Plan (1) Cubital tunnel syndrome, bilateral: Code(s): G56.23 - Lesion of ulnar nerve, bilateral upper limbs Category: Medical Plan Assessment & Plan: 1. Left cubital tunnel syndrome, S/P release DOS: 03/12/25 Patient appears to be recovering well postoperatively Patient is educated about the typical recovery course Patient appears to be recovering very well, and requires no further acute follow-up with us postoperatively Patient is educated and worrisome signs and symptoms, and should call us if they experience any of these, including but not limited to redness, swelling, increased pain, and discharge Patient understands this and is amenable to this plan 2. Right cubital tunnel syndrome, mild Patient will be booked for next available appointment to discuss right cubital tunnel release Patient understands this and is amenable to this plan Coding Level of Care Code Est Pt Level 3 (31987) Diagnoses Cubital tunnel syndrome, bilateral G56.23
--- OUTSIDE RECORDS SUMMARY | 2025-06-24 10:04 | XMS_ITS | Encounter Summary ---
Author Organization [employer] Address [address] [facility] 7t [place] [address] Care Team Providers Care E Commerce Project Manager Name Role Phone Neetu Kyle Primary Care Provider [phone] Iris Clancy MD Primary Care Provider + Aubrey Montesinos PharmD Unavailable [phone] Monika Chris RN Unavailable [phone] Elizabeth Mcqueen Unavailable Encounter Details Date Type Department Care Team (Late st Contact Info) Description 06/01/2023 Orders Only [facility] CHC MED & PEDS [address] [place] [address] Neetu Kyle FNP [address] [place] [address] Social History Tobacco Use Types Packs/Day Years [...] with others, in a hotel, in a custodial, living outside on the street, on a [...] Care Team (Late st Contact Info) Description 08/04/2025 11:45 AM EST Office Visit [facility] MEDICINE [address] [place] [address] Iris Clancy MD [address] [place] [address] 08/27/2025 12:45 PM EST Office Visit [facility] ADULT DENTAL [address] [place] [phone] Belle Simms [address] [place] [address] documented as of this encounter Visit Diagnoses Not on filedocumented in this encounter Additional Health Concerns Assessment Noted Time PHQ-9 Depression Total Score: 24 023 3:56 PM EDT documented as of this encounter Care Teams E Commerce Project Manager Relationship Specialty Start Date End Date Neetu Kyle FNP [address] [place] [phone] PCP - General Family Medicine 09/19/22 04/01/24 Iris Clancy MD [address] [place] [address] PCP - General Internal Medicine 04/02/24 Aubrey Montesinos, ArbenD [address] [place] [phone] Pharmacist Internal Medicine 08/07/24 Monika Chris, SUGAR [address] [place] [phone] Registered Nurse Family Medicine 06/10/25 Elizabeth Mcqueen 06/10/25 documented as of this encounter
--- OUTSIDE RECORDS SUMMARY | 2025-06-24 10:04 | XMS_ITS | Encounter Summary ---
Author Organization [employer] Address [address] [facility] 7t [place] [address] Care Team Providers Care Tow Truck Operator Name Role Phone Neetu Kyle Primary Care Provider [phone] Iris Clancy MD Primary Care Provider + Aubrey Montesinos PharmD Unavailable [phone] Monika Chris RN Unavailable [phone] Elizabeth Mcqueen Unavailable Reason for Visit * Reason Onset Date Comments Nurse Triage 04/06/2023 Encounter Details Date Type Department Care Team (Late st Contact Info) Description 04/06/2023 Telephone [facility] MEDICINE [address] [place], [place] [phone] Neetu Kyle FNP [address] [place], [place] [phone] Nurse Triage Social History Tobacco Use Types [...] 6 04/06/2023 11:34 AM EDT Edward Flannery BAND SAW OPERATOR * How difficult have these problems made it for you to do your work, take care of things at home, or get along with other people? Answer Date of Assessment Author Extremely difficult 04/06/2023 11:34 AM EDT Briana Mcelroy BAND SAW OPERATOR * Over the last 2 weeks, how often have you been bothered by any of the following problems? Question Answer Date of Assessment Author Feeling nervous, anxious, or on edge 3 04/06/2023 11:34 AM EDT Remington Flannery BAND SAW OPERATOR Not being able to stop or control worrying 3 04/06/2023 11:34 AM EDT Remington Flannery BAND SAW OPERATOR Worrying too much about different things 3 04/06/2023 11:34 AM EDT Remington Flannery BAND SAW OPERATOR Trouble relaxing 3 04/06/2023 11:34 AM EDT Briana Flannery BAND SAW OPERATOR Being so restless that it is hard to sit still 3 04/06/2023 11:34 AM EDT Remington Flannery BAND SAW OPERATOR Becoming easily annoyed or irritable 3 04/06/2023 11:34 AM EDT Remington Flannery destinee, BAND SAW OPERATOR Feeling afraid as if something awful might happen 3 04/06/2023 11:34 AM EDT Briana Linares, BAND SAW OPERATOR ANTHONY-7 Total Score 21 04/06/2023 11:34 AM EDT Briana Flannery BAND SAW OPERATOR * Over the past 2 weeks, how often have you been bothered by any of the following problems? Question Answer Date of Assessment Author Little interest or pleasure in doing things Nearly every day 04/06/2023 11:34 AM EDT Briana Flannery, BAND SAW OPERATOR Feeling down, depressed, or hopeless Nearly every day 04/06/2023 11:34 AM EDT Briana Flannery, BAND SAW OPERATOR Trouble falling or staying asleep, or sleeping too much Several days 04/06/2023 11:34 AM EDT Briana Flannery, BAND SAW OPERATOR Feeling tired or having little energy Nearly every day 04/06/2023 11:34 AM PEREZT Briana Flannery LICSW Poor appetite or overeating Nearly every day 04/06/2023 11:34 AM Briana Hammonds LICSW Feeling bad about yourself - or that you are a failure or have let yourself or your family down Several days 04/06/2023 11:34 AM Briana Hammonds LICSW Trouble concentrating on things, such as reading the newspaper or watching television Nearly every day 04/06/2023 11:34 AM PEREZT Briana Flannery LICSW Moving or speaking so slowly that other people could have noticed? Or the opposite - being so fidgety or restless that you have been moving around a lot more than usual. Not at all 04/06/2023 11:34 AM Briana Hammonds LICSW Thoughts that you would be better off or hurting yourself in some way More than half the days 04/06/2023 11:34 AM Briana Hammonds LICSW Patient Health Questionnaire-9 Score 19 04/06/2023 11:34 AM Briana Hammonds LICSW documented as of this encounter Miscellaneous Notes * Telephone Encounter - Raina Veras RN - 04/06/2023 9:26 AM EDT Triage call Pt reports, I was in [place] yesterday and had a panic attack that was very strong . Pt was sent out by ambulance to [facility] and was put in the waiting room. While in waiting room Pt reports there was a homeless man who was screaming and yelling and Pt became more anxious and called neighbor to crop picker and bring home. Pt calls today with continued anxiety, Pt reports has never told PCP aboutthis because, I don't like to speak about it . Pt is desiring help at this time. Pt is not suicidal and doesn't want to hurt anyone else. Pt is advised to come to [facility] today and Pt reports that Pt lives just a few minutes away and will start walking over there. Call to Lashonda in [facility] to give inform ation regarding Pt and call to Dedra in behavioral health. [facility] PLEASE call behavioral health when Pt [...] school or work). Pt did go to [facility] for anxiety attack but left due to anxiety getting worse in wait room. The caller accepted this outcome Please contact pt at [phone] (Mongolian) documented in this encounter Plan of Treatment Upcoming Encounters Date Type Department Care Team (Late st Contact Info) Description 08/04/2025 11:45 AM EST Office Visit [facility] MEDICINE [address] [place] [address] Iris Clancy MD [address] [place] [address] 08/27/2025 12:45 PM EST Office Visit [facility] ADULT DENTAL [address] [place] [address] Belle Simms [address] [place] [address] documented as of this encounter Visit Diagnoses Not on filedocumented in this encounter Additional Health Concerns Assessment Noted Time PHQ-9 Depression Total Score: 19 023 11:34 AM EDT documented as of this encounter Care Teams Tow Truck Operator Relationship Specialty Start Date End Date Neetu Kyle FNP [address] [place], [place] [phone] PCP - General Family Medicine 09/19/22 04/01/24 Iris Clancy MD [address] [place], [place] [phone] PCP - General Internal Medicine 04/02/24 Aubrey Montesinos, ArbenD [address] [place] [address] [phone] Pharmacist Internal Medicine 08/07/24 Monika Chris, SUGAR [address] [place] [address] [phone] Registered Nurse Family Medicine 06/10/25 Elizabeth Mcqueen 06/10/25 documented as of this encounter
--- OUTSIDE RECORDS SUMMARY | 2025-06-24 10:04 | XMS_ITS | Encounter Summary ---
Author Organization [employer] Address [address] [facility] 7t [place] [address] Care Team Providers Care Wash Oil Cooler Operator Name Role Phone Iris Clancy MD Primary Care Provider + Aubrey Montesinos PharmD Unavailable [phone] Monika Chris RN Unavailable [phone] Elizabeth Mcqueen Unavailable Reason for Visit * Reason Comments Care Management C3CM- FOLLOW UP CALL Encounter Details Date Type Department Care Team ([facility] st Contact Info) Description 06/23/2025 Patient Outreach [facility] MEDICINE [address] [place] [address] Iris Clancy MD [address] [place] [address] Care Management (C3CM- FOLLOW UP CALL/) Social History Tobacco Use Types Packs/Day Years Used Date Smoking Tobacco: Every Day Cigarettes 0.3 13 Passive Smoke Exposure: Past Smokeless Tobacco: Never Alcohol Use Standard Drinks/Week Comments Never 0 (1 standard drink = 0.6 oz pur e alcohol) Depression Answer Date Recorded Patient Health Questionnaire-9 Score 20 06/16/2025 Patient Health Questionnaire-9 Score 20 06/16/2025 Last PHQ-9: Questionnaire Data Not on file 1 08/16/2024 Housing Stability Answer Date Recorded What is your housing situation today? I have jonathan díaz 11/04/[address] you li ve. Do you have problems with any of the following? None of the above 11/04/2024 Food Insecurity Answer Date Recorded Within the past 12 months, y ou worried that your food would run out before you got money to buy more: Sometimes True 2024 Within the past 12 months,th e food you bought just didn't last and you didn't have enough money to get more: Sometimes True 06/10/2025 Transportation Answer Date Recorded In the past 12 months, has l ack of transportation kept you from medical appts, meetings, work or from getting things needed for daily living? No 11/04/2024 Utilities Answer Date Recorded In the past 12 months, has t he electric, gas, oil or water company threatened to shut off services in your home? Yes 06/10/2025 Depression Answer Date Recorded Patient Health Questionnaire-2 Score 1 06/16/2025 Internet Access Answer Date Recorded Internet Access Q1 Yes 11/04/2024 Internet Access Q2 Not on file 11/04/2024 Comments No Sex and Gender Information Value Date Recorded Sex Assigned at Female 05/29/2022 10:15 AM EDT Legal Sex Female 10:15 AM EDT Gender Identity Female 05/29/2022 10:15 AM EDT Sexual Orientation Straight 05/29/2022 10 :15 AM EDT documented as of this encounter Progress Notes * Monika Chris RN - 06/23/2025 9:26 AM EST CM Monika Chris RN placed outbound call to patient. Patient's name, and address confirmed. Patient states is doing well with no recent illnesses or emergency room visits. Patient reports feeling well. Patient states was able to keep appointment with therapist, has upcoming appointment 06/24/25 at 1:30pm in person. CM made patient aware of [facility] Neurology appointment 07/16/25 at 11:50am at [address] [phone] and [facility] CORE 07/07/25 at 10:45am at [address] [place] [phone]. Patient denies any barriers to attending these appointments. Patient reminded of increased Topamax Rx (added 25mg to 100mg from neurology). Also that allergy medication was changed to alternative that will hopefully help with symptoms. Call to [facility] Medobx department. Spoke with Cherrie who confirms that Topamax prescription was pickedup but Xyzal is still waiting for pick pack worker. Patient made aware of this. Agrees to follow up with pharmacy. Lastly patient made aware that DME request for foot splints sent to [facility] [address] [place] [address], [place] [address] . Patient advised to make CM aware if no contact by them or if need for transportation to their office. Patient requesting that [facility] contact information be sent via text message for follow up. No further questions or concerns. CM reinforced direct contact information or CHW for any additional questions or concerns. Education provided on [facility] located in [facility] of [facility]. Patient provided with after-hours line for [facility], , which offer night time triage service and option to transfer to product distribution specialist provider if needed. Patient verbalizes understanding, and able to repeat back to racebook writer. A follow up call will be placed within 10 days, patientagrees with plan. documented in this encounter Miscellaneous Notes * Care Plan - Monika Chris RN - 06/23/2025 9:26 AM EST Active Barriers to Care Manage Barriers to Care (Progressing) Start: 06/16/25 Expected End: 09/16/25 Patient states will identify and communicate with care management team any personal, social, or environmental barriers that affect their ability to access or participate in care. Goal Note CM assessed any barriers to attending upcoming appointments, patient declines. Will continue to assess at follow up appointments. Behavioral Health Support Behavioral Health (Progressing) Start: 06/16/25 Expected End: 09/16/25 Patient states will consistently attend all scheduled therapy and prescriber appointments and will promptly notify their early breastfeeding care specialist, psychiatrist, or therapist of any medication side effects or worsening symptoms in the next 3 months. Goal Note CM assessed that patient kept appointment with therapist and has a scheduled follow up. Care Management Care Management (Progressing) Start: 06/16/25 Expected End: 09/16/25 Within the next 3 months, patient will engage with early breastfeeding care specialist through scheduled calls or visits to review health goals, discuss progress, and address any barriers to care plan. Goal Note CM was able to successfully contact patient for first follow up call. Reviewed care plan and documented goal progression. Coordination of Care Effectively coordinate care (Progressing) Start: 06/16/25 Expected End: 09/16/25 Patient will notify the care team of all upcoming appointments and communicate any scheduling difficulties to receive assistance with coordination and reminders. Goal Note CM reviewed all upcoming specialist appointments, denies any barriers to keeping appointment. Reviewed DME order for foot splints sent to [facility] [address] [place] [phone]. DME/Equipment Obtain DME/Equipment (Progressing) Start: 06/16/25 Expected End: 09/16/25 Patient will use the prescribed durable medical equipment (e.g., brace, inserts, or assistive device) as instructed by their healthcare provider to help relieve foot pain and improve mobility. Goal Note CM provided patient contact information for DME vendor [facility] [address] [place] [phone] . Patient advised to contact CM if no contact within1-2 weeks regarding DME. Medication Concerns Improve Medication Access (Progressing) Start: 06/16/25 Expected End: 09/16/25 Goal Note CM assessed if any barriers to getting newly prescribed medications, patient states able to pick upat pharmacy. CM made patient aware of prescription for Xyzal for better allergy control. Improve Medication Management (Progressing) Start: 06/16/25 Expected End: 09/16/25 Patient will adhere to all prescribed medications and will notify their pharmacy, primary care provider or prescriber when medication refills are needed to prevent missed doses within the next 3 months. Goal Note CM reviewed that patient continues adherence to medications as prescribed. No side effects reported. Plan of Care Patient Centered Plan of Care (Progressing) Start: 06/16/25 Expected End: 09/16/25 Patient will actively participate in care planning by collaborating with the care team to set, review, and work toward personal health goals, demonstrating engagement in their overall treatment and wellness plan. Goal Note Reviewed initial plan of care with patient. Will continue to review at all calls and update as needed with any new concerns. documented in this encounter Plan of Treatment Upcoming Encounters Date Type Department Care Team ([facility] st Contact Info) Description 08/04/2025 11:45 AM EST Office Visit [facility] MEDICINE [address] [place], [place] [phone] Iris Clancy MD [address] [place] [address] 08/27/2025 12:45 PM EST Office Visit [facility] ADULT DENTAL [address] [place] [address] Belle Simms [address] [place] [address] documented as of this encounter Visit Diagnoses Not on filedocumented in this encounter Additional Health Concerns Assessment Noted Time PHQ-9 Depression Total Score: 20 025 10:24 AM EST documented as of this encounter Care Teams Wash Oil Cooler Operator Relationship Specialty Start Date End Date Iris Clancy MD [address] [place] [address] [phone] PCP - General Internal Medicine 04/02/24 Aubrey Montesinos, ArbenD [address] [place] [address] [phone] Pharmacist Internal Medicine 08/07/24 Monika Chris, SUGAR [address] [place] [phone] Registered Nurse Family Medicine 06/10/25 Elizabeth Mcqueen 06/10/25 documented as of this encounter
--- OUTSIDE RECORDS SUMMARY | 2025-06-24 10:04 | XMS_ITS ---
Author Organization [employer] Address [address] [facility] 7t [place] [address] Care Team Providers Care Welfare Director Name Role Phone Iris Clancy MD Primary Care Provider + Aubrey Montesinos PharmD Unavailable [phone] Monika Chris RN Unavailable [phone] Elizabeth Mcqueen Unavailable CHW Complex Status:Enrolled (Active) Start date:06/10/2025 Enrollment date:06/10/2025 Enrollment reason:Referred by provider Overview Patient with mulitple medical issues, struggles with depresion(has MH provider/ LINDA in chart) and has issues remembering POC, forgets to picker and sorter load and unload DMEs FU with referrals, PT etc. Pleae evlauate to see if she can be helped w reminders . Please outreach to patient. Case Team Name Relationship Phone Elizabeth Mcqueen(Responsible Staff) Continued Care and Services Coordination
--- OUTSIDE RECORDS SUMMARY | 2025-06-24 10:04 | XMS_ITS | Encounter Summary ---
Author Organization [employer] [facility] Address [address] [place] [address] 7t [place] [address] Care Team Providers Care Cushion Stuffer Name Role Phone Jagdeep St Primary Care Provider Neetu Adams Primary Care Provider [phone] Iris Clancy MD Primary Care Provider + Aubrey Montesinos PharmD Unavailable [phone] Monika Chris RN Unavailable [phone] Elizabeth Mcqueen Unavailable Reason for Visit * Reason Onset Date Comments TP appt 07/27/2022 Encounter Details Date Type Department Care Team (Late st Contact Info) Description 07/27/2022 Telephone [facility] MEDICINE [address] [place] [address] FNP TP appt Social History [...] Description 08/04/2025 11:45 AM EST Office Visit [facility] MEDICINE [address] [place] [address] Iris Clancy MD [address] [place] [address] 08/27/2025 12:45 PM EST Office Visit [facility] ADULT DENTAL [address] [place] [address] Belle Simms [address] [place] [address] documented as of this encounter Visit Diagnoses Not on filedocumented in this encounter Care Teams Cushion Stuffer Relationship Specialty Start Date End Date Jagdeep St FNP PCP - General 06/20/22 09/18/22 Neetu Kyle FNP [address] [place] [phone] PCP - General Family Medicine 09/19/22 04/01/24 Iris Clancy MD [address] [place] [phone] PCP - General Internal Medicine 04/02/24 Aubrey Montesinos, ArbenD [address] [place] [phone] Pharmacist Internal Medicine 08/07/24 Monika Chris, SUGAR [address] [place] [phone] Registered Nurse Family Medicine 06/10/25 Elizabeth Mcqueen 06/10/25 documented as of this encounter
--- OUTSIDE RECORDS SUMMARY | 2025-06-24 10:04 | XMS_ITS | Encounter Summary ---
Author Organization [employer] Address [address] [facility] 7t [place] [address] Care Team Providers Care Repair Welder Name Role Phone Iris Clancy MD Primary Care Provider + Aubrey Montesinos PharmD Unavailable [phone] Monika Chris RN Unavailable [phone] Elizabeth Mcqueen Unavailable Reason for Visit * Reason Onset Date Comments Durable Medical Equipment 06/19/2025 DME: F eet Splints Encounter Details Date Type Department Care Team (Late st Contact Info) Description 06/19/2025 Telephone [facility] MEDICINE [address] [place] [address] Iris Clancy MD [address] [place], [place] [phone] Durable Medical Equipment (DME: Feet Splints) Social History Tobacco Use Types Packs/Day Years [...] encounter Miscellaneous Notes * Telephone Encounter - Irais Vaz - 06/19/2025 4:22 PM EST DME order for splints was sent to [facility] via FAX with updated supporting documentation. Confirmation was uploaded to Media. documented in this encounter Plan of Treatment Upcoming Encounters Date Type Department Care Team (Late st Contact Info) Description 08/04/2025 11:45 AM EST Office Visit [facility] MEDICINE [address] [place] [address] Iris Clancy MD [address] [place] [address] 08/27/2025 12:45 PM EST Office Visit [facility] ADULT DENTAL [address] [place] [address] Belle Simms [address] [place] [address] documented as of this encounter Visit Diagnoses Not on filedocumented in this encounter Additional Health Concerns Assessment Noted Time PHQ-9 Depression Total Score: 20 025 10:24 AM EST documented as of this encounter Care Teams Repair Welder Relationship Specialty Start Date End Date Iris Clancy MD [address] [place] [address] PCP - General Internal Medicine 04/02/24 Aubrey Montesinos, Shilpa [address] [place] [phone] Pharmacist Internal Medicine 08/07/24 Monika Chris, SUGAR [address] [place] [phone] Registered Nurse Family Medicine 06/10/25 Elizabeth Mcqueen 06/10/25 documented as of this encounter
--- OUTSIDE RECORDS SUMMARY | 2025-06-24 10:04 | XMS_ITS ---
Author Organization [employer] Address [address] [facility] 7t [place] [address] Care Team Providers Care Director Of Outpatient Services Name Role Phone Iris Clancy MD Primary Care Provider + Aubrey Montesinos PharmD Unavailable [phone] Monika Chris RN Unavailable [phone] Elizabeth Mcqueen Unavailable CM Complex Status:Enrolled (Active) Start date:06/10/2025 Enrollment date:06/16/2025 Enrollment reason:Referred by provider Overview Patient with mulitple medical issues, struggles with depresion(has MH provider/ LINDA in chart) and has issues remembering POC, forgets to chart picker DMEs FU with referrals, PT etc. Pleae evlauate to see if she can be helped w reminders Case Team Name Relationship Phone Monika Chris RN(Responsible Staff) Registered Nurse Continued Care and Services Coordination
--- OUTSIDE RECORDS SUMMARY | 2025-06-24 10:04 | XMS_ITS | Clinical Summary ---
Author Organization [employer] Address [address] [facility] [address] [place] [address] Care Team Providers Care Shrimp Peeler Name Role Phone Iris Clancy MD Primary Care Provider + Aubrey Montesinos PharmD Unavailable [phone] Monika Chris RN Unavailable [phone] Elizabeth Mcqueen Unavailable Allergies No known active allergies Medications * [...] breath. 18 g 1 12/26/19 24 Active Spacer/Aero-H olding Chambers (OptiChamber Joanne) misc 1 each every 4 (four) hours if needed (asthma). 1 each 12/26/19 24 Active fluticasone (Flonase) 50 MCG/ACT nasal spray INSTILL 1 SPRAY IN EACH NOSTRIL ONCE DAILY 48 g 10/31/19 25 Active Additional Information Patient not taking.Reported on 06/16/2025 Diclofenac Sodium 1 % gel Apply 2 g topically if needed in the morning, at noon, in the evening, and at bedtime (pain). 100 g 3 11/14/19 25 Active tiZANidine (Zanaflex) 2 MG tablet Take 1 tablet (2 mg) by mouth every 8 (eight) hours if needed for muscle spasms for up to 10 days. 30 tablet 11/14/19 25 Active FT Stool Softener 50-8.6 MG tablet TAKE 1 TABLET BY MOUTH EVERY MORNING 90 tablet 1 03/31/20 25 Active traZODone (Desyrel) 50 MG tablet TAKE 1 TABLET BY MOUTH AT BEDTIME 90 tablet 1 5 4:45 PM EST 05/27/20 25 Active venlafaxine XR (Effexor XR) 75 MG 24 hr capsule Take 1 capsule (75 mg) by mouth Once per day. Do not crush or chew. 90 capsule 3 5 4:45 PM EST 06/08/20 25 026 Active topiramate (Topamax) 100 MG tablet Take 100 mg by mouth at bedtime. 04/03/20 25 Active topiramate (Topamax) 25 MG tablet Take 1 tablet (25 mg) by mouth with breakfast. In addition to 100mg at bedtime (Neurology) 30 tablet 11 5 4:45 PM EST 06/09/20 25 026 Active levocetirizin e (Xyzal) 5 MG tablet Take 1 tablet (5 mg) by mouth in the evening. 30 tablet 06/16/20 25 026 Active nicotine polacrilex (Nicotine Mini) 2 MG lozengeIndica tions:Tobacco dependence Dissolve 1 lozenge by mouth every 1-2 hours as needed for cravings 144 lozenge 1 08/07/19 25 025 Discontinued(Th erapy completed) venlafaxine XR (Effexor XR) 37.5 MG 24 hr capsule Take 1 capsule (37.5 mg) by mouth Once per day. Do not crush or chew. 30 capsule 11/14/19 25 025 Discontinued(Re order (will not trigger notification to Pharmacy)) predniSONE (Deltasone) 20 MG tablet Take 2 tablets PO/d x 5d then 1 tablet PO/ on D6 to D10 then 1/2 tablet PO/d from D11 to D15 18 tablet 12/18/19 25 025 Discontinued(Th erapy completed) gabapentin (Neurontin) 100 MG capsule Take 1 capsule (100 mg) by mouth every 8 (eight) hours. 90 capsule 02/06/20 025 Discontinued(In effective) traZODone (Desyrel) 50 MG tablet TAKE 1 TABLET BY MOUTH AT BEDTIME 90 tablet 03/04/20 025 Discontinued cetirizine (ZyrTEC) 10 MG tablet TAKE 1 TABLET BY MOUTH EVERY MORNING 90 tablet 03/11/20 025 Discontinued(In effective) Active Problems Problem Noted Date Diagnosed Date Memory impairment 06/08/2025 Assessment & Plan (06/08/2025 11:31 AM EST): Likely worsened by MDD, has history head trauma since childhood (seizures). FU MDD, will obtain Neurology records. Bronchitis 12/18/2024 Assessment & Plan (12/18/2024 3:48 [...] bilateral s ciatica 11/13/2024 Assessment & Plan (06/08/2025 11:30 AM EST): Refer to PT Continue weight reduction, increase physical activity by way of house chores as tolerated, lives with adolescents and male partner who can help if needed. FU in 3mo after PT, see if MRI is needed for pain management. Assessment & Plan (11/13/2024 3:40 PM EDT): [...] 38.9 in adult 11/13/2024 Assessment & Plan (06/08/2025 11:28 AM EST): Discussed re weight reduction options including exercise, life style modifications, diet. Recommended to decrease soda and sugary beverage consumption, increase protein intake with meals (at least 1 portion of protein with each meal) to assist with satiety, increase dietary fiber Recommended at least 150 min/week of moderate intensity exercise. - Topiramate prescribed at low dose, no side effects so far; noted 4 lbs weight loss. I will call Neurology to amke them aware of increse dose for weight loss purposes. - I will follow up in 6-8 weeks to reassess and consider additional medications if needed, we discussed possible use of metformin due to hx IFG. Assessment & Plan (02/05/2025 10:26 AM EDT): [...] she needs a referral to orthopedics or direct support worker Assessment & Plan (05/13/2024 3:26 PM EDT): [...] possible insoles Pain in both wrists 02/10/2024 Tobacco dependence 12/26/2023 Assessment & Plan (07/09/2024 [...] spur Reconsult as needed, will refer to high risk ob for steroid injection. Plantar fasciitis, bilateral 08/23/2023 Assessment & Plan (06/08/2025 11:29 AM EST): - Foot pain attributed to arthritis/plantar fasciitis, likely exacerbated by biomechanical factors (weight/lumbar disc disease/OA). - Advised to call L/C to obtain prescribed night foot splints, I gave her a copy of the rx and L/C info. - Recommended use of inserts in shoes to alleviate pain. - I Will follow up in 6 weeks to assess response to Physical therapy and use of inserts. Assessment & Plan (02/05/2025 10:28 AM EDT): I will send a new prescription for night splints to use on both feet nightly and follow-up with me in 3 months. If symptoms do not improve within the first 2 weeks of using the night splints nightly, she can call for referral to high risk ob Advised to do warm soaks with Epsom [...] for help PLAN: 1. Follow up with [facility]: Recommended for follow-up: As needed 2. Patient goal is stabilization of symptoms 3. Behavioral Recommendations a. Comply with respite when a bed is avaialble b. Comply with medications and attend psychiatry appointment, when established c. Utilize [facility] if symptoms worsen d. Reach out to [facility] for additional support ANTOHNY (generalized anxiety disorder) 04/06/2023 Severe episode of recurrent major depressive disorder, without psychotic features (CMS/HCC) 04/06/2023 Overview (06/08/2025): Counselor is Domitila Marino at [facility] LINDA signed 06/08/25 Assessment & Plan (06/08/2025 11:29 AM EST): - Has active SI, no plan. She says seh wont harm herself as she hopes to keep the realationship and sharing memories with her daughters, also mu-ism and cultural issues prevent her form harming herself. She has crisis number and can reach her couselor Domitila Marino at [facility]. - Increase Venlafaxine ER to 75mg/d - Will follow up in 6-8 weeks to reassess response to therapy and medication. Assessment & Plan (11/13/2024 3:40 PM EDT): [...] agency. Patient was provided with [facility] information. At this time Ebony Edwards meets criteria for Visit Diagnoses: Problem List Items Addressed This Visit Other ANTHONY (generalized anxiety disorder) Severe episode of recurrent major depressive disorder, without psychotic features (CMS/HCC) Patient ready to address current needs Yes Strengths include service in place PLAN: 1. Follow up with [facility]: Not recommended for follow-up 2. Patient goal is to decrease symptoms 3. Behavioral Recommendations A. Patient will continue to meet with therapist B. Patient will utilize additional coping skills provided C. Patient may reach out to [facility], if needed D. Patient will utilize [facility], if symptoms worsen Exercise counseling 01/10/2023 Seizure disorder (CMS/HCC) 01/10/2023 Assessment & Plan (06/09/2025 3:10 PM EST): - Controlled, FU w [facility] neurologist. She seems to have some memory loss related to previous head trauma sp seizures? - Continue Divalproex, and Keppra. No new side effects reported. - I will call Neurology provider Linda ATKINSON to inform re increase topiramate dose (for weight reduction purposes ) and dc Gabapentin (rx by me for CTS ) - Meds ready to be picked up at pharmacy ([facility]) on June 10, 2025 Assessment & Plan (02/05/2025 10:27 AM EDT): [...] EDT): follows with neurology. Dr. Leon at [facility] Continue current medications Insomnia 01/10/2023 Overview (04/06/2023): [...] Vaginal swab sent to lab Glucosuria 01/24/2024 06/08/2025 Assessment & Plan (01/24/2024 1:18 PM EDT): Order rbs and A1c. Encounters Date Type Department Care Team Description 06/23/2025 Patient Outreach [facility] [address] [place] [phone] Iris Clancy MD Care Management (C3CM- FOLLOW UP CALL/) 06/19/2025 Telephone [facility] [address] [place] [address] Iris Clancy MD Durable Medical Equipment (DME: Feet Splints) 06/16/2025 Patient Outreach [address] [address] Iris Clancy MD Care Management (DME); Durable Medical Equipment 06/16/2025 Plan of Care Documentation [address] [address] 06/16/2025 Plan of Care Documentation [address] [address] 06/16/2025 Patient Outreach [address] [address] Iris Clancy MD Care Management (C3CM COMPLEX INITIAL ASSESSMENT/ ENROLLMENT ) 06/15/2025 Patient Outreach [address] [address] Iris Clancy MD Care Coordination (C3 CM-CHW Elizabeth Mcqueen telephone call outreach) 06/12/[address] [address] Iris Clancy MD 06/10/2025 Patient Outreach [address] [address] Iris Clancy MD Care Coordination (C3 CM-CHW Elizabeth Mcqueen ) 06/10/2025 Patient Outreach [address] [address] Iris Clancy MD Care Coordination (C3 CM-CHW Elizabeth Mcqueen telephone call outreach ) 06/10/2025 Patient Outreach [address] [address] Iris Clancy MD Care Coordination (C3 CM-CHW Elizabeth Mcqueen chart review) 06/10/2025 Patient Outreach [address] [address] Iris Clancy MD Care Management (C3CM -CHART REVIEW ) 06/10/2025 Patient Outreach [address] [address] Iris Clancy MD 06/09/[address] [address] Iris Clancy MD FYI 06/08/2025 9:45 AM EST Office Visit [facility] [address] [place] [phone] Iris Clancy MD Seizure disorder (CMS/HCC) (HCC) (Primary Dx); Severe episode of recurrent major depressive disorder, without psychotic features (CMS/HCC) (HCC); Memory impairment; Plantar fasciitis, bilateral; Class 2 severe obesity due to excess calories with serious comorbidity and body mass index (BMI) of 38.0 to 38.9 in adult; Chronic bilateral low back pain with bilateral sciatica; Encounter for immunization 06/08/2025 Travel 06/04/2025 Orders Only GENERIC EXTERNAL DATA DEPARTMENT Provider, Generic External Data 06/02/2025 Telephone [facility] [address] [place] [phone] Iris Clancy MD CHART PREP 05/27/2025 Refill [facility] [address] [place], [place] [phone] Iris Clancy MD 03/30/2025 Refill [facility] [address], [place] [phone] Iris Clancy MD 03/27/2025 Telephone [facility] [address] [place] [address] [phone] Iris Clancy MD Referral 03/25/2025 Telephone [facility] [address] [place] [phone] Iris Clancy MD may recall from Last 3 Months Immunizations Immunization Administration Dates Next Due HepB-CpG 07/19/2023 Influenza injectable quadriv alent IIV4 with preservative 06/27/2018 Influenza injectable quadriv alent preservative free 07/09/2023 Influenza, Injectable, MDCK, preservative free 06/29/2015 Influenza, seasonal, injecta ble, preservative free 06/08/2025 Pfizer Covid-19 Vaccine 12+ 04/22/2024 Pneumococcal Polysaccharide [...] Smoke Exposure: Past Smokeless Tobacco: Never Tobacco Cessation:Ready to Q uit: Not Asked; Counseling Given: Not Answered Alcohol Use Standard Drinks/Week [...] Sign Reading Time Taken Comments Blood Pressure 112/72 06/08/2025 9:55 AM EST Pulse 66 06/08/2025 9:55 AM EST Temperature 36.4 C (97.5 F) 06/08/2025 9:55 AM EST Respiratory Rate 18 06/08/2025 9:55 AM EST Oxygen Saturation 99% 12/17/2024 11:01 AM EDT Inhaled Oxygen Concentration - - Weight 92.5 kg (204 lb) 06/08/2025 9:55 AM EST Height 154.9 cm (5' 1 ) 06/08/2025 9:55 AM EST Body Mass Index 38.55 06/08/2025 9:55 AM EST Plan of Treatment Upcoming Encounters Date Type Department Care Team (Late st Contact Info) Description 08/04/2025 11:45 AM EST Office Visit [facility] [address] [place] [address] Iris Clancy MD [address] [place] [address] 08/27/2025 12:45 PM EST Office Visit [facility] ADULT DENTAL [address] [place] [address] [place] [address] [place] [address] Health Maintenance Due Date Last Done Comments Family Planning (PISQ) 01/27/2004 HPV Vaccines (1 - 3-dose series) 01/27/2004 Pneumococcal Vaccine: Pediatrics (0 to 5 Years) and At-Risk Patients (6 to 49) Years (2 of 2 - PCV) 06/29/2016 06/29/2015 Hepatitis B Vaccines (2 of 2 - CpG 2-dose series) 08/16/2023 07/19/2023 Dental Oral Exam 08/15/2024 02/12/2024, 11/30/2020 Dental Prophylaxis 08/15/2024 02/12/2024 Dental X-Ray: Bitewings 02/12/2025 02/12/2024, 11/30 COVID-19 Vaccine ( season) 2025 04/22/2024, 01/13/2021, 12/16/2020 Dental X-Ray: Full Mouth 06/13/202506/12/ 022, 11/30/2020, 11/30/2020 Depression Monitoring 12/14/2025 06/16/2025, 025 Pap Smear 01/09/2026 01/09/2023, 02/28, 03/20/2022 Disability Screening 02/05/2026 02/05/2025 Alcohol/Substance Use Screening 06/08/2026 06/08/2025 Tobacco Screening 06/08/2026 06/08/2025 SDOH Screening 06/10/2026 06/10/2025 Cervical Cancer Screening 01/10/2028 HPV/Cotest 01/10/2028 01/09/2023, 03/20/2022 Lipid Panel 05/29/2028 05/29/2023, 03/20/2022 DTaP/Tdap/Td Vaccines (4 - Td or Tdap) 11/26/2031 11/25/2021, 06/27/2018, 10/17/2016 Zoster Vaccines (1 of 2) 2039 RSV Patients and Patients Aged 60 years or older (1 - 1-dose 75+ series) 01/27/2064 HIV Screening Completed 03/20/2022, 03/20/2022 Hepatitis C Screening Completed 05/13/2024, 022 Influenza Vaccine Completed 06/08/2025, , 06/27/2018, Additional history exists HIB Vaccines Aged Out No longer eligi [...] Procedure Name Priority Date/Time Associated Diagnosis Comments CHLAMYDIA/N. GONORRHOEAE RNA, TMA, UROGENITAL Routine 06/04/2025 2:15 PM EST BACTERIAL VAGINOSIS PANEL Routine 06/04/2025 2:15 PM EST HEPATITIS PANEL, GENERAL Routine 05/13/2024 [...] Relevant to Health Maintenance Results * (ABNORMAL) Bacterial Vaginosis (06/04/2025 2:15 PM EST) TRICHOMONAS VAGINALIS DETECTION BY PCR NOT DETECTED Not Detect [facility] BACTERIAL VAGINOSIS DETECTION BY PCR POSITIVE(A) Negative [facility] Comment:The BV organism targ ets of the Xpert Xpress MVP test can becommensal in women; Xpert Xpress MVP positive results forbacterial vaginosis should be considered in conjunction withother clinical and patient information to determine thedisease status. Organisms that are not detected by the XpertXpress MVP test have also been reported to be associatedwith BV and aerobic vaginitis.The Xpert Xpress MVP test performance has not been evaluatedin patients under the age of 14. JORDYN GROUP DETECTION BY PCR NOT DETECTED Not Detect [facility] Jordyn glab krusei PCR NOT DETECTED Not Detect [facility] 06/04/2025 2:15 PM EST 06/04/2025 5:24 PM EST us Generic External Data Provider LAB MICROBIOLOGY - GENERAL ORDERABLES Final Result [facility] [address] [place] [phone] * Chlamydia/N. Gonorrhoeae RNA, TMA, Urogenitial (06/04/2025 2:15 PM EST) CT PCR NOT DETECTED Not Detect. [facility] Comment:A not detected test result does not exclude the possibilityof infection because test results can be affected byimproper specimen collection, concurrent antibiotic therapy,or the number of organisms in the specimen which may bebelow the sensitivity of the test. As with many diagnostictests, results from the Xpert CT/NG assay should beinterpreted in conjunction with other laboratory andclinical data available to the clinician.Xpert CT/NG performance has not been evaluated in patientsless than 14 years of age. The assay should not be used forthe evaluationof suspected sexual abuse or for other medico-legalindications. Additional testing is recommended in anycircumstance when false positive or false negative resultscould lead to adverse medical, social or psychologicalconsequences. NG PCR NOT DETECTED Not Detect. [facility] Comment:A not detected test result does not exclude the possibilityof infection because test results can be affected byimproper specimen collection, concurrent antibiotic therapy,or the number of organisms in the specimen which may bebelow the sensitivity of the test. As with many diagnostictests, results from the Xpert CT/NG assay should beinterpreted in conjunction with other laboratory andclinical data available to the clinician.Xpert CT/NG performance has not been evaluated in patientsless than 14 years of age. The assay should not be used forthe evaluationof suspected sexual abuse or for other medico-legalindications. Additional testing is recommended in anycircumstance when false positive or false negative resultscould lead to adverse medical, social or psychologicalconsequences. 06/04/2025 2:15 PM EST 06/04/2025 5:24 PM EST us Generic External Data Provider LAB MICROBIOLOGY - GENERAL ORDERABLES Final Result Performing Organization Address [facility] Co de Phone Number [facility] [address] [place] [phone] * Hepatitis Panel, General (05/13/2024 3:20 PM EDT) Hepatitis A IgM Nonreactive Nonreactive [facility] Comment:IgM antibodies to BAILEY V not detected; does not exclude earlyacute or recovered HAV infection. ~Hepatitis B Surface Antibody REACTIVE Nonreactive [facility] Comment:REACTIVE: > 11.99 mI U/mL Hepatitis B Core Antibody Nonreactive Nonreactive [facility] Hepatitis C Antibody Nonreactive Nonreactive [facility] Comment:Antibodies to HCV no t detected; does not exclude early acuteHCV infection. Hepatitis B Surface Ag Negative Negative [facility] Blood 05/13/2024 3:20 PM EDT 05/13/2024 4:20 PM EDT Iris Clancy MD LAB BLOOD ORDERABLES Fin al Result Performing Organization Address [facility] Co de Phone Number [facility] [address] [place] [phone] * (ABNORMAL) Lipid Panel, Standard (05/29/2023 3:36 PM EDT) Triglycerides 119 <150 mg/dL [facility] Comment:Desirable Triglyceri de: less than 150 mg/dLBorderline High Triglyceride 150-199 mg/dLHigh Triglyceride: 200-499 mg/dLVery High Triglyceride: greater than or equal to 5OO mg/dL Cholesterol 126 <200 mg/dL [facility] Comment:Desirable Cholestero l: less than 200 mg/dLBorderline High Cholesterol: 200-239 mg/dLHigh Cholesterol: greater than 239 mg/dL LDL Cholesterol Calculated 67 <100 mg/dL [facility] Comment:Desirable LDL: less than 100 mg/dLNear Optimal/Above Optimal LDL: 110- 129 mg/dLBorderline High LDL: 130-159 mg/dLHigh LDL: 160-189 mg/dLVery High LDL: greater than or equal to 190 mg/dL HDL Cholesterol 36(L) >40 mg/dL [facility] Comment:Desirable HDL: great er than 40 mg/dL Note: This HDL assay may give artificially low results in patients with liver disease. Blood Venous blood specimen / Unknown 05/29/2023 3:36 PM EDT 05/29/2023 5:53 PM EDT us Neetu Anabella DESKTOP ANALYST LAB BLOOD ORDERABLES Final Resu lt [facility] [address] [place] [phone] * Pap Smear (01/09/2023 3:04 PM EDT) 01/09/2023 3:04 PM EDT 01/11/2023 8:00 AM EDT Elian [facility] - 2023 8:52 AM EDT ----- ------- Name: Ebony Pacheco Age/Sex: 32/F : 1990 Unit#: [id number] Attend Dr: Contreras Yee MD Re01/09/23 Status: DEP REF Location: HO.LNP Disch: ----- ------- SPEC : [id number] RECD: 01/11/23 STATUS: ELIZABETH WILBURN NUM: [id number] ELIZABETH: 01/09/23-[address] [facility] [address]: Contreras Yee MD ENTERED: 01/12/23 SP TYPE: Pap Smr OTHR DR: Neetu Kyle NP ORDERED: Pap Smear Interpretation Satisfactory for evaluation. Negative for intraepithelial lesion or malignancy. HPV mRNA E6/E7: NOT DETECTED This assay detects E6/E7 viral messenger RNA (mRNA) from 14 high-risk HPV types (16, 18, 31, 33, 35, 39, 45, 51, 52, 56, 58, 59, 66, 68) HPV testing performed by [facility], [place], [place]. See reference laboratory pion of the EMR for entire report. Clinical Information LMP: Unknown date Previous PAP test: Unknown date/findings Other history: Abnormal uterine and vaginal bleeding Material Received ThinPrep-Cervical Copies To: Neetu Kyle NP [address] [place] [address] Contreras Yee MD [address] [place], [place] [address]Winnie [address] [address] ----- ------- Signed (signature on file) MANNY Osorio (ASCP) 01/26/23 0852 ----- ------- END OF REPORT [facility] External Provider LAB CYT OLOGY ORDERABLES Final Result Performing Organization Address [facility]/ZIP Co de Phone Number [facility] [address] [place] [address] [phone] * HIV 1/2 ANTIGEN/ANTIBODY,FOURTH GENERATION W/RFL (03/20/2022 2:38 PM EDT) HIV-1/2 ANTIGEN AND ANTIBODIES, 4TH GENERATION W/ REFLEX NON-REACT JOSIAS NON-REACT JOSIAS [facility] Comment: HIV-1 antigen and HIV-1/HIV-2 [...] purpose. For additional information please refer to http://education.[email or web address]/faq/IUQ181 (This link is being provided for informational/ educational purposes only.) The performance of this assay has not been clinically validated in patients less than 2 years old. 03/20/2022 2:38 PM EDT Vince Castañeda MD LAB BLOOD ORDERABLES Final R esult [facility] [address] from Last 3 Months or Most Recently Relevant to Health Maintenance Insurance [facility] [employer] C3 [facility] C3 [facility] MEDICAID STAND ADULT Care Teams Shrimp Peeler Relationship Specialty Start Date End Date Iris Clancy MD [address] [place] [phone] PCP - General Internal Medicine 04/02/24 Aubrey Montesinos, ArbenD [address] [place] [phone] Pharmacist Internal Medicine 08/07/24 Monika Chris, SUGAR [address] [place] [address] [phone] Registered Nurse Family Medicine 06/10/25 Elizabeth Mcqueen 06/10/25
--- OUTSIDE RECORDS SUMMARY | 2025-06-24 10:04 | XMS_ITS | Encounter Summary ---
Author Organization [email or web address] Address [address] [place] [address] 7t [place] [address] Care Team Providers Care Slide Developer Name Role Phone Neetu Kyle Primary Care Provider [phone] Iris Clancy MD Primary Care Provider + Aubrey Montesinos PharmD Unavailable [phone] Monika Chris RN Unavailable [phone] Elizabeth Mcqueen Unavailable Reason for Visit * Reason Comments Med Refill Encounter Details Date Type Department Care Team (Late st Contact Info) Description 08/13/2023 Refill [facility] MEDICINE [address] [place] [address] Neetu Kyle FNP [address] [place] [address] Social History Tobacco Use Types Packs/Day Years [...] the past 12 months, has t he [employer], gas, oil or water company threatened to [...] Description 08/04/2025 11:45 AM EST Office Visit [facility] MEDICINE [address] [place] [address] Iris Clancy MD 230 [place] [address] 08/27/2025 12:45 PM EST Office Visit [facility] ADULT DENTAL [address] [place] [address] Adalberto Simmsaris [address] [place] [address] documented as of this encounter Visit Diagnoses Not on filedocumented in this encounter Additional Health Concerns Assessment Noted Time PHQ-9 Depression Total Score: 24 023 3:56 PM EDT documented as of this encounter Care Teams Slide Developer Relationship Specialty Start Date End Date Neetu Kyle FNP [address] [place] [address] PCP - General Family Medicine 09/19/22 04/01/24 Iris Clancy MD [address] [place], [place] [phone] PCP - General Internal Medicine 04/02/24 Aubrey Montesinos, Shilpa [address] [place] [address] [phone] Pharmacist Internal Medicine 08/07/24 Monika Chris, SUGAR [address] [place] [address] Registered Nurse Family Medicine 06/10/25 Elizabeth Mcqueen 06/10/25 documented as of this encounter
--- OUTSIDE RECORDS SUMMARY | 2025-06-24 10:04 | XMS_ITS | Encounter Summary ---
Author Organization [employer] Address 75 [facility] 7t [place] [address] Care Team Providers Care Emergency Department Manager Name Role Phone Neetu Kyle Primary Care Provider [phone] Iris Clancy MD Primary Care Provider + Aubrey Montesinos PharmD Unavailable [phone] Monika Chris RN Unavailable [phone] Elizabeth Mcqueen Unavailable Reason for Visit * Reason Onset Date Comments Referral 11/16/2023 Encounter Details Date Type Department Care Team (Late st Contact Info) Description 11/16/2023 Telephone [facility] MEDICINE 230 [place], [place] [phone] Neetu Kyle FNP [address] [place], [place] [phone] Referral Social History Tobacco Use Types Packs/Day [...] housing situation today? I have jonathanstan díaz 10/01/[address] you [...] to vision referral Please contact pt at [phone] * Telephone Encounter - Alondra Oakley RN - 11/16/2023 1:27 PM EDT T/C to pt. For below message, pt. Also informed that there is wait time right now for [facility] vision center. Pt. Verbally agreed and understood. * Telephone Encounter - Alondra Oakley RN - 11/16/2023 1:26 PM EDT Please review and advise for below request. * Telephone Encounter - Janny Oviedo - 11/16/2023 11:45 AM EDT Tc from pt requesting [facility] vision center referral. documented in this encounter Plan of Treatment Upcoming Encounters Date Type Department Care Team (Late st Contact Info) Description 08/04/2025 11:45 AM EST Office Visit [facility] MEDICINE [address] [place] [address] Iris Clancy MD 230 [place] [address] 08/27/2025 12:45 PM EST Office Visit [facility] ADULT DENTAL 230 [place] [address] Mendez, Belle 230 [place] [address] documented as of this encounter Visit Diagnoses Not on filedocumented in this encounter Additional Health Concerns Assessment Noted Time PHQ-9 Depression Total Score: 24 023 3:56 PM EDT documented as of this encounter Care Teams Emergency Department Manager Relationship Specialty Start Date End Date Neetu [place] [address] PCP - General Family Medicine 09/19/22 04/01/24 Iris Clancy MD [address] [place] [address] PCP - General Internal Medicine 04/02/24 Aubrey Montesinos, Shilpa [address] [place] [address] Pharmacist Internal Medicine 08/07/24 Monika Chris, SUGAR [address] [place] [address] Registered Nurse Family Medicine 06/10/25 Elizabeth Mcqueen 06/10/25 documented as of this encounter
--- OUTSIDE RECORDS SUMMARY | 2025-06-24 10:04 | XMS_ITS | Encounter Summary ---
Author Organization [employer] Address 75 [facility] 7t [place] [address] Care Team Providers Care Track Laying Machine Operator Name Role Phone Neetu Kyle Primary Care Provider [phone] Iris Clancy MD Primary Care Provider + Aubrey Montesinos PharmD Unavailable [phone] Monika Chris RN Unavailable [phone] Elizabeth Mcqueen Unavailable Reason for Visit * Reason Onset Date Comments Medication Question 01/07/2024 Encounter Details Date Type Department Care Team (Late st Contact Info) Description 01/07/2024 Telephone [facility] MEDICINE [address] [place], [place] [phone] Neetu Kyle FNP [address] [place], [place] [phone] Medication Question Social History Tobacco Use Types [...] your housing situation today? I have jonathan arjun 10/01/[address] you li [...] to not work. Please contact pt at [phone] documented in this encounter Plan of Treatment Upcoming Encounters Date Type Department Care Team (Late st Contact Info) Description 08/04/2025 11:45 AM EST Office Visit [facility] MEDICINE [address] [place] [address] Iris Clancy MD 230 [place] [address] 08/27/2025 12:45 PM EST Office Visit [facility] ADULT DENTAL [address] [place] [address] Belle Simms [address] [place] [address] documented as of this encounter Visit Diagnoses Not on filedocumented in this encounter Additional Health Concerns Assessment Noted Time PHQ-9 Depression Total Score: 24 023 3:56 PM EDT documented as of this encounter Care Teams Track Laying Machine Operator Relationship Specialty Start Date End Date Neetu Kyle FNP [address] [place], [place] [phone] PCP - General Family Medicine 09/19/22 04/01/24 Iris Clancy MD [address] [place] [address] [phone] PCP - General Internal Medicine 04/02/24 Aubrey Montesinos, ArbenD [address] [place] [address] [phone] Pharmacist Internal Medicine 08/07/24 Monika Chris, SUGAR [address] [place] [address] [phone] Registered Nurse Family Medicine 06/10/25 Elizabeth Mcqueen 06/10/25 documented as of this encounter
--- OUTSIDE RECORDS SUMMARY | 2025-06-24 10:04 | XMS_ITS | Encounter Summary ---
Author Organization [employer] Address 75 [facility] 7t [place] [address] Care Team Providers Care Hyperbaric Nurse Name Role Phone Neetu Kyle Primary Care Provider [phone] Iris Clancy MD Primary Care Provider + Aubrey Montesinos PharmD Unavailable [phone] Monika Chris RN Unavailable [phone] Elizabeth Mcqueen Unavailable Reason for Visit * Reason Onset Date Comments Letter Request 07/13/2023 Encounter Details Date Type Department Care Team (Late st Contact Info) Description 07/13/2023 Telephone [facility] MEDICINE 230 [place], [place] [phone] Neetu Kyle FNP [address] [place], [place] [phone] Letter Request Social History Tobacco Use Types [...] with others, in a hotel, in a jail, living outside on the street, on a [...] the past 12 months, has t he [employer], gas, oil or water company threatened to [...] Description 08/04/2025 11:45 AM EST Office Visit [facility] MEDICINE [address] [place] [address] Iris Clancy MD 230 [place] [address] 08/27/2025 12:45 PM EST Office Visit [facility] ADULT DENTAL [address] [place] [address] Belle Simms [address] [place] [address] documented as of this encounter Visit Diagnoses Not on filedocumented in this encounter Additional Health Concerns Assessment Noted Time PHQ-9 Depression Total Score: 24 023 3:56 PM EDT documented as of this encounter Care Teams Hyperbaric Nurse Relationship Specialty Start Date End Date Neetu Kyle FNP 230 [place] [address] PCP - General Family Medicine 09/19/22 04/01/24 Iris Clancy MD [address] [place] [address] PCP - General Internal Medicine 04/02/24 Aubrey Montesinos, Shilpa 230 [place], [place] [phone] Pharmacist Internal Medicine 08/07/24 Monika Chris RN [address] [place] [address] Registered Nurse Family Medicine 06/10/25 Elizabeth Mcqueen 06/10/25 documented as of this encounter
--- OUTSIDE RECORDS SUMMARY | 2025-06-24 10:04 | XMS_ITS | Clinical Summary ---
Author Organization [address] [place] [address] Address [address] [place] [address] Phone Care Team Providers Care Sweet Goods Machine Operator Name Role Phone Latoya Millard DIANDRA Primary Care Provider [phone] Allergies No known active allergies Medications levETIRAcetam [...] Depression Screening 07/30/2024 COVID-19 Vaccine ( - 2024-2 6 season) 2025 Influenza Vaccine (#1) 2025 RSV [...] Recently Relevant to Health Maintenance Care Teams Sweet Goods Machine Operator Relationship Specialty Start Date End Date Latoya Millard FNP [address] [place] [phone] PCP - General 02/15/24
--- OUTSIDE RECORDS SUMMARY | 2025-06-24 10:04 | XMS_ITS | Encounter Summary ---
Author Organization [employer] Address 75 [facility] 7t [place] [address] Care Team Providers Care Service Porter Name Role Phone Neetu Kyle Primary Care Provider [phone] Iris Clancy MD Primary Care Provider + Aubrey Montesinos PharmD Unavailable [phone] Monika Chris RN Unavailable [phone] Elizabeth Mcqueen Unavailable Encounter Details Date Type Department Care Team (Late st Contact Info) Description 07/20/2023 Abstract [facility] 230 [place] [address] Neetu Kyle FNP 230 [place] [address] Social History Tobacco Use Types Packs/Day Years [...] Description 08/04/2025 11:45 AM EST Office Visit [facility] MEDICINE [address] [place] [address] Iris Clancy MD 230 [place] [address] 08/27/2025 12:45 PM EST Office Visit [facility] ADULT DENTAL [address] [place] [phone] Belle Simms 230 [place] [address] documented as of this encounter Visit Diagnoses Not on filedocumented in this encounter Additional Health Concerns Assessment Noted Time PHQ-9 Depression Total Score: 24 023 3:56 PM EDT documented as of this encounter Care Teams Service Porter Relationship Specialty Start Date End Date Neetu Kyle FNP 230 [place] [address] PCP - General Family Medicine 09/19/22 04/01/24 Iris Clancy MD [address] [place] [address] PCP - General Internal Medicine 04/02/24 Aubrey Montesinos, ArbenD [address] [place] [address] Pharmacist Internal Medicine 08/07/24 Monika Chris, SUGAR [address] [place] [address] Registered Nurse Family Medicine 06/10/25 Elizabeth Mcqueen 06/10/25 documented as of this encounter
--- OUTSIDE RECORDS SUMMARY | 2025-06-24 10:04 | XMS_ITS | Encounter Summary ---
Author Organization [employer] Address 75 [facility] 7t [place] [address] Care Team Providers Care Garment Manufacturer Name Role Phone Iris Clancy MD Primary Care Provider + Aubrey Montesinos PharmD Unavailable [phone] Monika Chris RN Unavailable [phone] Elizabeth Mcqueen Unavailable Reason for Visit * Reason Comments Care Management DME Durable Medical Equipment Encounter Details Date Type Department Care Team (Late st Contact Info) Description 06/16/2025 Patient Outreach [facility] MEDICINE 230 [place] [address] Iris Clancy MD 230 [place] [address] Care Management (DME); Durable Medical Equipment Social History Tobacco Use Types Packs/Day Years [...] Answer Date of Assessment Author Patient Health Questionnaire -2 Score 1 06/16/2025 10:24 AM Monika Chambers RN * Little interest or pleasure in doing things Answer Date of Assessment Author Not at all 06/16/2025 10:24 AM Gilles Chambers RN * Feeling down, depressed, or hopeless Answer Date of Assessment Author Several days 06/16/2025 10:24 AM Gilles Chambers RN * Trouble falling or staying asleep, or sleeping too much Answer Date of Assessment Author Nearly every day 06/16/2025 10:24 AM Monika Chambers RN * Feeling tired or having little energy Answer Date of Assessment Author Nearly every day 06/16/2025 10:24 AM Monika Chambers RN * Poor appetite or overeating Answer Date of Assessment Author Nearly every day 06/16/2025 10:24 AM Monika Chambers RN * Feeling bad about yourself - or that you are a failure or have let yourself or your family down Answer Date of Assessment Author Nearly every day 06/16/2025 10:24 AM Monika Chambers RN * Trouble concentrating on things, such as reading the newspaper or watching television Answer Date of Assessment Author Nearly every day 06/16/2025 10:24 AM Monika Chambers RN * Moving or speaking so slowly that other people could have noticed? Or the opposite - being so fidgety or restless that you have been moving around a lot more than usual. Answer Date of Assessment Author Nearly every day 06/16/2025 10:24 AM Monika Chambers RN * Thoughts that you would be better off or hurting yourself in some way Answer Date of Assessment Author Several days 06/16/2025 10:24 AM Gilles Chambers RN * Patient Health Questionnaire-9 Score Answer Date of Assessment Author 06/16/2025 10:24 AM Gilles Chambers RN * Over the last 2 weeks, how often have you been bothered by any of the following problems? Question Answer Date of Assessment Author Feeling nervous, anxious, or on edge 3 06/16/2025 10:27 AM Monika Chambers RN Not being able to stop or co ntrol worrying 3 06/16/2025 10:27 AM Monika Chambers RN Worrying too much about diff erent things 1 06/16/2025 10:27 AM Monika Chambers RN Trouble relaxing 3 06/16/2025 10:27 AM Monika Chambers RN Being so restless that it is hard to sit still 3 06/16/2025 10:27 AM Monika Chambers RN Becoming easily annoyed or irritable 3 06/16/2025 10:27 AM Monika Chambers RN Feeling afraid as if somethi ng awful might happen 1 06/16/2025 10:27 AM Monika Chambers RN ANTHONY-7 Total Score 17 06/16/2025 10:27 AM Monika Chambers RN * How difficult have these problems made it for you to do your work, take care of things at home, or get along with other people? Answer Date of Assessment Author Very difficult 06/16/2025 10:24 AM EST Gilles Chris RN documented as of this encounter Progress Notes * Monika Chris RN - 06/16/2025 2:53 PM EST CM Monika Chris RN received inbound call from [facility] regarding inquiry for braces. CM was informed that [facility] does not contract for bracing, usually refer patients to request DME be sent to [facility] as they have ability to process this order. Will send to PCP and DME specialist to update and resubmit DME request to supplier listed above. Please advise CM if any further information is needed. * Iris Clancy MD - 06/16/2025 2:53 PM EST Re DME, please repeat prescription or send the same prescription to a new DME provider, please verify with insurance that they will cover rx * Irais Vaz - 06/16/2025 2:53 PM EST DME order was documented in this encounter Plan of Treatment Upcoming Encounters Date Type Department Care Team (Late st Contact Info) Description 08/04/2025 11:45 AM EST Office Visit [facility] MEDICINE 230 [place] [address] Irsi Clancy MD 230 [place] [address] 08/27/2025 12:45 PM EST Office Visit [facility] ADULT DENTAL 230 [place] [address] Belle Simms [address] [place] [address] documented as of this encounter Visit Diagnoses Not on filedocumented in this encounter Additional Health Concerns Assessment Noted Time PHQ-9 Depression Total Score: 20 025 10:24 AM EST documented as of this encounter Care Teams Garment Manufacturer Relationship Specialty Start Date End Date Iris Clancy MD [address] [place] [address] PCP - General Internal Medicine 04/02/24 Aubrey Montesinos, ArbenD [address] [place] [address] Pharmacist Internal Medicine 08/07/24 Monika Chris, SUGAR [address] [place] [address] Registered Nurse Family Medicine 06/10/25 Elizabeth Mcqueen 06/10/25 documented as of this encounter
--- OUTSIDE RECORDS SUMMARY | 2025-06-24 10:04 | XMS_ITS | Encounter Summary ---
Author Organization [employer] Address [address] [facility] [address] 7t [place] [address] Care Team Providers Care Summer Counselor Name Role Phone Neetu Kyle Primary Care Provider [phone] Iris Clancy MD Primary Care Provider + Aubrey Montesinos PharmD Unavailable [phone] Monika Chris RN Unavailable [phone] Elizabeth Mcqueen Unavailable Encounter Details Date Type Department Care Team (Late st Contact Info) Description 03/28/2024 Orders Only [facility] [address] [place] [address] Neetu Kyle FNP [address] [place], [place] [phone] Routine health maintenance (Primary Dx) Social History [...] Description 08/04/2025 11:45 AM EST Office Visit [facility] MEDICINE [address] [place] [address] Iris Clancy MD [address] [place] [address] 08/27/2025 12:45 PM EST Office Visit [facility] ADULT DENTAL [address] [place] [address] Mendez, Belle [address] [place] [address] documented as of this encounter Visit Diagnoses Diagnosis Routine health maintenance- Primary Unspecified examination documented in this encounter Additional Health Concerns Assessment Noted Time PHQ-9 Depression Total Score: 24 023 3:56 PM EDT documented as of this encounter Care Teams Summer Counselor Relationship Specialty Start Date End Date Neetu Kyle FNP [address] [place] [address] PCP - General Family Medicine 09/19/22 04/01/24 Iris Clancy MD [address] [place] [address] PCP - General Internal Medicine 04/02/24 Aubrey Montesinos, Shilpa [address] [place], [place] [phone] Pharmacist Internal Medicine 08/07/24 Monika Chris, SUGAR [address] [place], [place] [phone] Registered Nurse Family Medicine 06/10/25 Elizbaeth Mcqueen 06/10/25 documented as of this encounter
--- OUTSIDE RECORDS SUMMARY | 2025-06-24 10:04 | XMS_ITS | Encounter Summary ---
Author Organization [employer] Address 75 [facility] 7t [place] [address] Care Team Providers Care Bandsaw Operator Name Role Phone Iris Clancy MD Primary Care Provider + Aubrey Montesinos PharmD Unavailable [phone] Monika Chris RN Unavailable [phone] Elizabeth Mcqueen Unavailable Reason for Visit * Reason Comments Med Refill Encounter Details Date Type Department Care Team ([facility] st Contact Info) Description 12/09/2024 Refill [facility] MEDICINE 230 [place] [address] Iris Clancy MD 230 [place] [address] Social History Tobacco Use Types Packs/Day Years [...] housing situation today? I have jonathan arjun 11/04/[address] you li [...] Description 08/04/2025 11:45 AM EST Office Visit [facility] MEDICINE [address] [place] [address] Iris Clancy MD [address] [place] [address] 08/27/2025 12:45 PM EST Office Visit [facility] ADULT DENTAL [address] [place] [address] Mendez, Belle [address] [place] [address] documented as of this encounter Visit Diagnoses Not on filedocumented in this encounter Additional Health Concerns Assessment Noted Time PHQ-9 Depression Total Score: 4 11/14/19 25 3:23 PM EDT documented as of this encounter Care Teams Bandsaw Operator Relationship Specialty Start Date End Date Iris Clancy MD [address] [place] [address] PCP - General Internal Medicine 04/02/24 Aubrey Montesinos, ArbenD [address] [place] [address], [place] [address] Pharmacist Internal Medicine 08/07/24 Monika Chris, SUGAR [address] [place] [address] Registered Nurse Family Medicine 06/10/25 Elizabeth Mcqueen 06/10/25 documented as of this encounter
--- OUTSIDE RECORDS SUMMARY | 2025-06-24 10:04 | XMS_ITS | Encounter Summary ---
Author Organization [employer] [facility] Address 75 [facility] 7t [place] [address] Care Team Providers Care Search Engineer Name Role Phone Neetu Kyle Primary Care Provider [phone] Iris Clancy MD Primary Care Provider + Aubrey Montesinos PharmD Unavailable [phone] Monika Chris RN Unavailable [phone] Elizabeth Mcqueen Unavailable Encounter Details Date Type Department Care Team (Late st Contact Info) Description 02/19/2023 Orders Only [facility] MEDICINE [address] [place] [address] Neetu Kyle FNP [address] [place] [address] Other specified hearing loss of both ears [...] Description 08/04/2025 11:45 AM EST Office Visit [facility] MEDICINE [address] [place] [address] rIis Clancy MD 230 [place] [address] 08/27/2025 12:45 PM EST Office Visit [facility] ADULT DENTAL [address] [place] [address] Belle Simms [address] [place] [address] documented as of this encounter Visit Diagnoses Diagnosis Other specified hearing loss of both ears- Primary documented in this encounter Additional Health Concerns Assessment Noted Time PHQ-9 Depression Total Score: 8 01/11/20 10:51 AM EDT documented as of this encounter Care Teams Search Engineer Relationship Specialty Start Date End Date Neetu yKle FNP [address] [place] [address] PCP - General Family Medicine 09/19/22 04/01/24 Iris Clancy MD [address] [place] [address] PCP - General Internal Medicine 04/02/24 Aubrey Montesinos, ArbenD [address] [place] [address] Pharmacist Internal Medicine 08/07/24 Monika Chris, SUGAR [address] [place] [address] Registered Nurse Family Medicine 06/10/25 Elizabeth Mcqueen 06/10/25 documented as of this encounter
--- OUTSIDE RECORDS SUMMARY | 2025-06-24 10:04 | XMS_ITS | Encounter Summary ---
Author Organization [employer] Address 75 [facility] 7t [place] [address] Care Team Providers Care Clinical Sciences Professor Name Role Phone Iris Clancy MD Primary Care Provider + Aubrey Montesinos PharmD Unavailable [phone] Monika Chris RN Unavailable [phone] Elizabeth Mcqueen Unavailable Reason for Visit * Reason Comments Med Refill Encounter Details Date Type Department Care Team ([facility] st Contact Info) Description 12/10/2024 Refill [facility] MEDICINE 230 [place] [address] Iris Clancy MD [address] [place] [address] Social History Tobacco Use Types Packs/Day Years [...] Description 08/04/2025 11:45 AM EST Office Visit [facility] MEDICINE [address] [place] [address] Iris Clancy MD [address] [place] [address] 08/27/2025 12:45 PM EST Office Visit [facility] ADULT DENTAL [address] [place] [address] Mendez, Belle [address] [place] [address] documented as of this encounter Visit Diagnoses Not on filedocumented in this encounter Additional Health Concerns Assessment Noted Time PHQ-9 Depression Total Score: 4 11/14/19 25 3:23 PM EDT documented as of this encounter Care Teams Clinical Sciences Professor Relationship Specialty Start Date End Date Iris Clancy MD [address] [place] [address] PCP - General Internal Medicine 04/02/24 Aubrey Montesinos, ArbenD [address] [place] [address], [place] [address] Pharmacist Internal Medicine 08/07/24 Monika Chris, SUGAR 230 [place] [address] Registered Nurse Family Medicine 06/10/25 Elizabeth Mcqueen 06/10/25 documented as of this encounter
== END 2025-06-24 09:45 | disposition home or self-care (01) ==
LOC: HO.HOS 09:11
PROVIDERS: PCP Internal Medicine
DX: G56.23 Lesion of ulnar nerve, bilateral upper limbs (principal)
CPT/HCPCS: 99213

== ENCOUNTER → 2025-06-24 09:11 | Outpatient (BNVA) | payer MEDICAID, SELFPAY | PROVIDERS: PCP Internal Medicine | DX: G56.23 Lesion of ulnar nerve, bilateral upper limbs (principal) | CPT/HCPCS: 99212 ==

== ENCOUNTER 2025-07-16 11:23 | Outpatient (REF) | payer MEDICAID, SELFPAY ==
[2025-07-16 12:35] LABS: Hematocrit 38.1 % (37.0-47.0); Hemoglobin 13.0 g/dl (12.0-16.0); Imm Gran Abs Auto 0.09 X10*3/uL (0.00-0.03); Imm Gran Pct Auto 0.7 % (0.0-0.4); Lymphocytes Absolute Auto 3.4 X10*3/uL (1.2-4.9); MANUAL DIFF FLAG SCAN; Mean Corpuscular HGB Conc 34.1 g/dl (31.0-35.0); Mean Corpuscular Hemoglobin 29.9 pg (27.0-33.0); Mean Corpuscular Volume 87.6 fL (80.0-98.0); NRBC Abs Auto 0.000 X10*3/uL (0.0-0.012); NRBC Pct Auto 0.0 /100WBC (0.0-0.2); Platelet Count 223 X10*3/uL (160-400); Red Blood Count 4.35 X10*6/uL (4.20-5.50); SCAN SMEAR FLAG 1; White Blood Count 13.8 X10*3/uL (4.8-10.8)
[2025-07-16 14:00] LABS: Alanine Aminotransferase 26 U/L (0-31); Albumin Level 4.0 g/dL (3.5-5.0); Alkaline Phosphatase 101 U/L (39-117); Anion Gap 12 (12-20); Aspartate Amino Transferase 36 U/L (5-31); Blood Urea Nitrogen 14 mg/dL (9-16); Calcium 8.7 mg/dL (8.4-10.2); Carbon Dioxide 23 mmol/L (22-29); Chloride 107 mmol/L (96-108); Estimated Glomerular Filt Rate > 60; Potassium 3.8 mmol/L (3.3-5.1); Sodium 138 mmol/L (135-145); Total Protein 6.8 g/dL (6.5-8.0)
== END 2025-07-16 11:24 | disposition home or self-care (01) ==
LOC: HO.LAB 11:23
PROVIDERS: PCP Internal Medicine; Referring Provider Internal Medicine; Visit Provider Registered Nurse
DX: R56.9 Unspecified convulsions (principal); G43.909 Migraine, unspecified, not intractable, without status migrainosus; R25.1 Tremor, unspecified
CPT/HCPCS: 36415; 80053; 80164; 84443; 85025

== ENCOUNTER 2025-07-16 11:23 | Outpatient (AMB) | payer MEDICAID, SELFPAY ==
--- NOTE | 2025-07-16 11:56 | A.OFFVIS_ITS ---
Intake Visit Reasons: 6M SZ Migraine Allergies No Known Drug Allergies Allergy (Unknown, Verified 07/16/25 12:00) U Medication List - Last Reconciled 07/16/25 by Linda Hodge CNP albuterol sulfate 90 mcg/actuation (Ventolin HFA) 2 puffs inhalation Q6H PRN diclofenac sodium 1% 2 grams topical QID PRN divalproex 1,000 mg (2 x 500 mg) PO BID 90 days gabapentin 100 mg PO TID levetiracetam 1,500 mg (3 x 500 mg) PO Q12H 90 days levocetirizine 5 mg PO QPM sennosides-docusate sodium 8.6-50 mg (Stool Softener-Stimulant Laxative) 1 tab PO QAM sumatriptan succinate mg PO terconazole 0.8% 1 appful vaginal BEDTIME 3 days topiramate 25 mg PO QAM topiramate 100 mg PO BEDTIME trazodone 50 mg PO BEDTIME PRN venlafaxine ER 75 mg PO QAM HPI Comments Details: She had [facility] who helped to manage medications. Headaches were better with topiramate, additional 25mg dose in the morning prescribed by PCP. Headaches were happening 2-3x/week. Sumatriptan as needed helped, but she ran out of medication. No seizures. She had shaking in her hands which she says has gotten worse over the last few months. Shaking made it hard to hold drink cup steady. No family history of tremors. She reports feeling spacey. She thinks she may have had small seizure during sleep on 10/08/2024. Her significant other told her that she was shaking, but he did not say for how long. No tongue bite or incontinence. She was having some muscle aches and was very tired next day. No missed doses of medication. Previously, she was having almost daily headaches with pressure-type pain all around head and behind eyes. Headaches were associated with photophobia, sonophobia, and nausea.?Had seizure 09/24/2023 and 09/25/2023 after running out of medication on 09/19/2023, woke up with tongue bite, muscle aches, and small bruise on left arm. Had seizure 11/29/2022, bite tongue, and 10/28/2022 during sleep. Missed one pill in 10/2022. Seen at [facility] 11/23/2021. Had bump on head from fall. Has hx of epilepsy with falling and tongue bite. Blank spells. Hospitalized in 11/2012 after 2 seizures. Workup at that time showed mildly a bnormal EEG as described below and normal MRI. She was started on Keppra. After discharge, she stopped her medication and had third seizure in the beginning of 12/2012. Headaches after falling and hitting head during one of her seizures. No family hx of seizures. No hx of head trauma prior to seizures. [facility] Medical History (Updated 07/16/25 @ 12:09 by Linda Hodge CNP) Multiple falls Migraine Cough Asthma Obesity (BMI 30-39.9) Heart palpitations Arthritis Glucosuria Tobacco dependence Osteoarthritis Plantar fasciitis, bilateral Suicide ideation Depression Anxiety Constipation Insomnia Epilepsy Absence seizure Hx of meningitis Seizures Surgical History Hx of wisdom tooth extraction Hx of removal of cyst Hx of section Hx of tubal ligation Social History Are you a primary family member caretaker to a significant other at home: No Do you presently have visiting nurse or other home services: No Patient Tobacco Use Status: Former Tobacco user Tobacco use type: Cigarette Cigarettes Per Day: 3 Current occupational status: disabled Current occupation: right hand dominant Female Reproductive History Menstrual Age of Menarche: 10 Review of Systems Const Denies chills, Denies daytime sleepiness, Reports difficulty sleeping, Denies fatigue, Denies fever(s), Denies frequent falls, Reports headache(s), Denies increased appetite, Denies poor appetite, Denies snoring, Denies weakness, Denies weight gain and Denies weight loss Eyes Denies loss of vision ENT Denies vertigo, Denies dizziness, Reports headache(s) and Denies neck pain Card Denies chest pain at rest, Denies chest pain with activity, Denies syncope, Denies leg edema, Denies palpitations, Denies dyspnea and Denies dyspnea on exertion Resp Denies cough, Denies dyspnea, Denies dyspnea on exertion and Denies snoring GI Denies abdominal pain, Denies constipation, Denies heartburn, Denies diarrhea and Denies nausea Denies urinary frequency, Denies urinary incontinence and Denies urinary urgency Musc Denies abnormal gait, Denies back pain, Denies myalgias, Denies arthralgias, Denies neck pain, Denies numbness and Denies tingling Neuro Denies abnormal gait, Denies vertigo, Denies dizziness, Denies syncope, Denies frequent falls, Reports headache(s), Denies lack of coordination, Denies loss of vision, Denies memory loss, Denies numbness, Denies Other visual disturbances, Denies restless legs, Denies seizure-like activity, Denies tingling, Denies paresthesias, Denies tremor(s) and Denies weakness Psych Reports anxiety, Denies depression, Denies auditory hallucinations, Denies memory loss and Denies visual hallucinations Endo Denies fatigue and Denies palpitations Physical Exam Const Other: General Appearance:? normal, in no acute distress. Heart:? S1, S2 normal, no murmurs. Lungs:? clear anteriorly and posteriorly. Musculoskeletal:? normal. Extremities:? no edema. Psych:? alert, oriented, cooperative with exam. Neuro Other: Abnormal Neurological Findings:?skin lesions around nose. Flat affect and delayed responses. Mild-mod bilateral hand tremor on sustained posture. FTN with tremor bilaterally. Mental Status: alert and oriented X 3. Normal attention, orientation, memory, and flat affect. Cranial Nerves: Pupils are equal, round, and reactive to light. External ocular muscles are intact. Visual lackey are full, no ptosis. Face is symmetrical, no facial weakness or droop. Facial sensations are normal. Tongue protrudes in midline. Palate elevates symmetrically. Shoulder shrugging is normal Motor Examination: Normal muscle tone, bulk and strength. No atrophy or fasciculations. No drift of the extended upper extremities. DTR 2+. Plantars are flexor. Sensory Exam: Normal light touch, temperature, pinprick, vibration, and joint- position sensations. Rhomberg sign is absent. Coordination: No ataxia. No titubation. Gait Exam: Within normal limits. Cerebellar Signs: Pxqpss-[id number] with tremor. Extrapyramidal System: Tremor as above. No rigidity with normal facial expressions. No bradykinesia. No bradyphrenia. Normal arm swing and posture. No propulsion or retropulsion. Speech: Normal. Results Reviewed Results Reviewed: 11/25/2024: Valproic acid 77.6. 09/2024: Valproic acid 45.3 03/15/21 EEG- WNL 09/29/21 24 hr ambulatory EEG: left temporal seizure focus at T3 in the mid temporal region consistent with a focal seizure disorder. Assessment & Plan Assessment & Plan (1) Seizures: Code(s): R56.9 - Unspecified convulsions Category: Medical Plan: Continue levetiracetam 500mg 3 tablets twice a day. Continue Depakote DR 500mg 2 tablets twice a day. Depakote level ordered. Brain MRI ordered. (2) Migraine: Code(s): G43.909 - Migraine, unspecified, not intractable, without status migrainosus Category: Medical Qualifiers: Migraine type: unspecified Status migrainosus presence: without status migrainosus Intractability: not intractable Qualified Code(s): G43.909 - Migraine, unspecified, not intractable, without status migrainosus Plan: Continue topiramate 100mg 1 tablet at bedtime (with 25mg in morning prescribed by PCP). Continue sumatriptan 100mg 1 tablet as needed for migraine. (3) Tremor: Code(s): R25.1 - Tremor, unspecified Category: Medical Plan: Reviewed labs ordered. Follow up after testing. Orders: Orders Complete Blood Count Auto Diff Today R56.9 - Unspecified convulsions Comprehensive Met. Panel Today R56.9 - Unspecified convulsions TSH reflex Free T4 Today R25.1 - Tremor, unspecified Valproate Today R56.9 - Unspecified convulsions MR head/brain wo con Today R56.9 - Unspecified convulsions Coding Level of Care Code Est Pt Level 4 (97645) Diagnoses Seizures R56.9 Migraine without status migrainosus, not intractable, unspecified migraine type G43.909 Migraine type: unspecified Status migrainosus presence: without status migrainosus Intractability: not intractable Tremor R25.1
--- OUTSIDE RECORDS SUMMARY | 2025-07-16 14:58 | XMS_ITS | Encounter Summary ---
Author Organization [employer] Address [address] [facility] 7t [place] [address] Care Team Providers Care Pulmonologist/Intensivist Name Role Phone Iris Clancy MD Primary Care Provider + Aubrey Montesinos PharmD Unavailable [phone] Monika Chris RN Unavailable [phone] Elizabeth Mcqueen Unavailable Reason for Visit * Reason Comments Med Refill Encounter Details Date Type Department Care Team ([facility] st Contact Info) Description 12/10/2024 Refill [facility] [address] [place] [address] Iris Clancy MD [address] [place] [address] Social History Tobacco Use Types Packs/Day Years [...] Description 08/04/2025 11:45 AM EST Office Visit [facility] [address] [place] [address] Iris Clancy MD [address] [place] [address] 08/27/2025 12:45 PM EST Office Visit [facility] ADULT DENTAL [address] [place] [address] Mendez, Belle [address] [place] [address] documented as of this encounter Visit Diagnoses Not on filedocumented in this encounter Additional Health Concerns Assessment Noted Time PHQ-9 Depression Total Score: 4 11/14/19 25 3:23 PM EDT documented as of this encounter Care Teams Pulmonologist/Intensivist Relationship Specialty Start Date End Date Iris Clancy MD [address] [place] [address] PCP - General Internal Medicine 04/02/24 Aubrey Montesinos, ArbenD [address] [place] [address], [place] [address] Pharmacist Internal Medicine 08/07/24 Monika Chris, SUGAR [address] [place] [address] Registered Nurse Family Medicine 06/10/25 Elizabeth Mcqueen 06/10/25 documented as of this encounter
--- OUTSIDE RECORDS SUMMARY | 2025-07-16 14:58 | XMS_ITS | Encounter Summary ---
Author Organization [employer] Address [address] [facility] 7t [place] [address] Care Team Providers Care Customer Training Specialist Name Role Phone Iris Clancy MD Primary Care Provider + Aubrey Montesinos PharmD Unavailable Monika Chris RN Unavailable [phone] Elizabeth Mcqueen Unavailable Reason for Visit * Reason Comments Care Coordination C3 -ARTIE lane pt 1 upddate Encounter Details Date Type Department Care Team (Latest Contact Info) Description 07/16/2025 Patient Outreach [facility]INE [address] [place] [address] Iris Clancy MD [address] [place] [address] Care Coordination (C3 JHONNY Mcqueen pt 1 upddate) Social History Tobacco Use Types Packs/Day Years [...] as of this encounter Progress Notes * Elizabeth Mcqueen - 07/16/2025 10:08 AM EST CHW Elizabeth Mcqueen submitted PT 1 to [facility] on 07/28/25 @ 12:45 pm , PT 1 will pick her upat 12:15 pm. documented in this encounter Plan of Treatment Upcoming Encounters Date Type Department Care Team (Late st Contact Info) Description 08/04/2025 11:45 AM EST Office Visit [facility] [address] [place] [address] Iris Clancy MD [address] [place] [address] 08/27/2025 12:45 PM EST Office Visit [facility] ADULT DENTAL [address] [place] [address] Belle Simms [address] [place] [address] documented as of this encounter Visit Diagnoses Not on filedocumented in this encounter Additional Health Concerns Assessment Noted Time PHQ-9 Depression Total Score: 20 025 10:24 AM EST documented as of this encounter Care Teams Customer Training Specialist Relationship Specialty Start Date End Date Iris Clancy MD [address] [place] [phone] PCP - General Internal Medicine 04/02/24 Aubrey Montesinos, ArbenD [address] [place] [phone] Pharmacist Internal Medicine 08/07/24 Monika Chris, SUGAR [address] [place] [address] Registered Nurse Family Medicine 06/10/25 Elizabeth Mcqueen 06/10/25 documented as of this encounter
--- OUTSIDE RECORDS SUMMARY | 2025-07-16 14:58 | XMS_ITS | Encounter Summary ---
Author Organization [employer] Address [address] [facility] 7t [place] [address] Care Team Providers Care Flooring Machine Feeder Name Role Phone Neetu Kyle Primary Care Provider [phone] Iris Clancy MD Primary Care Provider + Aubrey Montesinos PharmD Unavailable [phone] Monika Chris RN Unavailable [phone] Elizabeth Mcqueen Unavailable Encounter Details Date Type Department Care Team (Late st Contact Info) Description 06/01/2023 Orders Only [facility] & P[facility]S [address] [place] [address] Neetu Kyle FNP [address] [place] [address] Social History Tobacco Use Types Packs/Day Years [...] Description 08/04/2025 11:45 AM EST Office Visit [facility] MED[facility]INE [address] [place] [address] Iris Clancy MD [address] [place] [address] 08/27/2025 12:45 PM EST Office Visit [facility] ADULT DENTAL [address] [place] [phone] Belle Simms [address] [place] [address] documented as of this encounter Visit Diagnoses Not on filedocumented in this encounter Additional Health Concerns Assessment Noted Time PHQ-9 Depression Total Score: 24 023 3:56 PM EDT documented as of this encounter Care Teams Flooring Machine Feeder Relationship Specialty Start Date End Date Neetu Kyle FNP [address] [place] [address] PCP - General Family Medicine 09/19/22 04/01/24 Iris Clancy MD [address] [place] [address] PCP - General Internal Medicine 04/02/24 Aubrey Montesinos, ArbenD [address] [place] [phone] Pharmacist Internal Medicine 08/07/24 Monika Chris, SUGAR [address] [place] [address] Registered Nurse Family Medicine 06/10/25 Elizabeth Mcqueen 06/10/25 documented as of this encounter
--- OUTSIDE RECORDS SUMMARY | 2025-07-16 14:58 | XMS_ITS | Encounter Summary ---
Author Organization [employer] Address [address] [facility] 7t [place] [address] Care Team Providers Care Machine Coil Assembler Name Role Phone Neetu Kyle Primary Care Provider [phone] Iris Clancy MD Primary Care Provider + Aubrey Montesinos PharmD Unavailable [phone] Monika Chris RN Unavailable [phone] Elizabeth Mcqueen Unavailable Encounter Details Date Type Department Care Team (Late st Contact Info) Description 07/20/2023 [facility] [address] [place] [address] Neetu Kyle FNP [address] [place] [address] Social History Tobacco Use Types Packs/Day Years [...] Description 08/04/2025 11:45 AM EST Office Visit [facility] [address] [place] [address] Iris Clancy MD [address] [place] [address] 08/27/2025 12:45 PM EST Office Visit [facility] ADULT DENTAL [address] [place] [address] Belle Simms [address] [place] [address] documented as of this encounter Visit Diagnoses Not on filedocumented in this encounter Additional Health Concerns Assessment Noted Time PHQ-9 Depression Total Score: 24 023 3:56 PM EDT documented as of this encounter Care Teams Machine Coil Assembler Relationship Specialty Start Date End Date Neetu Kyle FNP [address] [place] [address] PCP - General Family Medicine 09/19/22 04/01/24 Iris Clancy MD [address] [place] [address] PCP - General Internal Medicine 04/02/24 Aubrey Montesinos, ArbenD [address] [place] [phone] Pharmacist Internal Medicine 08/07/24 Monika Chris, SUGAR [address] [place] [address] Registered Nurse Family Medicine 06/10/25 Elizabeth Mcqueen 06/10/25 documented as of this encounter
--- OUTSIDE RECORDS SUMMARY | 2025-07-16 14:58 | XMS_ITS | Encounter Summary ---
Author Organization [email or web address] Address [address] [facility] 7t [place] [address] Care Team Providers Care Commercial Green Building Designer Name Role Phone Iris Clancy MD Primary Care Provider + Aubrey Montesinos PharmD Unavailable [phone] Monika Chris RN Unavailable [phone] Elizabeth Mcqueen Unavailable Encounter Details Date Type Department Care Team (Late st Contact Info) Description 07/16/2025 Orders Only GENERIC EXTERNAL DATA DEPARTMENT Provider, [...] Description 08/04/2025 11:45 AM EST Office Visit [facility] [address] [place] [address] Iris Clancy MD [address] [place] [address] 08/27/2025 12:45 PM EST Office Visit [facility] ADULT DENTAL [address] [place] [address] Belle Simms [address] [place] [address] documented as of this encounter Procedures Procedure Name Priority Date/Time Associated Diagnosis Comments SLIDE REVIEW Routine 07/16/2025 12:29 PM EST TSH W/REFLEX TO FT4 Routine 07/16/2025 1 2:29 PM EST CBC WITH AUTO DIFFERENTIAL Routine 07/16/2025 12:29 PM EST VALPROIC ACID Routine 07/16/2025 12:29 PM EST COMPREHENSIVE METABOLIC PANEL Routine 07/16/2025 12:29 PM EST documented in this encounter Results * TSH with Reflex to Free T4 (07/16/2025 12:29 PM EST) TSH reflex Free T4 3.90 0.32 - 4.0 uIU/mL [facility] 07/16/2025 12:2 9 PM EST 07/16/2025 12:29 PM EST us Generic External Data Provider LAB BLOOD ORDERAB LES Final Result [facility] [address] [place], [place] [phone] * (ABNORMAL) Comprehensive Metabolic Panel (07/16/2025 12:29 PM EST) Sodium 138 135 - 145 mmol/L [facility] Potassium 3.8 3.3 - 5.1 mmol/L [facility] Chloride 107 96 - 108 mmol/L [facility] Carbon Dioxide 23 22 - 29 mmol/L [facility] Anion Gap 12 12 - 20 [facility] Urea Nitrogen (BUN) 14 9 - 16 mg/dL [facility] Creatinine, Serum 0.69 0.5 - 1.4 mg/dL [facility] Estimated Glomerular Filt Rate >60 [facility] Comment:Chronic Kidney Disea se: Estimated GFR < 60 mL/min/[id number] Kidney Disease: Estimated GFR < 15 mL/min/1.73m2 Glucose 101 60 - 115 mg/dL [facility] Calcium 8.7 8.4 - 10.2 mg/dL [facility] Bilirubin, Total 0.2 0.0 - 1.0 mg/dL [facility] Aspartate Amino Transferase 36(H) 5 - 31 U/L [facility] Alanine Aminotransferase 26 0 - 31 U/L [facility] Total Protein 6.8 6.5 - 8.0 g/dL [facility] Albumin Level 4.0 3.5 - 5.0 g/dL [facility] Alkaline Phosphatase 101 39 - 117 U/L [facility] 07/16/2025 12:2 9 PM EST 07/16/2025 12:29 PM EST us Generic External Data Provider LAB BLOOD ORDERAB LES Final Result Performing Organization Address [facility]/ZIP Co de Phone Number [facility] [address] [place] [phone] * Valproic Acid Total (07/16/2025 12:29 PM EST) Valproate 99.0 50.0 - 100.0 mcg/mL [facility] 07/16/2025 12:2 9 PM EST 07/16/2025 12:29 PM EST us Generic External Data Provider LAB BLOOD ORDERAB LES Final Result Performing Organization Address [facility] Co de Phone Number [facility] [address] [place] [phone] * Slide Review (07/16/2025 12:29 PM EST) Slide Review VERIFIED [facility] 07/16/2025 12:2 9 PM EST 07/16/2025 12:29 PM EST Generic External Data Provider LAB BLOOD ORDERAB LES Final Result Performing Organization Address [facility] de Phone Number [facility] [address] [place] [phone] * (ABNORMAL) CBC auto differential (07/16/2025 12:29 PM EST) White Blood Count 13.8(H) 4.8 - 10.8 X10*3/uL [facility] Red Blood Count 4.35 4.20 - 5.50 X10*6/uL [facility] Hemoglobin 13.0 12.0 - 16.0 g/dl [facility] Hematocrit 38.1 37.0 - 47.0 % [facility] Mean Corpuscular Volume 87.6 80.0 - 98.0 fL [facility] Mean Corpuscular Hemoglobin 29.9 27.0 - 33.0 pg [facility] Mean Corpuscular HGB Conc 34.1 31.0 - 35.0 g/dl [facility] Red Cell Distribution Width 14.2 11.0 - 16.0 % [facility] Platelet Count 223 160 - 400 X10*3/uL [facility] Mean Platelet Volume 9.6 9.4 - 12.3 fL [facility] Neutrophils Percent Auto 59.8 45 - 73 % [facility] Imm Gran Pct Auto 0.7(H) 0.0 - 0.4 % [facility] Lymphocytes Percent Auto 24.7 20 - 40 % [facility] Monocytes Percent Auto 12.2(H) 2 - 11 % [facility] Eosinophils Percent Auto 2.2 0 - 4 % [facility] Basophils Percent Auto 0.4 0 - 2 % [facility] NRBC Pct Auto 0.0 0.0 - 0.2 /100WBC [facility] Neutrophils Absolute Auto 8.3 2.0 - 8.3 x10*3/uL [facility] Imm Gran Abs Auto 0.09(H) 0.00 - 0.03 X10*3/uL [facility] Lymphocytes Absolute Auto 3.4 1.2 - 4.9 X10*3/uL [facility] Monocytes Absolute Auto 1.7(H) 0.1 - 1.2 X10*3/uL [facility] Eosinophils Absolute Auto 0.3 0.0 - 0.4 X10*3/uL [facility] Basophils Absolute Auto 0.1 0.0 - 0.2 X10*3/uL [facility] NRBC Abs Auto 0.000 0.0 - 0.012 X10*3/uL [facility] 07/16/2025 12:2 9 PM EST 07/16/2025 12:29 PM EST us Generic External Data Provider LAB BLOOD ORDERAB LES Edited Result - Final [facility] [address] [place] [address] [place] [phone] documented in this encounter Visit Diagnoses Not on filedocumented in this encounter Additional Health Concerns Assessment Noted Time PHQ-9 Depression Total Score: 20 025 10:24 AM EST documented as of this encounter Care Teams Commercial Green Building Designer Relationship Specialty Start Date End Date Iris Clancy MD [address] [place] [phone] PCP - General Internal Medicine 04/02/24 Aubrey Montesinos, ArbenD [address] [place] [address] Pharmacist Internal Medicine 08/07/24 Monika Chris, SUGAR [address] [place] [address] Registered Nurse Family Medicine 06/10/25 Elizabeth Mcqueen 06/10/25 documented as of this encounter
--- OUTSIDE RECORDS SUMMARY | 2025-07-16 14:58 | XMS_ITS | Clinical Summary ---
Author Organization [employer] Address [address] [facility] 7t [place] [address] Care Team Providers Care Carpet Loom Fixer Name Role Phone Iris Clancy MD Primary Care Provider + Aubrey Montesinos PharmD Unavailable [phone] Monika Chris RN Unavailable [phone] Elizabeth Mcqueen Unavailable Allergies No known active allergies Medications * This document contains information received from the source organization and may not represent a complete record from that organization. levETIRAcetam (Keppra) 500 MG tablet TAKE 3 TABLETS BY MOUTH EVERY 12 HOURS FOR 30 DAYS 3 Active divalproex (Depakote) 500 MG EC tablet Take 500 mg by mouth 2 times daily. 3 Active hydrOXYzine HCl (Atarax) 50 MG tablet TAKE 1 TABLET BY MOUTH EVERY DAY AT 9PM 3 Active albuterol 108 (90 Base) MCG/ACT inhaler Inhale 2 puffs every 4 (four) hours if needed for wheezing or shortness of breath. 18 g 1 4 Active Spacer/Aero-Hol ding Chambers (OptiChamber Joanne) misc 1 each every 4 (four) hours if needed (asthma). 1 each 4 Active fluticasone (Flonase) 50 MCG/ACT nasal spray INSTILL 1 SPRAY IN EACH NOSTRIL ONCE DAILY 48 g 5 Active Additional Information Patient not taking.Reported on 06/16/2025 Diclofenac Sodium 1 % gel Apply 2 g topically if needed in the morning, at noon, in the evening, and at bedtime (pain). 100 g 3 5 Active tiZANidine (Zanaflex) 2 MG tablet Take 1 tablet (2 mg) by mouth every 8 (eight) hours if needed for muscle spasms for up to 10 days. 30 tablet 5 Active FT Stool Softener 50-8.6 MG tablet TAKE 1 TABLET BY MOUTH EVERY MORNING 90 tablet 1 5 Active traZODone (Desyrel) 50 MG tablet TAKE 1 TABLET BY MOUTH AT BEDTIME 90 tablet 1 06/11/2025 4:45 PM EST 5 Active venlafaxine XR (Effexor XR) 75 MG 24 hr capsule Take 1 capsule (75 mg) by mouth Once per day. Do not crush or chew. 90 capsule 3 06/11/2025 4:45 PM EST 5 06/08/20 26 Active topiramate (Topamax) 100 MG tablet Take 100 mg by mouth at bedtime. Active topiramate (Topamax) 25 MG tablet Take 1 tablet (25 mg) by mouth with breakfast. In addition to 100mg at bedtime (Neurology) 30 tablet 11 07/09/2025 2:37 PM EST 5 06/09/20 26 Active levocetirizine (Xyzal) 5 MG tablet Take 1 tablet (5 mg) by mouth in the evening. 30 tablet 06/29/2025 10:03 AM EST 5 06/16/20 26 Active Active Problems Problem Noted Date Diagnosed Date [...] she needs a referral to orthopedics or athletic field custodian Assessment & Plan (05/13/2024 3:26 PM EDT): [...] spur Reconsult as needed, will refer to fire support specialist for steroid injection. Plantar fasciitis, bilateral [...] nightly, she can call for referral to fire support specialist Advised to do warm soaks with [...] for help PLAN: 1. Follow up with [facility]: Recommended for follow-up: As needed 2. Patient goal is stabilization of symptoms 3. Behavioral Recommendations a. Comply with respite when a bed is avaialble b. Comply with medications and attend psychiatry appointment, when established c. Utilize CB if symptoms worsen d. Reach out to [facility] for additional support ANTHONY (generalized anxiety disorder) 04/06/2023 Severe episode of recurrent major depressive disorder, without psychotic features (CMS/HCC) 04/06/2023 Overview (06/08/2025): Counselor is Domitila Marino at [facility] ([place] LINDA signed 06/08/25 Assessment & Plan (06/08/2025 11:29 AM EST): - Has active SI, no plan. She says seh wont harm herself as she hopes to keep the realationship and sharing memories with her daughters, also gnosticist and cultural issues prevent her form harming herself. She has crisis number and can reach her couselor Domitila Marino at [facility]. - Increase Venlafaxine ER to 75mg/d - [...] thru their agency. Patient was provided with CB information. At this time Ebony Edwards meets criteria for Visit Diagnoses: Problem List Items Addressed This Visit Other ANTHONY (generalized anxiety disorder) Severe episode of recurrent major depressive disorder, without psychotic features ([facility]) Patient ready to address current needs Yes Strengths include service in place PLAN: 1. Follow up with [facility]: Not recommended for follow-up 2. Patient goal [...] 3:10 PM EST): - Controlled, F[place] w [facility] [place]. She seems to have some memory [...] with neurology. Dr. Leon at [facility] Continue current medications Insomnia 01/10/2023 Overview (04/06/2023): [...] Encounters Date Type Department Care Team Description 07/16/2025 Orders Only GENERIC EXTERNAL DATA DEPARTMENT Provider, Generic External Data 07/16/2025 Patient Outreach [address] [address] Iris Clancy MD Care Coordination (C3 [facility] Elizabeth Mcqueen pt 1 upddate) 07/14/2025 Patient Outreach [address] [address] Iris Clancy MD Care Management (C3CM- FOLLOW UP CALL/) 07/08/2025 Patient Outreach [address] [address] Iris Clancy MD Care Coordination ([facility] Elizabeth Mcqueen pt 1 update) 07/06/[address] [address] Iris Clancy MD pt1 07/06/2025 Patient Outreach [address] [address] Iris Clancy MD 07/06/2025 Patient Outreach [address] [address] Iris Clancy MD Care Management (C3CM- FOLLOW UP CALL/) 06/29/2025 Patient Outreach [address] [address] Iris Clancy MD Care Coordination (C3 CM-[facility] Elizabeth Mcqueen telephone call outreach) 06/24/2025 Patient Outreach [address] [address] Iris Clancy MD Care Coordination ([facility] Elizabeth Mcqueen PT-1 update) 06/24/2025 Patient Outreach [address] [address] Iris Clancy MD Care Management (CARE COORDINATION) 06/23/2025 Patient Outreach [address] [address] Iris Clancy MD Care Management (C3CM- FOLLOW UP CALL/) 06/19/[address] [address] Iris Clancy MD Durable Medical Equipment (DME: Feet Splints) 06/16/2025 Patient Outreach [address] [address] Iris Clancy MD Care Management (DME); Durable Medical Equipment 06/16/2025 Plan of Care Documentation [address] [address] 06/16/2025 Plan of Care Documentation [address] [address] 06/16/2025 Patient Outreach [address] [address] Iris Clancy MD Care Management (C3CM COMPLEX INITIAL ASSESSMENT/ ENROLLMENT ) 06/15/2025 Patient Outreach [address] [address] Iris Clancy MD Care Coordination (C3 -[facility] Elizabeth Mcqueen telephone call outreach) 06/12/[address] [address] Iris Clancy MD 06/10/2025 Patient Outreach [address] [address] Iris Clancy MD Care Coordination ([facility] Elizabeth Mcqueen ) 06/10/2025 Patient Outreach [address] [address] Iris Clancy MD Care Coordination ([facility] Elizabeth Mcqueen telephone call outreach ) 06/10/2025 Patient Outreach [address] [address] Iris Clancy MD Care Coordination (C3 -[facility] Elizabeth Mcqueen chart review) 06/10/2025 Patient Outreach [address] [address] Iris Clancy MD Care Management (C3CM -CHART REVIEW ) 06/10/2025 Patient Outreach [address] [address] Iris Clancy MD 06/09/[address] [address] Iris Clancy MD FYI 06/08/2025 9:45 AM EST Office Visit [address] [address] Iris Clancy MD Seizure disorder (CMS/HCC) ([facility]) (Primary Dx); Severe episode of recurrent major [...] DEPARTMENT Provider, Generic External Data 06/02/[address] [address] Iris Clancy MD CHART PREP 05/27/2025 Refill [facility] MED & PEDS [address] [place], [place] [phone] Iris Clancy MD from Last 3 Months [...] 08/04/2025 11:45 AM EST Office Visit [facility] MEDICINE [address] [place], [place] [phone] Iris Clancy MD [address] [place] [address] 08/27/2025 12:45 PM EST Office Visit [facility] ADULT DENTAL [address] [place], [place] [phone] Belle Simms [address] [place] [address] Health Maintenance Due Date Last Done Comments [...] 04/22/2024, 01/13/2021, 12/16/2020 Dental X-Ray: Full Mouth 06/13/2025 022, 11/30/2020, 11/30/2020 Depression Monitoring 12/14/2025 06/16/2025, [...] Procedure Name Priority Date/Time Associated Diagnosis Comments TSH W/REFLEX TO FT4 Routine 07/16/2025 1 2:29 PM EST COMPREHENSIVE METABOLIC PANEL Routine 07/16/2025 12:29 PM EST VALPROIC ACID Routine 07/16/2025 12:29 PM EST SLIDE REVIEW Routine 07/16/2025 12:29 PM EST CBC WITH AUTO DIFFERENTIAL Routine 07/16/2025 12:29 PM EST CHLAMYDIA/N. GONORRHOEAE RNA, TMA, UROGENITAL Routine 06/04/2025 [...] Recently Relevant to Health Maintenance Results * Slide Review (07/16/2025 12:29 PM EST) Slide Review VERIFIED [facility] 07/16/2025 12:2 9 PM EST 07/16/2025 12:29 PM EST us Generic External Data Provider LAB BLOOD ORDERAB LES Final Result Performing Organization Address City/[facility]/ZIP Co de Phone Number [facility] [address] [place] [address] [phone] * TSH with Reflex to Free T4 (07/16/2025 12:29 PM EST) TSH reflex Free T4 3.90 0.32 - 4.0 uIU/mL [facility] 07/16/2025 12:2 9 PM EST 07/16/2025 12:29 PM EST Generic External Data Provider LAB BLOOD ORDERAB LES Final Result Performing Organization Address [facility] Co de Phone Number [facility] [address] [place] [phone] * (ABNORMAL) CBC auto differential (07/16/2025 12:29 PM EST) White Blood Count 13.8(H) 4.8 - 10.8 X10*3/uL [facility] Red Blood Count 4.35 4.20 - 5.50 X10*6/uL [facility] Hemoglobin 13.0 12.0 - 16.0 g/dl [facility] Hematocrit 38.1 37.0 - 47.0 % [facility] Mean Corpuscular Volume 87.6 80.0 - 98.0 fL [facility] Mean Corpuscular Hemoglobin 29.9 27.0 - 33.0 pg [facility] Mean Corpuscular HGB Conc 34.1 31.0 - 35.0 g/dl [facility] Red Cell Distribution Width 14.2 11.0 - 16.0 % [facility] Platelet Count 223 160 - 400 X10*3/uL [facility] Mean Platelet Volume 9.6 9.4 - 12.3 fL [facility] Neutrophils Percent Auto 59.8 45 - 73 % [facility] Imm Gran Pct Auto 0.7(H) 0.0 - 0.4 % [facility] Lymphocytes Percent Auto 24.7 20 - 40 % [facility] Monocytes Percent Auto 12.2(H) 2 - 11 % [facility] Eosinophils Percent Auto 2.2 0 - 4 % [facility] Basophils Percent Auto 0.4 0 - 2 % [facility] NRBC Pct Auto 0.0 0.0 - 0.2 /100WBC [facility] Neutrophils Absolute Auto 8.3 2.0 - 8.3 x10*3/uL [facility] Imm Gran Abs Auto 0.09(H) 0.00 - 0.03 X10*3/uL [facility] Lymphocytes Absolute Auto 3.4 1.2 - 4.9 X10*3/uL [facility] Monocytes Absolute Auto 1.7(H) 0.1 - 1.2 X10*3/uL [facility] Eosinophils Absolute Auto 0.3 0.0 - 0.4 X10*3/uL [facility] Basophils Absolute Auto 0.1 0.0 - 0.2 X10*3/uL [facility] NRBC Abs Auto 0.000 0.0 - 0.012 X10*3/uL [facility] 07/16/2025 12:2 9 PM EST 07/16/2025 12:29 PM EST us Generic External Data Provider LAB BLOOD ORDERAB LES Edited Result - Final [facility] [address], [place] [phone] * Valproic Acid Total (07/16/2025 12:29 PM EST) Valproate 99.0 50.0 - 100.0 mcg/mL [facility] 07/16/2025 12:2 9 PM EST 07/16/2025 12:29 PM EST us Generic External Data Provider LAB BLOOD ORDERAB LES Final Result [facility] [address] [place] [phone] * (ABNORMAL) Comprehensive Metabolic Panel (07/16/2025 12:29 PM EST) Sodium 138 135 - 145 mmol/L [facility] Potassium 3.8 3.3 - 5.1 mmol/L [facility] Chloride 107 96 - 108 mmol/L [facility] Carbon Dioxide 23 22 - 29 mmol/L [facility] Anion Gap 12 12 - 20 [facility] Urea Nitrogen (BUN) 14 9 - 16 mg/dL [facility] Creatinine, Serum 0.69 0.5 - 1.4 mg/dL [facility] Estimated Glomerular Filt Rate >60 [facility] Comment:Chronic Kidney Disea se: Estimated GFR < 60 mL/min/1.81s5Tqastp Kidney Disease: Estimated GFR < 15 mL/min/1.73m2 Glucose 101 60 - 115 mg/dL [facility] Calcium 8.7 8.4 - 10.2 mg/dL [facility] Bilirubin, Total 0.2 0.0 - 1.0 mg/dL [facility] Aspartate Amino Transferase 36(H) 5 - 31 U/L [facility] Alanine Aminotransferase 26 0 - 31 U/L [facility] Total Protein 6.8 6.5 - 8.0 g/dL [facility] Albumin Level 4.0 3.5 - 5.0 g/dL [facility] Alkaline Phosphatase 101 39 - 117 U/L [facility] 07/16/2025 12:2 9 PM EST 07/16/2025 12:29 PM EST us Generic External Data Provider LAB BLOOD ORDERAB LES Final Result Performing Organization Address City/[facility]/ZIP Co de Phone Number [facility] [address] [place] [address] [phone] * (ABNORMAL) Bacterial Vaginosis (06/04/2025 2:15 PM EST) TRICHOMONAS VAGINALIS DETECTION BY PCR NOT DETECTED Not Detect [facility] BACTERIAL VAGINOSIS DETECTION BY PCR POSITIVE(A) Negative [facility] Comment:The BV organism targ ets of [...] DETECTION BY PCR NOT DETECTED Not Detect [facility] Jordyn glab krusei PCR NOT DETECTED Not Detect [facility] 06/04/2025 2:15 PM EST 06/04/2025 5:24 PM EST us Generic External Data Provider LAB MICROBIOLOGY - GENERAL ORDERABLES Final Result [facility] [address] [place] [phone] * Chlamydia/N. Gonorrhoeae RNA, TMA, Urogenitial (06/04/2025 2:15 PM EST) Pathologist [facility] CT PCR NOT DETECTED Not Detect. [facility] Comment:A not detected test result does [...] psychologicalconsequences. NG PCR NOT DETECTED Not Detect. [facility] Comment:A not detected test result does [...] LAB MICROBIOLOGY - GENERAL ORDERABLES Final Result [facility] [address] [place] [phone] * Hepatitis Panel, General (05/13/2024 3:20 PM EDT) Hepatitis A IgM Nonreactive Nonreactive [facility] Comment:IgM antibodies to BAILEY V not detected; does not exclude earlyacute or recovered HAV infection. ~Hepatitis B Surface Antibody REACTIVE Nonreactive [facility] Comment:REACTIVE: > 11.99 mI U/mL Hepatitis B Core Antibody Nonreactive Nonreactive [facility] Hepatitis C Antibody Nonreactive Nonreactive [facility] Comment:Antibodies to HCV no t detected; does not exclude early acuteHCV infection. Hepatitis B Surface Ag Negative Negative [facility] Blood 05/13/2024 3:20 PM EDT 05/13/2024 4:20 PM EDT Iris Clancy MD LAB BLOOD ORDERABLES Fin al Result Performing Organization Address City/[facility] Co de Phone Number [facility] [address] [place] [phone] * (ABNORMAL) Lipid Panel, Standard (05/29/2023 3:36 PM EDT) Triglycerides 119 <150 mg/dL [facility] Comment:Desirable Triglyceri de: less than 150 mg/dLBorderline High Triglyceride 150-199 mg/dLHigh Triglyceride: 200-499 mg/dLVery High Triglyceride: greater than or equal to 5OO mg/dL Cholesterol 126 <200 mg/dL [facility] Comment:Desirable Cholestero l: less than 200 mg/dLBorderline High Cholesterol: 200-239 mg/dLHigh Cholesterol: greater than 239 mg/dL LDL Cholesterol Calculated 67 <100 mg/dL [facility] Comment:Desirable LDL: less than 100 mg/dLNear Optimal/Above Optimal LDL: 110- 129 mg/dLBorderline High LDL: 130-159 mg/dLHigh LDL: 160-189 mg/dLVery High LDL: greater than or equal to 190 mg/dL HDL Cholesterol 36(L) >40 mg/dL [facility] Comment:Desirable HDL: great er than 40 mg/dL Note: This HDL assay may give artificially low results in patients with liver disease. Blood Venous blood specimen / Unknown 05/29/2023 3:36 PM EDT 05/29/2023 5:53 PM EDT Neetu Kyle RADIATOR CLEANER LAB BLOOD ORDERABLES Final Resu lt Performing Organization Address City/[facility]/ZIP Co de Phone Number [facility] [address] [place] [phone] * Pap Smear (01/09/2023 3:04 PM EDT) 01/09/2023 3:04 PM EDT 01/11/2023 8:00 AM EDT Narrative [facility] - 2023 8:52 AM EDT ----- ------- Name: Ebony Pacheco Age/Sex: 32/F : 1990 Unit#: [id number] Attend Dr: Contreras Yee MD Re01/09/23 Status: DEP REF Location: [facility] Disch: ----- ------- SPEC : [id number] RECD: 01/11/23 STATUS: ELIZABETH WILBURN NUM: [id number] ELIZABETH: 01/09/23-[address] [facility] [address]: Contreras Yee MD ENTERED: 01/12/23-905 SP TYPE: Pap Smr OTHR DR: Neetu Kyle ECONOMICS CONSULTANT ORDERED: Pap Smear Interpretation Satisfactory for evaluation. Negative for intraepithelial lesion or malignancy. HPV mRNA E6/E7: NOT DETECTED This assay detects E6/E7 viral messenger RNA (mRNA) from 14 high-risk HPV types (16, 18, 31, 33, 35, 39, 45, 51, 52, 56, 58, 59, 66, 68) HPV testing performed by [employer], [place], [place]. See reference laboratory pion of the EMR for entire report. Clinical Information LMP: Unknown date Previous PAP test: Unknown date/findings Other history: Abnormal uterine and vaginal bleeding Material Received ThinPrep-Cervical Copies To: Neetu Kyle ECONOMICS CONSULTANT [address] [place] [address] Contreras Yee MD [address] [place], [place] [address]Winnie [address] [address] ----- ------- Signed (signature on file) MANNY Osorio ([facility]) 01/26/23 0852 ----- ------- END OF REPORT [facility] External Provider LAB [facility] ORDERABLES Final Result [facility] [address] [place] [phone] * HIV 1/2 ANTIGEN/ANTIBODY,FOURTH GENERATION W/RFL (03/20/2022 2:38 PM EDT) [facility] HIV-1/2 ANTIGEN AND ANTIBODIES, 4TH GENERATION W/ REFLEX NON-REACT JOSIAS NON-REACT JOSIAS [facility] Comment: HIV-1 antigen and [...] purpose. For additional information please refer to http://education.[employer].com/faq/MKN628 (This link is being provided for informational/ educational purposes only.) The performance of this assay has not been clinically validated in patients less than 2 years old. 03/20/2022 2:38 PM EDT Vince Castañeda MD LAB BLOOD ORDERABLES Final R esult [facility] [address] from Last 3 Months or Most Recently Relevant to Health Maintenance Insurance [employer] [facility] [place] AD[place] Care Teams Carpet Loom Fixer Relationship Specialty Start Date End Date Iris Clancy MD [address] [place] [address] PCP - General Internal Medicine 04/02/24 Aubrey Montesinos, ArbenD [address] [place] [address] Pharmacist Internal Medicine 08/07/24 Monika Chris, SUGAR [address] [place] [address] Registered Nurse Family Medicine 06/10/25 Elizabeth Mcqueen 06/10/25
--- OUTSIDE RECORDS SUMMARY | 2025-07-16 14:58 | XMS_ITS | Encounter Summary ---
Author Organization [employer] Address [address] [facility] [address] [place] [address] Care Team Providers Care Demand Generator Manager Name Role Phone Neetu Kyle Primary Care Provider [phone] Iris Clancy MD Primary Care Provider + Aubrey Montesinos PharmD Unavailable [phone] Monika Chris RN Unavailable [phone] Elizabeth Mcqueen Unavailable Reason for Visit * Reason Onset Date Comments Letter Request 07/13/2023 Encounter Details Date Type Department Care Team (Late st Contact Info) Description 07/13/2023 Telephone [facility] MEDICINE [address] [place], [place] [phone] Neetu Kyle FNP [address] [place], [place] [phone] Letter Request Social History Tobacco Use Types [...] with others, in a hotel, in a half-way, living outside on the street, on a [...] the past 12 months, has t he [employer], gas, oil or water company threatened to [...] 11:45 AM EST Office Visit [facility] MEDICINE [address] [place] [address] Iris Clancy MD [address] [place] [address] 08/27/2025 12:45 PM EST Office Visit [facility] ADULT DENTAL [address] [place] [address] Belle Simms [address] [place] [address] documented as of this encounter Visit Diagnoses Not on filedocumented in this encounter Additional Health Concerns Assessment Noted Time PHQ-9 Depression Total Score: 24 023 3:56 PM EDT documented as of this encounter Care Teams Demand Generator Manager Relationship Specialty Start Date End Date Neetu Kyle FNP [address] [place] [address] PCP - General Family Medicine 09/19/22 04/01/24 Iris Clancy MD [address] [place] [address] PCP - General Internal Medicine 04/02/24 Aubrey Montesinos, Shilpa [address] [place], [place] [phone] Pharmacist Internal Medicine 08/07/24 Monika Chris RN [address] [place] [phone] Registered Nurse Family Medicine 06/10/25 Elizabeth Mcqueen 06/10/25 documented as of this encounter
--- OUTSIDE RECORDS SUMMARY | 2025-07-16 14:58 | XMS_ITS | Encounter Summary ---
Author Organization [employer] Address [address] [facility] [address] [place] [address] Care Team Providers Care Security And Privacy Consultant Name Role Phone Iris Clancy MD Primary Care Provider + Aubrey Montesinos PharmD Unavailable [phone] Monika Chris RN Unavailable [phone] Elizabeth Mcqueen Unavailable Reason for Visit * Reason Comments Med Refill Encounter Details Date Type Department Care Team ([facility] st Contact Info) Description 12/09/2024 Refill [facility] MEDICINE [address] [place] [address] Iris Clancy MD [address] [place] [address] Social History Tobacco Use Types Packs/Day Years [...] Description 08/04/2025 11:45 AM EST Office Visit [facility] MEDICINE [address] [place] [phone] Iris Clancy MD [address] [place] [address] 08/27/2025 12:45 PM EST Office Visit [facility] ADULT DENTAL [address] [place] [address] Mendez, Belle [address] [place] [phone] documented as of this encounter Visit Diagnoses Not on filedocumented in this encounter Additional Health Concerns Assessment Noted Time PHQ-9 Depression Total Score: 4 11/14/19 25 3:23 PM EDT documented as of this encounter Care Teams Security And Privacy Consultant Relationship Specialty Start Date End Date Iris Clancy MD [address] [place] [phone] PCP - General Internal Medicine 04/02/24 Aubrey Montesinos, ArbenD [address] [place] [address], [place] [address] Pharmacist Internal Medicine 08/07/24 Monika hCris, SUGAR [address] [place] [address] Registered Nurse Family Medicine 06/10/25 Elizabeth Mcqueen 06/10/25 documented as of this encounter
--- OUTSIDE RECORDS SUMMARY | 2025-07-16 14:58 | XMS_ITS | Encounter Summary ---
Author Organization [email or web address] Address [address] [place] [address] 7t [place] [address] Care Team Providers Care Stock Order Lister Name Role Phone Neetu Kyle Primary Care Provider [phone] Iris Clancy MD Primary Care Provider + Aubrey Montesinos PharmD Unavailable [phone] Monika Chris RN Unavailable [phone] Elizabeth Mcqueen Unavailable Reason for Visit * Reason Comments Med Refill Encounter Details Date Type Department Care Team (Late st Contact Info) Description 08/13/2023 Refill [facility] MEDICINE [address] [place] [address] Neetu Kyle FNP [address] [place] [address] Social History Tobacco Use Types Packs/Day Years [...] with others, in a hotel, in a detention, living outside on the street, on a [...] the past 12 months, has t he [employer], gas, oil or water company threatened to [...] 08/04/2025 11:45 AM EST Office Visit [facility] MEDICINE [address] [place] [phone] Iris Clancy MD [address] [place] [address] 08/27/2025 12:45 PM EST Office Visit [facility] ADULT DENTAL [address] [place] [address] Adalberto Simmsaris [address] [place] [address] documented as of this encounter Visit Diagnoses Not on filedocumented in this encounter Additional Health Concerns Assessment Noted Time PHQ-9 Depression Total Score: 24 023 3:56 PM EDT documented as of this encounter Care Teams Stock Order Lister Relationship Specialty Start Date End Date Neetu Kyle FNP [address] [place] [address] PCP - General Family Medicine 09/19/22 04/01/24 Iris Clancy MD [address] [place], [place] [phone] PCP - General Internal Medicine 04/02/24 Aubrey Montesinos, Shilpa [address] [place] [address] [phone] Pharmacist Internal Medicine 08/07/24 Monika Chris, SUGAR [address] [place] [phone] Registered Nurse Family Medicine 06/10/25 Elizabeth Mcqueen 06/10/25 documented as of this encounter
--- OUTSIDE RECORDS SUMMARY | 2025-07-16 14:58 | XMS_ITS | Encounter Summary ---
Author Organization [facility] Address [address] [facility] 7t [place] [address] Care Team Providers Care Counselor Manager Name Role Phone Neetu Kyle Primary Care Provider [phone] Iris Clancy MD Primary Care Provider + Aubrey Montesinos PharmD Unavailable [phone] Monika Chris RN Unavailable [phone] Elizabeth Mcqueen Unavailable Encounter Details Date Type Department Care Team (Late st Contact Info) Description 02/19/2023 Orders Only [facility] MEDICINE [address] [place] [address] Neetu Kyle FNP [address] [place] [address] Other specified hearing loss of both ears [...] 08/04/2025 11:45 AM EST Office Visit [facility] MEDICINE [address] [place] [address] Iris Clancy MD [address] [place] [address] 08/27/2025 12:45 PM EST Office Visit [facility] ADULT DENTAL [address] [place] [address] Belle Simms [address] [place] [address] documented as of this encounter Visit Diagnoses Diagnosis Other specified hearing loss of both ears- Primary documented in this encounter Additional Health Concerns Assessment Noted Time PHQ-9 Depression Total Score: 8 01/11/20 10:51 AM EDT documented as of this encounter Care Teams Counselor Manager Relationship Specialty Start Date End Date Neetu Kyle FNP [address] [place] [address] PCP - General Family Medicine 09/19/22 04/01/24 Iris Clancy MD [address] [place] [address] PCP - General Internal Medicine 04/02/24 Aubrey Montesinos, ArbenD [address] [place] [address] Pharmacist Internal Medicine 08/07/24 Monika Chris, SUGAR [address] [place] [address] Registered Nurse Family Medicine 06/10/25 Elizabeth Mcqueen 06/10/25 documented as of this encounter
--- OUTSIDE RECORDS SUMMARY | 2025-07-16 14:58 | XMS_ITS | Encounter Summary ---
Author Organization [employer] Address [address] [facility] 7t [place] [address] Care Team Providers Care [facility] Rehabilitation Counselor Name Role Phone Iris Clancy MD Primary Care Provider + Aubrey Montesinos PharmD Unavailable [phone] Monika Chris RN Unavailable [phone] Elizabeth Mcqueen Unavailable Reason for Visit * Reason Comments Care Management C3CM- FOLLOW UP CALL Encounter Details Date Type Department Care Team ([facility] st Contact Info) Description 07/14/2025 Patient Outreach [facility] MEDICINE [address] [place] [address] Iris Clancy MD [address] [place], [place] [phone] Care Management (C3CM- FOLLOW UP CALL/) Social [...] Progress Notes * Monika Chris RN - 07/14/2025 9:14 AM EST CM Monika Chris RN placed outbound call to patient. Patient's name, and address confirmed. Patient states is doing well with no recent illnesses or emergency room visits. [facility]. Patient will be picked up at 11:15am. Patient advised CM that rescheduled [facility] Orthopedic appointment for 07/28/25 at 12:45pm. Will need PT_1 set up for this appointment. CM advised will notify CHW. Patient has not yet been called for night splints from [facility]. Patient advised Rx sent to them last week. Patient to advise CM if no contact within 2 weeks. Patient states had medboxes delivered last week, no other refills needed. Patient states emotionally doing well. Had therapist follow up yesterday. CM assessed for patient readiness to discuss tobacco cessation. Patient states still not interested at this time. CM advised patient that if or when ready can discuss with CM to request tobacco cessation education. No further questions or concerns. CM reinforced direct contact information or CHW for any additional questions or concerns. Education provided on [facility]In Ur[facility] Care located in [facility]. Patient provided with after-hours line for [facility], , which offer night time triage service and option to transfer to specimen preparation assistant provider if needed. Patient verbalizes understanding, and able to repeat back to junior technical writer. A follow up call will be placed within 10 days, patientagrees with plan. documented in this encounter Miscellaneous Notes * Care Plan - Monika Chris RN - 07/14/2025 9:14 AM EST Active BH: Anxiety Anxiety Management (Progressing) Start: 06/16/25 Expected End: 09/16/25 Patient will attempt to effectively manage anxiety through the use of appropriate coping mechanisms, as evidenced by a decrease in anxiety symptoms and ability to engage in daily activities. Goal Note CM assessed if any worsening symptoms of anxiety, patient reports coping well with symptoms at thistime. Barriers to Care Manage Barriers to Care (Progressing) Start: 06/16/25 Expected End: 09/16/25 Patient states will identify and communicate with care management team any personal, social, or environmental barriers that affect their ability to access or participate in care. Goal Note CM assessed for barriers to attending upcoming appointment , addressed concern for transportation. Behavioral Health Support Behavioral Health (Progressing) Start: 06/16/25 Expected End: 09/16/25 Patient states will consistently attend all scheduled therapy and prescriber appointments and will promptly notify their zoo caretaker, psychiatrist, or therapist of any medication side effects or worsening symptoms in the next 3 months. Goal Note Patient states emotionally doing well. Had therapist follow up yesterday. Care Management Care Management (Progressing) Start: 06/16/25 Expected End: 09/16/25 Within the next 3 months, patient will engage with zoo caretaker through scheduled calls or visits to review health goals, discuss progress, and address any barriers to care plan. Goal Note CM and patient have been able to complete follow up calls without issue. CM reinforced frequency ofcalls and CM/CHW contact information. Coordination of Care Effectively coordinate care (Progressing) Start: 06/16/25 Expected End: 09/16/25 Patient will notify the care team of all upcoming appointments and communicate any scheduling difficulties to receive assistance with coordination and reminders. Goal Note Patient advised CM that rescheduled [facility] Orthopedic appointment for 07/28/25 at 12:45pm. Will need PT_1 set up for this appointment. CM advised will notify CHW. DME/Equipment Obtain DME/Equipment (Progressing) Start: 06/16/25 Expected End: 09/16/25 Patient will use the prescribed durable medical equipment (e.g., brace, inserts, or assistive device) as instructed by their healthcare provider to help relieve foot pain and improve mobility. Goal Note Patient has not yet been called for night splints from [facility]. Patient advised Rx sent to them last week. Patient to advise CM if no contact within 2 weeks. Depression Access to appropriate provider (Progressing) Start: 06/16/25 Expected End: 09/16/25 Patient will adhere to the prescribed treatment plan for depression and anxiety, utilize coping mechanisms to manage symptoms, and contact their therapist, psychiatrist, or crisis helpline if symptoms worsen or safety concerns arise. Goal Note CM assessed patient continues to adhere to therapist appointment follow up for depression/anxiety. Manage Depression Symptoms (Progressing) Start: 06/16/25 Expected End: 09/16/25 Goal Note CM assessed for any depression symptoms, patient reports coping well at this time. Medication Concerns Improve Medication Access (Progressing) Start: 06/16/25 Expected End: 09/16/25 Goal Note Patient states had medboxes delivered last week, no other refills needed. Improve Medication Management (Progressing) Start: 06/16/25 Expected End: 09/16/25 Patient will adhere to all prescribed medications and will notify their pharmacy, primary care provider or prescriber when medication refills are needed to prevent missed doses within the next 3 months. Goal Note CM assessed patient adhering to current medication regimen without any barriers. Plan of Care Patient Centered Plan of Care (Progressing) Start: 06/16/25 Expected End: 09/16/25 Patient will actively participate in care planning by collaborating with the care team to set, review, and work toward personal health goals, demonstrating engagement in their overall treatment and wellness plan. Goal Note CM reviewed care plan with patient and documented goal progress. Self Management Patient understands and has a plan for managing symptoms and knows when to contact physician (Progressing) Start: 06/16/25 Expected End: 09/16/25 Patient will call their primary care provider's office for any new or urgent health concerns to ensure timely follow-up and appropriate adjustments to the treatment plan. Goal Note Education provided on Walk-In Urgent Care located in [facility]. Patient provided with after-hours line for [facility], , which offer night time triage service and option to transfer to specimen preparation assistant provider if needed. Tobacco Use Manage/Minimize Tobacco Use (Progressing) Start: 06/16/25 Expected End: 09/16/25 Patient will explore strategies to reduce tobacco use by identifying personal reasons for change and discussing options such as nicotine replacement therapy, behavioral supports, or gradual reduction. Goal Note CM assessed for patient readiness to discuss tobacco cessation. Patient states still not interestedat this time. CM advised patient that if or when ready can discuss with CM to request tobacco cessation education. documented in this encounter Plan of Treatment Upcoming Encounters Date Type Department Care Team (Late st Contact Info) Description 08/04/2025 11:45 AM EST Office Visit [facility] MEDICINE [address] [place] [address] Iris Clancy MD [address] [place] [address] 08/27/2025 12:45 PM EST Office Visit [facility] ADULT DENTAL [address] [place] [address] Mendez, Belle [address] [place] [address] documented as of this encounter Visit Diagnoses Not on filedocumented in this encounter Additional Health Concerns Assessment Noted Time PHQ-9 Depression Total Score: 20 025 10:24 AM EST documented as of this encounter Care Teams Veterans Rehabilitation Counselor Relationship Specialty Start Date End Date Iris Clancy MD [address] [place] [address] PCP - General Internal Medicine 04/02/24 Aubrey Montesinos, ArbenD [address] [place] [address] Pharmacist Internal Medicine 08/07/24 Monika Chris, SUGAR [address] [place] [address] Registered Nurse Family Medicine 06/10/25 Elizabeth Mcqueen 06/10/25 documented as of this encounter
--- OUTSIDE RECORDS SUMMARY | 2025-07-16 14:58 | XMS_ITS | Encounter Summary ---
Author Organization [employer] Address [address] [facility] [address] 7t [place] [address] Care Team Providers Care Rocket Motor Tester Name Role Phone Neetu Kyle Primary Care Provider [phone] Iris Clancy MD Primary Care Provider + Aubrey Montesinos PharmD Unavailable [phone] Monika Chris RN Unavailable [phone] Elizabeth Mcqueen Unavailable Encounter Details Date Type Department Care Team (Late st Contact Info) Description 03/28/2024 Orders Only [facility] [address] [place] [address] Neetu Kyle FNP [address] [place], [place] [phone] Routine health maintenance (Primary Dx) Social History [...] Description 08/04/2025 11:45 AM EST Office Visit [facility] MEDICINE [address] [place] [address] Iris Clancy MD [address] [place] [address] 08/27/2025 12:45 PM EST Office Visit [facility] ADULT DENTAL [address] [place] [address] Mendez, Belle [address] [place] [address] documented as of this encounter Visit Diagnoses Diagnosis Routine health maintenance- Primary Unspecified examination documented in this encounter Additional Health Concerns Assessment Noted Time PHQ-9 Depression Total Score: 24 023 3:56 PM EDT documented as of this encounter Care Teams Rocket Motor Tester Relationship Specialty Start Date End Date Neetu Kyle FNP [address] [place] [address] PCP - General Family Medicine 09/19/22 04/01/24 Iris Clancy MD [address] [place] [address] PCP - General Internal Medicine 04/02/24 Aubrey Montesinos, Shilpa [address] [place], [place] [phone] Pharmacist Internal Medicine 08/07/24 Monika Chris, SUGAR [address] [place], [place] [phone] Registered Nurse Family Medicine 06/10/25 Elizabeth Mcqueen 06/10/25 documented as of this encounter
--- OUTSIDE RECORDS SUMMARY | 2025-07-16 14:58 | XMS_ITS | Encounter Summary ---
Author Organization [employer] Address [address] [facility] 7t [place] [address] Care Team Providers Care Endless Bed Drum Sander Name Role Phone Neetu Kyle Primary Care Provider [phone] Iris Clancy MD Primary Care Provider + Aubrey Montesinos PharmD Unavailable [phone] Monika Chris RN Unavailable [phone] Elizabeth Mcqueen Unavailable Reason for Visit * Reason Onset Date Comments Nurse Triage 04/06/2023 Encounter Details Date Type Department Care Team (Late st Contact Info) Description 04/06/2023 Telephone [facility] MEDICINE [address] [place], [place] [phone] Neetu Kyle FNP [address] [place], [place] [phone] Nurse Triage Social History Tobacco Use Types [...] 6 04/06/2023 11:34 AM EDT Edward Flannery INVESTMENT OFFICER * How difficult have these problems made it for you to do your work, take care of things at home, or get along with other people? Answer Date of Assessment Author Extremely difficult 04/06/2023 11:34 AM EDT Briana Mcelroy INVESTMENT OFFICER * Over the last 2 weeks, how often have you been bothered by any of the following problems? Question Answer Date of Assessment Author Feeling nervous, anxious, or on edge 3 04/06/2023 11:34 AM EDT Remington Flannery INVESTMENT OFFICER Not being able to stop or control worrying 3 04/06/2023 11:34 AM EDT Remington Flannery INVESTMENT OFFICER Worrying too much about different things 3 04/06/2023 11:34 AM EDT Remington Flannery INVESTMENT OFFICER Trouble relaxing 3 04/06/2023 11:34 AM EDT Briana Flannery INVESTMENT OFFICER Being so restless that it is hard to sit still 3 04/06/2023 11:34 AM EDT Remington Flannery INVESTMENT OFFICER Becoming easily annoyed or irritable 3 04/06/2023 11:34 AM EDT Remington Flannery destinee, INVESTMENT OFFICER Feeling afraid as if something awful might happen 3 04/06/2023 11:34 AM EDT Briana Linares, INVESTMENT OFFICER ANTHONY-7 Total Score 21 04/06/2023 11:34 AM EDT Briana Flannery INVESTMENT OFFICER * Over the past 2 weeks, how often have you been bothered by any of the following problems? Question Answer Date of Assessment Author Little interest or pleasure in doing things Nearly every day 04/06/2023 11:34 AM EDT Briana Flannery, INVESTMENT OFFICER Feeling down, depressed, or hopeless Nearly every day 04/06/2023 11:34 AM EDT Briana Flannery, INVESTMENT OFFICER Trouble falling or staying asleep, or sleeping too much Several days 04/06/2023 11:34 AM EDT Briana Flannery, INVESTMENT OFFICER Feeling tired or having little energy Nearly [...] every day 04/06/2023 11:34 AM PEREZT Briana Flannrey LICSW Moving or speaking so slowly that [...] Pt was sent out by ambulance to [facility] and was put in the waiting room. While in waiting room Pt reports there was a homeless man who was screaming and yelling and Pt became more anxious and called neighbor to worm picker and bring home. Pt calls today with continued anxiety, Pt reports has never told PCP aboutthis because, I don't like to speak about it . Pt is desiring help at this time. Pt is not suicidal and doesn't want to hurt anyone else. Pt is advised to come to [facility] today and Pt reports that Pt lives just a few minutes away and will start walking over there. Call to Lashonda in [facility] to give inform ation regarding Pt and call to Dedra in behavioral health. [facility] PLEASE call behavioral health when [...] school or work). Pt did go to [facility] for anxiety attack but left due to anxiety getting worse in wait room. The caller accepted this outcome Please contact pt at [phone] (Thai) documented in this encounter Plan of Treatment Upcoming Encounters Date Type Department Care Team (Late st Contact Info) Description 08/04/2025 11:45 AM EST Office Visit [facility] MEDICINE [address] [place] [address] Iris Clancy MD [address] [place] [address] 08/27/2025 12:45 PM EST Office Visit [facility] ADULT DENTAL [address] [place] [address] Belle Simms [address] [place] [address] documented as of this encounter Visit Diagnoses Not on filedocumented in this encounter Additional Health Concerns Assessment Noted Time PHQ-9 Depression Total Score: 19 023 11:34 AM EDT documented as of this encounter Care Teams Endless Bed Drum Sander Relationship Specialty Start Date End Date Neetu Kyle FNP [address] [place], [place] [phone] PCP - General Family Medicine 09/19/22 04/01/24 Iris Clancy MD [address] [place], [place] [phone] PCP - General Internal Medicine 04/02/24 Aubrey Montesinos, ArbenD [address] [place] [address] [phone] Pharmacist Internal Medicine 08/07/24 Monika Chris, SUGAR [address] [place] [address] [phone] Registered Nurse Family Medicine 06/10/25 Elizabeth Mcqueen 06/10/25 documented as of this encounter
--- OUTSIDE RECORDS SUMMARY | 2025-07-16 14:58 | XMS_ITS | Encounter Summary ---
Author Organization [facility] Address [address] [place] [address] 7t [place] [address] Care Team Providers Care Audit Practice Intern Name Role Phone Jagdeep St Primary Care Provider Neetu Adams Primary Care Provider [phone] Iris Clancy MD Primary Care Provider + Aubrey Montesinos PharmD Unavailable Monika Chris RN Unavailable [phone] Elizabeth Mcqueen Unavailable Reason for Visit * Reason Onset Date Comments TP appt 07/27/2022 Encounter Details Date Type Department Care Team (Late st Contact Info) Description 07/27/2022 Telephone [facility] MEDICINE [address] [place] [address] FNP TP appt Social History [...] 11:45 AM EST Office Visit [facility] MEDICINE [address] [place] [address] Iris Clancy MD [address] [place] [address] 08/27/2025 12:45 PM EST Office Visit [facility] ADULT DENTAL [address] [place] [address] Belle Simms [address] [place] [address] documented as of this encounter Visit Diagnoses Not on filedocumented in this encounter Care Teams Audit Practice Intern Relationship Specialty Start Date End Date Jagdeep St FNP PCP - General 06/20/22 09/18/22 Neetu Kyle FNP [address] [place] [phone] PCP - General Family Medicine 09/19/22 04/01/24 Iris Clancy MD [address] [place] [phone] PCP - General Internal Medicine 04/02/24 Aubrey Montesinos, ArbenD [address] [place] [address] Pharmacist Internal Medicine 08/07/24 Monika Chris, SUGAR [address] [place] [address] Registered Nurse Family Medicine 06/10/25 Elizabeth Mcqueen 06/10/25 documented as of this encounter
--- OUTSIDE RECORDS SUMMARY | 2025-07-16 14:59 | XMS_ITS | Encounter Summary ---
Author Organization [employer] Address [address] [facility] 7t [place] [address] Care Team Providers Care Take Away Attendant Name Role Phone Neetu Kyle Primary Care Provider [phone] Iris Clancy MD Primary Care Provider + Aubrey Montesinos PharmD Unavailable [phone] Monika Chris RN Unavailable [phone] Elizabeth Mcqueen Unavailable Reason for Visit * Reason Onset Date Comments Medication Question 01/07/2024 Encounter Details Date Type Department Care Team (Late st Contact Info) Description 01/07/2024 Telephone [facility] MEDICINE [address] [place], [place] [phone] Neetu Kyle FNP [address] [place], [place] [phone] Medication Question Social History Tobacco Use Types [...] to not work. Please contact pt at [phone] documented in this encounter Plan of Treatment Upcoming Encounters Date Type Department Care Team (Late st Contact Info) Description 08/04/2025 11:45 AM EST Office Visit [facility] MEDICINE [address] [place] [address] Iris Clancy MD [address] [place] [address] 08/27/2025 12:45 PM EST Office Visit [facility] ADULT DENTAL [address] [place] [address] eBlle Simms [address] [place] [address] documented as of this encounter Visit Diagnoses Not on filedocumented in this encounter Additional Health Concerns Assessment Noted Time PHQ-9 Depression Total Score: 24 023 3:56 PM EDT documented as of this encounter Care Teams Take Away Attendant Relationship Specialty Start Date End Date Neetu Kyle FNP [address] [place], [place] [phone] PCP - General Family Medicine 09/19/22 04/01/24 Iris Clancy MD [address] [place] [address] [phone] PCP - General Internal Medicine 04/02/24 Aubrey Montesinos, ArbenD [address] [place] [address] [phone] Pharmacist Internal Medicine 08/07/24 Monika Chris, SUGAR [address] [place] [address] [phone] Registered Nurse Family Medicine 06/10/25 Elizabeth Mcqueen 06/10/25 documented as of this encounter
--- OUTSIDE RECORDS SUMMARY | 2025-07-16 14:59 | XMS_ITS ---
Author Organization [employer] Address 75 [facility] 7t [place] [address] Care Team Providers Care Clothing Consultant Name Role Phone Iris Clancy MD Primary Care Provider + Aubrey Montesinos PharmD Unavailable [phone] Monika Chris RN Unavailable [phone] Elizabeth Mcqueen Unavailable CHW Complex Status:Enrolled (Active) Start date:06/10/2025 Enrollment date:06/10/2025 Enrollment reason:Referred by provider Overview Patient with mulitple medical issues, struggles with depresion(has MH provider/ LINDA in chart) and has issues remembering POC, forgets to berry picker DMEs FU with referrals, PT etc. Pleae evlauate to see if she can be helped w reminders . Please outreach to patient. Case Team Name Relationship Phone Elizabeth Mcqueen(Responsible Staff) Continued Care and Services Coordination
--- OUTSIDE RECORDS SUMMARY | 2025-07-16 14:59 | XMS_ITS | Encounter Summary ---
Author Organization [employer] Address 75 [facility] 7t [place] [address] Care Team Providers Care Leader Tier Name Role Phone Neetu Kyle Primary Care Provider [phone] Iris Clancy MD Primary Care Provider + Aubrey Montesinos PharmD Unavailable [phone] Monika Chris RN Unavailable [phone] Elizabeth Mcqueen Unavailable Reason for Visit * Reason Onset Date Comments Referral 11/16/2023 Encounter Details Date Type Department Care Team (Late st Contact Info) Description 11/16/2023 Telephone [facility] MEDICINE [address] [place], [place] [phone] Neetu Kyle FNP [address] [place], [place] [phone] Referral Social History Tobacco Use Types Packs/Day [...] to vision referral Please contact pt at [phone] * Telephone Encounter - Alondra Oakley RN - 11/16/2023 1:27 PM EDT T/C to pt. For below message, pt. Also informed that there is wait time right now for [facility] vision center. Pt. Verbally agreed and understood. * Telephone Encounter - Alondra Oakley RN - 11/16/2023 1:26 PM EDT Please review and advise for below request. * Telephone Encounter - Janny Oviedo - 11/16/2023 11:45 AM EDT Tc from pt requesting [facility] vision center referral. documented in this encounter Plan of Treatment Upcoming Encounters Date Type Department Care Team (Late st Contact Info) Description 08/04/2025 11:45 AM EST Office Visit [facility] MEDICINE [address] [place] [address] Iris Clancy MD 230 [place] [address] 08/27/2025 12:45 PM EST Office Visit [facility] ADULT DENTAL [address] [place] [address] Mendez, Belle [address] [place] [address] documented as of this encounter Visit Diagnoses Not on filedocumented in this encounter Additional Health Concerns Assessment Noted Time PHQ-9 Depression Total Score: 24 023 3:56 PM EDT documented as of this encounter Care Teams Leader Tier Relationship Specialty Start Date End Date [place] [address] PCP - General Family Medicine 09/19/22 04/01/24 Iris Clancy MD [address] [place] [address] PCP - General Internal Medicine 04/02/24 Aubrey Montesinos, Shilpa [address] [place] [address] Pharmacist Internal Medicine 08/07/24 Monika Chris, SUGAR [address] [place] [address] Registered Nurse Family Medicine 06/10/25 Elizabeth Mcqueen 06/10/25 documented as of this encounter
--- OUTSIDE RECORDS SUMMARY | 2025-07-16 14:59 | XMS_ITS | Clinical Summary ---
Author Organization [address] [place] [address] Address [address] [place] [address] Phone Care Team Providers Care Trade Marker Name Role Phone Latoya Millard DIANDRA Primary Care Provider [phone] Allergies No known active allergies Medications levETIRAcetam [...] Recently Relevant to Health Maintenance Care Teams Trade Marker Relationship Specialty Start Date End Date Latoya Millard FNP [address] [place] [phone] PCP - General 02/15/24
--- OUTSIDE RECORDS SUMMARY | 2025-07-16 14:59 | XMS_ITS | Encounter Summary ---
Author Organization [employer] Address 75 [facility] 7t [place] [address] Care Team Providers Care Field Recruiter Name Role Phone Iris Clancy MD Primary Care Provider + Aubrey Montesinos PharmD Unavailable [phone] Monika Chris RN Unavailable [phone] Elizabeth Mcqueen Unavailable Reason for Visit * Reason Onset Date Comments pt1 07/06/2025 Encounter Details Date Type Department Care Team ([facility] st Contact Info) Description 07/06/2025 Telephone [facility] MEDICINE [address] [place], [place] [phone] Iris Clancy MD [address] [place], [place] [phone] pt1 Social History Tobacco Use Types Packs/Day Years [...] encounter Miscellaneous Notes * Telephone Encounter - Paloma Vaz - 07/06/2025 2:51 PM EST Patient calling requesting PT1 Home Address verified: Y/N: Yes Provider name or facility name: [facility] Escort needed: Y/N: No Do you have a wheelchair: Y/N: No If yes- Manual or electric: Visits: (amount of visits) 2 monthly documented in this encounter Plan of Treatment Upcoming Encounters Date Type Department Care Team (Late st Contact Info) Description 08/04/2025 11:45 AM EST Office Visit [facility] MEDICINE [address] [place] [address] Iris Clancy MD [address] [place] [address] 08/27/2025 12:45 PM EST Office Visit [facility] ADULT DENTAL [address] [place] [address] Belle Simms [address] [place] [address] documented as of this encounter Visit Diagnoses Not on filedocumented in this encounter Additional Health Concerns Assessment Noted Time PHQ-9 Depression Total Score: 20 025 10:24 AM EST documented as of this encounter Care Teams Field Recruiter Relationship Specialty Start Date End Date Iris Clancy MD [address] [place] [address] [phone] PCP - General Internal Medicine 04/02/24 Aubrey Montesinos, ArbenD [address] [place] [address] Pharmacist Internal Medicine 08/07/24 Monika Chris, SUGAR [address] [place] [address] Registered Nurse Family Medicine 06/10/25 Elizabeth Mcqueen 06/10/25 documented as of this encounter
--- OUTSIDE RECORDS SUMMARY | 2025-07-16 14:59 | XMS_ITS ---
Author Organization [employer] Address 75 [facility] 7t [place] [address] Care Team Providers Care Insole Department Worker Name Role Phone Iris Clancy MD Primary Care Provider + Aubrey Montesinos PharmD Unavailable [phone] Monika Chris RN Unavailable [phone] Elizabeth Mcqueen Unavailable CM Complex Status:Enrolled (Active) Start date:06/10/2025 Enrollment date:06/16/2025 Enrollment reason:Referred by provider Overview Patient with mulitple medical issues, struggles with depresion(has MH provider/ LINDA in chart) and has issues remembering POC, forgets to steel pickler DMEs FU with referrals, PT etc. Pleae evlauate to see if she can be helped w reminders Case Team Name Relationship Phone Monika Chris RN(Responsible Staff) Registered Nurse Continued Care and Services Coordination
== END 2025-07-16 12:14 | disposition home or self-care (01) ==
LOC: HO.HSM 11:23
PROVIDERS: PCP Internal Medicine; Referring Provider Internal Medicine; Visit Provider Registered Nurse
DX: R56.9 Unspecified convulsions (principal); G43.909 Migraine, unspecified, not intractable, without status migrainosus; R25.1 Tremor, unspecified
CPT/HCPCS: 99214

== ENCOUNTER 2025-07-28 12:08 | Outpatient (AMB) | payer MEDICAID, SELFPAY ==
[2025-07-28 12:29] VITALS: BMI 37.8
--- NOTE | 2025-07-28 12:29 | A.OFFVIS_ITS ---
Vital Signs 07/28/25 12:29 Height 5 ft 1 in Weight 200 lb BMI 37.8 Intake Visit Reasons: OV- Discuss Right Cubital Release Intake Note: Ebony 35 yr old right hand dominant female presents today for her follow up visit to discuss Right Cubital Release. She complains of numbness and tingling in the ulnar side of her right hand that is constant. EMG done. Patient is interested in surgery. Hx of status post Left Cubital Tunnel Release, DOS: 03/12/[address] Hutchison. IMPRESSION: Mild bilateral ulnar neuropathy across elbow. Otherwise no significant abnormality noted. Allergies No Known Drug Allergies Allergy (Unknown, Verified 07/28/25 12:30) U HPI HPI OV- Discuss Right Cubital Release: Details: Ebony is a 35 year old woman who returns to discuss her right cubital tunnel syndrome. She complains of numbness in her right ulnar nerve distribution. Symptoms constant. She would like to discuss surgery. She has a Hx of a left cubital tunnel release, DOS: 03/12/25. In regards to her left hand she says her sensation is normal. She says she has some occasional numbness with prolonged gripping, such as holding a cup. She sees a neurologist for head & hand tremors & seizures. She is out of work on disability for her seizure disorder [facility] Medical History (Updated 07/16/25 @ 12:09 by Linda Hodge CNP) Multiple falls Migraine Cough Asthma Obesity (BMI 30-39.9) Heart palpitations Arthritis Glucosuria Tobacco dependence Osteoarthritis Plantar fasciitis, bilateral Suicide ideation Depression Anxiety Constipation Insomnia Epilepsy Absence seizure Hx of meningitis Seizures Surgical History Hx of wisdom tooth extraction Hx of removal of cyst Hx of section Hx of tubal ligation Social History Are you a primary healthcare corporate account director to a significant other at home: No Do you presently have visiting nurse or other home services: No Patient Tobacco Use Status: Former Tobacco user Tobacco use type: Cigarette Cigarettes Per Day: 3 Current occupational status: disabled Current occupation: right hand dominant Female Reproductive History Menstrual Age of Menarche: 10 Review of Systems Const All systems reviewed & are unremarkable except as noted in HPI and below Physical Exam Vital Signs: BMI result Body Mass Index 37.8 Const General: no acute distress and alert Orientation/consciousness: patient oriented x3 Neuro General: patient oriented x3 Extrem Other: Evaluation of right Upper Extremity: The patient is alert, oriented, and in no acute distress Neuro: Dense numbness in the right ulnar nerve distribution. Normal sensation in the median nerve distribution. No thenar or intrinsic wasting Good APB muscle belly firing and good finger cross Good ABduction & ADduction Vascular: Cap refill brisk ROM: She can make a fist and extend all her digits Nerve Conduction Study: IMPRESSION: Mild bilateral ulnar neuropathy across elbow. Otherwise no significant abnormality noted. Pedro Davis MD 11/25/2024 Psych Appearance: grossly normal Affect: normal affect Attitude: cooperative Assessment & Plan Assessment & Plan (1) Cubital tunnel syndrome, bilateral: Code(s): G56.23 - Lesion of ulnar nerve, bilateral upper limbs Category: Medical (2) Nicotine dependence: Code(s): F17.200 - Nicotine dependence, unspecified, uncomplicated Category: Medical (3) Seizures: Code(s): R56.9 - Unspecified convulsions Category: Medical (4) Tremor: Code(s): R25.1 - Tremor, unspecified Category: Medical Plan Assessment & Plan: 1. Right cubital tunnel syndrome, mild With dense numbness I educated her about this condition I discussed operative and non-operative treatment options The patient would like to proceed with surgery I explained the risks of her sensation not returning, but that surgery is important to maintain muscle function and preserve any sensation possible. She expressed understanding The risks and benefits of operative treatment were discussed with the patient and the patient wishes to proceed with surgery. These risks include, but are not limited to risk of damage to blood vessels, nerves, tendons, infection, rec urrence, incomplete relief of preoperative symptoms, persistent pain, possible need for further surgery and the risks associated with regional blocks and anesthesia. The plan is to take the patient to the operating room sometime in the next few weeks for the following procedures: 1. Right cubital tunnel release, under general All of the preoperative paperwork including the consent was reviewed today. All the patient's questions were answered. The patient understands that they will be contacted by our oral surgery physician soon to schedule this procedure She denies Diabetes, blood thinners, asthma, heart, lung, kidney issues She is a smoker & has a Hx of seizures & tremors. 2. Left cubital tunnel syndrome, S/P release DOS: 03/12/25 Doing well, no complaints Scribed for Kianna Hutchison MD by Willie Raza, medical clerical assistant, on 07/28/25 at 1:00 PM, EST. Coding Level of Care Code Est Pt Level 4 (31678) Diagnoses Cubital tunnel syndrome, bilateral G56.23 Nicotine dependence F17.200 Seizures R56.9 Tremor R25.1
--- OUTSIDE RECORDS SUMMARY | 2025-07-28 16:09 | XMS_ITS | Encounter Summary ---
Author Organization [employer] Address 75 [facility] 7t [place] [address] Care Team Providers Care Iron Bender Name Role Phone Iris Clancy MD Primary Care Provider + Aubrey Montesinos PharmD Unavailable [phone] Monika Chris RN Unavailable [phone] Elizabeth Mcqueen Unavailable Reason for Visit * Reason Comments Med Refill Encounter Details Date Type Department Care Team ([facility] st Contact Info) Description 12/09/2024 Refill [facility] MEDICINE [address] [place] [address] Iris Clancy MD [address] [place] [address] Social History Tobacco Use Types Packs/Day Years [...] Description 08/04/2025 11:45 AM EST Office Visit [facility] MEDICINE [address] [place] [address] Iris Clancy MD [address] [place] [address] 08/27/2025 12:45 PM EST Office Visit [facility] ADULT DENTAL [address] [place] [address] Mendez, Belle [address] [place] [address] documented as of this encounter Visit Diagnoses Not on filedocumented in this encounter Additional Health Concerns Assessment Noted Time PHQ-9 Depression Total Score: 4 11/14/19 25 3:23 PM EDT documented as of this encounter Care Teams Iron Bender Relationship Specialty Start Date End Date Iris Clancy MD [address] [place] [address] PCP - General Internal Medicine 04/02/24 Aubrey Montesinos, ArbenD [address] [place] [address], [place] [address] Pharmacist Internal Medicine 08/07/24 Monika Chris, SUGAR [address] [place] [address] Registered Nurse Family Medicine 06/10/25 Elizabeth Mcqueen 06/10/25 documented as of this encounter
--- OUTSIDE RECORDS SUMMARY | 2025-07-28 16:09 | XMS_ITS | Encounter Summary ---
Author Organization [employer] Address 75 [facility] 7t [place] [address] Care Team Providers Care Hand Meat Salter Name Role Phone Neetu Kyle Primary Care Provider [phone] Iris Clancy MD Primary Care Provider + Aubrey Montesinos PharmD Unavailable [phone] Monika Chris RN Unavailable [phone] Elizabeth Mcqueen Unavailable Reason for Visit * Reason Onset Date Comments Referral 11/16/2023 Encounter Details Date Type Department Care Team (Late st Contact Info) Description 11/16/2023 Telephone [facility] MEDICINE [address] [place], [place] [phone] Neetu Kyle FNP [address] [place], [place] [phone] Referral Social History Tobacco Use Types Packs/Day [...] to vision referral Please contact pt at [phone] * Telephone Encounter - Alondra Oakley RN - 11/16/2023 1:27 PM EDT T/C to pt. For below message, pt. Also informed that there is wait time right now for [facility] vision center. Pt. Verbally agreed and understood. * Telephone Encounter - Alondra Oakley RN - 11/16/2023 1:26 PM EDT Please review and advise for below request. * Telephone Encounter - Janny Oviedo - 11/16/2023 11:45 AM EDT Tc from pt requesting [facility] vision center referral. documented in this encounter Plan of Treatment Upcoming Encounters Date Type Department Care Team (Late st Contact Info) Description 08/04/2025 11:45 AM EST Office Visit [facility] MEDICINE [address] [place] [address] Iris Clancy MD [address] [place] [address] 08/27/2025 12:45 PM EST Office Visit [facility] ADULT DENTAL [address] [place] [address] Mendez, Belle [address] [place] [address] documented as of this encounter Visit Diagnoses Not on filedocumented in this encounter Additional Health Concerns Assessment Noted Time PHQ-9 Depression Total Score: 24 023 3:56 PM EDT documented as of this encounter Care Teams Hand Meat Salter Relationship Specialty Start Date End Date Ne[place] [address] PCP - General Family Medicine 09/19/22 04/01/24 Iris Clancy MD [address] [place] [address] PCP - General Internal Medicine 04/02/24 Aubrey Montesinos, Shilpa [address] [place] [address] Pharmacist Internal Medicine 08/07/24 Monika Chris, SUGAR [address] [place] [address] Registered Nurse Family Medicine 06/10/25 Elizabeth Mcqueen 06/10/25 documented as of this encounter
--- OUTSIDE RECORDS SUMMARY | 2025-07-28 16:09 | XMS_ITS | Encounter Summary ---
Author Organization [employer] [facility] Address 75 [facility] 7t [place] [address] Care Team Providers Care Tv Production Assistant Name Role Phone Neetu Kyle Primary Care Provider [phone] Iris Clancy MD Primary Care Provider + Aubrey Montesinos PharmD Unavailable [phone] Monika Chris RN Unavailable [phone] Elizabeth Mcqueen Unavailable Encounter Details Date Type Department Care Team (Late st Contact Info) Description 02/19/2023 Orders Only [facility] MEDICINE [address] [place] [address] Neetu Kyle FNP [address] [place] [address] Other specified hearing loss of both ears [...] Description 08/04/2025 11:45 AM EST Office Visit [facility] MEDICINE [address] [place] [address] Iris Clancy MD 230 [place] [address] 08/27/2025 12:45 PM EST Office Visit [facility] ADULT DENTAL [address] [place] [address] Belle Simms [address] [place] [address] documented as of this encounter Visit Diagnoses Diagnosis Other specified hearing loss of both ears- Primary documented in this encounter Additional Health Concerns Assessment Noted Time PHQ-9 Depression Total Score: 8 01/11/20 10:51 AM EDT documented as of this encounter Care Teams Tv Production Assistant Relationship Specialty Start Date End Date Neetu Kyle FNP [address] [place] [address] PCP - General Family Medicine 09/19/22 04/01/24 Iris Clancy MD [address] [place] [address] PCP - General Internal Medicine 04/02/24 Aubrey Montesinos, ArbenD [address] [place] [address] Pharmacist Internal Medicine 08/07/24 Monika Chris, SUGAR [address] [place] [address] Registered Nurse Family Medicine 06/10/25 Elizabeth Mcqueen 06/10/25 documented as of this encounter
--- OUTSIDE RECORDS SUMMARY | 2025-07-28 16:09 | XMS_ITS | Encounter Summary ---
Author Organization [employer] Address [address] [place] [address] 7t [place] [address] Care Team Providers Care Mixer Diamond Powder Name Role Phone Neetu Kyle Primary Care Provider [phone] Iris Clancy MD Primary Care Provider + Aubrey Montesinos PharmD Unavailable [phone] Monika Chris RN Unavailable [phone] Elizabeth Mcqueen Unavailable Reason for Visit * Reason Comments Med Refill Encounter Details Date Type Department Care Team (Late st Contact Info) Description 08/13/2023 Refill [facility] MEDICINE [address] [place] [address] Neetu Kyle FNP [address] [place] [address] Social History Tobacco Use Types Packs/Day Years [...] the past 12 months, has t he [employer], gas, oil or water company threatened to [...] Description 08/04/2025 11:45 AM EST Office Visit [facility] MEDICINE [address] [place] [address] Iris Clancy MD [address] [place] [address] 08/27/2025 12:45 PM EST Office Visit [facility] ADULT DENTAL [address] [place] [address] Adalberto Simmsaris [address] [place] [address] documented as of this encounter Visit Diagnoses Not on filedocumented in this encounter Additional Health Concerns Assessment Noted Time PHQ-9 Depression Total Score: 24 023 3:56 PM EDT documented as of this encounter Care Teams Mixer Diamond Powder Relationship Specialty Start Date End Date Neetu Kyle FNP [address] [place] [address] PCP - General Family Medicine 09/19/22 04/01/24 Iris Clancy MD [address] [place], [place] [phone] PCP - General Internal Medicine 04/02/24 Aubrey Montesinos, Shilpa [address] [place] [address] [phone] Pharmacist Internal Medicine 08/07/24 Monika Chris, SUGAR [address] [place] [phone] Registered Nurse Family Medicine 06/10/25 Elizabeth Mcqueen 06/10/25 documented as of this encounter
--- OUTSIDE RECORDS SUMMARY | 2025-07-28 16:09 | XMS_ITS | Encounter Summary ---
Author Organization [employer] Address [address] [facility] [address] 7t [place] [address] Care Team Providers Care Surgical Elastic Knitter Hand Frame Name Role Phone Neetu Kyle Primary Care Provider [phone] Iris Clancy MD Primary Care Provider + Aubrey Montesinos PharmD Unavailable [phone] Monika Chris RN Unavailable [phone] Elizabeth Mcqueen Unavailable Encounter Details Date Type Department Care Team (Late st Contact Info) Description 03/28/[address] [facility] MED & PEDS [address] [place] [address] Neetu Kyle FNP [address] [place], [place] [phone] Routine health maintenance (Primary Dx) Social History [...] Description 08/04/2025 11:45 AM EST Office Visit [facility] MEDICINE [address] [place] [address] Iris Clancy MD [address] [place] [address] 08/27/2025 12:45 PM EST Office Visit [facility] ADULT DENTAL [address] [place] [address] Mendez, Belle [address] [place] [address] documented as of this encounter Visit Diagnoses Diagnosis Routine health maintenance- Primary Unspecified examination documented in this encounter Additional Health Concerns Assessment Noted Time PHQ-9 Depression Total Score: 24 023 3:56 PM EDT documented as of this encounter Care Teams Surgical Elastic Knitter Hand Frame Relationship Specialty Start Date End Date Neetu Kyle FNP [address] [place] [address] PCP - General Family Medicine 09/19/22 04/01/24 Iris Clancy MD [address] [place] [address] PCP - General Internal Medicine 04/02/24 Aubrey Montesinos, Shilpa [address] [place], [place] [phone] Pharmacist Internal Medicine 08/07/24 Monika Chris, SUGAR [address] [place], [place] [phone] Registered Nurse Family Medicine 06/10/25 Elizabeth Mcqueen 06/10/25 documented as of this encounter
--- OUTSIDE RECORDS SUMMARY | 2025-07-28 16:09 | XMS_ITS ---
Author Organization [employer] Address 75 [facility] 7t [place] [address] Care Team Providers Care Lithographers Printer Name Role Phone Iris Clancy MD Primary Care Provider + Aubrey Montesinos PharmD Unavailable [phone] Monika Chris RN Unavailable [phone] Elizabeth Mcqueen Unavailable CHW Complex Status:Enrolled (Active) Start date:06/10/2025 Enrollment date:06/10/2025 Enrollment reason:Referred by provider Overview Patient with mulitple medical issues, struggles with depresion(has MH provider/ LINDA in chart) and has issues remembering POC, forgets to worm picker DMEs FU with referrals, PT etc. Pleae evlauate to see if she can be helped w reminders . Please outreach to patient. Case Team Name Relationship Phone Elizabeth Mcqueen(Responsible Staff) Continued Care and Services Coordination
--- OUTSIDE RECORDS SUMMARY | 2025-07-28 16:09 | XMS_ITS | Encounter Summary ---
Author Organization [employer] Address [address] [facility] 7t [place] [address] Care Team Providers Care Mechanical Test Engineer Name Role Phone Neetu Kyle Primary Care Provider [phone] Iris Clancy MD Primary Care Provider + Aubrey Montesinos PharmD Unavailable [phone] Monika Chris RN Unavailable [phone] Elizabeth Mcqueen Unavailable Encounter Details Date Type Department Care Team (Late st Contact Info) Description 06/01/2023 Orders Only [facility] CHC MED & PEDS [address] [place] [address] Neetu Kyle FNP [address] [place] [address] Social History Tobacco Use Types Packs/Day Years [...] with others, in a hotel, in a nursing home, living outside on the street, on [...] Description 08/04/2025 11:45 AM EST Office Visit [facility] MEDICINE [address] [place] [address] Iris Clancy MD [address] [place] [address] 08/27/2025 12:45 PM EST Office Visit [facility] ADULT DENTAL [address] [place] [address] Belle Simms [address] [place] [address] documented as of this encounter Visit Diagnoses Not on filedocumented in this encounter Additional Health Concerns Assessment Noted Time PHQ-9 Depression Total Score: 24 023 3:56 PM EDT documented as of this encounter Care Teams Mechanical Test Engineer Relationship Specialty Start Date End Date Neetu Kyle FNP [address] [place] [address] PCP - General Family Medicine 09/19/22 04/01/24 Iris Clancy MD [address] [place] [address] PCP - General Internal Medicine 04/02/24 Aubrey Montesinos, ArbenD [address] [place] [address] Pharmacist Internal Medicine 08/07/24 Monika Chris, SUGAR [address] [place] [address] Registered Nurse Family Medicine 06/10/25 Elizabeth Mcqueen 06/10/25 documented as of this encounter
--- OUTSIDE RECORDS SUMMARY | 2025-07-28 16:09 | XMS_ITS | Encounter Summary ---
Author Organization [employer] [facility] Address [address] [place] [address] 7t [place] [address] Care Team Providers Care Rn Hedis Name Role Phone Jagdeep St Primary Care Provider Neetu Adams Primary Care Provider [phone] Iris Clancy MD Primary Care Provider + Aubrey Montesinos PharmD Unavailable [phone] Monika Chris RN Unavailable [phone] Elizbaeth Mcqueen Unavailable Reason for Visit * Reason Onset Date Comments TP appt 07/27/2022 Encounter Details Date Type Department Care Team (Late st Contact Info) Description 07/27/2022 Telephone [facility] MEDICINE [address] [place] [address] FNP TP appt Social History [...] Office Visit [facility] MEDICINE [address] [place] [address] Iris Clancy MD [address] [place] [address] 08/27/2025 12:45 PM EST Office Visit [facility] ADULT DENTAL [address] [place] [address] Belle Simms [address] [place] [address] documented as of this encounter Visit Diagnoses Not on filedocumented in this encounter Care Teams Rn Hedis Relationship Specialty Start Date End Date Jagdeep St FNP PCP - General 06/20/22 09/18/22 Neetu Kyle FNP [address] [place] [address] PCP - General Family Medicine 09/19/22 04/01/24 Iris Clancy MD [address] [place] [address] PCP - General Internal Medicine 04/02/24 Aubrey Montesinos, ArbenD [address] [place] [address] Pharmacist Internal Medicine 08/07/24 Monika Chris, SUGAR [address] [place] [address] Registered Nurse Family Medicine 06/10/25 Elizabeth Mcqueen 06/10/25 documented as of this encounter
--- OUTSIDE RECORDS SUMMARY | 2025-07-28 16:09 | XMS_ITS | Clinical Summary ---
Author Organization [address] [place] [address] Address [address] [place] [address] Phone Care Team Providers Care Photoengraving Apprentice Name Role Phone Latoya Millard DIANDRA Primary Care Provider [phone] Allergies No known active allergies Medications levETIRAcetam [...] Recently Relevant to Health Maintenance Care Teams Photoengraving Apprentice Relationship Specialty Start Date End Date Latoya Millard FNP [address] [place] [phone] PCP - General 02/15/24
--- OUTSIDE RECORDS SUMMARY | 2025-07-28 16:09 | XMS_ITS | Clinical Summary ---
Author Organization [employer] Address [address] [facility] 7t [place] [address] Care Team Providers Care Fur Stylist Name Role Phone Iris Clancy MD Primary Care Provider + Aubrey Montesinos PharmD Unavailable [phone] Monika Chris RN Unavailable [phone] Elizabeth Mcqueen Unavailable Allergies No known [...] she needs a referral to orthopedics or securities underwriter Assessment & Plan (05/13/2024 3:26 PM EDT): [...] spur Reconsult as needed, will refer to manager front for steroid injection. Plantar fasciitis, bilateral 08/23/2023 [...] nightly, she can call for referral to manager front Advised to do warm soaks with Epsom [...] help PLAN: 1. Follow up with [facility]: Recommended for follow-up: As needed 2. Patient goal is stabilization of symptoms 3. Behavioral Recommendations a. Comply with respite when a bed is avaialble b. Comply with medications and attend psychiatry appointment, when established c. Utilize CB if symptoms worsen d. Reach out to [facility] for additional support ANTHONY (generalized anxiety disorder) 04/06/2023 Severe episode of recurrent major depressive disorder, without psychotic features (CMS/HCC) 04/06/2023 Overview (06/08/2025): Counselor is Domitila Marino at [facility] ([place]). LINDA signed 06/08/25 Assessment & Plan (06/08/2025 11:29 AM EST): - Has active SI, no plan. She says seh wont harm herself as she hopes to keep the realationship and sharing memories with her daughters, also latter day and cultural issues prevent her form harming herself. She has crisis number and can reach her couselor Domitila Marino at [facility]. - Increase Venlafaxine ER to 75mg/d [...] recurrent major depressive disorder, without psychotic features ([facility]) Patient ready to address current needs Yes Strengths include service in place PLAN: 1. Follow up with [facility]: Not recommended for follow-up 2. Patient goal [...] 3:10 PM EST): - Controlled, FU w [facility] neurologist. She seems to have some memory [...] EDT): follows with neurology. Dr. Leon at [facility] Continue current medications Insomnia 01/10/2023 Overview (04/06/2023): [...] Provider, Generic External Data 07/16/2025 Patient Outreach [address] [address] Iris Clancy MD Care Coordination (C3 CM-[facility] Elizabeth Mcqueen pt 1 upddate) 07/14/2025 Patient Outreach [address] [address] Iris Clancy MD Care Management (C3CM- FOLLOW UP CALL/) 07/08/2025 Patient Outreach [address] [address] Iris Clancy MD Care Coordination (C3 CM-[facility] Elizabeth Mcqueen pt 1 update) 07/06/[address] [address] Iris Clancy MD pt1 07/06/2025 Patient Outreach [address] [address] Iris Clancy MD 07/06/2025 Patient Outreach [address] [address] Iris Clancy MD Care Management (C3CM- FOLLOW UP CALL/) 06/29/2025 Patient Outreach [address] [address] Iris Clancy MD Care Coordination (C3 CM-W Elizabeth Mcqueen telephone call outreach) 06/24/2025 Patient Outreach [address] [address] Iris Clancy MD Care Coordination (C3 CM-[facility] Elizabeth Mcqueen PT-1 update) 06/24/2025 Patient Outreach [address] [address] Iris Clancy MD Care Management (CARE COORDINATION) 06/23/2025 Patient Outreach [address] [address] Iris Clancy MD Care Management (C3CM- FOLLOW UP CALL/) 06/19/[address] [address] Iris Clancy MD Durable Medical Equipment (DME: Feet Splints) 06/16/2025 Patient Outreach [address] [address] Iris Clancy MD Care Management (DME); Durable Medical Equipment 06/16/2025 Plan of Care Documentation [address] [address] 06/16/2025 Plan of Care Documentation [address] [address] 06/16/2025 Patient Outreach [address] [address] Iris Clancy MD Care Management (C3CM COMPLEX INITIAL ASSESSMENT/ ENROLLMENT ) 06/15/2025 Patient Outreach [address] [address] Iris Clancy MD Care Coordination (C3 -[facility] Elizabeth Mcqueen telephone call outreach) 06/12/[address] [address] Iris Clancy MD 06/10/2025 Patient Outreach [address] [address] Iris Clancy MD Care Coordination (C3 CM-[facility] Elizabeth Mcqueen ) 06/10/2025 Patient Outreach [address] [address] Iris Clancy MD Care Coordination (C3 CM-[facility] Elizabeth Mcqueen telephone call outreach ) 06/10/2025 Patient Outreach [address] [address] Iris Clancy MD Care Coordination (C3 -[facility] Elizabeth Mcqueen chart review) 06/10/2025 Patient Outreach [address] [address] Iris Clancy MD Care Management (C3CM -CHART REVIEW ) 06/10/2025 Patient Outreach [address] [address] Iris Clancy MD 06/09/[address] [address] Iris Clancy MD FYI 06/08/2025 9:45 AM EST Office Visit [address] [address] Iris Clancy MD Seizure disorder (CMS/HCC) ([facility]) (Primary Dx); Severe episode of recurrent major [...] DEPARTMENT Provider, Generic External Data 06/02/[address] [address] Iris Clancy MD CHART PREP 05/27/2025 Refill [facility] CHC MED & PEDS [address] [place], [place] [phone] Iris Clancy MD from Last 3 Months [...] Description 08/04/2025 11:45 AM EST Office Visit [facility] MEDICINE [address] [place], [place] [phone] Iris Clancy MD [address] [place] [address] 08/27/2025 12:45 PM EST Office Visit [facility] ADULT DENTAL [address] [place], [place] [phone] Belle Simms [address] [place] [address] Health Maintenance Due Date Last Done Comments [...] (07/16/2025 12:29 PM EST) Slide Review VERIFIED [facility] 07/16/2025 12:2 9 PM EST 07/16/2025 12:29 PM EST us Generic External Data Provider LAB BLOOD ORDERAB LES Final Result Performing Organization Address City/[facility]/ZIP Co de Phone Number [facility] [address] [place] [address] [phone] * TSH with Reflex to Free T4 (07/16/2025 12:29 PM EST) TSH reflex Free T4 3.90 0.32 - 4.0 uIU/mL [facility] 07/16/2025 12:2 9 PM EST 07/16/2025 12:29 PM EST Generic External Data Provider LAB BLOOD ORDERAB LES Final Result Performing Organization Address [facility] Co de Phone Number [facility] [address] [place] [phone] * (ABNORMAL) CBC auto differential (07/16/2025 12:29 PM EST) White Blood Count 13.8(H) 4.8 - 10.8 X10*3/uL [facility] Red Blood Count 4.35 4.20 - 5.50 X10*6/uL [facility] Hemoglobin 13.0 12.0 - 16.0 g/dl [facility] Hematocrit 38.1 37.0 - 47.0 % [facility] Mean Corpuscular Volume 87.6 80.0 - 98.0 fL [facility] Mean Corpuscular Hemoglobin 29.9 27.0 - 33.0 pg [facility] Mean Corpuscular HGB Conc 34.1 31.0 - 35.0 g/dl [facility] Red Cell Distribution Width 14.2 11.0 - 16.0 % [facility] Platelet Count 223 160 - 400 X10*3/uL [facility] Mean Platelet Volume 9.6 9.4 - 12.3 fL [facility] Neutrophils Percent Auto 59.8 45 - 73 % [facility] Imm Gran Pct Auto 0.7(H) 0.0 - 0.4 % [facility] Lymphocytes Percent Auto 24.7 20 - 40 % [facility] Monocytes Percent Auto 12.2(H) 2 - 11 % [facility] Eosinophils Percent Auto 2.2 0 - 4 % [facility] Basophils Percent Auto 0.4 0 - 2 % [facility] NRBC Pct Auto 0.0 0.0 - 0.2 /100WBC [facility] Neutrophils Absolute Auto 8.3 2.0 - 8.3 x10*3/uL [facility] Imm Gran Abs Auto 0.09(H) 0.00 - 0.03 X10*3/uL [facility] Lymphocytes Absolute Auto 3.4 1.2 - 4.9 X10*3/uL [facility] Monocytes Absolute Auto 1.7(H) 0.1 - 1.2 X10*3/uL [facility] Eosinophils Absolute Auto 0.3 0.0 - 0.4 X10*3/uL [facility] Basophils Absolute Auto 0.1 0.0 - 0.2 X10*3/uL [facility] NRBC Abs Auto 0.000 0.0 - 0.012 X10*3/uL [facility] 07/16/2025 12:2 9 PM EST 07/16/2025 12:29 PM EST us Generic External Data Provider LAB BLOOD ORDERAB LES Edited Result - Final [facility] [address] [place], [place] [phone] * Valproic Acid Total (07/16/2025 12:29 PM EST) Valproate 99.0 50.0 - 100.0 mcg/mL [facility] 07/16/2025 12:2 9 PM EST 07/16/2025 12:29 PM EST us Generic External Data Provider LAB BLOOD ORDERAB LES Final Result [facility] [address] [place] [phone] * (ABNORMAL) Comprehensive Metabolic Panel (07/16/2025 12:29 PM EST) Sodium 138 135 - 145 mmol/L [facility] Potassium 3.8 3.3 - 5.1 mmol/L [facility] Chloride 107 96 - 108 mmol/L [facility] Carbon Dioxide 23 22 - 29 mmol/L [facility] Anion Gap 12 12 - 20 [facility] Urea Nitrogen (BUN) 14 9 - 16 mg/dL [facility] Creatinine, Serum 0.69 0.5 - 1.4 mg/dL [facility] Estimated Glomerular Filt Rate >60 [facility] Comment:Chronic Kidney Disea se: Estimated GFR < 60 mL/min/1.51t6Hwqzis Kidney Disease: Estimated GFR < 15 mL/min/1.73m2 Glucose 101 60 - 115 mg/dL [facility] Calcium 8.7 8.4 - 10.2 mg/dL [facility] Bilirubin, Total 0.2 0.0 - 1.0 mg/dL [facility] Aspartate Amino Transferase 36(H) 5 - 31 U/L [facility] Alanine Aminotransferase 26 0 - 31 U/L [facility] Total Protein 6.8 6.5 - 8.0 g/dL [facility] Albumin Level 4.0 3.5 - 5.0 g/dL [facility] Alkaline Phosphatase 101 39 - 117 U/L [facility] 07/16/2025 12:2 9 PM EST 07/16/2025 12:29 PM EST us Generic External Data Provider LAB BLOOD ORDERAB LES Final Result Performing Organization Address City/[facility]/ZIP Co de Phone Number [facility] [address] [place] [address] [phone] * (ABNORMAL) Bacterial Vaginosis (06/04/2025 2:15 PM EST) TRICHOMONAS VAGINALIS DETECTION BY PCR NOT DETECTED Not Detect [facility] BACTERIAL VAGINOSIS DETECTION BY PCR POSITIVE(A) Negative [facility] Comment:The BV organism targ ets [...] DETECTION BY PCR NOT DETECTED Not Detect [facility] Jordyn glab krusei PCR NOT DETECTED Not Detect [facility] 06/04/2025 2:15 PM EST 06/04/2025 5:24 PM EST us Generic External Data Provider LAB MICROBIOLOGY - GENERAL ORDERABLES Final Result [facility] [address] [place] [phone] * Chlamydia/N. Gonorrhoeae RNA, TMA, Urogenitial (06/04/2025 2:15 PM EST) Pathologist [facility] CT PCR NOT DETECTED Not Detect. [facility] Comment:A not detected test result [...] psychologicalconsequences. NG PCR NOT DETECTED Not Detect. [facility] Comment:A not detected test result [...] LAB MICROBIOLOGY - GENERAL ORDERABLES Final Result [facility] [address] [place] [phone] * Hepatitis Panel, General (05/13/2024 3:20 PM EDT) Hepatitis A IgM Nonreactive Nonreactive [facility] Comment:IgM antibodies to BAILEY V not detected; does not exclude earlyacute or recovered HAV infection. ~Hepatitis B Surface Antibody REACTIVE Nonreactive [facility] Comment:REACTIVE: > 11.99 mI U/mL Hepatitis B Core Antibody Nonreactive Nonreactive [facility] Hepatitis C Antibody Nonreactive Nonreactive [facility] Comment:Antibodies to HCV no t detected; does not exclude early acuteHCV infection. Hepatitis B Surface Ag Negative Negative [facility] Blood 05/13/2024 3:20 PM EDT 05/13/2024 4:20 PM EDT Iris Clancy MD LAB BLOOD ORDERABLES Fin al Result Performing Organization Address City/[facility] Co de Phone Number [facility] [address] [place] [address] [phone] * (ABNORMAL) Lipid Panel, Standard (05/29/2023 3:36 PM EDT) Triglycerides 119 <150 mg/dL [facility] Comment:Desirable Triglyceri de: less than 150 mg/dLBorderline High Triglyceride 150-199 mg/dLHigh Triglyceride: 200-499 mg/dLVery High Triglyceride: greater than or equal to 5OO mg/dL Cholesterol 126 <200 mg/dL [facility] Comment:Desirable Cholestero l: less than 200 mg/dLBorderline High Cholesterol: 200-239 mg/dLHigh Cholesterol: greater than 239 mg/dL LDL Cholesterol Calculated 67 <100 mg/dL [facility] Comment:Desirable LDL: less than 100 mg/dLNear Optimal/Above Optimal LDL: 110- 129 mg/dLBorderline High LDL: 130-159 mg/dLHigh LDL: 160-189 mg/dLVery High LDL: greater than or equal to 190 mg/dL HDL Cholesterol 36(L) >40 mg/dL [facility] Comment:Desirable HDL: great er than 40 mg/dL Note: This HDL assay may give artificially low results in patients with liver disease. Blood Venous blood specimen / Unknown 05/29/2023 3:36 PM EDT 05/29/2023 5:53 PM EDT Neetu Kyle VP RHEUMATOLOGY LAB BLOOD ORDERABLES Final Resu lt Performing Organization Address City/[facility]/ZIP Co de Phone Number [facility] [address] [place] [address] [phone] * Pap Smear (01/09/2023 3:04 PM EDT) 01/09/2023 3:04 PM EDT 01/11/2023 8:00 AM EDT Narrative [facility] - 2023 8:52 AM EDT ----- ------- Name: Ebony Pacheco Age/Sex: 32/F : 1990 Unit#: [id number] Attend Dr: Contreras Yee MD Re01/09/23 Status: DEP REF Location: [facility] Disch: ----- ------- SPEC : [id number] RECD: 01/11/23 STATUS: ELIZABETH WILBURN NUM: [id number] ELIZABETH: 01/09/23-[address] [facility] [address]: Contreras Yee MD ENTERED: 01/12/23-905 SP TYPE: Pap Smr OTHR DR: Neetu Kyle [employer] ORDERED: Pap Smear Interpretation Satisfactory for evaluation. Negative for intraepithelial lesion or malignancy. HPV mRNA E6/E7: NOT DETECTED This assay detects E6/E7 viral messenger RNA (mRNA) from 14 high-risk HPV types (16, 18, 31, 33, 35, 39, 45, 51, 52, 56, 58, 59, 66, 68) HPV testing performed by [facility], [place], [place]. See reference laboratory pion of the EMR for entire report. Clinical Information LMP: Unknown date Previous PAP test: Unknown date/findings Other history: Abnormal uterine and vaginal bleeding Material Received ThinPrep-Cervical Copies To: Neetu Kyle [employer] [address] [place] [address] Contreras Yee MD [address] [place], [place] [address]Winnie [address] [address] ----- ------- Signed (signature on file) MANNY Osorio ([facility]) 01/26/23 0852 ----- ------- END OF REPORT [facility] External Provider LAB [facility] ORDERABLES Final Result [facility] [address] [place] [phone] * HIV 1/2 ANTIGEN/ANTIBODY,FOURTH GENERATION W/RFL (03/20/2022 2:38 PM EDT) [facility] HIV-1/2 ANTIGEN AND ANTIBODIES, 4TH GENERATION W/ [...] purpose. For additional information please refer to http://education.[employer]/faq/LPS445 (This link is being provided for informational/ educational purposes only.) The performance of this assay has not been clinically validated in patients less than 2 years old. 03/20/2022 2:38 PM EDT Vince Castañeda MD LAB BLOOD ORDERABLES Final R esult [facility] Anywhere [address] from Last 3 Months or Most Recently Relevant to Health Maintenance Insurance [employer] [facility] [place] ST[place] AD[place] Care Teams Fur Stylist Relationship Specialty Start Date End Date Iris Clancy MD [address] [place] [address] PCP - General Internal Medicine 04/02/24 Aubrey Montesinos, ArbenD [address] [place] [address] Pharmacist Internal Medicine 08/07/24 Monika Chris, SUGAR [address] [place] [address] Registered Nurse Family Medicine 06/10/25 Elizabeth Mcqueen 06/10/25
--- OUTSIDE RECORDS SUMMARY | 2025-07-28 16:09 | XMS_ITS | Encounter Summary ---
Author Organization [facility] Address [address] [facility] 7t [place] [address] Care Team Providers Care Ecclesiastical Worker Name Role Phone Neetu Kyle Primary Care Provider [phone] Iris Clancy MD Primary Care Provider + Aubrey Montesinos PharmD Unavailable [phone] Monika Chris RN Unavailable [phone] Elizabeth Mcqueen Unavailable Reason for Visit * Reason Onset Date Comments Nurse Triage 04/06/2023 Encounter Details Date Type Department Care Team (Late st Contact Info) Description 04/06/2023 Telephone [facility] MEDICINE [address] [place], [place] [phone] Neetu Kyle FNP [address] [place], [place] [phone] Nurse Triage Social History Tobacco Use Types [...] Pt was sent out by ambulance to [facility] and was put in the waiting room. While in waiting room Pt reports there was a homeless man who was screaming and yelling and Pt became more anxious and called neighbor to warehouse order picker and bring home. Pt calls today with continued anxiety, Pt reports has never told PCP aboutthis because, I don't like to speak about it . Pt is desiring help at this time. Pt is not suicidal and doesn't want to hurt anyone else. Pt is advised to come to [facility] today and Pt reports that Pt lives just a few minutes away and will start walking over there. Call to Lashonda in [facility] to give inform ation regarding Pt and call to Dedra in behavioral health. [facility] PLEASE call behavioral health when Pt arrives. [...] school or work). Pt did go to [facility] for anxiety attack but left due to anxiety getting worse in wait room. The caller accepted this outcome Please contact pt at [phone] (Turkmen) documented in this encounter Plan of Treatment Upcoming Encounters Date Type Department Care Team (Late st Contact Info) Description 08/04/2025 11:45 AM EST Office Visit [facility] MEDICINE [address] [place] [address] Iris Clancy MD [address] [place] [address] 08/27/2025 12:45 PM EST Office Visit [facility] ADULT DENTAL [address] [place] [address] Mendez, Belle [address] [place] [address] documented as of this encounter Visit Diagnoses Not on filedocumented in this encounter Additional Health Concerns Assessment Noted Time PHQ-9 Depression Total Score: 19 023 11:34 AM EDT documented as of this encounter Care Teams Ecclesiastical Worker Relationship Specialty Start Date End Date Neetu Kyle FNP [address] [place] [address] PCP - General Family Medicine 09/19/22 04/01/24 Iris Clancy MD [address] [place] [address] PCP - General Internal Medicine 04/02/24 Aubrey Montesinos PharmD [address] [place] [address] Pharmacist Internal Medicine 08/07/24 Monika Chris, SUGAR [address] [place] [address] Registered Nurse Family Medicine 06/10/25 Elizabeth Mcqueen 06/10/25 documented as of this encounter
--- OUTSIDE RECORDS SUMMARY | 2025-07-28 16:09 | XMS_ITS | Encounter Summary ---
Author Organization [employer] Address [address] [facility] 7t [place] [address] Care Team Providers Care Jockey Agent Name Role Phone Iris Clancy MD Primary Care Provider + Aubrey Montesinos PharmD Unavailable [phone] Monika Chris RN Unavailable [phone] Elizabeth Mcqueen Unavailable Reason for Visit * Reason Comments Med Refill Encounter Details Date Type Department Care Team ([facility] st Contact Info) Description 12/10/2024 Refill [facility] [address] [place] [address] Iris Clancy MD [address] [place] [address] Social History Tobacco Use Types Packs/Day Years [...] Description 08/04/2025 11:45 AM EST Office Visit [facility] [address] [place] [address] Iris Clancy MD [address] [place] [phone] 08/27/2025 12:45 PM EST Office Visit [facility] ADULT DENTAL [address] [place] [phone] Mendez, Belle [address] [place] [address] documented as of this encounter Visit Diagnoses Not on filedocumented in this encounter Additional Health Concerns Assessment Noted Time PHQ-9 Depression Total Score: 4 11/14/19 25 3:23 PM EDT documented as of this encounter Care Teams Jockey Agent Relationship Specialty Start Date End Date Iris Clancy MD [address] [place] [phone] PCP - General Internal Medicine 04/02/24 Aubrey Montesinos, ArbenD [address] [place] [address], [place] [address] Pharmacist Internal Medicine 08/07/24 Monika Chris, SUGAR [address] [place] [address] Registered Nurse Family Medicine 06/10/25 Elizabeth Mcqueen 06/10/25 documented as of this encounter
--- OUTSIDE RECORDS SUMMARY | 2025-07-28 16:09 | XMS_ITS | Encounter Summary ---
Author Organization [employer] Address [address] [facility] 7t [place] [address] Care Team Providers Care Oracle Database Architect Name Role Phone Iris Clancy MD Primary Care Provider + Aubrey Montesinos PharmD Unavailable [phone] Monika Chris RN Unavailable [phone] Elizabeth Mcqueen Unavailable Reason for Visit * Reason Onset Date Comments pt1 07/06/2025 Encounter Details Date Type Department Care Team ([facility] st Contact Info) Description 07/06/2025 Telephone [facility] [address] [place], [place] [phone] Iris Clancy MD [address] [place], [place] [phone] pt1 Social History Tobacco Use Types Packs/Day [...] Y/N: Yes Provider name or facility name: [facility] Escort needed: Y/N: No Do you have a wheelchair: Y/N: No If yes- Manual or electric: Visits: (amount of visits) 2 monthly documented in this encounter Plan of Treatment Upcoming Encounters Date Type Department Care Team (Late st Contact Info) Description 08/04/2025 11:45 AM EST Office Visit [facility] [address] [place] [address] Iris Clancy MD [address] [place] [address] 08/27/2025 12:45 PM EST Office Visit [facility] ADULT DENTAL [address] [place] [address] Belle Simms [address] [place] [address] documented as of this encounter Visit Diagnoses Not on filedocumented in this encounter Additional Health Concerns Assessment Noted Time PHQ-9 Depression Total Score: 20 025 10:24 AM EST documented as of this encounter Care Teams Oracle Database Architect Relationship Specialty Start Date End Date Iris Clancy MD [address] [place] [address] [phone] PCP - General Internal Medicine 04/02/24 Aubrey Montesinos, ArbenD [address] [place] [address] Pharmacist Internal Medicine 08/07/24 Monika Chris, SUGAR [address] [place] [phone] Registered Nurse Family Medicine 06/10/25 Elizabeth Mcqueen 06/10/25 documented as of this encounter
--- OUTSIDE RECORDS SUMMARY | 2025-07-28 16:09 | XMS_ITS | Encounter Summary ---
Author Organization [employer] Address [address] [facility] 7t [place] [address] Care Team Providers Care Flexographic Press Set Up Operator Name Role Phone Neetu Kyle Primary Care Provider [phone] Iris Clancy MD Primary Care Provider + Aubrey Montesinos PharmD Unavailable [phone] Monika Chris RN Unavailable [phone] Elizabeth Mcqueen Unavailable Reason for Visit * Reason Onset Date Comments Medication Question 01/07/2024 Encounter Details Date Type Department Care Team (Late st Contact Info) Description 01/07/2024 Telephone [facility]INE [address] [place], [place] [phone] Neetu Kyle FNP [address] [place], [place] [phone] Medication Question Social History Tobacco Use Types [...] to not work. Please contact pt at [phone] documented in this encounter Plan of Treatment Upcoming Encounters Date Type Department Care Team (Late st Contact Info) Description 08/04/2025 11:45 AM EST Office Visit [facility] MED[facility]INE [address] [place] [phone] Iris Clancy MD [address] [place] [address] 08/27/2025 12:45 PM EST Office Visit [facility] ADULT DENTAL [address] [place] [address] Belle Simms [address] [place] [address] documented as of this encounter Visit Diagnoses Not on filedocumented in this encounter Additional Health Concerns Assessment Noted Time PHQ-9 Depression Total Score: 24 023 3:56 PM EDT documented as of this encounter Care Teams Flexographic Press Set Up Operator Relationship Specialty Start Date End Date Neetu Kyle FNP [address] [place], [place] [phone] PCP - General Family Medicine 09/19/22 04/01/24 Iris Clancy MD [address] [place] [address] [phone] PCP - General Internal Medicine 04/02/24 Aubrey Montesinos, ArbenD [address] [place] [address] [phone] Pharmacist Internal Medicine 08/07/24 Monika Chris, SUGAR [address] [place] [address] [phone] Registered Nurse Family Medicine 06/10/25 Elizabeth Mcqueen 06/10/25 documented as of this encounter
--- OUTSIDE RECORDS SUMMARY | 2025-07-28 16:09 | XMS_ITS ---
Author Organization [employer] Address [address] [facility] 7t [place] [address] Care Team Providers Care Computer Publisher Name Role Phone Iris Clancy MD Primary Care Provider + Aubrey Montesinos PharmD Unavailable [phone] Monika Chris RN Unavailable [phone] Elizabeth Mcqueen Unavailable CM Complex Status:Enrolled (Active) Start date:06/10/2025 Enrollment date:06/16/2025 Enrollment reason:Referred by provider Overview Patient with mulitple medical issues, struggles with depresion(has MH provider/ LINDA in chart) and has issues remembering POC, forgets to meat pickler DMEs FU with referrals, PT etc. Pleae evlauate to see if she can be helped w reminders Case Team Name Relationship Phone Monika Chris RN(Responsible Staff) Registered Nurse Continued Care and Services Coordination
--- OUTSIDE RECORDS SUMMARY | 2025-07-28 16:09 | XMS_ITS | Encounter Summary ---
Author Organization [employer] Address [address] [facility] 7t [place] [address] Care Team Providers Care Potato Seed Cutter Name Role Phone Neetu Kyle Primary Care Provider [phone] Iris Clancy MD Primary Care Provider + Aubrey Montesinos PharmD Unavailable [phone] Monika Chris RN Unavailable [phone] Elizabeth Mcqueen Unavailable Reason for Visit * Reason Onset Date Comments Letter Request 07/13/2023 Encounter Details Date Type Department Care Team (Late st Contact Info) Description 07/13/2023 Telephone [facility] [address] [place], [place] [phone] Neetu Kyle FNP [address] [place], [place] [phone] Letter Request Social History Tobacco Use Types [...] with others, in a hotel, in a penitentiary, living outside on the street, on a [...] the past 12 months, has t he [employer], gas, oil or water company threatened to [...] 11:45 AM EST Office Visit [facility] [address] [place] [address] Iris Clancy MD [address] [place] [address] 08/27/2025 12:45 PM EST Office Visit [facility] ADULT DENTAL [address] [place] [address] Belle Simms [address] [place] [address] documented as of this encounter Visit Diagnoses Not on filedocumented in this encounter Additional Health Concerns Assessment Noted Time PHQ-9 Depression Total Score: 24 023 3:56 PM EDT documented as of this encounter Care Teams Potato Seed Cutter Relationship Specialty Start Date End Date Neetu Kyle FNP [address] [place] [address] PCP - General Family Medicine 09/19/22 04/01/24 Iris Clancy MD [address] [place] [address] PCP - General Internal Medicine 04/02/24 Aubrey Montesinos, Shlipa [address] [place], [place] [phone] Pharmacist Internal Medicine 08/07/24 Monika Chris RN [address] [place] [phone] Registered Nurse Family Medicine 06/10/25 Elizabeth Mcqueen 06/10/25 documented as of this encounter
--- OUTSIDE RECORDS SUMMARY | 2025-07-28 16:09 | XMS_ITS | Encounter Summary ---
Author Organization [employer] Address 75 [facility] 7t [place] [address] Care Team Providers Care Hog Sticker Name Role Phone Neetu Kyle Primary Care Provider [phone] Iris Clancy MD Primary Care Provider + Aubrey Montesinos PharmD Unavailable [phone] Monika Chris RN Unavailable [phone] Elizabeth Mcqueen Unavailable Encounter Details Date Type Department Care Team (Late st Contact Info) Description 07/20/2023 [facility] [address] [place] [address] Neetu Kyle FNP [address] [place] [address] Social History Tobacco Use Types Packs/Day Years [...] 11:45 AM EST Office Visit [facility] MED[facility]INE [address] [place] [address] Iris Clancy MD [address] [place] [address] 08/27/2025 12:45 PM EST Office Visit [facility] ADULT DENTAL [address] [place] [phone] Belle Simms [address] [place] [address] documented as of this encounter Visit Diagnoses Not on filedocumented in this encounter Additional Health Concerns Assessment Noted Time PHQ-9 Depression Total Score: 24 023 3:56 PM EDT documented as of this encounter Care Teams Hog Sticker Relationship Specialty Start Date End Date Neetu Kyle FNP [address] [place] [address] PCP - General Family Medicine 09/19/22 04/01/24 Iris Clancy MD [address] [place] [address] PCP - General Internal Medicine 04/02/24 Aubrey Montesinos, ArbenD [address] [place] [phone] Pharmacist Internal Medicine 08/07/24 Monika Chris, SUGAR [address] [place] [phone] Registered Nurse Family Medicine 06/10/25 Elizabeth Mcqueen 06/10/25 documented as of this encounter
== END 2025-07-28 13:11 | disposition home or self-care (01) ==
LOC: HO.HOS 12:09
PROVIDERS: PCP Internal Medicine; Visit Provider Orthopaedic Surgery
DX: G56.23 Lesion of ulnar nerve, bilateral upper limbs (principal); F17.200 Nicotine dependence, unspecified, uncomplicated; R56.9 Unspecified convulsions; R25.1 Tremor, unspecified
CPT/HCPCS: 99214

== ENCOUNTER → 2025-07-28 12:08 | Outpatient (BNVA) | payer MEDICAID, SELFPAY | PROVIDERS: PCP Internal Medicine; Visit Provider Orthopaedic Surgery | DX: G56.23 Lesion of ulnar nerve, bilateral upper limbs (principal); F17.210 Nicotine dependence, cigarettes, uncomplicated; R56.9 Unspecified convulsions; R25.1 Tremor, unspecified | CPT/HCPCS: 99212 ==